=== PATIENT | female | born 1975 | race Caucasian/White ===

== ENCOUNTER 2017-07-09 14:40 | Emergency (ER) | payer MEDICAID, OTHER ==
[~2017-07-09] VITALS: Ht 152.4 cm; Wt 60.0 kg
[~2017-07-09 14:40] MED LIST: ADDE20XR PO; BUPR-197 PO; BUPR12MI SL; DOXY100T PO; HYDR-3533 PO; IBUP600 PO; KLON2TAB PO; SUBO8MIS SL; XANA1TAB6 PO
[2017-07-09 14:49] VITALS: BP 113/73; PULSE 86; RESP 14; TEMP 98.8; O2SAT 97
[2017-07-09] MEDS ORDERED: SODIUM CHLOR 0.9% 1000 ML INJ 1,000 ML IV ONE (14:52)
[2017-07-09] MEDS ORDERED: BUPR150XL PO (14:56)
[2017-07-09] MEDS ORDERED: SODIUM CHLORIDE 0.9% FLUSH 10 ML FLUSH IVF PRN (15:00)
[2017-07-09] MEDS ORDERED: NALOXONE HCL 2 MG/2 ML VIAL IVP PRN (15:00)
--- NOTE | 2017-07-09 15:01 | PD ---
HPI Chief Complaint: Medical Clearance Time Seen by Provider: 14:47 Travel History International Travel<30 days: No Contact w/Intl Traveler<30days: No Traveled to known affect area: No History of Present Illness HPI 41-year-old female presents via EMS with apparent narcotic overdose. Patient was found unresponsive with reports of active CPR prior to EMS arrival. Patient was given 5 mg Narcan with good results. Patient continues to be somewhat obtunded and tired. She is complaining of abdominal distention but no significant chest pain or difficulty breathing. She has obvious distention of the abdomen. She denies recent illness. She is a poor historian due to her current clinical condition. Patient is allergic to nicotine patch and penicillin. PFSH Past Medical History Hx Anticoagulant Therapy: No Asthma: No Autoimmune Disease: No Anxiety: Yes (PANIC ANXIETY DISORDER) Depression: Yes Cardiovascular Problems: No Chemotherapy: No COPD: No Cerebrovascular Accident: No Diabetes: No Diminished Hearing: No Fibromyalgia: Yes Headaches: Yes Hepatitis: Yes (HEP C) Musculoskeletal: Yes (FIBROMYALGIA) Respiratory: No : 1 Para: 1 Miscarriage: 0 : 0 Past Surgical History Section: Yes Other Surgery: Yes (NOSE) Social History Alcohol Use: No Tobacco Use: Yes (57 cigarettes/day) Substance Use: No Allergies-Medications (Allergen,Severity, Reaction): Coded Allergies: penicillin G (Unverified Allergy, Severe, ANAPHYLAXIS, 06/29/17) Uncoded Allergies: NICOTENE PATCH (Allergy, Severe, CAUSED AN ABSCESS, 08/23/12) Reported Meds & Prescriptions Reported Meds & Active Scripts Active Reported Wellbutrin Xl 24 HR (Bupropion HCl) 150 Mg Tab Unknown Dose PO DAILY Review of Systems ROS Limitations: Clinical Condition, Intoxication, Altered Mental Status, Poor Historian Except as stated in HPI: all other systems reviewed are Neg General / Constitutional: No: Fever Eyes: No: Visual changes HENT: No: Headaches Cardiovascular: No: Chest Pain or Discomfort Respiratory: No: Shortness of Breath Gastrointestinal: No: Abdominal Pain Genitourinary: No: Dysuria Musculoskeletal: No: Pain Skin: No Rash Neurologic: No: Weakness Psychiatric: No: Depression Endocrine: No: Polydipsia Hematologic/Lymphatic: No: Easy Bruising Physical Exam Exam Limitations: Intoxication, Altered Mental Status, Poor Historian Narrative GENERAL: Patient appears obtunded, arousable. Seems somewhat confused. No she' s in the hospital and her name. Patient states she does not recall taking drugs. SKIN: Warm and dry. Normal color. Normal turgor. No signs of trauma. HEAD: Atraumatic. Normocephalic. Nontender EYES: Pupils equal and round. No scleral icterus. No injection or drainage. ENT: No nasal bleeding or discharge. Mucous membranes pink and moist. Poor dental health. Pharynx clear. Airway patent. NECK: Trachea midline. Neck is supple. CARDIOVASCULAR: Regular rate and rhythm. No murmurs appreciated RESPIRATORY: No accessory muscle use. Clear to auscultation. Breath sounds equal bilaterally. GASTROINTESTINAL: Abdomen soft, non-tender, moderate generalized distention. Hepatic and splenic margins not palpable. MUSCULOSKELETAL: Extremities without clubbing, cyanosis, or edema. No obvious deformities. NEUROLOGICAL: Awake and alert. No obvious cranial nerve deficits. Motor grossly within normal limits. Five out of 5 muscle strength in the arms and legs. Normal speech. PSYCHIATRIC: Patient denies suicidal ideation. Further eval is deferred due to the patient's intoxicated status. Data Data Last Documented VS Vital Signs Date Time Temp Pulse Resp B/P (MAP) Pulse Ox O2 Delivery O2 Flow Rate FiO2 07/09/17 14:49 98.8 86 14 113/73 (86) 97 Orders Orders Electrocardiogram (07/09/17 14:52) Complete Blood Count With Diff (07/09/17 14:52) Comprehensive Metabolic Panel (07/09/17 14:52) Prothrombin Time / Inr (Pt) (07/09/17 14:52) Act Partial Throm Time (Ptt) (07/09/17 14:52) Urinalysis - C+S If Indicated (07/09/17 14:52) Chest, Single Ap (07/09/17 14:52) Iv Access Insert/Monitor (07/09/17 14:52) Cath For Specimen (07/09/17 14:52) Ecg Monitoring (07/09/17 14:52) Oximetry (07/09/17 14:52) Naloxone Inj (Narcan Inj) (07/09/17 15:00) Sodium Chloride 0.9% Flush (Ns Flush) (07/09/17 15:00) Sodium Chlor 0.9% 1000 Ml Inj (Ns 1000 M (07/09/17 14:52) Drug Screen, Random Urine (07/09/17 14:52) Ed Urine Pregnancytest Poc (07/09/17 14:52) Abdomen, Flat & Upright (07/09/17 ) Ct Abd/Pel W Iv Contrast(Rout) (07/09/17 15:44) Oral Contrast - Adult (07/09/17 16:00) Diatrizoate Liq (Md Orantes Liq) (07/09/17 17:12) Labs Laboratory Tests Test 07/09/17 15:13 White Blood Count 6.3 TH/MM3 Red Blood Count 3.96 MIL/MM3 Hemoglobin 12.1 GM/DL Hematocrit 36.6 % Mean Corpuscular Volume 92.3 FL Mean Corpuscular Hemoglobin 30.4 PG Mean Corpuscular Hemoglobin Concent 33.0 % Red Cell Distribution Width 14.7 % Platelet Count 177 TH/MM3 Mean Platelet Volume 8.1 FL Neutrophils (%) (Auto) 75.2 % Lymphocytes (%) (Auto) 16.3 % Monocytes (%) (Auto) 7.9 % Eosinophils (%) (Auto) 0.4 % Basophils (%) (Auto) 0.2 % Neutrophils # (Auto) 4.7 TH/MM3 Lymphocytes # (Auto) 1.0 TH/MM3 Monocytes # (Auto) 0.5 TH/MM3 Eosinophils # (Auto) 0.0 TH/MM3 Basophils # (Auto) 0.0 TH/MM3 CBC Comment DIFF FINAL Differential Comment Prothrombin Time 10.3 SEC Prothromb Time International Ratio 0.9 RATIO Activated Partial Thromboplast Time 26.0 SEC Blood Urea Nitrogen 12 MG/DL Creatinine 0.74 MG/DL Random Glucose 191 MG/DL Total Protein 7.1 GM/DL Albumin 3.4 GM/DL Calcium Level 8.3 MG/DL Alkaline Phosphatase 78 U/L Aspartate Amino Transf (AST/SGOT) 45 U/L Alanine Aminotransferase (ALT/SGPT) 31 U/L Total Bilirubin 0.8 MG/DL Sodium Level 140 MEQ/L Potassium Level 3.4 MEQ/L Chloride Level 107 MEQ/L Carbon Dioxide Level 23.5 MEQ/L Anion Gap 10 MEQ/L Estimat Glomerular Filtration Rate 86 ML/MIN MDM Medical Decision Making Medical Screen Exam Complete: Yes Emergency Medical Condition: Yes Differential Diagnosis Apparent overdose. Altered mental status. Need for Narcan. Abdominal distention. Narrative Course Patient is somewhat obtunded due to her clinical status. Repeat dose of Narcan 2 mg IV is administered. Labs ordered including CBC, CMP, and urinalysis. Coagulation studies ordered. Urine drug screen is ordered. Urine ordered. Chest x-ray and EKG are ordered. Abdominal x-ray flat and upright is ordered. Saline bolus of 1000 mL normal saline is ordered. EKG shows a normal sinus rhythm without ST changes. CBC is unremarkable. Coagulation studies are unremarkable. CMP significant for potassium 3.4, random glucose 191, calcium 8.3, AST slightly elevated at 45. Chest x-ray shows no significant findings or free air. Abdominal series shows a large air-filled ileus. Findings were discussed with Dr. Montano, who recommends placing an NG tube for decompression of the abdomen, and the CT scan. After one hour, the patient passed a lot of free air from her abdomen with relief of symptoms and distention. Patient is requesting to leave at this time. She is medically stable. She has been observed for approximately 3 hours with no recurrence of somnolence or decreased level of consciousness. Patient was discussed with Dr. Camara who indeed felt she was stable for discharge. Patient is to follow-up with Kwab[facility] for her substance abuse. Laboratory Tests Test 07/09/17 15:13 White Blood Count 6.3 TH/MM3 Red Blood Count 3.96 MIL/MM3 Hemoglobin 12.1 GM/DL Hematocrit 36.6 % Mean Corpuscular Volume 92.3 FL Mean Corpuscular Hemoglobin 30.4 PG Mean Corpuscular Hemoglobin Concent 33.0 % Red Cell Distribution Width 14.7 % Platelet Count 177 TH/MM3 Mean Platelet Volume 8.1 FL Neutrophils (%) (Auto) 75.2 % Lymphocytes (%) (Auto) 16.3 % Monocytes (%) (Auto) 7.9 % Eosinophils (%) (Auto) 0.4 % Basophils (%) (Auto) 0.2 % Neutrophils # (Auto) 4.7 TH/MM3 Lymphocytes # (Auto) 1.0 TH/MM3 Monocytes # (Auto) 0.5 TH/MM3 Eosinophils # (Auto) 0.0 TH/MM3 Basophils # (Auto) 0.0 TH/MM3 CBC Comment DIFF FINAL Differential Comment Prothrombin Time 10.3 SEC Prothromb Time International Ratio 0.9 RATIO Activated Partial Thromboplast Time 26.0 SEC Blood Urea Nitrogen 12 MG/DL Creatinine 0.74 MG/DL Random Glucose 191 MG/DL Total Protein 7.1 GM/DL Albumin 3.4 GM/DL Calcium Level 8.3 MG/DL Alkaline Phosphatase 78 U/L Aspartate Amino Transf (AST/SGOT) 45 U/L Alanine Aminotransferase (ALT/SGPT) 31 U/L Total Bilirubin 0.8 MG/DL Sodium Level 140 MEQ/L Potassium Level 3.4 MEQ/L Chloride Level 107 MEQ/L Carbon Dioxide Level 23.5 MEQ/L Anion Gap 10 MEQ/L Estimat Glomerular Filtration Rate 86 ML/MIN who felt that she is indeed stable for discharge at this time. Diagnosis Primary Impression: Opiate or related narcotic overdose Qualified Codes: T40.601A - Poisoning by unspecified narcotics, accidental ( unintentional), initial encounter Referrals: [facility] (Out patient) Patient Instructions: General Instructions, Narcotic Abuse (ED) Additional Instructions: After one hour, the patient passed a lot of free air from her abdomen with relief of symptoms and distention. Patient is requesting to leave at this time. She is medically stable. She has been observed for approximately 3 hours with no recurrence of somnolence or decreased level of consciousness. Patient was discussed with Dr. Camara who indeed felt she was stable for discharge. Patient is to follow-up with Kwab[facility] Ellis for her substance abuse. Med/Other Pt SpecificInfo: No Meds Exist/No RX given Condition: Stable Mick Torres Jul 09, 2017 15:01
[2017-07-09 15:39] LABS: AUTOMATED NEUTROPHIL # 4.7 TH/MM3 (1.8-7.7); BASOPHIL % 0.2 % (0.0-2.0); EOSINOPHIL % 0.4 % (0.0-4.0); HEMATOCRIT 36.6 % (35.0-46.0); HEMO FLAGS DIFF FINAL; LYMPH % 16.3 % (9.0-44.0); MEAN CELL VOLUME 92.3 FL (80.0-100.0); MEAN CORPUSCULAR HEMOGLOBIN 30.4 PG (27.0-34.0); MONO % 7.9 % (0.0-8.0); NEUT % 75.2 % (16.0-70.0); PLATELET COUNT 177 TH/MM3 (150-450); RED BLOOD COUNT 3.96 MIL/MM3 (4.00-5.30); RED CELL DISTRIBUTION WIDTH 14.7 % (11.6-17.2); WHITE BLOOD COUNT 6.3 TH/MM3 (4.0-11.0)
[2017-07-09 15:42] LABS: INTERNATIONAL NORMALIZED RATIO 0.9 RATIO; PROTHROMBIN TIME - PATIENT 10.3 SEC (9.8-11.6)
[2017-07-09 15:48] LABS: ALT (GPT) 31 U/L (10-53); ANION GAP 10 MEQ/L (5-15); AST (GOT) 45 U/L (15-37); BICARBONATE 23.5 MEQ/L (21.0-32.0); BLOOD UREA NITROGEN 12 MG/DL (7-18); CHLORIDE 107 MEQ/L (98-107); GLOMERULAR FILTRATION RATE 86 ML/MIN (>89); POTASSIUM 3.4 MEQ/L (3.5-5.1); SODIUM (NA) 140 MEQ/L (136-145)
[2017-07-09 15:50] LABS: ALKALINE PHOSPHATASE 78 U/L (45-117); TOTAL BILIRUBIN ADULT 0.8 MG/DL (0.2-1.0)
--- NOTE | 2017-07-09 16:04 | RADRPT ---
EXAM DATE/TIME: 07/09/2017 15:19 [facility] COMPARISON: CHEST SINGLE AP, August 08, 2016, 18:05. INDICATIONS : Syncopal episode today MEDICAL HISTORY : None. SURGICAL HISTORY : None. ENCOUNTER: Initial ACUITY: 1 day PAIN SCORE: 0/10 LOCATION: Bilateral chest FINDINGS: Portable AP view of the chest demonstrates a normal-sized cardiac silhouette. No effusion, consolidat ion, or pneumothorax is visualized. The bones and soft tissues demonstrate no acute abnormality. CONCLUSION: No acute abnormality. Gus Hamilton MD on July 09, 2017 at 16:02 Board Certified Radiologist. This report was verified electronically.
--- NOTE | 2017-07-09 16:05 | RADRPT ---
EXAM DATE/TIME: 07/09/2017 15:20 [facility] COMPARISON: No previous studies available for comparison. INDICATIONS : Abdominal pain starting today MEDICAL HISTORY : None. SURGICAL HISTORY : None. ENCOUNTER: Initial ACUITY: 1 day PAIN SCORE: 10/10 LOCATION: Bilateral abdomen FINDINGS: Supine and upright views of the abdomen demonstrate diffuse gaseous distention of the small bowel and colon. There is stool in the rectum. No organomegaly or concerning calcifications are identified. Tio faith demonstrate no acute finding. Upright image demonstrates no free intraperitoneal air or significa nt air-fluid level. CONCLUSION: Diffuse gaseous distention of the small bowel and colon. The pattern is suggestive of ileus. Less lik clark would be distal colon obstruction. There are no features to indicate small bowel obstruction. Gus Hamilton MD on July 09, 2017 at 16:02 Board Certified Radiologist. This report was verified electronically.
[2017-07-09] MEDS ORDERED: DIATRIZOATE MEGLUM/DIATRIZOATE SOD 9 ML CUP ONE (17:12)
[2017-07-09 17:40] VITALS: BP 116/79; PULSE 66; RESP 18; O2SAT 100
--- NOTE | 2017-07-10 18:36 | EKG ---
Date Performed: 07/09/2017 Time Performed: 15:08:22 PTAGE: 41 years EKG: Sinus rhythm NORMAL ECG PREVIOUS TRACING : 08/13/2015 17.31 Compared to prior tracing no significant change DOCTOR: Inocencio Marcos Interpretating Date/Time 07/10/2017 18:35:17
[2017-09-03] MEDS ORDERED: CEFT2INJ2 IV (13:46)
== END 2017-07-09 18:06 | disposition home or self-care (01) ==
LOC: NEPC 14:40
DX: T40.601A Poisoning by unspecified narcotics, accidental (unintentional), initial encounter (principal); R14.0 Abdominal distension (gaseous); M79.7 Fibromyalgia; B19.20 Unspecified viral hepatitis C without hepatic coma
CPT/HCPCS: 71010; 74020; 80053; 84703; 85025; 85610; 85730; 93005; 96360; 96361; 99285; J7030; Q9963

== ENCOUNTER 2017-08-19 10:01 | Emergency (ER) | payer SELFPAY ==
[~2017-08-19] VITALS: Ht 162.6 cm; Wt 50.0 kg
[~2017-08-19 10:01] MED LIST changes: -ADDE20XR PO; -BUPR-197 PO; -BUPR12MI SL; +BUPR150XL PO; -DOXY100T PO; -HYDR-3533 PO; -IBUP600 PO; -KLON2TAB PO; -SUBO8MIS SL; -XANA1TAB6 PO
[2017-08-19 10:02] VITALS: BP 101/70; PULSE 128; RESP 24; TEMP 97.6; O2SAT 97
[2017-08-19] MEDS ORDERED: ADDE30TA PO (10:23)
[2017-08-19] MEDS ORDERED: BUPR150XL PO (10:23)
[2017-08-19] MEDS ORDERED: CLIN1CAP6 PO (10:43)
[2017-08-19 11:20] LABS: HEMATOCRIT 35.1 % (35.0-46.0); MEAN CORPUSCULAR HEMOGLOBIN 31.5 PG (27.0-34.0); PLATELET COUNT 158 TH/MM3 (150-450); RED CELL DISTRIBUTION WIDTH 15.1 % (11.6-17.2); WHITE BLOOD COUNT 14.1 TH/MM3 (4.0-11.0)
[2017-08-19 11:23] LABS: HEMO FLAGS AUTO DIFF
--- NOTE | 2017-08-19 11:29 | PD ---
HPI Chief Complaint: Skin Problem Time Seen by Provider: 10:12 Travel History International Travel<30 days: No Contact w/Intl Traveler<30days: No Traveled to known affect area: No History of Present Illness HPI Ms. De La Cruz is a 41-year-old female with past medical history of ADHD, clinical depression, anxiety, fibromyalgia presenting today with pain in her left foot. She states that 3 days ago, Wednesday night, she began to have pain in her left foot. She has past diagnosis of fibromyalgia which she manages with diet and exercise so she figured this pain was her typical arthralgia. However the next morning her foot started swelling and the veins were popping out in her foot. After seeing that she thought she had an infection so she sanitized a safety plan with bleach and poked her foot with it. That did not work so she took tried a thumb tack also sanitized with bleach which released thick smelly blood. No pus. She did the same thing the next day (yesterday). She says the blood wasn't as smelly. She feels like something is running up her femoral vein. She thinks an infection is going up her vein to her kidneys and her brain. She has been unable to move around and has been carried around the house by her boyfriend. She also took some of her friend's [place]. She request IV antibiotics and pain medication. She admits to a history of IV drug use in the past. She used black tar heroin, but since having her last child a year ago she has not used. PFSH Past Medical History Hx Anticoagulant Therapy: No Asthma: No Autoimmune Disease: No Anxiety: Yes (PANIC ANXIETY DISORDER) Depression: Yes Cardiovascular Problems: No Chemotherapy: No COPD: No Cerebrovascular Accident: No Diabetes: No Diminished Hearing: No Fibromyalgia: Yes Headaches: Yes Hepatitis: Yes (HEP C) Musculoskeletal: Yes (FIBROMYALGIA) Respiratory: No ?: Not : 2 Para: 2 Miscarriage: 0 : 0 Past Surgical History Section: Yes Other Surgery: Yes (NOSE) Social History Alcohol Use: No Tobacco Use: Yes (/2 ppd) Substance Use: Yes Allergies-Medications (Allergen,Severity, Reaction): Coded Allergies: penicillin G (Unverified Allergy, Severe, ANAPHYLAXIS, 08/19/17) Reported Meds & Prescriptions Reported Meds & Active Scripts Active Clindamycin (Clindamycin HCl) 300 Mg Cap 300 Mg PO TID 10 Days Reported Wellbutrin Xl 24 HR (Bupropion HCl) 150 Mg Tab 150 Mg PO DAILY Adderall (Amphetamine-Dextroamphetamine) 30 Mg Tab 30 Mg PO BID Avoid late evening doses. Space doses at least 4 to 6 hours if more than once/day dosing. Review of Systems Genitourinary: Positive: Flank Pain Musculoskeletal: Positive: Arthralgias Physical Exam Narrative GENERAL: Well-nourished, well-developed patient. SKIN: Warm and dry. Left foot: erythema, edema, and warmth of medial and lateral aspect of foot. Several pin prick sized scabs on medial and lateral foot. HEAD: Normocephalic. EYES: No scleral icterus. No injection or drainage. CARDIOVASCULAR: Regular rate and rhythm without murmurs, gallops, or rubs. RESPIRATORY: Breath sounds equal bilaterally. No accessory muscle use. GASTROINTESTINAL: Abdomen soft, epigastric tenderness, nondistended. EXTREMITIES: No cyanosis, or edema. NEUROLOGICAL: Awake, alert. Non-focal. Data Data Last Documented VS Vital Signs Date Time Temp Pulse Resp B/P (MAP) Pulse Ox O2 Delivery O2 Flow Rate FiO2 08/19/17 10:02 97.6 128 24 101/70 (80) 97 Orders Orders Complete Blood Count With Diff (08/19/17 10:38) Blood Culture (08/19/17 10:38) Ketorolac Inj (Toradol Inj) (08/19/17 12:00) Clindamycin Inj (Cleocin Inj) (08/19/17 12:00) Vascular Access Team Consult/P PRN (08/19/17 11:25) Vascular Access Team Consult/P PRN (08/19/17 11:26) Vascular Poc Ultrasound (08/19/17 ) Ondansetron Inj (Zofran Inj) (08/19/17 12:37) Prochlorperazine Inj (Compazine Inj) (08/19/17 12:45) Labs Laboratory Tests Test 08/19/17 11:00 White Blood Count 14.1 TH/MM3 Red Blood Count 3.90 MIL/MM3 Hemoglobin 12.3 GM/DL Hematocrit 35.1 % Mean Corpuscular Volume 90.0 FL Mean Corpuscular Hemoglobin 31.5 PG Mean Corpuscular Hemoglobin Concent 35.0 % Red Cell Distribution Width 15.1 % Platelet Count 158 TH/MM3 Mean Platelet Volume 8.9 FL CBC Comment AUTO DIFF Differential Total Cells Counted 100 Neutrophils % (Manual) 78 % Band Neutrophils % 12 % Lymphocytes % 6 % Monocytes % 4 % Neutrophils # (Manual) 12.7 TH/MM3 Differential Comment FINAL DIFF MANUAL Atypical Lymphocytes % MDM Medical Decision Making Medical Screen Exam Complete: Yes Emergency Medical Condition: Yes Differential Diagnosis cellulitis vs abscess vs contusion Narrative Course 41yo WF with a PMH of fibromyalgia, depression, ADHD, and anxiety presenting with left foot cellulitis. Physical exam shows edema, erythema, and warmth of left foot. -CBC -IM toradol for pain -IV Clinda x1 -Rx for Clindamycin to take as outpatient Seen and discussed with- Signed out to Dr. De Luna Diagnosis Primary Impression: Cellulitis of left foot Patient Instructions: Cellulitis (ED), General Instructions Med/Other Pt SpecificInfo: Prescription(s) given Scripts Ketorolac (Ketorolac) 10 Mg Tab 10 MG PO BID for Pain Management for 5 Days, #10 TAB 0 Refills Prov: Alona Hoyos MD R1 08/19/17 Clindamycin (Clindamycin) 300 Mg Cap 300 MG PO TID for Infection for 10 Days, #30 CAP 0 Refills Prov: Alona Hoyos MD R1 08/19/17 Disposition: 01 DISCHARGE HOME Condition: Stable Alona Hoyos MD R1 Aug 19, 2017 10:58
[2017-08-19] MEDS ORDERED: CLINDAMYCIN INJ 900 MG in SODIUM CHLORIDE 0.9% INJ 100 ML IV ONE (12:00)
[2017-08-19] MEDS ORDERED: KETOROLAC TROMETHAMINE 60 MG/2 ML (IM) VIAL IM ONE (12:00)
[2017-08-19 12:01] LABS: BANDS 12 % (0-6); NEUTROPHIL # MANUAL DIFF 12.7 TH/MM3 (1.8-7.7); POLYS (SEG NEUTROPHILS) 78 % (16-70); SCAN/DIFF FINAL DIFF MANUAL; WBC DIFF SAMPLE 100
--- NOTE | 2017-08-19 12:22 | PD ---
Physical Exam Date Seen by Provider: Aug 19, 2017 Time Seen by Provider: 11:00 Narrative I am seeing this patient with Dr. Alona Hoyos, family practice resident. The patient presents today with complaints of redness and pain to her lateral and medial left foot. Patient states that she poked it with a needle because she thought she had old in veins. She states that when she poked the vein, she noted some foul-smelling venous blood coming from the wound. She denies any fevers, chills. She states that the redness is painful and it makes it difficult for her to walk. She denies any calf tenderness. She does report that the pain goes from her foot all the way to the top of her head. She is concerned she may have bacteria in her blood. The patient does have a history of substance abuse. She denies any IVD drug use at this point. Data Data Last Documented VS Vital Signs Date Time Temp Pulse Resp B/P (MAP) Pulse Ox O2 Delivery O2 Flow Rate FiO2 08/19/17 10:02 97.6 128 24 101/70 (80) 97 Orders Orders Complete Blood Count With Diff (08/19/17 10:38) Blood Culture (08/19/17 10:38) Ketorolac Inj (Toradol Inj) (08/19/17 12:00) Clindamycin Inj (Cleocin Inj) (08/19/17 12:00) Vascular Access Team Consult/P PRN (08/19/17 11:25) Vascular Access Team Consult/P PRN (08/19/17 11:26) Vascular Poc Ultrasound (08/19/17 ) Ondansetron Inj (Zofran Inj) (08/19/17 12:37) Prochlorperazine Inj (Compazine Inj) (08/19/17 12:45) Labs Laboratory Tests Test 08/19/17 11:00 White Blood Count 14.1 TH/MM3 Red Blood Count 3.90 MIL/MM3 Hemoglobin 12.3 GM/DL Hematocrit 35.1 % Mean Corpuscular Volume 90.0 FL Mean Corpuscular Hemoglobin 31.5 PG Mean Corpuscular Hemoglobin Concent 35.0 % Red Cell Distribution Width 15.1 % Platelet Count 158 TH/MM3 Mean Platelet Volume 8.9 FL CBC Comment AUTO DIFF Differential Total Cells Counted 100 Neutrophils % (Manual) 78 % Band Neutrophils % 12 % Lymphocytes % 6 % Monocytes % 4 % Neutrophils # (Manual) 12.7 TH/MM3 Differential Comment FINAL DIFF MANUAL Atypical Lymphocytes % MDM Medical Record Reviewed: Yes Supervised Visit with BRIDGET: No Narrative Course 41-year-old female presents with left foot redness and pain. The patient has what appears to be obvious cellulitis. The patient has been given 900 mg of IVD clindamycin. She'll be discharged with oral clindamycin 10 days. The patient is also been given IVD Toradol. She'll be discharged with a prescription for Toradol for 5 days. She is instructed to keep it elevated. She's also instructed to return for wound check in 24 hours. Diagnosis Primary Impression: Cellulitis of left foot Patient Instructions: General Instructions, Cellulitis (ED) Additional Instruction: Return if worse. Repeat wound check in 24-36 hours. Med/Other Pt SpecificInfo: Prescription(s) given Scripts Ketorolac (Ketorolac) 10 Mg Tab 10 MG PO BID for Pain Management for 5 Days, #10 TAB 0 Refills Prov: Alona Hoyos MD R1 08/19/17 Clindamycin (Clindamycin) 300 Mg Cap 300 MG PO TID for Infection for 10 Days, #30 CAP 0 Refills Prov: Alona Hoyos MD R1 08/19/17 Disposition: 01 DISCHARGE HOME Condition: Stable Robby De Luna MD Aug 19, 2017 12:22
[2017-08-19] MEDS ORDERED: ONDANSETRON HCL 4 MG/2 ML VIAL ONE (12:37)
[2017-08-19] MEDS ORDERED: PROCHLORPERAZINE INJ 10 MG/2 ML VIAL IV PUSH ONE (12:45)
[2017-08-19] MEDS ORDERED: KETO10 PO (14:06)
[2017-08-19 15:41] VITALS: BP 94/66; PULSE 97; RESP 18; TEMP 98.3; O2SAT 99
[2017-09-03] MEDS ORDERED: CEFT2INJ2 IV (13:46)
== END 2017-08-19 17:38 | disposition home or self-care (01) ==
LOC: NEPE 10:01
DX: L03.116 Cellulitis of left lower limb (principal); Z72.0 Tobacco use; B95.0 Streptococcus, group A, as the cause of diseases classified elsewhere; B96.89 Other specified bacterial agents as the cause of diseases classified elsewhere
CPT/HCPCS: 76937; 85007; 85027; 87040; 87186; 87205; 96365; 96372; 96375; 99285; J0780; J1885; J2405

== ENCOUNTER 2017-08-26 17:18 | Inpatient (IN) | payer SELFPAY ==
[~2017-08-26] VITALS: Ht 162.6 cm; Wt 55.0 kg
[~2017-08-26 17:18] MED LIST changes: +ADDE30TA PO; +CLIN1CAP6 PO; +KETO10 PO
[2017-08-26 17:30] VITALS: BP 111/80; PULSE 103; RESP 18; TEMP 98.3; O2SAT 100
[2017-08-26] MEDS ORDERED: ACETAMINOPHEN 325 MG TAB PO ONE (18:45)
--- NOTE | 2017-08-26 19:28 | RADRPT ---
EXAM DATE/TIME: 08/26/2017 19:03 [facility] COMPARISON: No previous studies available for comparison. INDICATIONS : Left leg swelling. MEDICAL HISTORY : Fibromyalgia. Depression. Anxiety. Hepatitis C. Heroin abuse. SURGICAL HISTORY : section. ENCOUNTER: Initial ACUITY: 2 months PAIN SCORE: 7/10 LOCATION: Left leg. TECHNIQUE: Venous ultrasound of the leg was performed from the inguinal ligament to the proximal calf. Real-maria esther e, color Doppler and spectral tracing, compression and augmentation techniques were used. FINDINGS: There is extensive deep venous thrombosis extending from the right common femoral vein through the bi furcation of the right peroneal vein. There is some blood flow above and below the deep venous thromb osis. CONCLUSION: 1. Extensive deep venous thrombosis involving the right femoral vein and popliteal vein. Neel Cantu MD on August 26, 2017 at 19:24 Board Certified Radiologist. This report was verified electronically.
[2017-08-26 19:29] LABS: AUTOMATED NEUTROPHIL # 7.3 TH/MM3 (1.8-7.7); BASOPHIL % 0.3 % (0.0-2.0); EOSINOPHIL # 0.1 TH/MM3 (0-0.4); EOSINOPHIL % 1.2 % (0.0-4.0); HEMATOCRIT 33.4 % (35.0-46.0); HEMO FLAGS DIFF FINAL; LYMPH % 20.6 % (9.0-44.0); LYMPHOCYTE # 2.1 TH/MM3 (1.0-4.8); MEAN CELL VOLUME 90.5 FL (80.0-100.0); MEAN CORPUSCULAR HEMOGLOBIN 30.3 PG (27.0-34.0); MEAN CORPUSCULAR HGB CONC 33.5 % (32.0-36.0); MONO % 7.3 % (0.0-8.0); NEUT % 70.6 % (16.0-70.0); PLATELET COUNT 664 TH/MM3 (150-450); RED BLOOD COUNT 3.69 MIL/MM3 (4.00-5.30); RED CELL DISTRIBUTION WIDTH 15.6 % (11.6-17.2); WHITE BLOOD COUNT 10.3 TH/MM3 (4.0-11.0)
[2017-08-26] MEDS ORDERED: VANCOMYCIN INJ 1,000 MG in SODIUM CHLOR 0.9% 250 ML INJ 250 ML IV ONE (19:45)
--- NOTE | 2017-08-26 19:50 | PD ---
HPI Chief Complaint: Skin Problem Time Seen by Provider: 18:08 Travel History International Travel<30 days: No Contact w/Intl Traveler<30days: No Traveled to known affect area: No History of Present Illness HPI 41-year-old female with history of IVDA presents to the emergency room after being called and told that she had 4/4 positive blood cultures and needed to return for IV antibiotics. Patient was seen in the emergency room on August 19 and diagnosed with cellulitis of the left foot. Discharged with prescription for clindamycin. Patient states she has been taking 4 pills a day since discharge without improvement symptoms. She reports "low-grade" fevers but has not actually taken her temperature. She has associated nausea, decreased appetite, and malaise. She was called several days ago and told to come in but had no ride. States she finally called ambulance today because the pain in her leg was too severe. She has been taking 4-5 BC powders daily without any relief in symptoms. Patient has not been able to ambulate and has had to crawl to the bathroom or have her boyfriend carry her. Patient admitted to me that initial onset of symptoms occurred a few days after injecting methamphetamine and heroin into her left lower extremity. Patient only takes medication for depression and anxiety. PFSH Past Medical History Hx Anticoagulant Therapy: No ADD: Yes Asthma: No Autoimmune Disease: No Anxiety: Yes (PANIC ANXIETY DISORDER) Depression: Yes Cardiovascular Problems: No Chemotherapy: No COPD: No Cerebrovascular Accident: No Diabetes: No Diminished Hearing: No Fibromyalgia: Yes Headaches: Yes Hepatitis: Yes (HEP C) Musculoskeletal: Yes (FIBROMYALGIA) Respiratory: No ?: Unknown LMP: august 2017 : 2 Para: 2 Miscarriage: 0 : 0 Past Surgical History Section: Yes Other Surgery: Yes (NOSE) Social History Alcohol Use: No Tobacco Use: Yes (pack a day ) Substance Use: Yes (opiods ) Allergies-Medications (Allergen,Severity, Reaction): Coded Allergies: penicillin G (Unverified Allergy, Severe, ANAPHYLAXIS, 08/26/17) Reported Meds & Prescriptions Reported Meds & Active Scripts Active Clindamycin (Clindamycin HCl) 300 Mg Cap 300 Mg PO TID 10 Days Reported Wellbutrin Xl 24 HR (Bupropion HCl) 150 Mg Tab 150 Mg PO DAILY Adderall (Amphetamine-Dextroamphetamine) 30 Mg Tab 30 Mg PO BID Avoid late evening doses. Space doses at least 4 to 6 hours if more than once/day dosing. Review of Systems Except as stated in HPI: all other systems reviewed are Neg Physical Exam Narrative GENERAL: Well-nourished, well-developed female in no acute distress. Afebrile. SKIN: Focused skin assessment warm/dry. No significant erythema, induration, or fluctuance. HEAD: Normocephalic. EYES: No scleral icterus. No injection or drainage. NECK: Supple, trachea midline. No JVD or lymphadenopathy. CARDIOVASCULAR: Regular rate and rhythm without murmurs, gallops, or rubs. RESPIRATORY: Breath sounds equal bilaterally. No accessory muscle use. MSK: Left lower extremity with 2+ pitting edema. Bounding 2+ dorsalis pedis pulse. Positive Homans test. Full range of motion of left lower extremity. Data Data Last Documented VS Vital Signs Date Time Temp Pulse Resp B/P (MAP) Pulse Ox O2 Delivery O2 Flow Rate FiO2 08/26/17 17:30 98.3 103 18 111/80 (90) 100 Orders Orders Electrocardiogram (08/26/17 18:35) Complete Blood Count With Diff (08/26/17 18:35) Comprehensive Metabolic Panel (08/26/17 18:35) Lactic Acid Sepsis Protocol (08/26/17 18:35) Blood Culture (08/26/17 18:35) Ecg Monitoring (08/26/17 18:35) Iv Access Insert/Monitor (08/26/17 18:35) Acetaminophen (Tylenol) (08/26/17 18:45) Us Leg Venous Doppler (08/26/17 ) Vancomycin Inj (Vancomycin Inj) (08/26/17 19:45) Enoxaparin Inj (Lovenox Inj) (08/26/17 20:15) Admit Order (Ed Use Only) (08/26/17 ) Body Bumper / Telemetry LOLLY.Q8H (08/26/17 20:33) Vital Signs (Adult) Q4H (08/26/17 20:33) Diet Heart Healthy (08/27/17 Breakfast) Activity Oob With Assistance (08/26/17 20:33) Notify Dr: Other (08/26/17 20:33) Labs Laboratory Tests Test 08/26/17 19:00 White Blood Count 10.3 TH/MM3 Red Blood Count 3.69 MIL/MM3 Hemoglobin 11.2 GM/DL Hematocrit 33.4 % Mean Corpuscular Volume 90.5 FL Mean Corpuscular Hemoglobin 30.3 PG Mean Corpuscular Hemoglobin Concent 33.5 % Red Cell Distribution Width 15.6 % Platelet Count 664 TH/MM3 Mean Platelet Volume 7.1 FL Neutrophils (%) (Auto) 70.6 % Lymphocytes (%) (Auto) 20.6 % Monocytes (%) (Auto) 7.3 % Eosinophils (%) (Auto) 1.2 % Basophils (%) (Auto) 0.3 % Neutrophils # (Auto) 7.3 TH/MM3 Lymphocytes # (Auto) 2.1 TH/MM3 Monocytes # (Auto) 0.8 TH/MM3 Eosinophils # (Auto) 0.1 TH/MM3 Basophils # (Auto) 0.0 TH/MM3 CBC Comment DIFF FINAL Differential Comment Blood Urea Nitrogen 13 MG/DL Creatinine 0.66 MG/DL Random Glucose 98 MG/DL Total Protein 8.4 GM/DL Albumin 2.6 GM/DL Calcium Level 9.5 MG/DL Alkaline Phosphatase 103 U/L Aspartate Amino Transf (AST/SGOT) 21 U/L Alanine Aminotransferase (ALT/SGPT) 20 U/L Total Bilirubin 0.3 MG/DL Sodium Level 138 MEQ/L Potassium Level 3.6 MEQ/L Chloride Level 106 MEQ/L Carbon Dioxide Level 24.6 MEQ/L Anion Gap 7 MEQ/L Estimat Glomerular Filtration Rate 99 ML/MIN Lactic Acid Level 0.9 mmol/L MDM Medical Decision Making Medical Screen Exam Complete: Yes Emergency Medical Condition: Yes Medical Record Reviewed: Yes Differential Diagnosis Cellulitis, positive blood cultures, sepsis, DVT, abscess Narrative Course 41-year-old female with history of IVDA presents to the emergency room after being called and told that she has 4/4 positive blood cultures. Patient was called several days ago but could not find a ride to the emergency room. She has felt unwell since discharge but has been taking clindamycin as directed. Patient admitted to me that she injected in her foot prior to onset of left lower extremity pain and edema. Reports associated "low-grade" fevers. She is afebrile and well-appearing in the emergency room. Vital signs stable. Physical exam reveals 2+ pitting edema of the left knee with bounding 2+ dorsalis pedis pulse. Patient has full range of motion of the leg extreme tenderness to palpation and positive Homans sign. Ultrasound shows extensive femoral and popliteal DVT. EKG shows sinus tachycardia with a rate of 104. No ST changes. Previous blood cultures show sensitivity to vancomycin. New cultures and sepsis protocol ordered. CBC is unremarkable. Patient was started on vancomycin and given 50 subcutaneous Lovenox. Patient will be admitted for bacteremia and DVT. Physician Communication Physician Communication I spoke to Dr. Jeffers who agrees to accept this patient to his service. Diagnosis Primary Impression: Bacteremia Additional Impression: DVT (deep venous thrombosis) Qualified Codes: I82.412 - Acute embolism and thrombosis of left femoral vein Condition: Stable Tarah Wheeler Aug 26, 2017 19:50
[2017-08-26 20:09] LABS: ANION GAP 7 MEQ/L (5-15); AST (GOT) 21 U/L (15-37); BICARBONATE 24.6 MEQ/L (21.0-32.0); BLOOD UREA NITROGEN 13 MG/DL (7-18); CHLORIDE 106 MEQ/L (98-107); GLOMERULAR FILTRATION RATE 99 ML/MIN (>89); POTASSIUM 3.6 MEQ/L (3.5-5.1); SODIUM (NA) 138 MEQ/L (136-145)
[2017-08-26 20:10] LABS: ALT (GPT) 20 U/L (10-53)
[2017-08-26 20:12] LABS: ALKALINE PHOSPHATASE 103 U/L (45-117); TOTAL BILIRUBIN ADULT 0.3 MG/DL (0.2-1.0)
[2017-08-26] MEDS ORDERED: ENOXAPARIN SODIUM 60 MG/0.6 ML SYRINGE SQ ONE (20:15)
[2017-08-26] MEDS ORDERED: NALOXONE HCL 0.4 MG/ML AMP IV PUSH PRN (20:45)
[2017-08-26] MEDS ORDERED: ENOXAPARIN SODIUM 40 MG/0.4 ML SYRINGE SQ SCH (20:45)
[2017-08-26] MEDS ORDERED: SODIUM CHLORIDE 0.9% FLUSH 10 ML FLUSH IV FLUSH PRN (20:45)
[2017-08-26] MEDS ORDERED: MAGNESIUM HYDROXIDE SUSP 30 ML CUP PO PRN (20:45)
[2017-08-26] MEDS ORDERED: oxyCODONE/ACETAMINOPHEN 5 MG/325 MG TAB PO PRN (20:45)
[2017-08-26] MEDS ORDERED: ONDANSETRON HCL 4 MG/2 ML VIAL IVP PRN (20:45)
[2017-08-26] MEDS ORDERED: Vancomycin Consult Pharmacy 1 EA OTHER SCH (20:45)
--- NOTE | 2017-08-26 21:05 | HHI.HP ---
HPI Service [facility] Primary Care Physician No Primary Care Physician Admission Diagnosis bacteremia, DVT Diagnoses: Chief Complaint: left leg pain, positive blood cultures Travel History International Travel<30 Days: No Contact w/Intl Traveler <30 Da: No Traveled to Known Affected Are: No History of Present Illness Written by FARIDEH Perez acting as scribe for Dr. Riley] on 08/26/17 at 20:57. 41 y/o female with a history of IVDA, depression, and HEP C was called and told to come brought back to the ED because she had 4/4 positive blood cultures with Group A beta strep and Viridans Streptococcus on 08/19/17. She also is complaining of pain in her left leg. She states she has been having off and on fever and chills at home. She does say she has also been having shortness of breath lately. She is currently not having shortness of breath. Review of Systems Except as stated in HPI: all other systems reviewed are Neg Past Family Social History Past Medical History IVDA Hep C Depression Past Surgical History C Section Reported Medications Reported Meds & Active Scripts Active Clindamycin (Clindamycin HCl) 300 Mg Cap 300 Mg PO TID 10 Days Reported Wellbutrin Xl 24 HR (Bupropion HCl) 150 Mg Tab 150 Mg PO DAILY Adderall (Amphetamine-Dextroamphetamine) 30 Mg Tab 30 Mg PO BID Avoid late evening doses. Space doses at least 4 to 6 hours if more than once/day dosing. Allergies: Coded Allergies: penicillin G (Unverified Allergy, Severe, ANAPHYLAXIS, 08/26/17) Active Ordered Medications Current Medications Medications (Trade) Dose Ordered Sig/Sherita Route Start Time Stop Time Status Last Admin Sodium Chloride 1,000 ml @ 100 mls/hr Q10H IV 08/26/17 20:37 (NS Flush) 2 ml UNSCH PRN IV FLUSH 08/26/17 20:45 (NS Flush) 2 ml BID IV FLUSH 08/26/17 21:00 (Zofran Inj) 4 mg Q6H PRN IVP 08/26/17 20:45 (Percocet 5-325 Mg) 1 tab Q6H PRN PO 08/26/17 20:45 (Percocet 10-325 Mg) 1 tab Q6H PRN PO 08/26/17 20:45 (Narcan Inj) 0.4 mg UNSCH PRN IV PUSH 08/26/17 20:45 (Candy-Colace) 1 tab BID PO 08/26/17 21:00 (Milk Of Magnesia Liq) 30 ml Q12H PRN PO 08/26/17 20:45 (Lovenox Inj) 50 mg Q12H SQ 08/27/17 08:00 Vancomycin HCl 1000 mg/Sodium Chloride 250 ml @ 250 mls/hr Q12H IV 08/27/17 10:00 UNV Pharmacy Profile Note 0 ml @ 0 mls/hr UNSCH OTHER 08/26/17 20:45 UNV Family History Dad: CVA Mom: DM Social History Tobacco use: 1 PPD Alcohol use: Denies Illicit drug use: IVDA Physical Exam Vital Signs Vital Signs Date Time Temp Pulse Resp B/P (MAP) Pulse Ox O2 Delivery O2 Flow Rate FiO2 08/26/17 17:30 98.3 103 18 111/80 (90) 100 Physical Exam GENERAL: This is a thin, unkept patient in no apparent distress. SKIN: Left lower extremity with redness and swelling HEAD: Atraumatic. Normocephalic. EYES: Pupils equal round and reactive. ENT: Nose without bleeding, purulent drainage or septal hematoma. Airway patent. Poor dental hygiene NECK: Trachea midline. No JVD CARDIOVASCULAR: Regular rate and rhythm without murmurs, gallops, or rubs. RESPIRATORY: Clear to auscultation. Breath sounds equal bilaterally. No wheezes , rales, or rhonchi. GASTROINTESTINAL: Abdomen soft, non-tender, nondistended. No hepato-splenomegaly , or palpable masses. No guarding. MUSCULOSKELETAL: Left lower extremity edema No joint tenderness, effusion, or edema noted. Left calf tenderness. NEUROLOGICAL: Awake and alert. Motor and sensory grossly within normal limits. Normal speech. Laboratory Laboratory Tests Test 08/26/17 19:00 White Blood Count 10.3 Red Blood Count 3.69 Hemoglobin 11.2 Hematocrit 33.4 Mean Corpuscular Volume 90.5 Mean Corpuscular Hemoglobin 30.3 Mean Corpuscular Hemoglobin Concent 33.5 Red Cell Distribution Width 15.6 Platelet Count 664 Mean Platelet Volume 7.1 Neutrophils (%) (Auto) 70.6 Lymphocytes (%) (Auto) 20.6 Monocytes (%) (Auto) 7.3 Eosinophils (%) (Auto) 1.2 Basophils (%) (Auto) 0.3 Neutrophils # (Auto) 7.3 Lymphocytes # (Auto) 2.1 Monocytes # (Auto) 0.8 Eosinophils # (Auto) 0.1 Basophils # (Auto) 0.0 CBC Comment DIFF FINAL Differential Comment Blood Urea Nitrogen 13 Creatinine 0.66 Random Glucose 98 Total Protein 8.4 Albumin 2.6 Calcium Level 9.5 Alkaline Phosphatase 103 Aspartate Amino Transf (AST/SGOT) 21 Alanine Aminotransferase (ALT/SGPT) 20 Total Bilirubin 0.3 Sodium Level 138 Potassium Level 3.6 Chloride Level 106 Carbon Dioxide Level 24.6 Anion Gap 7 Estimat Glomerular Filtration Rate 99 Lactic Acid Level 0.9 Date/Time Source Procedure Growth Status 08/26/17 19:00 Blood Peripheral Aerobic Blood Culture Pending Received 08/26/17 19:00 Blood Peripheral Anaerobic Blood Culture Pending Received Result Diagram: 08/26/17189908/26/171899 Caprini VTE Risk Assessment Caprini VTE Risk Assessment: Mod/High Risk (score >= 2) Caprini Risk Assessment Model Point Value = 1 Point Value = 2 Point Value = 3 Point Value = 5 Age 41-60 Minor surgery BMI > 25 kg/m2 Swollen legs Varicose veins or History of unexplained or recurrent spontaneous Oral contraceptives or hormone replacement Sepsis (< 1 month) Serious lung disease, including pneumonia (< 1 month) Abnormal pulmonary function Acute myocardial infarction Congestive heart failure (< 1 month) History of inflammatory bowel disease Medical patient at bed rest Age 61-74 Arthroscopic surgery Major open surgery (> 45 min) Laparoscopic surgery (> 45 min) Malignancy Confined to bed (> 72 hours) Immobilizing plaster cast Central venous access Age >= 75 History of VTE Family history of VTE Factor V Leiden Prothrombin [id number] Lupus anticoagulant Anticardiolipin antibodies Elevated serum homocysteine Heparin-induced thrombocytopenia Other congenital or acquired thrombophilia Stroke (< 1 month) Elective arthroplasty Hip, pelvis, or leg fracture Acute spinal cord injury (< 1 month) Prophylaxis Regimen Total Risk Factor Score Risk Level Prophylaxis Regimen 0-1 Low Early ambulation 2 Moderate Order ONE of the following: *Sequential Compression Device (SCD) *Heparin 5000 units SQ BID 3-4 Higher Order ONE of the following medications: *Heparin 5000 units SQ TID *Enoxaparin/Lovenox 40 mg SQ daily (WT < 150 kg, CrCl > 30 mL/min) *Enoxaparin/Lovenox 30 mg SQ daily (WT < 150 kg, CrCl > 10-29 mL/min) *Enoxaparin/Lovenox 30 mg SQ BID (WT < 150 kg, CrCl > 30 mL/min) AND/OR *Sequential Compression Device (SCD) 5 or more Highest Order ONE of the following medications: *Heparin 5000 units SQ TID (Preferred with Epidurals) *Enoxaparin/Lovenox 40 mg SQ daily (WT < 150 kg, CrCl > 30 mL/min) *Enoxaparin/Lovenox 30 mg SQ daily (WT < 150 kg, CrCl > 10-29 mL/min) *Enoxaparin/Lovenox 30 mg SQ BID (WT < 150 kg, CrCl > 30 mL/min) AND *Sequential Compression Device (SCD) Assessment and Plan Problem List: (1) DVT (deep venous thrombosis) ICD Code: I82.409 - Acute embolism and thrombosis of unspecified deep veins of unspecified lower extremity Status: Acute (2) Bacteremia ICD Code: R78.81 - Bacteremia Status: Acute Assessment and Plan 41 y/o female with a history of IVDA and HEP C was called and told to come brought back to the ED because she had 4/4 positive blood cultures with Group A beta strep and Viridans Streptococcus on 08/19/17. Bacteremia, 4/4 positive blood cultures on 08/19/17 resulted in Group A beta strep and Viridans Streptococcus -IV antibiotics Vancomycin and Zosyn -2D echo ordered to r/o endocarditis -Consult ID for recommendations -Blood cultures pending -HIV testing, patient wants to be tested for it DVT, acute, Left US Lower extremity reviewed and shows DVT to the left femoral vein and popliteal vein -Lovenox therapeutic dose ordered. -Pain management with PO Percocet Depression, chronic -Resume home medications Tobacco abuse and IVDA abuse -Encouraged to quit -Nicotine patch ordered DVT prophylaxis: Lovenox This note was transcribed by [email or web address] [Ghazal Panchal]. I, Dr. Geovany Jeffers personally performed the history, physical exam, and medical decision making; and confirmed the accuracy of the information in the transcribed note. Authenticated by Dr. Geovany Jeffers on 08/26/17 at 21:59. Discussed Condition With Patient and ED physician Physician Certification 2 Midnight Certification Type: Admission for Inpatient Services Order for Inpatient Services The services are ordered in accordance with Medicare regulations or non- Medicare payer requirements, as applicable. In the case of services not specified as inpatient-only, they are appropriately provided as inpatient services in accordance with the 2-midnight benchmark. Estimated LOS (days): 3 days is the estimated time the patient will need to remain in the hospital, assuming treatment plan goals are met and no additional complications. Post-Hospital Plan: Home Problem Qualifiers (1) DVT (deep venous thrombosis): Qualified Codes: I82.412 - Acute embolism and thrombosis of left femoral vein Ghazal Panchal Aug 26, 2017 21:05 Geovany Jeffers MD Aug 26, 2017 21:59
[2017-08-26] MEDS: SODIUM CHLOR 0.9% 1000 ML INJ 1,000 ML IV SCH (21:13)
[2017-08-26] MEDS: SODIUM CHLORIDE 0.9% FLUSH 10 ML FLUSH IV FLUSH SCH (21:13)
[2017-08-26] MEDS ORDERED: NICOTINE 21 MG/24 HR PATCH T-DERMAL ONE (21:45)
[2017-08-26 21:54] VITALS: BP 111/68; PULSE 100; RESP 20; TEMP 97.4; O2SAT 100
[2017-08-26] MEDS: DOCUSATE SODIUM 50 MG/SENNA 8.6 MG TAB PO SCH (22:29)
[2017-08-26] MEDS: oxyCODONE/ACETAMINOPHEN 10 MG/325 MG TAB PO PRN (22:30)
[2017-08-27] VITALS (8 sets, daily range): BP systolic 112–127; BP diastolic 69–84; PULSE 83–99; RESP 18–20; TEMP 97.6–98.7; O2SAT 98–100
[2017-08-27] MEDS: SODIUM CHLOR 0.9% 1000 ML INJ 1,000 ML IV SCH ×3 (04:41→22:04)
[2017-08-27] MEDS: oxyCODONE/ACETAMINOPHEN 10 MG/325 MG TAB PO PRN ×3 (04:41→17:33)
--- NOTE | 2017-08-27 07:08 | EKG ---
Date Performed: 08/26/2017 Time Performed: 18:48:54 PTAGE: 41 years EKG: SINUS TACHYCARDIA ABNORMAL RHYTHM ECG PREVIOUS TRACING : 07/09/2017 15.08 No significant change from previous tracing noted. DOCTOR: Espinoza Bell Interpretating Date/Time 08/27/2017 07:06:47
[2017-08-27 07:42] LABS: AUTOMATED NEUTROPHIL # 7.2 TH/MM3 (1.8-7.7); BASOPHIL # 0.1 TH/MM3 (0-0.2); BASOPHIL % 0.6 % (0.0-2.0); EOSINOPHIL # 0.1 TH/MM3 (0-0.4); EOSINOPHIL % 1.3 % (0.0-4.0); HEMATOCRIT 31.6 % (35.0-46.0); HEMO FLAGS DIFF FINAL; LYMPH % 18.2 % (9.0-44.0); LYMPHOCYTE # 1.8 TH/MM3 (1.0-4.8); MEAN CELL VOLUME 92.1 FL (80.0-100.0); MEAN CORPUSCULAR HEMOGLOBIN 31.3 PG (27.0-34.0); MONO % 5.9 % (0.0-8.0); PLATELET COUNT 591 TH/MM3 (150-450); RED BLOOD COUNT 3.43 MIL/MM3 (4.00-5.30); RED CELL DISTRIBUTION WIDTH 15.9 % (11.6-17.2); WHITE BLOOD COUNT 9.7 TH/MM3 (4.0-11.0)
[2017-08-27] MEDS ORDERED: VANCOMYCIN INJ 1,000 MG in SODIUM CHLOR 0.9% 250 ML INJ 250 ML IV SCH (08:00)
[2017-08-27 08:43] LABS: BLOOD UREA NITROGEN 15 MG/DL (7-18)
[2017-08-27 08:44] LABS: ALKALINE PHOSPHATASE 88 U/L (45-117); ALT (GPT) 19 U/L (10-53); AST (GOT) 17 U/L (15-37); GLOMERULAR FILTRATION RATE 85 ML/MIN (>89)
[2017-08-27 08:45] LABS: ANION GAP 6 MEQ/L (5-15); BICARBONATE 26.1 MEQ/L (21.0-32.0); CHLORIDE 107 MEQ/L (98-107); POTASSIUM 3.4 MEQ/L (3.5-5.1); SODIUM (NA) 139 MEQ/L (136-145); TOTAL BILIRUBIN ADULT 0.3 MG/DL (0.2-1.0)
[2017-08-27] MEDS: REMOVE OLD PATCH T-DERMAL SCH (09:00)
--- NOTE | 2017-08-27 09:42 | PD.CONS ---
History of Present Illness Service Infectious disease Consult Requested By Dr Little Jeffers Reason for Consult Evaluate patient with positive blood culture Primary Care Physician No Primary Care Physician Diagnoses: History of Present Illness Patient seen and examined. Records reviewed. Patient is a 41-year-old female, called into the hospital for further evaluation and treatment of her positive blood culture. Her problems started around August after she injected on her left foot. She started having problem with swelling and redness, and she went to the emergency room and have that evaluated. She was diagnosed to have cellulitis. She was afebrile at that time, and had an elevated WBC. Blood cultures were done at that time, she was given IV clindamycin, and was sent home on oral clindamycin. She stated that the pain and swelling on her left lower extremity did not improve, and it started getting worse. She has not been able to do any kind of ambulation because of the pain. She admits to fevers although it is not documented, and she was having sweats. Patient has been using IV drugs on and off prior to the onset of her problem. Denies any sore throat or any respiratory complaint. No nausea or vomiting, or any urinary complaint. She's been having body malaise and now myalgias. The blood cultures done in the emergency room on August 19 came back positive with group a strep, and viridans streptococcus. He was called back to return to the hospital for further evaluation and treatment. Patient has not had any fever since admission. Her WBC has improved. 2 blood cultures were repeated and those are still pending. Infectious disease consultation has been requested to evaluate the patient Review of Systems Constitutional: COMPLAINS OF: Fever, Chills, Night Sweats Eyes: DENIES: Eye pain Ears, nose, mouth, throat: DENIES: Nasal discharge, Oral lesions, Throat pain, Ear Pain, Sinus Pain Respiratory: DENIES: Cough, Shortness of breath Cardiovascular: COMPLAINS OF: Lower Extremity Edema, DENIES: Chest pain, Palpitations, Syncope, Dyspnea on Exertion Gastrointestinal: DENIES: Abdominal pain, Diarrhea, Nausea, Vomiting, Difficulty Swallowing Genitourinary: DENIES: Urinary frequency, Urgency, Dysuria Musculoskeletal: COMPLAINS OF: Joint pain, Muscle aches, Joint Swelling Integumentary: DENIES: Rash Hematologic/lymphatic: DENIES: Lymphadenopathy Immunologic/allergic: DENIES: Urticaria Neurologic: DENIES: Headache, Localized weakness Psychiatric: COMPLAINS OF: Anxiety Past Family Social History Allergies: Coded Allergies: penicillin G (Verified Allergy, Mild, rash, 08/27/17) patient has taken Keflex in the past without any problem Past Medical History IVDA Hep C Depression Past Surgical History section Multiple repair of lacerations Infections and abscesses in her upper extremity from previous IV drug use Reported Medications I attest that I obtained, updated or reviewed the home and current medications. Reported Meds & Active Scripts Active Reported Wellbutrin Xl 24 HR (Bupropion HCl) 150 Mg Tab 150 Mg PO DAILY Adderall (Amphetamine-Dextroamphetamine) 30 Mg Tab 30 Mg PO BID Avoid late evening doses. Space doses at least 4 to 6 hours if more than once/day dosing. Xanax 1 BID-TID Active Ordered Medications Wellbutrin Clindamycin Lovenox MOM Nicotine patch Zofran Percocet Candy-Colace Vancomycin Family History Dad: CVA Mom: DM Social History Tobacco use: 1 PPD Alcohol use: Denies Illicit drug use: DAVID Has a boyfriend Had 2 children that she gave up for adoption Physical Exam Vital Signs Vital Signs Date Time Temp Pulse Resp B/P (MAP) Pulse Ox O2 Delivery O2 Flow Rate FiO2 08/27/17 08:00 98.3 96 19 125/82 (96) 100 08/27/17 04:00 97.6 92 18 123/78 (93) 99 08/27/17 00:00 98.6 95 20 112/72 (85) 99 08/26/17 21:54 97.4 100 20 111/68 (82) 100 08/26/17 21:26 08/26/17 17:30 98.3 103 18 111/80 (90) 100 Physical Exam GENERAL: Patient is a thin, well-developed CF, awake and alert, not in respiratory distress. SKIN: Warm and dry. No generalized rash, no ecchymoses and no evidence of embolic lesions. HEAD: Atraumatic. Normocephalic. No temporal wasting, or tenderness. EYES: Amesti conjunctiva. No petechia or hemorrhage. Pupils equal, round and reactive to light. Extraocular movements full and intact. No scleral icterus. No injection or drainage. EARS, NOSE AND THROAT: Nose without bleeding or purulent nasal discharge. No sinus tenderness. Mucous membranes pink and moist. No oral lesions noted. Poor dentition NECK: Trachea midline. Supple and not tender, no meningeal signs CARDIOVASCULAR: Regular rate and rhythm. No murmurs, rubs or gallops heard RESPIRATORY: Clear to auscultation. Breath sounds equal bilaterally. No rales , wheezing or rhonchi ABDOMEN: Soft, non-tender, nondistended. Bowel sounds present and normoactive. No guarding. No rebound. No organomegaly. EXTREMITIES: No clubbing, cyanosis. LLE larger compared the RLE. There seems to be ankle effusion, has limited ROM. Minimal erythema over the ankle. The whole L leg/ankle/threading machine tender on palpation, (+) calf tenderness. Well perfused and warm. Scars in her L thigh from previous laceration, with repair , scars in both upper arms NEUROLOGICAL: Awake and alert. Cranial nerves grossly intact. Motor grossly within normal limits. PSYCHIATRIC: Normal affect, calm and cooperative. LINE: No evidence of infection Laboratory Laboratory Tests Test 08/26/17 19:00 08/27/17 06:08 White Blood Count 10.3 9.7 Red Blood Count 3.69 3.43 Hemoglobin 11.2 10.7 Hematocrit 33.4 31.6 Mean Corpuscular Volume 90.5 92.1 Mean Corpuscular Hemoglobin 30.3 31.3 Mean Corpuscular Hemoglobin Concent 33.5 34.0 Red Cell Distribution Width 15.6 15.9 Platelet Count 664 591 Mean Platelet Volume 7.1 7.5 Neutrophils (%) (Auto) 70.6 74.0 Lymphocytes (%) (Auto) 20.6 18.2 Monocytes (%) (Auto) 7.3 5.9 Eosinophils (%) (Auto) 1.2 1.3 Basophils (%) (Auto) 0.3 0.6 Neutrophils # (Auto) 7.3 7.2 Lymphocytes # (Auto) 2.1 1.8 Monocytes # (Auto) 0.8 0.6 Eosinophils # (Auto) 0.1 0.1 Basophils # (Auto) 0.0 0.1 CBC Comment DIFF FINAL DIFF FINAL Differential Comment Blood Urea Nitrogen 13 15 Creatinine 0.66 0.75 Random Glucose 98 113 Total Protein 8.4 7.5 Albumin 2.6 2.1 Calcium Level 9.5 8.5 Alkaline Phosphatase 103 88 Aspartate Amino Transf (AST/SGOT) 21 17 Alanine Aminotransferase (ALT/SGPT) 20 19 Total Bilirubin 0.3 0.3 Sodium Level 138 139 Potassium Level 3.6 3.4 Chloride Level 106 107 Carbon Dioxide Level 24.6 26.1 Anion Gap 7 6 Estimat Glomerular Filtration Rate 99 85 Lactic Acid Level 0.9 Date/Time Source Procedure Growth Status 08/26/17 19:00 Blood Peripheral Aerobic Blood Culture Pending Received 08/26/17 19:00 Blood Peripheral Anaerobic Blood Culture Pending Received Result Diagram: 08/27/17 0608 08/27/17 0608 Imaging RADIOLOGY STUDIES/FILMS REVIEWED Lower Extremity Ultrasound 08/26/17 0000 Signed Impressions: Service Date/Time: , August 26, 2017 19:03 - CONCLUSION: 1. Extensive deep venous thrombosis involving the right femoral vein and popliteal vein. Neel Cantu MD Assessment and Plan Assessment and Plan IMPRESSION GAS and Viridans Strep bacteremia from L foot cellulitis, ?IE, has Hx IVDU - repeat BC pending LLE DVT ?L ankle effusion Known active IVDU Rash/Hives with PCN, has tolerated Keflex RECOMMENDATION Change vanco to Rocephin Follow repeat BC MRI L ankle to evaluate if with fluid - may need tap if (+), or ortho evaluation Continue po Clinda for now On Rx for LLE DVT Monitor progress Will determine course of Abx once work-up is completed I will follow along with you Thank you for this consultation Discussed Condition With Explained plan to the patient ADDENDUM: Received call from Dr Alireza Alvarado (Radiologist) MRI L ankle with fluid in joint with enhancement very suspicious for infection\ Will consult orthiopedic for evaluation with high suspicion for infection especially since she had BC with Strep pyogenes and Strep viridans, and has Hx IVDU Get echo if not ordered yet Parisa Badillo MD Aug 27, 2017 09:42
[2017-08-27] MEDS ORDERED: INFLUENZA VIRUS VACCINE (QUADRIVALENT) 0.5 ML SYR IM ONE (10:00)
[2017-08-27] MEDS ORDERED: PNEUMOCOCCAL POLYVALENT INJ 25 MCG/0.5 ML SYR IM ONE (10:00)
[2017-08-27] MEDS: DEXTROAMPHETAMINE/AMPHETAMINE 30 MG TAB PO SCH ×2 (10:30→22:03)
[2017-08-27] MEDS: cefTRIAXone INJ 2,000 MG in SODIUM CHLORIDE 0.9% INJ 100 ML IV SCH (10:40)
[2017-08-27] MEDS: NICOTINE 21 MG/24 HR PATCH T-DERMAL SCH (10:42)
[2017-08-27] MEDS: buPROPion HCL 150 MG SUSTAINED RELEASE TAB PO SCH (10:45)
[2017-08-27] MEDS: CLINDAMYCIN 150 MG CAP PO SCH ×3 (10:45→17:33)
[2017-08-27] MEDS: ENOXAPARIN SODIUM 60 MG/0.6 ML SYRINGE SQ SCH ×2 (10:45→22:04)
[2017-08-27] MEDS: SODIUM CHLORIDE 0.9% FLUSH 10 ML FLUSH IV FLUSH SCH ×2 (10:46→21:00)
[2017-08-27] MEDS: DOCUSATE SODIUM 50 MG/SENNA 8.6 MG TAB PO SCH ×2 (10:46→22:03)
--- NOTE | 2017-08-27 11:03 | HHI.PR ---
Subjective Remarks Follow-up GAS and Strep Viridans bacteremia/left lower extremity DVT 08/27/17-patient seen and examined; she complains of left lower extremity pain. Currently afebrile Objective Vitals Vital Signs Date Time Temp Pulse Resp B/P (MAP) Pulse Ox O2 Delivery O2 Flow Rate FiO2 08/27/17 08:00 98.3 96 19 125/82 (96) 100 08/27/17 04:00 97.6 92 18 123/78 (93) 99 08/27/17 00:00 98.6 95 20 112/72 (85) 99 08/26/17 21:54 97.4 100 20 111/68 (82) 100 08/26/17 21:26 08/26/17 17:30 98.3 103 18 111/80 (90) 100 I/O 08/26/17 08/26/17 08/26/17 08/27/17 08/27/17 08/27/17 07:00 15:00 23:00 07:00 15:00 23:00 Intake Total 250 ml 1000 ml 120 ml Balance 250 ml 1000 ml 120 ml Intake Oral 120 ml IV Total 250 ml 1000 ml Result Diagram: 08/27/17 0608 08/27/17 0608 Imaging Last Impressions Lower Extremity Ultrasound 08/26/17 0000 Signed Impressions: Service Date/Time: August 19:03 - CONCLUSION: 1. Extensive deep venous thrombosis involving the right femoral vein and popliteal vein. Neel Cantu MD Objective Remarks GENERAL: NAD SKIN: Warm and dry. HEAD: Normocephalic. EYES: No scleral icterus. No injection or drainage. NECK: Supple, trachea midline. No JVD or lymphadenopathy. CARDIOVASCULAR: Regular rate and rhythm without murmurs, gallops, or rubs. RESPIRATORY: Breath sounds equal bilaterally. No accessory muscle use. GASTROINTESTINAL: Abdomen soft, non-tender, nondistended. MUSCULOSKELETAL: No cyanosis, or edema. TTP LLE BACK: Nontender without obvious deformity. No CVA tenderness. A/P Problem List: (1) DVT (deep venous thrombosis) ICD Code: I82.409 - Acute embolism and thrombosis of unspecified deep veins of unspecified lower extremity Status: Acute (2) Bacteremia ICD Code: R78.81 - Bacteremia Status: Acute Assessment and Plan 41-year-old female with Group A strep and Viridans strep Bacteremia, 4/4 positive blood cultures on 08/19 -Currently on Rocephin IV daily and Cleocin per infectious disease specialist -2D echo ordered to r/o endocarditis -Monitor repeat blood culture -HIV testing, patient wants to be tested for it DVT, acute, Left US Lower extremity reviewed and shows DVT to the left femoral vein and popliteal vein -MRI Left ankle for further evaluation. Consult orthopedic surgery if positive -Lovenox subcutaneous every 12. Change to OAC within next 24 hours; Xarelto -Pain management with PO Percocet Depression, chronic -Continue home medications Tobacco abuse and IVDA abuse -Counseled to quit -Nicotine patch ordered DVT prophylaxis: Lovenox Problem Qualifiers (1) DVT (deep venous thrombosis): Qualified Codes: I82.412 - Acute embolism and thrombosis of left femoral vein Eric Peña MD Aug 27, 2017 11:03
--- NOTE | 2017-08-27 12:56 | ECHRPT ---
Indication: vegetations CONCLUSIONS The left ventricular systolic function is normal with an estimated ejection fraction in the range of 55-60%. Trace mitral valve regurgitation. There is trace tricuspid valve regurgitation. BP: / HR: Rhythm: MEASUREMENTS (Male / Female) Normal Values Technical Quality:Fair 2D ECHO LV Diastolic Diameter PLAX 3.6 cm 4.2 - 5.9 / 3.9 - 5.3 cm LV Systolic Diameter PLAX 2.7 cm IVS Diastolic Thickness 0.7 cm 0.6 - 1.0 / 0.6 - 0.9 cm LVPW Diastolic Thickness 0.9 cm 0.6 - 1.0 / 0.6 - 0.9 cm LV Relative Wall Thickness 0.4 RV Internal Dim ED PLAX 2.6 cm FINDINGS LEFT VENTRICLE The left ventricular systolic function is normal with an estimated ejection fraction in the range of 55-60%. Normal left ventricular size. No regional wall motion abnormalities are present. RIGHT VENTRICLE Normal right ventricular size and systolic function. LEFT ATRIUM The left atrial size is normal. RIGHT ATRIUM The right atrial size is normal. ATRIAL SEPTUM Normal atrial septal thickness. AORTA The aortic root and proximal ascending aorta are normal in size on limited imaging. MITRAL VALVE Structurally normal mitral valve. No mitral valve stenosis. Trace mitral valve regurgitation. AORTIC VALVE Trileaflet aortic valve. No aortic valve regurgitation. No aortic valve stenosis. TRICUSPID VALVE Structurally normal tricuspid valve. There is trace tricuspid valve regurgitation. No tricuspid valve stenosis. PULMONARY VALVE The pulmonary valve is not well visualized. VESSELS The inferior vena cava is normal in size. PERICARDIUM No pericardial effusion. Murphy Thurston DO (Electronically Signed) Final Date:27 August 2017 12:56
--- NOTE | 2017-08-27 13:07 | RADRPT ---
EXAM DATE/TIME: 08/27/2017 12:12 [facility] COMPARISON: No previous studies available for comparison. INDICATIONS : Septic joint. Swelling and pain over the left ankle mortise. CONTRAST: 10 cc Omniscan (gadodiamide) IV MEDICAL HISTORY : Endocarditis. SURGICAL HISTORY : None. ENCOUNTER: Subsequent ACUITY: 2 weeks PAIN SCORE: 6/10 LOCATION: Left ankle TECHNIQUE: Multiplanar, multisequence MRI examination was performed without contrast and after the intravenous a dministration of gadolinium. FINDINGS: There is generalized subjacent edema with prominent joint effusion evident. The joint effusion does show intense enhancement suspicious for inflammatory process. There is no evidence for osteomyelitis There is mild induration along the tendon sheaths of both the medial and lateral sides of the ankle. CONCLUSION: Findings suspicious for septic joint. joint. Aspiration is suggested. Negative for myelitis. Carlos Alvarado MD FACR on August 27, 2017 at 13:01 Board Certified Radiologist. This report was verified electronically.
[2017-08-27] MEDS ORDERED: GADODIAMIDE PF 287 MG/ML 10 ML VIAL (for RAD MRI) IVCONTRAST ONE (15:25)
[2017-08-28] VITALS (7 sets, daily range): BP systolic 108–121; BP diastolic 56–82; PULSE 75–92; RESP 16–18; TEMP 96.9–98.3; O2SAT 99–100
[2017-08-28] MEDS: oxyCODONE/ACETAMINOPHEN 10 MG/325 MG TAB PO PRN ×5 (00:02→23:49)
[2017-08-28] MEDS: REMOVE OLD PATCH T-DERMAL SCH (09:00)
[2017-08-28] MEDS: SODIUM CHLORIDE 0.9% FLUSH 10 ML FLUSH IV FLUSH SCH ×2 (09:00→20:27)
[2017-08-28] MEDS: ENOXAPARIN SODIUM 60 MG/0.6 ML SYRINGE SQ SCH ×2 (10:50→20:27)
[2017-08-28] MEDS: CLINDAMYCIN 150 MG CAP PO SCH ×3 (10:50→18:33)
[2017-08-28] MEDS: DOCUSATE SODIUM 50 MG/SENNA 8.6 MG TAB PO SCH ×2 (10:51→20:27)
[2017-08-28] MEDS: DEXTROAMPHETAMINE/AMPHETAMINE 30 MG TAB PO SCH ×2 (10:51→20:27)
[2017-08-28] MEDS: NICOTINE 21 MG/24 HR PATCH T-DERMAL SCH (10:51)
[2017-08-28] MEDS: buPROPion HCL 150 MG SUSTAINED RELEASE TAB PO SCH (10:51)
[2017-08-28] MEDS: cefTRIAXone INJ 2,000 MG in SODIUM CHLORIDE 0.9% INJ 100 ML IV SCH (10:56)
--- NOTE | 2017-08-28 11:41 | HHI.PR ---
Subjective Remarks Follow-up GAS and Strep Viridans bacteremia/left lower extremity DVT Left lower extremity pain is fairly controlled by meds. No fever or chills. Denies chest pain or sob. No n/v/d/c. Objective Vitals Vital Signs Date Time Temp Pulse Resp B/P (MAP) Pulse Ox O2 Delivery O2 Flow Rate FiO2 08/28/17 08:00 96.9 85 18 121/82 (95) 100 08/28/17 04:00 97.8 75 18 118/71 (87) 100 08/28/17 03:17 97.7 92 18 108/56 (73) 100 08/27/17 21:05 98.4 95 18 127/74 (91) 100 08/27/17 20:00 90 08/27/17 16:00 98.7 91 19 113/69 (84) 98 08/27/17 14:00 83 08/27/17 12:00 97.9 99 19 125/84 (98) 100 I/O 08/27/17 08/27/17 08/27/17 08/28/17 08/28/17 08/28/17 06:59 14:59 22:59 06:59 14:59 22:59 Intake Total 1000 ml 1220 ml 1200 ml Output Total 1000 ml Balance 1000 ml 1220 ml 200 ml Intake Oral 120 ml 1200 ml IV Total 1000 ml 1100 ml Output Urine Total 1000 ml # Bowel Movements 1 Result Diagram: 08/27/17 0608 08/27/17 0608 Imaging Last Impressions Ankle MRI 08/27/17 0000 Signed Impressions: Service Date/Time: Sunday, August 27, 2017 12:12 - CONCLUSION: Findings suspicious for septic joint. joint. Aspiration is suggested. Negative for myelitis. Carlos Alvarado MD FACR Lower Extremity Ultrasound 08/26/17 0000 Signed Impressions: Service Date/Time: August 19:03 - CONCLUSION: 1. Extensive deep venous thrombosis involving the right femoral vein and popliteal vein. Neel Cantu MD Objective Remarks GENERAL: NAD SKIN: Warm and dry. HEAD: Normocephalic. EYES: No scleral icterus. No injection or drainage. NECK: Supple, trachea midline. No JVD or lymphadenopathy. CARDIOVASCULAR: Regular rate and rhythm without murmurs, gallops, or rubs. RESPIRATORY: Breath sounds equal bilaterally. No accessory muscle use. GASTROINTESTINAL: Abdomen soft, non-tender, nondistended. MUSCULOSKELETAL: No cyanosis, or edema. TTP LLE BACK: Nontender without obvious deformity. No CVA tenderness. A/P Problem List: (1) DVT (deep venous thrombosis) ICD Code: I82.409 - Acute embolism and thrombosis of unspecified deep veins of unspecified lower extremity Status: Acute (2) Bacteremia ICD Code: R78.81 - Bacteremia Status: Acute Assessment and Plan (1) DVT (deep venous thrombosis) ICD Code: I82.409 - Acute embolism and thrombosis of unspecified deep veins of unspecified lower extremity Status: Acute (2) Bacteremia ICD Code: R78.81 - Bacteremia Status: Acute Assessment and Plan 41-year-old female with Group A strep and Viridans strep Bacteremia, 4/4 positive blood cultures on 08/19 -Currently on Rocephin IV daily and Cleocin per infectious disease specialist -2D echo ordered to r/o endocarditis -Monitor repeat blood culture -HIV testing, patient wants to be tested for it DVT, acute, Left US Lower extremity reviewed and shows DVT to the left femoral vein and popliteal vein -MRI Left ankle for further evaluation. Consult orthopedic surgery if positive -Lovenox subcutaneous every 12. Change to OAC within next 24 hours; Xarelto -Pain management with PO Percocet Depression, chronic -Continue home medications Tobacco abuse and IVDA abuse -Counseled to quit -Nicotine patch ordered Hypokalemia: Monitor and replace as need. DVT prophylaxis: Lovenox DC plan pending improvement Problem Qualifiers (1) DVT (deep venous thrombosis): Qualified Codes: I82.412 - Acute embolism and thrombosis of left femoral vein Radha Zimmer MD Aug 28, 2017 11:41
[2017-08-28] MEDS ORDERED: POTASSIUM CHLORIDE 10 MEQ CONTROLLED RELEASE TAB PO ONE (11:45)
[2017-08-28] MEDS: SODIUM CHLOR 0.9% 1000 ML INJ 1,000 ML IV SCH ×2 (12:16→20:27)
--- NOTE | 2017-08-28 16:13 | PD.CONS ---
cc: Edmundo Rivera Jr., MD HPI Service Orthopedic Surgeons Consult Requested By Primary Care Physician No Primary Care Physician Admission Diagnosis bacteremia, DVT Diagnoses: (1) DVT (deep venous thrombosis) (2) Bacteremia Chief Complaint: left ankle pain History of Present Illness 41-year-old female Presented to ER department with complaint of LEFT leg pain, swelling and ankle pain with difficulty weightbearing. She has a history of IV drug abuse. Her symptoms and complaints started shortly after an injection around her foot earlier this month. Previous visits to the emergency department revealed cellulitis to her LEFT foot. She is currently afebrile. During this admission, the patient has positive bacteremia with leukocytosis And recently diagnosed with LEFT DVT. Denies any sore throat or any respiratory complaint. No nausea or vomiting, or any urinary complaint. She's been having body malaise and now myalgias. The blood cultures done in the emergency room on August 19 came back positive with group a strep, and viridans streptococcus. She was called back to return to the hospital for further evaluation and treatment. Her LEFT ankle pain is currently 3 out of 10, has improved since admission, exacerbated by weightbearing, pain is relieved at rest, pain is not associated with paresthesia and numbness to LEFT direction. Pain localized in the anterior aspect of the ankle and is nonradiating. ROS - General Review of Systems Constitutional: COMPLAINS OF: Fever, Chills, Night Sweats Eyes: DENIES: Eye pain Ears, nose, mouth, throat: DENIES: Nasal discharge, Oral lesions, Throat pain, Ear Pain, Sinus Pain Respiratory: DENIES: Cough, Shortness of breath Cardiovascular: COMPLAINS OF: Lower Extremity Edema, DENIES: Chest pain, Palpitations, Syncope, Dyspnea on Exertion Gastrointestinal: DENIES: Abdominal pain, Diarrhea, Nausea, Vomiting, Difficulty Swallowing Genitourinary: DENIES: Urinary frequency, Urgency, Dysuria Musculoskeletal: COMPLAINS OF: Joint pain, Muscle aches, Joint Swelling Integumentary: DENIES: Rash Hematologic/lymphatic: DENIES: Lymphadenopathy Immunologic/allergic: DENIES: Urticaria Neurologic: DENIES: Headache, Localized weakness Psychiatric: COMPLAINS OF: Anxiety PFSH Past Family Social History Allergies: Coded Allergies: penicillin G (Verified Allergy, Mild, rash, 08/27/17) patient has taken Keflex in the past without any problem Past Medical History IVDA Hep C Depression Past Surgical History section Multiple repair of lacerations Infections and abscesses in her upper extremity from previous IV drug use Reported Medications I attest that I obtained, updated or reviewed the home and current medications. Reported Meds & Active Scripts Active Reported Wellbutrin Xl 24 HR (Bupropion HCl) 150 Mg Tab 150 Mg PO DAILY Adderall (Amphetamine-Dextroamphetamine) 30 Mg Tab 30 Mg PO BID Avoid late evening doses. Space doses at least 4 to 6 hours if more than once/day dosing. Xanax 1 BID-TID Active Ordered Medications Wellbutrin Clindamycin Lovenox MOM Nicotine patch Zofran Percocet Candy-Colace Vancomycin Family History Dad: CVA Mom: DM Social History Tobacco use: 1 PPD Alcohol use: Denies Illicit drug use: IVDA Has a boyfriend Had 2 children that she gave up for adoption Past Family Social History Past Medical History IVDA Hep C Depression Past Surgical History C Section Allergies: Coded Allergies: penicillin G (Verified Allergy, Mild, rash, 08/27/17) patient has taken Keflex in the past without any problem Active Ordered Medications Current Medications Medications (Trade) Dose Ordered Sig/Sherita Route Start Time Stop Time Status Last Admin Sodium Chloride 1,000 ml @ 100 mls/hr Q10H IV 08/26/17 20:37 08/28/17 12:16 (NS Flush) 2 ml UNSCH PRN IV FLUSH 08/26/17 20:45 (NS Flush) 2 ml BID IV FLUSH 08/26/17 21:00 08/27/17 10:46 (Zofran Inj) 4 mg Q6H PRN IVP 08/26/17 20:45 (Percocet 5-325 Mg) 1 tab Q6H PRN PO 08/26/17 20:45 (Percocet 10-325 Mg) 1 tab Q6H PRN PO 08/26/17 20:45 08/28/17 12:15 (Narcan Inj) 0.4 mg UNSCH PRN IV PUSH 08/26/17 20:45 (Candy-Colace) 1 tab BID PO 08/26/17 21:00 08/28/17 10:51 (Milk Of Lata Liq) 30 ml Q12H PRN PO 08/26/17 20:45 (Lovenox Inj) 50 mg Q12H SQ 08/27/17 08:00 08/28/17 10:50 (Habitrol 21 Mg Patch.24 Hr) 1 patch DAILY T-DERMAL 08/27/17 09:00 08/28/17 10:51 Miscellaneous Information 1 DAILY T-DERMAL 08/27/17 09:00 08/28/17 09:00 (Wellbutrin Sr) 150 mg DAILY PO 08/27/17 09:00 08/28/17 10:51 (Cleocin) 300 mg TID PO 08/27/17 09:00 08/28/17 12:15 Ceftriaxone Sodium 2000 mg/ Sodium Chloride 100 ml @ 200 mls/hr Q24H IV 08/27/17 11:00 08/28/17 10:56 (Adderall) 30 mg BID PO 08/27/17 10:30 08/28/17 10:51 Reported Meds & Active Scripts Active Reported Wellbutrin Xl 24 HR (Bupropion HCl) 150 Mg Tab 150 Mg PO DAILY Adderall (Amphetamine-Dextroamphetamine) 30 Mg Tab 30 Mg PO BID Avoid late evening doses. Space doses at least 4 to 6 hours if more than once/day dosing. Family History Dad: CVA Mom: DM Social History Tobacco use: 1 PPD Alcohol use: Denies Illicit drug use: IVDA Physical Exam Vital Signs Vital Signs Date Time Temp Pulse Resp B/P (MAP) Pulse Ox O2 Delivery O2 Flow Rate FiO2 08/28/17 12:00 98.1 88 16 116/80 (92) 100 08/28/17 08:00 96.9 85 18 121/82 (95) 100 08/28/17 04:00 97.8 75 18 118/71 (87) 100 08/28/17 03:17 97.7 92 18 108/56 (73) 100 08/27/17 21:05 98.4 95 18 127/74 (91) 100 08/27/17 20:00 90 Physical Exam AAOx3. No acute distress. Head: NC/AT Neck: No pain with any range of motion and neck. No tenderness to palpation along posterior cervical elements. Negative Spurling. Pulmonary: Normal respiratory effort. Bilateral upper extremity: no deformity. Grossly nvi distally in median, ulnar , and radial nerve. Intact motor in anterior interosseous, posterior interosseous, and ulnar nerve. 2+ radial artery pulses. Good cap refill. RIGHT lower extremity: Neurovascularly intact, +EHL/FHL. + PT/DP pulses. Supple compartments. Negative Homans sign. LEFT lower extremity: Scars and track trujillo about the LEFT leg and ankle. Compartments are soft but there is swelling and edema in the entire LEFT lower extremity. There is mild to moderate ankle effusion. Range of motion of the LEFT ankle is full passive and actively. No pain with passive range of motion. Ankle joint is stable to anterior-posterior transition. Overall no significant skin changes about the LEFT lower extremity. grossly Neurovascularly intact, +EHL/FHL, dry and intact. + PT/DP pulses. Supple compartments. Negative Homans sign. Knee ROM 5-100. Laboratory Date/Time Source Procedure Growth Status 08/26/17 19:00 Blood Peripheral Aerobic Blood Culture - Preliminary Group A Beta Strep Resulted 08/26/17 19:00 Blood Peripheral Anaerobic Blood Culture - Preliminary NO GROWTH IN 2 DAYS Resulted Result Diagram: 08/27/17 0608 08/27/17 0608 Imaging Last 72 hours Impressions Ankle MRI 08/27/17 0000 Signed Impressions: Service Date/Time: Sunday, August 27, 2017 12:12 - CONCLUSION: Findings suspicious for septic joint. joint. Aspiration is suggested. Negative for myelitis. aCrlos Alvarado MD FACR Assessment & Plan Assessment and Plan 41yoF female h/o iv drug abuser, phil on iv abx for bacteremia, presents with left ankle pain Difficulty with weightbearing as well as LEFT leg swelling from deep in thrombosis. According to the patient her symptoms have significantly improved since admission. Today on exam, she has mild to moderate LEFT ankle effusion with full range of motion of the ankle and knee. No evidence of septic arthritis at the ankle. I recommended continued medical treatment with iv abx. -WBAT f/u with PCP in 2 weeks Edmundo Rivera Jr., MD Aug 28, 2017 16:13
[2017-08-29] VITALS (7 sets, daily range): BP systolic 114–133; BP diastolic 72–77; PULSE 77–89; RESP 16–18; TEMP 96.3–98.3; O2SAT 99–100
[2017-08-29] MEDS: SODIUM CHLOR 0.9% 1000 ML INJ 1,000 ML IV SCH ×2 (06:24→18:17)
[2017-08-29] MEDS: oxyCODONE/ACETAMINOPHEN 10 MG/325 MG TAB PO PRN ×3 (06:24→18:17)
[2017-08-29 08:08] LABS: AUTOMATED NEUTROPHIL # 6.7 TH/MM3 (1.8-7.7); BASOPHIL % 0.4 % (0.0-2.0); EOSINOPHIL # 0.1 TH/MM3 (0-0.4); EOSINOPHIL % 1.3 % (0.0-4.0); LYMPH % 21.5 % (9.0-44.0); MEAN CELL VOLUME 91.3 FL (80.0-100.0); MEAN CORPUSCULAR HGB CONC 33.9 % (32.0-36.0); MONO % 4.3 % (0.0-8.0); NEUT % 72.5 % (16.0-70.0); PLATELET COUNT 481 TH/MM3 (150-450); RED BLOOD COUNT 3.29 MIL/MM3 (4.00-5.30); WHITE BLOOD COUNT 9.3 TH/MM3 (4.0-11.0)
[2017-08-29 08:11] LABS: HEMO FLAGS AUTO DIFF
[2017-08-29 08:31] LABS: BICARBONATE 24.4 MEQ/L (21.0-32.0); MAGNESIUM 1.9 MG/DL (1.5-2.5); POTASSIUM 3.9 MEQ/L (3.5-5.1)
[2017-08-29] MEDS: SODIUM CHLORIDE 0.9% FLUSH 10 ML FLUSH IV FLUSH SCH ×2 (09:00→20:17)
[2017-08-29] MEDS: REMOVE OLD PATCH T-DERMAL SCH (09:00)
[2017-08-29 09:25] LABS: PLATELET ESTIMATE SMEAR HIGH (NORMAL); PLATELET MORPHOLOGY NORMAL (NORMAL); SCAN/DIFF AUTO DIFF CONFIRMED
[2017-08-29] MEDS: buPROPion HCL 150 MG SUSTAINED RELEASE TAB PO SCH (09:30)
[2017-08-29] MEDS: ENOXAPARIN SODIUM 60 MG/0.6 ML SYRINGE SQ SCH ×2 (09:30→20:18)
[2017-08-29] MEDS: CLINDAMYCIN 150 MG CAP PO SCH ×3 (09:31→18:17)
[2017-08-29] MEDS: NICOTINE 21 MG/24 HR PATCH T-DERMAL SCH (09:31)
[2017-08-29] MEDS: DOCUSATE SODIUM 50 MG/SENNA 8.6 MG TAB PO SCH ×2 (09:31→20:18)
[2017-08-29] MEDS: DEXTROAMPHETAMINE/AMPHETAMINE 30 MG TAB PO SCH ×2 (09:31→20:18)
[2017-08-29] MEDS: cefTRIAXone INJ 2,000 MG in SODIUM CHLORIDE 0.9% INJ 100 ML IV SCH (11:49)
--- NOTE | 2017-08-29 12:21 | HHI.PR ---
Subjective Remarks Patient in nad. boyfriend at bedside. Patient is telling me she used to take benzos, however patient is off benzos since admission and she doesn't appear anxious, she is in nad. no tachycardia. Will not restart benzos. Patient denies any fever ro chills.No n/v/d/c. Eating fairly well. Able to ambulate. Has pain in her leg. Objective Vitals Vital Signs Date Time Temp Pulse Resp B/P (MAP) Pulse Ox O2 Delivery O2 Flow Rate FiO2 08/29/17 08:00 96.7 80 18 133/74 (93) 100 08/29/17 04:00 97.5 81 18 124/76 (92) 99 08/29/17 00:00 98.0 78 18 114/76 (89) 100 08/28/17 20:00 98.1 85 18 109/76 (87) 99 08/28/17 19:45 84 08/28/17 16:00 98.3 85 18 110/71 (84) 100 I/O 08/28/17 08/28/17 08/28/17 08/29/17 08/29/17 08/29/17 07:00 15:00 23:00 07:00 15:00 23:00 Intake Total 1100 ml 2000 ml 680 ml Output Total 300 ml 281 ml Balance 1100 ml 1700 ml 399 ml Intake Oral 2000 ml 680 ml IV Total 1100 ml Output Urine Total 300 ml 280 ml Stool Total 1 ml # Voids 4 # Bowel Movements 1 Result Diagram: 08/29/17 0735 08/29/17 0735 Imaging Last Impressions Ankle MRI 08/27/17 0000 Signed Impressions: Service Date/Time: Sunday, August 27, 2017 12:12 - CONCLUSION: Findings suspicious for septic joint. joint. Aspiration is suggested. Negative for myelitis. Carlos Alvarado MD FACR Lower Extremity Ultrasound 08/26/17 0000 Signed Impressions: Service Date/Time: August 19:03 - CONCLUSION: 1. Extensive deep venous thrombosis involving the right femoral vein and popliteal vein. Neel Cantu MD Objective Remarks GENERAL: NAD SKIN: Warm and dry. HEAD: Normocephalic. EYES: No scleral icterus. No injection or drainage. NECK: Supple, trachea midline. No JVD or lymphadenopathy. CARDIOVASCULAR: Regular rate and rhythm without murmurs, gallops, or rubs. RESPIRATORY: Breath sounds equal bilaterally. No accessory muscle use. GASTROINTESTINAL: Abdomen soft, non-tender, nondistended. MUSCULOSKELETAL: No cyanosis, or edema. TTP LLE BACK: Nontender without obvious deformity. No CVA tenderness. A/P Problem List: (1) DVT (deep venous thrombosis) ICD Code: I82.409 - Acute embolism and thrombosis of unspecified deep veins of unspecified lower extremity Status: Acute (2) Bacteremia ICD Code: R78.81 - Bacteremia Status: Acute Assessment and Plan (1) DVT (deep venous thrombosis) ICD Code: I82.409 - Acute embolism and thrombosis of unspecified deep veins of unspecified lower extremity Status: Acute (2) Bacteremia ICD Code: R78.81 - Bacteremia Status: Acute Assessment and Plan 41-year-old female with Group A strep and Viridans strep Bacteremia, 4/4 positive blood cultures on 08/19 -Currently on Rocephin IV daily and Cleocin per infectious disease specialist -2D echo ordered to r/o endocarditis -Monitor repeat blood culture -HIV testing, patient wants to be tested for it DVT, acute, Left US Lower extremity reviewed and shows DVT to the left femoral vein and popliteal vein -MRI Left ankle for further evaluation. Consult orthopedic surgery if positive -Lovenox subcutaneous every 12. Change to OAC within next 24 hours; Xarelto -Pain management with PO Percocet Depression, chronic -Continue home medications Tobacco abuse and IVDA abuse -Counseled to quit -Nicotine patch ordered Hypokalemia: Monitor and replace as need. DVT prophylaxis: Lovenox DC plan pending improvement Problem Qualifiers (1) DVT (deep venous thrombosis): Qualified Codes: I82.412 - Acute embolism and thrombosis of left femoral vein Radha Zimmer MD Aug 29, 2017 12:21
[2017-08-30] VITALS: BP 120/76; PULSE 81; RESP 18; TEMP 97.9; O2SAT 98
[2017-08-30] MEDS: oxyCODONE/ACETAMINOPHEN 10 MG/325 MG TAB PO PRN ×4 (00:20→18:02)
[2017-08-30] MEDS: SODIUM CHLOR 0.9% 1000 ML INJ 1,000 ML IV SCH ×2 (04:37→12:12)
[2017-08-30 08:00] VITALS: BP 126/84; PULSE 86; RESP 17; TEMP 97.5; O2SAT 99
[2017-08-30] MEDS: SODIUM CHLORIDE 0.9% FLUSH 10 ML FLUSH IV FLUSH SCH ×2 (09:00→20:31)
[2017-08-30] MEDS: REMOVE OLD PATCH T-DERMAL SCH (09:00)
[2017-08-30] MEDS: ENOXAPARIN SODIUM 60 MG/0.6 ML SYRINGE SQ SCH ×2 (10:15→20:31)
[2017-08-30] MEDS: CLINDAMYCIN 150 MG CAP PO SCH ×3 (10:15→18:02)
[2017-08-30] MEDS: buPROPion HCL 150 MG SUSTAINED RELEASE TAB PO SCH (10:15)
[2017-08-30] MEDS: DEXTROAMPHETAMINE/AMPHETAMINE 30 MG TAB PO SCH ×2 (10:16→20:30)
[2017-08-30] MEDS: CYANOCOBALAMIN 100 MCG TAB PO SCH (10:16)
[2017-08-30] MEDS: MULTIVITAMIN TAB PO SCH (10:16)
[2017-08-30] MEDS: DOCUSATE SODIUM 50 MG/SENNA 8.6 MG TAB PO SCH ×2 (10:16→20:30)
[2017-08-30] MEDS: NICOTINE 21 MG/24 HR PATCH T-DERMAL SCH (10:17)
[2017-08-30] MEDS: cefTRIAXone INJ 2,000 MG in SODIUM CHLORIDE 0.9% INJ 100 ML IV SCH (10:26)
[2017-08-30 12:00] VITALS: BP 121/74; PULSE 83; RESP 16; TEMP 98.5; O2SAT 100
--- NOTE | 2017-08-30 13:53 | HHI.IDPN ---
Subjective Subjective Remarks Patient is a 41-year-old female, called into the hospital for further evaluation and treatment of her positive blood culture. Her problems started around August after she injected on her left foot. She started having problem with swelling and redness, and she went to the emergency room and have that evaluated. She was diagnosed to have cellulitis. She was afebrile at that time, and had an elevated WBC. Blood cultures were done at that time, she was given IV clindamycin, and was sent home on oral clindamycin. She stated that the pain and swelling on her left lower extremity did not improve, and it started getting worse. She has not been able to do any kind of ambulation because of the pain. She admits to fevers although it is not documented, and she was having sweats. Patient has been using IV drugs on and off prior to the onset of her problem. Denies any sore throat or any respiratory complaint. No nausea or vomiting, or any urinary complaint. She's been having body malaise and now myalgias. The blood cultures done in the emergency room on August 19 came back positive with group a strep, and viridans streptococcus. He was called back to return to the hospital for further evaluation and treatment. Patient has not had any fever since admission. Her WBC has improved. 2 blood cultures were repeated and those are still pending. Infectious disease consultation has been requested to evaluate the patient Notes reviewed Temps ok L ankle still with pain and not able to put weight on it Pain though is better MRI with joint effusion ortho evaluation noted Echo report ok BC 08/29 and 08/26 with GAS Antibiotics Rocephin Lines PIV Past Medical History IVDA Hep C Depression Past Surgical History section Multiple repair of lacerations Infections and abscesses in her upper extremity from previous IV drug use Allergies: Coded Allergies: penicillin G (Verified Allergy, Mild, rash, 08/27/17) patient has taken Keflex in the past without any problem Objective . Vital Signs Date Time Temp Pulse Resp B/P (MAP) Pulse Ox O2 Delivery O2 Flow Rate FiO2 08/30/17 12:00 98.5 83 16 121/74 (90) 100 08/30/17 08:00 97.5 86 17 126/84 (98) 99 08/30/17 00:00 97.9 81 18 120/76 (91) 98 08/29/17 20:25 77 08/29/17 20:00 98.3 79 18 117/76 (90) 99 08/29/17 16:00 98.0 86 17 115/72 (86) 100 08/30/17 08/30/17 08/31/17 15:00 23:00 07:00 Intake Total 100 ml Balance 100 ml IV Total 100 ml . Laboratory Tests Test 08/29/17 07:35 White Blood Count 9.3 TH/MM3 Red Blood Count 3.29 MIL/MM3 Hemoglobin 10.2 GM/DL Hematocrit 30.0 % Mean Corpuscular Volume 91.3 FL Mean Corpuscular Hemoglobin 31.0 PG Mean Corpuscular Hemoglobin Concent 33.9 % Red Cell Distribution Width 15.0 % Platelet Count 481 TH/MM3 Mean Platelet Volume 7.0 FL Neutrophils (%) (Auto) 72.5 % Lymphocytes (%) (Auto) 21.5 % Monocytes (%) (Auto) 4.3 % Eosinophils (%) (Auto) 1.3 % Basophils (%) (Auto) 0.4 % Neutrophils # (Auto) 6.7 TH/MM3 Lymphocytes # (Auto) 2.0 TH/MM3 Monocytes # (Auto) 0.4 TH/MM3 Eosinophils # (Auto) 0.1 TH/MM3 Basophils # (Auto) 0.0 TH/MM3 CBC Comment AUTO DIFF Differential Comment AUTO DIFF CONFIRMED Platelet Estimate HIGH Platelet Morphology Comment NORMAL Red Cell Morphology Comment NORMAL Laboratory Tests Test 08/29/17 07:35 Blood Urea Nitrogen 9 MG/DL Creatinine 0.58 MG/DL Random Glucose 83 MG/DL Calcium Level 8.7 MG/DL Magnesium Level 1.9 MG/DL Sodium Level 141 MEQ/L Potassium Level 3.9 MEQ/L Chloride Level 109 MEQ/L Carbon Dioxide Level 24.4 MEQ/L Anion Gap 8 MEQ/L Estimat Glomerular Filtration Rate 115 ML/MIN Imaging Last Impressions Ankle MRI 08/27/17 0000 Signed Impressions: Service Date/Time: Sunday, August 27, 2017 12:12 - CONCLUSION: Findings suspicious for septic joint. joint. Aspiration is suggested. Negative for myelitis. Carlos Alvarado MD FACR Lower Extremity Ultrasound 08/26/17 0000 Signed Impressions: Service Date/Time: August 19:03 - CONCLUSION: 1. Extensive deep venous thrombosis involving the right femoral vein and popliteal vein. Neel Cantu MD Physical Exam GENERAL: Patient is a thin, well-developed CF, awake and alert, not in respiratory distress. SKIN: Warm and dry. No generalized rash, no ecchymoses and no evidence of embolic lesions. HEAD: Atraumatic. Normocephalic. No temporal wasting, or tenderness. EYES: [place] conjunctiva. No petechia or hemorrhage. Pupils equal, round and reactive to light. Extraocular movements full and intact. No scleral icterus. No injection or drainage. EARS, NOSE AND THROAT: Nose without bleeding or purulent nasal discharge. No sinus tenderness. Mucous membranes pink and moist. No oral lesions noted. Poor dentition NECK: Trachea midline. Supple and not tender, no meningeal signs CARDIOVASCULAR: Regular rate and rhythm. No murmurs, rubs or gallops heard RESPIRATORY: Clear to auscultation. Breath sounds equal bilaterally. No rales , wheezing or rhonchi ABDOMEN: Soft, non-tender, nondistended. Bowel sounds present and normoactive. No guarding. No rebound. No organomegaly. EXTREMITIES: No clubbing, cyanosis. LLE swelling is better, has good ROM at ankle joint better than last time I saw her, has swelling of ankle joint. larger compared the RLE. NEUROLOGICAL: Awake and alert. Cranial nerves grossly intact. Motor grossly within normal limits. PSYCHIATRIC: Normal affect, calm and cooperative. LINE: No evidence of infection Assessment & Plan Remarks IMPRESSION GAS and Viridans Strep bacteremia from L foot cellulitis, high grade - very suspicious for endocarditis, has Hx IVDU - TTE ok LLE DVT L ankle effusion, clinically better and less likely septic joint Known active IVDU Rash/Hives with PCN, has tolerated Keflex RECOMMENDATION Continue Rocephin Cardiology consult for ARNOLD She will need course of IV Abx for the prolonged bacteremia Repeat BC today and tomorrow On Rx for LLE DVT Stop Clindamycin Monitor progress Explained plan to the patient Parisa Badillo MD Aug 30, 2017 13:53
--- NOTE | 2017-08-30 15:27 | PD.CONS ---
HPI Consult Requested By Primary Care Physician No Primary Care Physician History of Present Illness 41-year-old female consulted for ARNOLD to r/u IE in the setting of positive blood culture. She had been diagnosed to have cellulitis and treated with clindamycin. She stated that the pain and swelling on her left lower extremity did not improve, and it started getting worse. PMHX significant IVDA. 2Dechocardiogram unremarkable. Cardiology disease consultation has been requested for ARNOLD. Review of Systems Consitutional: DENIES: Fatigue, Fever, Chills, Weight gain, Weight loss Eyes: DENIES: Amaurosis [place], Change in vision HEENT: DENIES: Lightheadedness, Change in hearing Respiratory: DENIES: See HPI, Cough, Snoring, Shortness of breath, Wheezing, Sputum production Cardiovascular: DENIES: See HPI, Chest pain, Palpitations, Syncope, Tachycardia Gastrointestinal: DENIES: Nausea, Vomiting, Change in bowel habits, Reflux, Bloody stools, Melena Genitourinary: DENIES: Urinary incontinence, Difficulty voiding Integumentary: DENIES: Rash Neurologic: DENIES: Tingling or numbness, Memory problems, Poor Balance, Stroke symptoms Musculoskeletal: DENIES: Joint pain, Muscle pain, Limited range of motion, Back pain Psychiatric: DENIES: Anxiety, Depression, Sleep disturbances Hematologic: DENIES: Bruising tendencies, Bleeding tendencies Endocrine: DENIES: Weight gain, Weight loss, Thyroid disease Past Family Social History Allergies: Coded Allergies: penicillin G (Verified Allergy, Mild, rash, 08/27/17) patient has taken Keflex in the past without any problem Past Medical History IVDA Hep C Depression Past Surgical History section Multiple repair of lacerations Infections and abscesses in her upper extremity from previous IV drug use Reported Medications Reported Meds & Active Scripts Active Reported Wellbutrin Xl 24 HR (Bupropion HCl) 150 Mg Tab 150 Mg PO DAILY Adderall (Amphetamine-Dextroamphetamine) 30 Mg Tab 30 Mg PO BID Avoid late evening doses. Space doses at least 4 to 6 hours if more than once/day dosing. Active Ordered Medications Current Medications Medications (Trade) Dose Ordered Sig/Sherita Route Start Time Stop Time Status Last Admin Sodium Chloride 1,000 ml @ 100 mls/hr Q10H IV 08/26/17 20:37 08/30/17 12:12 (NS Flush) 2 ml UNSCH PRN IV FLUSH 08/26/17 20:45 (NS Flush) 2 ml BID IV FLUSH 08/26/17 21:00 08/27/17 10:46 (Zofran Inj) 4 mg Q6H PRN IVP 08/26/17 20:45 (Percocet 5-325 Mg) 1 tab Q6H PRN PO 08/26/17 20:45 (Percocet 10-325 Mg) 1 tab Q6H PRN PO 08/26/17 20:45 08/30/17 12:12 (Narcan Inj) 0.4 mg UNSCH PRN IV PUSH 08/26/17 20:45 (Candy-Colace) 1 tab BID PO 08/26/17 21:00 08/30/17 10:16 (Milk Of Magnesia Liq) 30 ml Q12H PRN PO 08/26/17 20:45 (Lovenox Inj) 50 mg Q12H SQ 08/27/17 08:00 08/30/17 10:15 (Habitrol 21 Mg Patch.24 Hr) 1 patch DAILY T-DERMAL 08/27/17 09:00 08/30/17 10:17 Miscellaneous Information 1 DAILY T-DERMAL 08/27/17 09:00 08/30/17 09:00 (Wellbutrin Sr) 150 mg DAILY PO 08/27/17 09:00 08/30/17 10:15 (Cleocin) 300 mg TID PO 08/27/17 09:00 08/30/17 12:12 Ceftriaxone Sodium 2000 mg/ Sodium Chloride 100 ml @ 200 mls/hr Q24H IV 08/27/17 11:00 08/30/17 10:26 (Adderall) 30 mg BID PO 08/27/17 10:30 08/30/17 10:16 (Theragran) 1 tab DAILY PO 08/30/17 09:00 08/30/17 10:16 (Vitamin B12) 100 mcg DAILY PO 08/30/17 09:00 08/30/17 10:16 Family History Dad: CVA Mom: DM Social History Tobacco use: 1 PPD Alcohol use: Denies Illicit drug use: DAVID Has a boyfriend Had 2 children that she gave up for adoption Physical Exam Vital Signs Vital Signs Date Time Temp Pulse Resp B/P (MAP) Pulse Ox O2 Delivery O2 Flow Rate FiO2 10/16/17 12:00 98.5 83 16 121/74 (90) 100 08/30/17 08:00 97.5 86 17 126/84 (98) 99 08/30/17 00:00 97.9 81 18 120/76 (91) 98 08/29/17 20:25 77 08/29/17 20:00 98.3 79 18 117/76 (90) 99 08/29/17 16:00 98.0 86 17 115/72 (86) 100 Physical Exam GENERAL: Well-nourished, well-developed patient. SKIN: Warm and dry. HEAD: Normocephalic. EYES: No scleral icterus. No injection or drainage. NECK: Supple, trachea midline. No JVD or lymphadenopathy. CARDIOVASCULAR: Regular rate and rhythm without murmurs, gallops, or rubs. RESPIRATORY: Breath sounds equal bilaterally. No accessory muscle use. GASTROINTESTINAL: Abdomen soft, non-tender, nondistended. EXTREMITIES: No cyanosis, or edema. NEUROLOGICAL: Awake, alert, and oriented x 3. Non-focal. Laboratory Date/Time Source Procedure Growth Status 08/26/17 19:00 Blood Peripheral Aerobic Blood Culture - Final Group A Beta Strep Resulted 08/26/17 19:00 Blood Peripheral Anaerobic Blood Culture - Preliminary NO GROWTH IN 4 DAYS Resulted Result Diagram: 08/29/17 0735 08/29/17 0735 Imaging Last Impressions Ankle MRI 08/27/17 0000 Signed Impressions: Service Date/Time: Sunday, August 27, 2017 12:12 - CONCLUSION: Findings suspicious for septic joint. joint. Aspiration is suggested. Negative for myelitis. Carlos Alvarado MD FACR Lower Extremity Ultrasound 08/26/17 0000 Signed Impressions: Service Date/Time: August 19:03 - CONCLUSION: 1. Extensive deep venous thrombosis involving the right femoral vein and popliteal vein. Neel Cantu MD Assessment and Plan Problem List: (1) Bacteremia ICD Codes: R78.81 - Bacteremia Status: Acute Plan: Negative TTE. Positive blood cultures. 2Decho unremarkable. Agree with ARNOLD to further assess heart structures. Risk benefits of ARNOLD including but not limited to perforation, bleeding or explain to patient. She understand risk an is willing to proceed. Recommendations: Keep NPO after midnight for ARNOLD in AM (2) Positive blood cultures ICD Codes: R78.81 - Bacteremia Status: Acute (3) DVT (deep venous thrombosis) ICD Codes: I82.409 - Acute embolism and thrombosis of unspecified deep veins of unspecified lower extremity Status: Acute Problem Qualifiers (1) DVT (deep venous thrombosis): Qualified Codes: I82.412 - Acute embolism and thrombosis of left femoral vein Eros Wakefield MD Aug 30, 2017 15:27
[2017-08-30 16:00] VITALS: BP 124/74; PULSE 89; RESP 16; TEMP 98.6; O2SAT 100
--- NOTE | 2017-08-30 17:50 | HHI.PR ---
Subjective Remarks In bed, boyfriend at bedside. Patient appears in nad. She is asking for more pain meds, however she doesn't look in pain. No fever or chills. No n/v/d/c. Plan for ARNOLD discussed with the patient. Objective Vitals Vital Signs Date Time Temp Pulse Resp B/P (MAP) Pulse Ox O2 Delivery O2 Flow Rate FiO2 08/30/17 16:00 98.6 89 16 124/74 (91) 100 08/30/17 12:00 98.5 83 16 121/74 (90) 100 08/30/17 08:00 97.5 86 17 126/84 (98) 99 08/30/17 00:00 97.9 81 18 120/76 (91) 98 08/29/17 20:25 77 08/29/17 20:00 98.3 79 18 117/76 (90) 99 I/O 08/29/17 08/29/17 08/29/17 08/30/17 08/30/17 08/30/17 07:00 15:00 23:00 07:00 15:00 23:00 Intake Total 680 ml 3365 ml 1220 ml 100 ml 1082 ml Output Total 281 ml Balance 399 ml 3365 ml 1220 ml 100 ml 1082 ml Intake Oral 680 ml 2200 ml 320 ml IV Total 1165 ml 900 ml 100 ml 1082 ml Output Urine Total 280 ml Stool Total 1 ml # Voids 4 3 # Bowel Movements 1 0 Result Diagram: 08/29/17 0735 08/29/17 0735 Imaging Last Impressions Ankle MRI 08/27/17 0000 Signed Impressions: Service Date/Time: Sunday, August 27, 2017 12:12 - CONCLUSION: Findings suspicious for septic joint. joint. Aspiration is suggested. Negative for myelitis. Carlos Alvarado MD FACR Lower Extremity Ultrasound 08/26/17 0000 Signed Impressions: Service Date/Time: August 19:03 - CONCLUSION: 1. Extensive deep venous thrombosis involving the right femoral vein and popliteal vein. Neel Cantu MD Objective Remarks GENERAL: NAD SKIN: Warm and dry. HEAD: Normocephalic. EYES: No scleral icterus. No injection or drainage. NECK: Supple, trachea midline. No JVD or lymphadenopathy. CARDIOVASCULAR: Regular rate and rhythm without murmurs, gallops, or rubs. RESPIRATORY: Breath sounds equal bilaterally. No accessory muscle use. GASTROINTESTINAL: Abdomen soft, non-tender, nondistended. MUSCULOSKELETAL: No cyanosis, or edema. TTP LLE BACK: Nontender without obvious deformity. No CVA tenderness. A/P Problem List: (1) DVT (deep venous thrombosis) ICD Code: I82.409 - Acute embolism and thrombosis of unspecified deep veins of unspecified lower extremity Status: Acute (2) Bacteremia ICD Code: R78.81 - Bacteremia Status: Acute Assessment and Plan 41-year-old female with Group A strep and Viridans strep Bacteremia, 4/4 positive blood cultures on 08/19. Monitor repeat Blood cx Left foot cellulitis, high grade LLE DVT L ankle effusion, clinically better and less likely septic joint H/o IVDA Suspicious for endocarditis, has Hx IVDU -Currently on Rocephin IV daily DC Cleocin per infectious disease specialist -2D echo no endocarditis. Consult cardio for ARNOLD -Monitor repeat blood culture -HIV testing, patient wants to be tested for it DVT, acute, Left US Lower extremity reviewed and shows DVT to the left femoral vein and popliteal vein -MRI Left ankle for further evaluation. Consult orthopedic surgery if positive -Lovenox subcutaneous every 12. Change to OAC within next 24 hours; Xarelto howeevr if ARNOLD will hold for now -Pain management with PO Percocet Depression, chronic -Continue home medications Tobacco abuse and IVDA abuse -Counseled to quit -Nicotine patch ordered Hypokalemia: Monitor and replace as need. DVT prophylaxis: Lovenox DC plan pending improvement and clearance form consultants Problem Qualifiers (1) DVT (deep venous thrombosis): Qualified Codes: I82.412 - Acute embolism and thrombosis of left femoral vein Radha Zimmer MD Aug 30, 2017 17:50
[2017-08-30 20:00] VITALS: BP 116/78; PULSE 86; RESP 18; TEMP 97.7; O2SAT 99
[2017-08-31] VITALS (7 sets, daily range): BP systolic 107–127; BP diastolic 66–77; PULSE 78–89; RESP 16–18; TEMP 97.4–98.5; O2SAT 99–100
[2017-08-31] MEDS: oxyCODONE/ACETAMINOPHEN 10 MG/325 MG TAB PO PRN ×4 (00:02→18:11)
[2017-08-31] MEDS: SODIUM CHLOR 0.9% 1000 ML INJ 1,000 ML IV SCH ×3 (00:04→20:37)
[2017-08-31] MEDS: ENOXAPARIN SODIUM 60 MG/0.6 ML SYRINGE SQ SCH ×2 (08:00→21:34)
[2017-08-31] MEDS: SODIUM CHLORIDE 0.9% FLUSH 10 ML FLUSH IV FLUSH SCH ×2 (09:00→21:00)
[2017-08-31] MEDS: REMOVE OLD PATCH T-DERMAL SCH (09:00)
--- NOTE | 2017-08-31 09:13 | HHI.PR ---
Subjective Remarks Went for ARNOLD, seen thereafter. No endocarditis by ARNOLD discussed with the patient. Patient in bed. Appears in nad. Asking for more pain meds. Painin her left leg is the same,. however VSS and also she is noted ambulating. Objective Vitals Vital Signs Date Time Temp Pulse Resp B/P (MAP) Pulse Ox O2 Delivery O2 Flow Rate FiO2 08/31/17 04:45 98.5 82 16 109/71 (84) 100 08/31/17 00:00 97.6 78 18 107/66 (80) 99 08/30/17 20:00 97.7 86 18 116/78 (91) 99 08/30/17 16:00 98.6 89 16 124/74 (91) 100 08/30/17 12:00 98.5 83 16 121/74 (90) 100 I/O 08/30/17 08/30/17 08/30/17 08/31/17 08/31/17 08/31/17 07:00 15:00 23:00 07:00 15:00 23:00 Intake Total 1220 ml 100 ml 1882 ml 651 ml Balance 1220 ml 100 ml 1882 ml 651 ml Intake Oral 320 ml 800 ml IV Total 900 ml 100 ml 1082 ml 651 ml # Voids 3 5 3 # Bowel Movements 0 0 Result Diagram: 08/29/17 0735 08/29/17 0735 Imaging Last Impressions Ankle MRI 08/27/17 0000 Signed Impressions: Service Date/Time: Sunday, August 27, 2017 12:12 - CONCLUSION: Findings suspicious for septic joint. joint. Aspiration is suggested. Negative for myelitis. Carlos Alvarado MD FACR Lower Extremity Ultrasound 08/26/17 0000 Signed Impressions: Service Date/Time: August 19:03 - CONCLUSION: 1. Extensive deep venous thrombosis involving the right femoral vein and popliteal vein. Neel Cantu MD Objective Remarks GENERAL: NAD SKIN: Warm and dry. HEAD: Normocephalic. EYES: No scleral icterus. No injection or drainage. NECK: Supple, trachea midline. No JVD or lymphadenopathy. CARDIOVASCULAR: Regular rate and rhythm without murmurs, gallops, or rubs. RESPIRATORY: Breath sounds equal bilaterally. No accessory muscle use. GASTROINTESTINAL: Abdomen soft, non-tender, nondistended. MUSCULOSKELETAL: No cyanosis, or edema. TTP LLE BACK: Nontender without obvious deformity. No CVA tenderness. Procedures ARNOLD 08/31/17 no endocarditis A/P Problem List: (1) DVT (deep venous thrombosis) ICD Code: I82.409 - Acute embolism and thrombosis of unspecified deep veins of unspecified lower extremity Status: Acute (2) Bacteremia ICD Code: R78.81 - Bacteremia Status: Acute Assessment and Plan 41-year-old female with Group A strep and Viridans strep Bacteremia, 4/4 positive blood cultures on 08/19. Monitor repeat Blood cxRepeat blood Cx 08/30 and 08/31 f/u results Left foot cellulitis, high grade LLE DVT L ankle effusion, clinically better and less likely septic joint H/o IVDA Suspicious for endocarditis, has Hx IVDU -Currently on Rocephin IV daily DC Cleocin per infectious disease specialist -2D echo no endocarditis. Consult cardio had ARNOLD 08/31/17 no endocarditis -Monitor repeat blood culture -HIV testing, patient wants to be tested for it DVT, acute, Left US Lower extremity reviewed and shows DVT to the left femoral vein and popliteal vein -MRI Left ankle for further evaluation. Consult orthopedic surgery if positive -Lovenox subcutaneous every 12. Change to OAC within next 24 hours; Xarelto howeevr if ARNOLD will hold for now -Pain management with PO Percocet Depression, chronic -Continue home medications Tobacco abuse and IVDA abuse -Counseled to quit -Nicotine patch ordered Hypokalemia: Monitor and replace as need. DVT prophylaxis: Lovenox DC plan pending improvement and clearance form consultants DC when cleared by ID specialist. Problem Qualifiers (1) DVT (deep venous thrombosis): Qualified Codes: I82.412 - Acute embolism and thrombosis of left femoral vein Radha Zimmer MD Aug 31, 2017 09:13
[2017-08-31] MEDS: NICOTINE 21 MG/24 HR PATCH T-DERMAL SCH (10:31)
[2017-08-31] MEDS: CYANOCOBALAMIN 100 MCG TAB PO SCH (10:31)
[2017-08-31] MEDS: CLINDAMYCIN 150 MG CAP PO SCH ×3 (10:31→17:26)
[2017-08-31] MEDS: DEXTROAMPHETAMINE/AMPHETAMINE 30 MG TAB PO SCH ×2 (10:31→21:34)
[2017-08-31] MEDS: buPROPion HCL 150 MG SUSTAINED RELEASE TAB PO SCH (10:31)
[2017-08-31] MEDS: DOCUSATE SODIUM 50 MG/SENNA 8.6 MG TAB PO SCH ×2 (10:31→21:34)
[2017-08-31] MEDS: MULTIVITAMIN TAB PO SCH (10:31)
[2017-08-31] MEDS ORDERED: LIDOCAINE HCL 1% PF 5 ML AMPULE OTHER ONE (12:00)
[2017-08-31] MEDS ORDERED: PROPOFOL 200 MG/20 ML AMP IV ONE (12:00)
[2017-08-31] MEDS: cefTRIAXone INJ 2,000 MG in SODIUM CHLORIDE 0.9% INJ 100 ML IV SCH (12:12)
[2017-08-31 13:21] LABS: BETA HCG QUANT LESS THAN 1 MIU/ML (0-5)
[2017-09-01] VITALS (8 sets, daily range): BP systolic 114–130; BP diastolic 70–80; PULSE 68–86; RESP 16–20; TEMP 96.6–98.7; O2SAT 99–100
[2017-09-01] MEDS: oxyCODONE/ACETAMINOPHEN 10 MG/325 MG TAB PO PRN ×5 (00:45→23:23)
[2017-09-01] MEDS: SODIUM CHLOR 0.9% 1000 ML INJ 1,000 ML IV SCH ×2 (05:05→16:37)
[2017-09-01] MEDS: REMOVE OLD PATCH T-DERMAL SCH (09:00)
[2017-09-01] MEDS: SODIUM CHLORIDE 0.9% FLUSH 10 ML FLUSH IV FLUSH SCH ×2 (09:00→20:01)
[2017-09-01] MEDS: buPROPion HCL 150 MG SUSTAINED RELEASE TAB PO SCH (09:43)
[2017-09-01] MEDS: DEXTROAMPHETAMINE/AMPHETAMINE 30 MG TAB PO SCH ×2 (09:44→20:01)
[2017-09-01] MEDS: NICOTINE 21 MG/24 HR PATCH T-DERMAL SCH (09:44)
[2017-09-01] MEDS: CYANOCOBALAMIN 100 MCG TAB PO SCH (09:44)
[2017-09-01] MEDS: MULTIVITAMIN TAB PO SCH (09:44)
[2017-09-01] MEDS: DOCUSATE SODIUM 50 MG/SENNA 8.6 MG TAB PO SCH ×2 (09:44→20:01)
[2017-09-01] MEDS: CLINDAMYCIN 150 MG CAP PO SCH ×3 (09:44→17:15)
[2017-09-01] MEDS: ENOXAPARIN SODIUM 60 MG/0.6 ML SYRINGE SQ SCH ×2 (09:45→20:01)
[2017-09-01] MEDS: cefTRIAXone INJ 2,000 MG in SODIUM CHLORIDE 0.9% INJ 100 ML IV SCH (09:45)
--- NOTE | 2017-09-01 10:23 | HHI.DS ---
Discharge Summary Admission Date Aug 26, 2017 at 20:39 Discharge Date: Sep 02, 2017 Admitting Diagnosis bacteremia, DVT (1) DVT (deep venous thrombosis) ICD Code: I82.409 - Acute embolism and thrombosis of unspecified deep veins of unspecified lower extremity Status: Acute (2) Bacteremia ICD Code: R78.81 - Bacteremia Status: Acute Procedures ARNOLD 08/31/17 no endocarditis Brief History - From Admission Written by FARIDEH Perez acting as scribe for Dr. Riley] on 08/26/17 at 20:57. 41 y/o female with a history of IVDA, depression, and HEP C was called and told to come brought back to the ED because she had 4/4 positive blood cultures with Group A beta strep and Viridans Streptococcus on 08/19/17. She also is complaining of pain in her left leg. She states she has been having off and on fever and chills at home. She does say she has also been having shortness of breath lately. She is currently not having shortness of breath. CBC/BMP: 08/29/17 0735 08/29/17 0735 Significant Findings Laboratory Tests Test 08/31/17 12:30 Imaging Last Impressions Ankle MRI 08/27/17 0000 Signed Impressions: Service Date/Time: Sunday, August 27, 2017 12:12 - CONCLUSION: Findings suspicious for septic joint. joint. Aspiration is suggested. Negative for myelitis. Carlso Alvarado MD FACR Lower Extremity Ultrasound 08/26/17 0000 Signed Impressions: Service Date/Time: August 19:03 - CONCLUSION: 1. Extensive deep venous thrombosis involving the right femoral vein and popliteal vein. Neel Cantu MD PE at Discharge GENERAL: NAD SKIN: Warm and dry. HEAD: Normocephalic. EYES: No scleral icterus. No injection or drainage. NECK: Supple, trachea midline. No JVD or lymphadenopathy. CARDIOVASCULAR: Regular rate and rhythm without murmurs, gallops, or rubs. RESPIRATORY: Breath sounds equal bilaterally. No accessory muscle use. GASTROINTESTINAL: Abdomen soft, non-tender, nondistended. MUSCULOSKELETAL: No cyanosis, or edema. TTP LLE BACK: Nontender without obvious deformity. No CVA tenderness. Hospital Course 41-year-old female with Group A strep and Viridans strep Bacteremia, 4/4 positive blood cultures on 08/19. Monitor repeat Blood cx Repeat blood Cx 08/30 and 08/31 f/u results NTD Left foot cellulitis, high grade LLE DVT L ankle effusion, clinically better and less likely septic joint H/o IVDA Suspicious for endocarditis, has Hx IVDU -Currently on Rocephin IV daily DC Cleocin per infectious disease specialist -2D echo no endocarditis. Consult cardio had ARNOLD 08/31/17 no endocarditis -Monitor repeat blood culture -HIV testing is negative, patient wanted to be tested for it -Continue Rocephin -Plan 28 days, then 2 weeks of po Levaquin 750 mg daily -Labs weekly while on IV Abx -Arrange for IV Abx in infusion clinic -Discussed with the patient at length again today regarding having the PICC, risks of manipulating PICC and using PICC outside the intended use fo IV Abx, risks of infection, life threatening infections DVT, acute, Left US Lower extremity reviewed and shows DVT to the left femoral vein and popliteal vein -MRI Left ankle for further evaluation. Consult orthopedic surgery if positive -Lovenox subcutaneous every 12. Change to OAC within next 24 hours; Xarelto howeevr if ARNOLD will hold for now -Pain management with PO Percocet Depression, chronic -Continue home medications Tobacco abuse and IVDA abuse -Counseled to quit -Nicotine patch ordered Hypokalemia: Monitor and replace as need. DVT prophylaxis: Lovenox DC plan Plan to place a PICC line ordered today 09/02/17, discussed with Dr Badillo ID specialist and ok to place a PICC line today and discharge patient. Pt Condition on Discharge: Stable Discharge Disposition: Disch w/ Home Health Serv Discharge Time: > 30 minutes Discharge Instructions DIET: Follow Instructions for: As Tolerated, No Restrictions Activities you can perform: Regular-No Restrictions Follow up Referrals: PCP Follow-up - 2-3 Days New Medications: Oxycodone (Oxycodone) 5 Mg Cap 5 MG PO Q8H PRN for PAIN, #12 CAP 0 Refills Rivaroxaban (Xarelto) 15 Mg Tab 15 MG PO Q12HR for Blood Clot Prevention for 21 Days, TAB 0 Refills Rivaroxaban (Xarelto) 20 Mg Tab 20 MG PO DAILY for Blood Clot Prevention for 30 Days, #30 TAB 0 Refills Nicotine (Eq Nicotine) 21 Mg/24 Hour Dis 1 PATCH T-DERMAL DAILY for smoking cessation , #30 PATCH Sennosides-Docusate Sodium (Senna Plus 8.6-50 mg) 8.6 Mg-50 Mg Tab 1 TAB PO BID for Constipation, #60 TAB Continued Medications: Amphetamine-Dextroamphetamine (Adderall) 30 Mg Tab 30 MG PO BID for Hyperactivity Control, #60 TAB 0 Refills Avoid late evening doses. Space doses at least 4 to 6 hours if more than once/day dosing. Bupropion HCl ER 24 HR (Wellbutrin Xl 24 HR) 150 Mg Tab 150 MG PO DAILY for Control Depression, TAB 0 Refills Radha Zimmer MD Sep 01, 2017 10:23
[2017-09-01] MEDS ORDERED: ACETAMINOPHEN 325 MG TAB PO PRN (10:30)
[2017-09-01] MEDS ORDERED: ONDANSETRON ODT 4 MG TAB PO PRN (10:30)
--- NOTE | 2017-09-01 13:57 | HHI.PR ---
Subjective Remarks In bed, appears ion nad. No fever ro chills. No n/v/d/c. Still with pain in her leg. Swelling and erythema improved. Objective Vitals Vital Signs Date Time Temp Pulse Resp B/P (MAP) Pulse Ox O2 Delivery O2 Flow Rate FiO2 09/01/17 12:00 96.6 80 17 127/80 (96) 100 09/01/17 08:00 98.2 82 16 130/73 (92) 99 09/01/17 07:37 78 09/01/17 04:00 98.4 86 20 129/78 (95) 100 09/01/17 00:00 98.5 78 18 118/70 (86) 100 08/31/17 21:03 89 08/31/17 20:00 97.8 79 18 120/76 (91) 100 08/31/17 16:00 97.8 85 16 121/75 (90) 99 I/O 08/31/17 08/31/17 08/31/17 09/01/17 09/01/17 09/01/17 07:00 15:00 23:00 07:00 15:00 23:00 Intake Total 651 ml 1100 ml 1440 ml 1720 ml Balance 651 ml 1100 ml 1440 ml 1720 ml Intake Oral 1440 ml 720 ml IV Total 651 ml 1100 ml 1000 ml # Voids 3 8 3 # Bowel Movements 1 Result Diagram: 08/29/1773408/29/17734 Objective Remarks GENERAL: NAD SKIN: Warm and dry. HEAD: Normocephalic. EYES: No scleral icterus. No injection or drainage. NECK: Supple, trachea midline. No JVD or lymphadenopathy. CARDIOVASCULAR: Regular rate and rhythm without murmurs, gallops, or rubs. RESPIRATORY: Breath sounds equal bilaterally. No accessory muscle use. GASTROINTESTINAL: Abdomen soft, non-tender, nondistended. MUSCULOSKELETAL: No cyanosis, or edema. TTP LLE BACK: Nontender without obvious deformity. No CVA tenderness. Procedures ARNOLD 08/31/17 no endocarditis A/P Problem List: (1) DVT (deep venous thrombosis) ICD Code: I82.409 - Acute embolism and thrombosis of unspecified deep veins of unspecified lower extremity Status: Acute (2) Bacteremia ICD Code: R78.81 - Bacteremia Status: Acute Assessment and Plan 41-year-old female with Group A strep and Viridans strep Bacteremia, 4/4 positive blood cultures on 08/19. Monitor repeat Blood cxRepeat blood Cx 08/30 and 08/31 f/u results Left foot cellulitis, high grade LLE DVT L ankle effusion, clinically better and less likely septic joint H/o IVDA Suspicious for endocarditis, has Hx IVDU -Currently on Rocephin IV daily DC Cleocin per infectious disease specialist -2D echo no endocarditis. Consult cardio had ARNOLD 08/31/17 no endocarditis -Monitor repeat blood culture -HIV testing, patient wants to be tested for it DVT, acute, Left US Lower extremity reviewed and shows DVT to the left femoral vein and popliteal vein -MRI Left ankle for further evaluation. Consult orthopedic surgery if positive -Lovenox subcutaneous every 12. Change to OAC within next 24 hours; Xarelto howeevr if ARNOLD will hold for now -Pain management with PO Percocet Depression, chronic -Continue home medications Tobacco abuse and IVDA abuse -Counseled to quit -Nicotine patch ordered Hypokalemia: Monitor and replace as need. DVT prophylaxis: Lovenox DC plan pending improvement and clearance form consultants DC when cleared by ID specialist. Problem Qualifiers (1) DVT (deep venous thrombosis): Qualified Codes: I82.412 - Acute embolism and thrombosis of left femoral vein Radha Zimmer MD Sep 01, 2017 13:57
[2017-09-02 00:34] VITALS: BP 120/74; PULSE 85; RESP 18; TEMP 97.7; O2SAT 98
[2017-09-02] MEDS: SODIUM CHLOR 0.9% 1000 ML INJ 1,000 ML IV SCH ×2 (01:31→11:34)
[2017-09-02 04:59] VITALS: BP 128/75; PULSE 79; RESP 18; TEMP 97.8; O2SAT 99
[2017-09-02] MEDS: oxyCODONE/ACETAMINOPHEN 10 MG/325 MG TAB PO PRN ×2 (06:47→12:57)
[2017-09-02] MEDS: ENOXAPARIN SODIUM 60 MG/0.6 ML SYRINGE SQ SCH (07:57)
[2017-09-02] MEDS: CYANOCOBALAMIN 100 MCG TAB PO SCH (07:57)
[2017-09-02] MEDS: NICOTINE 21 MG/24 HR PATCH T-DERMAL SCH (07:57)
[2017-09-02] MEDS: CLINDAMYCIN 150 MG CAP PO SCH ×2 (07:57→11:34)
[2017-09-02] MEDS: buPROPion HCL 150 MG SUSTAINED RELEASE TAB PO SCH (07:57)
[2017-09-02] MEDS: MULTIVITAMIN TAB PO SCH (07:57)
[2017-09-02] MEDS: DOCUSATE SODIUM 50 MG/SENNA 8.6 MG TAB PO SCH (07:58)
[2017-09-02] MEDS: SODIUM CHLORIDE 0.9% FLUSH 10 ML FLUSH IV FLUSH SCH (07:58)
[2017-09-02] MEDS: DEXTROAMPHETAMINE/AMPHETAMINE 30 MG TAB PO SCH (07:58)
[2017-09-02 08:00] VITALS: BP 131/85; PULSE 77; RESP 16; TEMP 98.5; O2SAT 98
--- NOTE | 2017-09-02 08:29 | HHI.PR ---
Subjective Remarks Patient in bed, says se feels much better. Says she has less pain in her leg, edema improved. Is able to ambulate better. No n/v/d/c. Plan to DC. Discussed with Dr Badillo, ID ok to place a PIcC line and to DC patient Objective Vitals Vital Signs Date Time Temp Pulse Resp B/P (MAP) Pulse Ox O2 Delivery O2 Flow Rate FiO2 09/02/17 04:59 97.8 79 18 128/75 (92) 99 09/02/17 00:34 97.7 85 18 120/74 (89) 98 09/01/17 20:00 98.7 83 18 121/76 (91) 100 09/01/17 16:00 98.4 84 17 114/76 (89) 99 09/01/17 15:12 68 09/01/17 12:00 96.6 80 17 127/80 (96) 100 I/O 09/01/17 09/01/17 09/01/17 09/02/17 09/02/17 09/02/17 07:00 15:00 23:00 07:00 15:00 23:00 Intake Total 1720 ml 1440 ml 1100 ml 1000 ml Balance 1720 ml 1440 ml 1100 ml 1000 ml Intake Oral 720 ml 1440 ml IV Total 1000 ml 1100 ml 1000 ml # Voids 3 8 3 # Bowel Movements 0 Result Diagram: 08/29/17 0735 08/29/17 0735 Imaging Last Impressions Ankle MRI 08/27/17 0000 Signed Impressions: Service Date/Time: Sunday, August 27, 2017 12:12 - CONCLUSION: Findings suspicious for septic joint. joint. Aspiration is suggested. Negative for myelitis. Carlos Alvarado MD FACR Lower Extremity Ultrasound 08/26/17 0000 Signed Impressions: Service Date/Time: August 19:03 - CONCLUSION: 1. Extensive deep venous thrombosis involving the right femoral vein and popliteal vein. Neel Cantu MD Objective Remarks GENERAL: NAD SKIN: Warm and dry. HEAD: Normocephalic. EYES: No scleral icterus. No injection or drainage. NECK: Supple, trachea midline. No JVD or lymphadenopathy. CARDIOVASCULAR: Regular rate and rhythm without murmurs, gallops, or rubs. RESPIRATORY: Breath sounds equal bilaterally. No accessory muscle use. GASTROINTESTINAL: Abdomen soft, non-tender, nondistended. MUSCULOSKELETAL: No cyanosis, or edema. TTP LLE BACK: Nontender without obvious deformity. No CVA tenderness. Procedures ARNOLD 08/31/17 no endocarditis A/P Problem List: (1) DVT (deep venous thrombosis) ICD Code: I82.409 - Acute embolism and thrombosis of unspecified deep veins of unspecified lower extremity Status: Acute (2) Bacteremia ICD Code: R78.81 - Bacteremia Status: Acute Assessment and Plan 41-year-old female with Group A strep and Viridans strep Bacteremia, 4/4 positive blood cultures on 08/19. Monitor repeat Blood cx Repeat blood Cx 08/30 and 08/31 f/u results NTD Left foot cellulitis, high grade LLE DVT L ankle effusion, clinically better and less likely septic joint H/o IVDA Suspicious for endocarditis, has Hx IVDU -Currently on Rocephin IV daily DC Cleocin per infectious disease specialist -2D echo no endocarditis. Consult cardio had ARNOLD 08/31/17 no endocarditis -Monitor repeat blood culture -HIV testing is negative, patient wanted to be tested for it -Continue Rocephin -Plan 28 days, then 2 weeks of po Levaquin 750 mg daily -Labs weekly while on IV Abx -Arrange for IV Abx in infusion clinic -Discussed with the patient at length again today regarding having the PICC, risks of manipulating PICC and using PICC outside the intended use fo IV Abx, risks of infection, life threatening infections DVT, acute, Left US Lower extremity reviewed and shows DVT to the left femoral vein and popliteal vein -MRI Left ankle for further evaluation. Consult orthopedic surgery if positive -Lovenox subcutaneous every 12. Change to OAC within next 24 hours; Xarelto howeevr if ARNOLD will hold for now -Pain management with PO Percocet Depression, chronic -Continue home medications Tobacco abuse and IVDA abuse -Counseled to quit -Nicotine patch ordered Hypokalemia: Monitor and replace as need. DVT prophylaxis: Lovenox DC plan Plan to place a PICC line ordered today 09/02/17, discussed with Dr Badillo ID specialist and ok to place a PICC line today and discharge patient. Problem Qualifiers (1) DVT (deep venous thrombosis): Qualified Codes: I82.412 - Acute embolism and thrombosis of left femoral vein Radha Zimmer MD Sep 02, 2017 08:29
[2017-09-02] MEDS: REMOVE OLD PATCH T-DERMAL SCH (09:00)
--- NOTE | 2017-09-02 10:44 | HHI.PR ---
Subjective Remarks Follow-up visit group a strep and viridans strep bacteremia, left ankle effusion , left foot cellulitis, history of IV drug abuse, DVT left lower extremity. Patient seen and examined today lying in bed. Reports she is feeling better and improved. Denies pain and discomfort. Denies SOB/ dyspnea. Denies chest pain, palpitations, headaches, dizziness. Denies fevers, chills, n/v/d. Denies dysuria. Objective Vitals Vital Signs Date Time Temp Pulse Resp B/P (MAP) Pulse Ox O2 Delivery O2 Flow Rate FiO2 09/02/17 08:00 98.5 77 16 131/85 (100) 98 09/02/17 04:59 97.8 79 18 128/75 (92) 99 09/02/17 00:34 97.7 85 18 120/74 (89) 98 09/01/17 20:00 98.7 83 18 121/76 (91) 100 09/01/17 16:00 98.4 84 17 114/76 (89) 99 09/01/17 15:12 68 09/01/17 12:00 96.6 80 17 127/80 (96) 100 I/O 09/01/17 09/01/17 09/01/17 09/02/17 09/02/17 09/02/17 07:00 15:00 23:00 07:00 15:00 23:00 Intake Total 1720 ml 1440 ml 1100 ml 1000 ml Balance 1720 ml 1440 ml 1100 ml 1000 ml Intake Oral 720 ml 1440 ml IV Total 1000 ml 1100 ml 1000 ml # Voids 3 8 3 # Bowel Movements 0 Result Diagram: 08/29/17 0735 08/29/17 0735 Imaging Last Impressions Ankle MRI 08/27/17 0000 Signed Impressions: Service Date/Time: Sunday, August 27, 2017 12:12 - CONCLUSION: Findings suspicious for septic joint. joint. Aspiration is suggested. Negative for myelitis. Carlos Alvarado MD FACR Lower Extremity Ultrasound 08/26/17 0000 Signed Impressions: Service Date/Time: August 19:03 - CONCLUSION: 1. Extensive deep venous thrombosis involving the right femoral vein and popliteal vein. Neel Cantu MD Objective Remarks GENERAL: This is a thin, appearing older than stated age, well-developed patient , in no apparent distress. SKIN: Warm and dry. Multiple track trujillo bilateral upper extremity, bilateral lower extremity HEENT: Normocephalic. Pupils equal round and reactive. Nose without bleeding. Airway patent. NECK: Trachea midline. No JVD. Supple. CARDIOVASCULAR: Regular rate and rhythm without murmurs, gallops, or rubs. RESPIRATORY: Clear to auscultation. Breath sounds equal bilaterally. No wheezes , rales, or rhonchi. GASTROINTESTINAL: Abdomen soft, non-tender, nondistended. Bowel Sounds normoactive x4. MUSCULOSKELETAL: Extremities without clubbing, cyanosis, +1 left lower extremity edema. NEUROLOGICAL: Awake and alert. Oriented to time, place, person. No focal neuro deficit. Moves all extremities. Normal speech. Procedures ARNOLD 08/31/17 no endocarditis A/P Problem List: (1) DVT (deep venous thrombosis) ICD Code: I82.409 - Acute embolism and thrombosis of unspecified deep veins of unspecified lower extremity Status: Acute (2) Bacteremia ICD Code: R78.81 - Bacteremia Status: Acute Assessment and Plan 41 y/o female with a history of IVDA, depression, and HEP C was called and told to come brought back to the ED because she had 4/4 positive blood cultures with Group A beta strep and Viridans Streptococcus on 08/19/17. Group A strep and Viridans strep Bacteremia, 4/4 positive blood cultures on 08/19. Monitor repeat Blood cxRepeat blood Cx 08/30 and 08/31 f/u results Left foot cellulitis, high grade LLE DVT Left ankle effusion, clinically better and less likely septic joint H/o IVDA Suspicious for endocarditis, has Hx IVDA - Currently on Rocephin IV daily DC Cleocin per infectious disease specialist - 2D echo no endocarditis. Consult cardio had ARNOLD 08/31/17 no endocarditis - ID Following. Plan for IV abx treatment as outpatient with PICC if repeat culture are negative - HIV testing, negative result - Pending repeat BC. Follow up results - Spoke with patient regarding IVDA. States she was clean for 6 years and had problems during of her when she started again. Reports she was on methadone and Suboxone prior until she was not able to see her pain doctor and went back to IVDA. States she wants to be better and lived better. States she will need transportation assistance for IV transfusion in outpatient. DVT, acute, Left US Lower extremity reviewed and shows DVT to the left femoral vein and popliteal vein - MRI Left ankle for further evaluation. Consult orthopedic surgery if positive - Lovenox subcutaneous every 12. Change to NOAC within next 24 hours; Xarelto - Pain management with PO Percocet Depression, chronic - Continue home medications Tobacco abuse and IVDA abuse - Counseled to quit - Nicotine patch ordered Hypokalemia: Monitor and replace as need. DVT prophylaxis: Lovenox Discuss with patient, nursing, Dr. Zimmer Discharge Planning Pending BC results. If BC without growth, plan to DC home with PICC as recommended by ID. Patient will go to IV infusion center. Problem Qualifiers (1) DVT (deep venous thrombosis): Qualified Codes: I82.412 - Acute embolism and thrombosis of left femoral vein Dolores Archibald Sep 02, 2017 10:44
[2017-09-02 11:20] VITALS: BP 129/83; PULSE 85; RESP 16; TEMP 99.5; O2SAT 99
[2017-09-02] MEDS: cefTRIAXone INJ 2,000 MG in SODIUM CHLORIDE 0.9% INJ 100 ML IV SCH (11:34)
[2017-09-02] MEDS ORDERED: SENN1TAB PO (12:54)
[2017-09-02] MEDS ORDERED: NICO21DI25 T-DERMAL (12:54)
[2017-09-02] MEDS ORDERED: OXYC1CAP PO (12:54)
[2017-09-02] MEDS ORDERED: APIX5TAB PO (12:55)
--- NOTE | 2017-09-02 14:07 | HHI.IDPN ---
Subjective Subjective Remarks Patient is a 41-year-old female, called into the hospital for further evaluation and treatment of her positive blood culture. Her problems started around August after she injected on her left foot. She started having problem with swelling and redness, and she went to the emergency room and have that evaluated. She was diagnosed to have cellulitis. She was afebrile at that time, and had an elevated WBC. Blood cultures were done at that time, she was given IV clindamycin, and was sent home on oral clindamycin. She stated that the pain and swelling on her left lower extremity did not improve, and it started getting worse. She has not been able to do any kind of ambulation because of the pain. She admits to fevers although it is not documented, and she was having sweats. Patient has been using IV drugs on and off prior to the onset of her problem. Denies any sore throat or any respiratory complaint. No nausea or vomiting, or any urinary complaint. She's been having body malaise and now myalgias. The blood cultures done in the emergency room on August 19 came back positive with group a strep, and viridans streptococcus. He was called back to return to the hospital for further evaluation and treatment. Patient has not had any fever since admission. Her WBC has improved. 2 blood cultures were repeated and those are still pending. Infectious disease consultation has been requested to evaluate the patient Notes reviewed Temps ok L ankle better Echo report ok BC 08/29 and 08/26 with GAS Rest of BC negative Antibiotics I attest that I obtained, updated or reviewed the home and current medications. Rocephin Current Medications Medications (Trade) Dose Ordered Sig/Sherita Route Start Time Stop Time Status Last Admin Sodium Chloride 1,000 ml @ 100 mls/hr Q10H IV 08/26/17 20:37 09/02/17 11:34 (NS Flush) 2 ml UNSCH PRN IV FLUSH 08/26/17 20:45 (NS Flush) 2 ml BID IV FLUSH 08/26/17 21:00 08/27/17 10:46 (Percocet 5-325 Mg) 1 tab Q6H PRN PO 08/26/17 20:45 (Percocet 10-325 Mg) 1 tab Q6H PRN PO 08/26/17 20:45 09/02/17 12:57 (Narcan Inj) 0.4 mg UNSCH PRN IV PUSH 08/26/17 20:45 (Candy-Colace) 1 tab BID PO 08/26/17 21:00 09/02/17 07:58 (Milk Of Magnesia Liq) 30 ml Q12H PRN PO 08/26/17 20:45 (Lovenox Inj) 50 mg Q12H SQ 08/27/17 08:00 09/02/17 07:57 (Habitrol 21 Mg Patch.24 Hr) 1 patch DAILY T-DERMAL 08/27/17 09:00 09/02/17 07:57 Miscellaneous Information 1 DAILY T-DERMAL 08/27/17 09:00 09/02/17 09:00 (Wellbutrin Sr) 150 mg DAILY PO 08/27/17 09:00 09/02/17 07:57 (Cleocin) 300 mg TID PO 08/27/17 09:00 09/02/17 11:34 Ceftriaxone Sodium 2000 mg/ Sodium Chloride 100 ml @ 200 mls/hr Q24H IV 08/27/17 11:00 09/02/17 11:34 (Adderall) 30 mg BID PO 08/27/17 10:30 09/02/17 07:58 (Theragran) 1 tab DAILY PO 08/30/17 09:00 09/02/17 07:57 (Vitamin B12) 100 mcg DAILY PO 08/30/17 09:00 09/02/17 07:57 (Zofran Odt) 4 mg Q6H PRN PO 09/01/17 10:30 (Tylenol) 650 mg Q4H PRN PO 09/01/17 10:30 09/01/17 11:00 Lines PIV Past Medical History IVDA Hep C Depression Past Surgical History section Multiple repair of lacerations Infections and abscesses in her upper extremity from previous IV drug use Allergies: Coded Allergies: penicillin G (Verified Allergy, Mild, rash, 08/27/17) patient has taken Keflex in the past without any problem Objective . Vital Signs Date Time Temp Pulse Resp B/P (MAP) Pulse Ox O2 Delivery O2 Flow Rate FiO2 09/02/17 11:20 99.5 85 16 129/83 (98) 99 09/02/17 08:00 98.5 77 16 131/85 (100) 98 09/02/17 04:59 97.8 79 18 128/75 (92) 99 09/02/17 00:34 97.7 85 18 120/74 (89) 98 09/01/17 20:00 98.7 83 18 121/76 (91) 100 09/01/17 16:00 98.4 84 17 114/76 (89) 99 09/01/17 15:12 68 . Microbiology Date/Time Source Procedure Growth Status 09/01/17 18:25 Blood Peripheral Aerobic Blood Culture - Preliminary NO GROWTH IN 1 DAY Resulted 09/01/17 18:25 Blood Peripheral Anaerobic Blood Culture - Preliminary NO GROWTH IN 1 DAY Resulted 08/31/17 05:45 Blood Peripheral Aerobic Blood Culture - Preliminary NO GROWTH IN 2 DAYS Resulted 08/31/17 05:45 Blood Peripheral Anaerobic Blood Culture - Preliminary NO GROWTH IN 2 DAYS Resulted 08/30/17 15:35 Blood Peripheral Aerobic Blood Culture - Preliminary NO GROWTH IN 3 DAYS Resulted 08/30/17 15:35 Blood Peripheral Anaerobic Blood Culture - Preliminary NO GROWTH IN 3 DAYS Resulted 08/30/17 15:20 Blood Peripheral Aerobic Blood Culture - Preliminary NO GROWTH IN 3 DAYS Resulted 08/30/17 15:20 Blood Peripheral Anaerobic Blood Culture - Preliminary NO GROWTH IN 3 DAYS Resulted Imaging Last Impressions Ankle MRI 08/27/17 0000 Signed Impressions: Service Date/Time: Sunday, August 27, 2017 12:12 - CONCLUSION: Findings suspicious for septic joint. joint. Aspiration is suggested. Negative for myelitis. Carlos Alvarado MD FACR Lower Extremity Ultrasound 08/26/17 0000 Signed Impressions: Service Date/Time: August 19:03 - CONCLUSION: 1. Extensive deep venous thrombosis involving the right femoral vein and popliteal vein. Neel Cantu MD Physical Exam GENERAL: Patient is a thin, well-developed CF, awake and alert, not in respiratory distress. SKIN: Warm and dry. No generalized rash, no ecchymoses and no evidence of embolic lesions. HEAD: Atraumatic. Normocephalic. No temporal wasting, or tenderness. EYES: [place] conjunctiva. No petechia or hemorrhage. Pupils equal, round and reactive to light. Extraocular movements full and intact. No scleral icterus. No injection or drainage. EARS, NOSE AND THROAT: Nose without bleeding or purulent nasal discharge. No sinus tenderness. Mucous membranes pink and moist. No oral lesions noted. Poor dentition NECK: Trachea midline. Supple and not tender, no meningeal signs CARDIOVASCULAR: Regular rate and rhythm. No murmurs, rubs or gallops heard RESPIRATORY: Clear to auscultation. Breath sounds equal bilaterally. No rales , wheezing or rhonchi ABDOMEN: Soft, non-tender, nondistended. Bowel sounds present and normoactive. No guarding. No rebound. No organomegaly. EXTREMITIES: No clubbing, cyanosis. LLE swelling is almost gone. Has good ROM at ankle joint NEUROLOGICAL: Awake and alert. Cranial nerves grossly intact. Motor grossly within normal limits. PSYCHIATRIC: Normal affect, calm and cooperative. LINE: No evidence of infection Assessment & Plan Remarks IMPRESSION GAS and Viridans Strep bacteremia from L foot cellulitis, high grade - has DVT LLE, prob septic phlebitis - ARNOLD negative, ?vegetation dislodged - TTE ok LLE DVT L ankle effusion, clinically better and less likely septic joint Known active IVDU Rash/Hives with PCN, has tolerated Keflex RECOMMENDATION Continue Rocephin Plan 28 days, then 2 weeks of po Levaquin 750 mg daily Labs weekly while on IV Abx OK with PICC Arrange for IV Abx in infusion clinic D/W regarding the PICC, risks of manipulating PICC and using PICC outside the intended use fo IV Abx, risks of infection, life threatening infections Explained plan to the patient D/W Dr Zimmer D/W CIELO OK for D/C once arrangements made for her IV Abx Parisa Badillo MD Sep 02, 2017 14:07
--- NOTE | 2017-09-02 14:10 | HHI.FF ---
Infusion Therapy Location of Infusion Therapy: Ambulatory Infusion Therapy Order Patient Information Patient Weight 55 kg Diagnosis: Diagnosis Septic phlebitis LLE High grade Group A strep bacteremia Coded Allergies: penicillin G (Verified Allergy, Mild, rash, 08/27/17) patient has taken Keflex in the past without any problem Administer Medication Ceftriaxone 2 grams IV q 24 hours Stop Treatment: Sep 29, 2017 Additional Information Additional Instructions [x] Peripheral flush and dressing changes per protocol [x] Implanted port and central case preparer and liner: * Implanted port: 10 ml Normal Saline followed by 5 ml Heparin 100 units/ml Heparin flush after each use and monthly to maintain. [] May leave port accessed during therapy. [] May leave peripheral site accessed for duration of therapy. [x] If patient has SOB or respiratory distress, check oxygen saturation. If less than 90% or clinical signs of respiratory distress, administer oxygen at 2 L/min. via nasal cannula and notify physician. [x] Anaphylaxis/Reaction orders: * Stop infusion. * Keep IV line open with saline flush. * Notify physician. * Monitor vital signs every 15 minutes until symptoms resolve. * Check Oxygen saturation; Oxygen at 2 L/min. via nasal cannula if less than 90% or clinical signs of respiratory distress. * Administer diphenhydramine (Benadryl) 25 mg IV STAT, (unless patient has received as pre-med). May repeat once, if necessary. * Solu-Cortef 250 mg IVP over 30-60 seconds, use 100 mg vials for each dissolution. * Epinephrine (1mg/1 ml) 0.3 mg subcutaneously or IVP now with any signs of respiratory distress. * Check with physician for new additional pre-med orders if patient is re- challenged or re-treated. [x] May remove PICC line when treatment complete, after confirming with Physician. [x] If the patient is admitted to the hospital, the ED, or transferred via [facility] , complete transfer form including medication reconciliation order sheet. Laboratory Tests Weekly Labs: CBC w/diff, Creatinine, LFT's (Hepatic function test) (labs every Wednesday) Additional Information Please cover the whole PICC with self stick dressing to monitor tampering of her PICC Parisa Badillo MD Sep 02, 2017 14:10
[2017-09-02] MEDS ORDERED: XARE15TA PO (18:49)
[2017-09-02] MEDS ORDERED: XARE20TA PO (18:49)
--- NOTE | 2017-09-03 12:35 | ECHRPT ---
Indication: endocarditis CONCLUSIONS Normal LV systolic function No massess or vegetation identified BP: / HR: Rhythm: Sinus Technical Quality:Good Medications Complications There were no complications prior to, during or in recovery from the transesophag eal echocardiogram.. Proc. Components FINDINGS LEFT VENTRICLE The left ventricular systolic function is normal with an estimated ejection fraction in the range of 55-60%. Normal left ventricular size. RIGHT VENTRICLE Normal right ventricular size and systolic function. LEFT ATRIUM The left atrial size is normal. RIGHT ATRIUM The right atrial size is normal. ATRIAL APPENDAGES Normal left atrial appendage size with no evidence of thrombus formation. ATRIAL SEPTUM Normal atrial septal thickness without atrial level shunting by limited color doppler interrogation. AORTA The aortic root and proximal ascending aorta are normal in size on limited imaging. MITRAL VALVE Structurally normal mitral valve. Mild mitral valve regurgitation. AORTIC VALVE Trileaflet aortic valve. No aortic valve regurgitation. No aortic valve stenosis. TRICUSPID VALVE Structurally normal tricuspid valve. There is mild tricuspid valve regurgitation. VESSELS The inferior vena cava is normal in size. PULMONARY VALVE The pulmonary valve is not well visualized. PERICADIUM No pericardial effusion. Eros Wakefield MD (Electronically Signed) Final Date:03 September 2017 12:34
[2017-09-03] MEDS ORDERED: CEFT2INJ2 IV (13:46)
== END 2017-09-02 19:22 | disposition home health service (06) | DRG 300 ==
LOC: NEPD 17:18 → NEDA 20:39 → N07B 21:46
PROVIDERS: ADMIT Hospitalist; ATTEND Hospitalist
PROC: B246ZZ4 Ultrasonography of Right and Left Heart, Transesophageal (ICD-10-PCS; principal; 2017-08-31)
DX: I82.412 Acute embolism and thrombosis of left femoral vein (principal); L03.116 Cellulitis of left lower limb; I82.439 Acute embolism and thrombosis of unspecified popliteal vein; F19.20 Other psychoactive substance dependence, uncomplicated; F32.9 Major depressive disorder, single episode, unspecified; B19.20 Unspecified viral hepatitis C without hepatic coma; B95.4 Other streptococcus as the cause of diseases classified elsewhere; E87.6 Hypokalemia; F17.210 Nicotine dependence, cigarettes, uncomplicated; M79.7 Fibromyalgia
CPT/HCPCS: 73723; 80048; 80053; 83605; 83735; 84702; 85025; 86403; 86703; 87040; 87077; 87186; 87205; 90686; 90732; 93005; 93308; 93312; 93320; 93325; 93971; 96365; A9579; J0696; J1650; J3370; J7030; J7050; Q2038

== ENCOUNTER 2017-09-09 17:27 | Emergency (ER) | payer SELFPAY ==
[~2017-09-09] VITALS: Ht 162.6 cm; Wt 50.0 kg
[~2017-09-09 17:27] MED LIST changes: +CEFT2INJ2 IV; -CLIN1CAP6 PO; -KETO10 PO; +NICO21DI25 T-DERMAL; +OXYC1CAP PO; +SENN1TAB PO; +XARE15TA PO; +XARE20TA PO
[2017-09-09 17:28] VITALS: BP 139/73; PULSE 93; RESP 16; TEMP 97.9; O2SAT 97
[2017-09-09] MEDS ORDERED: cefTRIAXone INJ 2,000 MG in SODIUM CHLORIDE 0.9% INJ 100 ML IV ONE ×4 (19:00)
[2017-09-09] MEDS ORDERED: SODIUM CHLORIDE 0.9% FLUSH 10 ML FLUSH IV FLUSH PRN ×2 (19:00)
--- NOTE | 2017-09-09 19:01 | PD ---
HPI Chief Complaint: Skin Problem Time Seen by Provider: 18:40 Travel History International Travel<30 days: No Contact w/Intl Traveler<30days: No Traveled to known affect area: No History of Present Illness HPI Patient comes in for evaluation of worsening cellulitis left ankle. Patient is supposed to be getting outpatient infusion for bacteremia, states she has missed several doses secondary to transportation issues. Patient reports symptoms are getting worse. Patient reports increasing pain in her left ankle that radiates proximally. Describes pain as a soreness. Patient states this makes it difficult for her to putting weight on her left ankle. Staying off of her ankle improves the pain. Patient has been using a walker to help her get around. Patient states that this causes her to make it difficult for her to get to the infusion center on time. Patient denies any fevers, nausea, vomiting , loss or change in bowel or bladder, or new injuries. PFSH Past Medical History Hx Anticoagulant Therapy: Yes ADD: Yes Arthritis: Yes Asthma: No Autoimmune Disease: No Anxiety: Yes (PANIC ANXIETY DISORDER) Depression: Yes Cancer: No Cardiovascular Problems: Yes Chemotherapy: No COPD: No Cerebrovascular Accident: No Diabetes: No Diminished Hearing: No Endocrine: No Fibromyalgia: Yes Genitourinary: No Headaches: Yes Hepatitis: Yes (HEP C) Immune Disorder: No Musculoskeletal: Yes Neurologic: Yes Psychiatric: Yes (STATES SEES PSYCHIATRIST NO NAME GIVEN) Reproductive: No Respiratory: Yes Seizures: Yes Influenza Vaccination: Yes ?: Not LMP: 08/14/17 : 2 Para: 2 Miscarriage: 0 : 0 Past Surgical History Abdominal Surgery: No Body Medical Devices: CHIN IMPLANT Cardiac Surgery: No Section: Yes Endocrine Surgery: No Eye Surgery: No Genitourinary Surgery: No Gynecologic Surgery: Yes (LEFT FALLOPIAN TUBE REMOVED ECTOPIC ) Oral Surgery: No Thoracic Surgery: No Other Surgery: Yes (NOSE) Social History Alcohol Use: No Tobacco Use: Yes (pack a day ) Substance Use: No (STATES NO BUT HAS RECORDED HX IN CHART) Allergies-Medications (Allergen,Severity, Reaction): Coded Allergies: penicillin G (Verified Allergy, Mild, rash, 09/09/17) patient has taken Keflex in the past without any problem Reported Meds & Prescriptions Reported Meds & Active Scripts Active Xarelto (Rivaroxaban) 20 Mg Tab 20 Mg PO DAILY 30 Days Reported Ceftriaxone Inj (Ceftriaxone Sodium/Dextrose) 2 Gm/50 Ml Bagp 2 Gm IV Q24H Wellbutrin Xl 24 HR (Bupropion HCl) 150 Mg Tab 150 Mg PO DAILY Adderall (Amphetamine-Dextroamphetamine) 30 Mg Tab 30 Mg PO BID Avoid late evening doses. Space doses at least 4 to 6 hours if more than once/day dosing. Review of Systems Except as stated in HPI: all other systems reviewed are Neg Physical Exam Narrative GENERAL: Well-developed, well nourished, in no acute distress, and non-ill appearing. SKIN: There is erythematous noted over the lateral aspect of the left ankle is mildly febrile mildly tender to palpation. Patient's full range of motion of the left ankle. Hysterectomy grossly intact distally. There is no crepitus, fluctuation, or induration. There is mild soft tissue swelling noted. HEAD: Atraumatic. Normocephalic. EYES: Pupils equal and round. EOMI. No scleral icterus. No injection or drainage. ENT: No nasal bleeding or discharge. Mucous membranes pink and moist. NECK: Trachea midline. Supple. No nuclear rigidity. CARDIOVASCULAR: Dorsal pulses 2+, equal, and intact bilaterally. Capillary refill less than 2 seconds. RESPIRATORY: No accessory muscle use. No respiratory distress. MUSCULOSKELETAL: No obvious deformities. No clubbing. No cyanosis. No edema. Full range of motion. NEUROLOGICAL: Awake and alert. No obvious cranial nerve deficits. Motor grossly within normal limits. Normal speech. PSYCHIATRIC: Appropriate mood and affect; insight and judgment normal. Data Data Last Documented VS Vital Signs Date Time Temp Pulse Resp B/P (MAP) Pulse Ox O2 Delivery O2 Flow Rate FiO2 09/09/17 22:16 09/09/17 20:54 84 16 100 Room Air 09/09/17 17:28 97.9 Orders Orders Electrocardiogram (09/09/17 ) Basic Metabolic Panel (Bmp) (09/09/17 18:54) Complete Blood Count With Diff (09/09/17 18:54) Iv Access Insert/Monitor (09/09/17 18:54) Ecg Monitoring (09/09/17 18:54) Oximetry (09/09/17 18:54) Sodium Chloride 0.9% Flush (Ns Flush) (09/09/17 19:00) Ankle, Complete ([id number]) (09/09/17 ) Ceftriaxone Inj (Rocephin Inj) (09/09/17 19:00) Blood Culture (09/09/17 21:44) Ed Discharge Order (09/09/17 22:07) Tramadol (Ultram) (09/09/17 22:15) Labs Laboratory Tests Test 09/09/17 19:40 White Blood Count 5.6 TH/MM3 Red Blood Count 3.32 MIL/MM3 Hemoglobin 10.3 GM/DL Hematocrit 30.9 % Mean Corpuscular Volume 93.0 FL Mean Corpuscular Hemoglobin 31.1 PG Mean Corpuscular Hemoglobin Concent 33.4 % Red Cell Distribution Width 16.1 % Platelet Count 309 TH/MM3 Mean Platelet Volume 7.8 FL Neutrophils (%) (Auto) 36.7 % Lymphocytes (%) (Auto) 50.5 % Monocytes (%) (Auto) 10.4 % Eosinophils (%) (Auto) 1.9 % Basophils (%) (Auto) 0.5 % Neutrophils # (Auto) 2.1 TH/MM3 Lymphocytes # (Auto) 2.8 TH/MM3 Monocytes # (Auto) 0.6 TH/MM3 Eosinophils # (Auto) 0.1 TH/MM3 Basophils # (Auto) 0.0 TH/MM3 CBC Comment DIFF FINAL Differential Comment Blood Urea Nitrogen 16 MG/DL Creatinine 0.70 MG/DL Random Glucose 83 MG/DL Calcium Level 8.6 MG/DL Sodium Level 135 MEQ/L Potassium Level 3.4 MEQ/L Chloride Level 102 MEQ/L Carbon Dioxide Level 24.9 MEQ/L Anion Gap 8 MEQ/L Estimat Glomerular Filtration Rate 92 ML/MIN [facility] Medical Decision Making Medical Screen Exam Complete: Yes Emergency Medical Condition: Yes Interpretation(s) EKG reviewed by Dr. Ho sinus rhythm with ventricular rate of 81. No STEMI. Differential Diagnosis Cellulitis, bacteremia, medical noncompliance, ankle pain, abscess, septic joint , other Narrative Course Patient was seen and examined. Initial laboratory neurological studies were ordered. Patient was given a dose of her antibiotics. Discussed patient with Dr. Lester on evaluate the patient is a splenic care and disposition. Case management saw the patient to help patient get transportation to the infusion center. Patient in no obvious distress upon re-evaluation. All pertinent laboratory/Radiology result(s) discussed with patient. Any questions/concerns in reference to patient diagnosis/condition discussed and clarified prior to patient's discharge. Reinforced sheer importance of close follow up with patient 's primary physician or primary care clinic and especially the infusion center. Instructed patient to return to ED immediately, if symptoms return/worsen. Patient showed understanding of above instructions. Further instructions and recommendations were detailed in discharge paperwork. Patient left without difficulty out of ED at discharge. Diagnosis Primary Impression: Left ankle pain Qualified Codes: M25.572 - Pain in left ankle and joints of left foot Patient Instructions: General Instructions Additional Instructions: Follow-up with your primary care physician and infectious disease presents instructed. Continue going to the infusion center to get your IV antibiotics. Return to the emergency department if symptoms get worse. Disposition: 01 DISCHARGE HOME Condition: Stable Adam Izaguirre Sep 09, 2017 19:01
--- NOTE | 2017-09-09 20:36 | RADRPT ---
EXAM DATE/TIME: 09/09/2017 19:08 [facility] COMPARISON: No previous studies available for comparison. INDICATIONS : Pain- infection. MEDICAL HISTORY : None. SURGICAL HISTORY : None. ENCOUNTER: Initial ACUITY: 1 month PAIN SCORE: 10/10 LOCATION: Left Ankle. FINDINGS: Three view exam was performed of the left ankle. The bony structures are in normal alignment. No ev idence of fracture, dislocation, or soft tissue swelling. The ankle mortise is intact. No radiopaqu e foreign bodies are seen. Bony mineralization is normal. CONCLUSION: Unremarkable examination of the left ankle. Gus Casarez MD on September 09, 2017 at 20:33 Board Certified Radiologist. This report was verified electronically.
[2017-09-09 20:54] VITALS: BP 100/56; PULSE 84; RESP 16; O2SAT 100
[2017-09-09 20:56] LABS: AUTOMATED NEUTROPHIL # 2.1 TH/MM3 (1.8-7.7); BASOPHIL % 0.5 % (0.0-2.0); EOSINOPHIL # 0.1 TH/MM3 (0-0.4); EOSINOPHIL % 1.9 % (0.0-4.0); HEMATOCRIT 30.9 % (35.0-46.0); HEMOGLOBIN 10.3 GM/DL (11.6-15.3); LYMPH % 50.5 % (9.0-44.0); LYMPHOCYTE # 2.8 TH/MM3 (1.0-4.8); MEAN CORPUSCULAR HEMOGLOBIN 31.1 PG (27.0-34.0); MEAN CORPUSCULAR HGB CONC 33.4 % (32.0-36.0); MEAN PLATELET VOLUME 7.8 FL (7.0-11.0); MONO % 10.4 % (0.0-8.0); MONOCYTE # 0.6 TH/MM3 (0-0.9); NEUT % 36.7 % (16.0-70.0); PLATELET COUNT 309 TH/MM3 (150-450); RED BLOOD COUNT 3.32 MIL/MM3 (4.00-5.30); RED CELL DISTRIBUTION WIDTH 16.1 % (11.6-17.2); WHITE BLOOD COUNT 5.6 TH/MM3 (4.0-11.0)
[2017-09-09 21:13] LABS: BICARBONATE 24.9 MEQ/L (21.0-32.0); CALCIUM 8.6 MG/DL (8.5-10.1); CREATININE 0.7 MG/DL (0.50-1.00)
--- NOTE | 2017-09-09 21:52 | PD ---
Data Data Last Documented VS Vital Signs Date Time Temp Pulse Resp B/P (MAP) Pulse Ox O2 Delivery O2 Flow Rate FiO2 09/09/17 20:54 84 16 100/56 (71) 100 Room Air 09/09/17 17:28 97.9 Orders Orders Electrocardiogram (09/09/17 ) Basic Metabolic Panel (Bmp) (09/09/17 18:54) Complete Blood Count With Diff (09/09/17 18:54) Iv Access Insert/Monitor (09/09/17 18:54) Ecg Monitoring (09/09/17 18:54) Oximetry (09/09/17 18:54) Sodium Chloride 0.9% Flush (Ns Flush) (09/09/17 19:00) Ankle, Complete ([id number]) (09/09/17 ) Ceftriaxone Inj (Rocephin Inj) (09/09/17 19:00) Blood Culture (09/09/17 21:44) Labs Laboratory Tests Test 09/09/17 19:40 White Blood Count 5.6 TH/MM3 Red Blood Count 3.32 MIL/MM3 Hemoglobin 10.3 GM/DL Hematocrit 30.9 % Mean Corpuscular Volume 93.0 FL Mean Corpuscular Hemoglobin 31.1 PG Mean Corpuscular Hemoglobin Concent 33.4 % Red Cell Distribution Width 16.1 % Platelet Count 309 TH/MM3 Mean Platelet Volume 7.8 FL Neutrophils (%) (Auto) 36.7 % Lymphocytes (%) (Auto) 50.5 % Monocytes (%) (Auto) 10.4 % Eosinophils (%) (Auto) 1.9 % Basophils (%) (Auto) 0.5 % Neutrophils # (Auto) 2.1 TH/MM3 Lymphocytes # (Auto) 2.8 TH/MM3 Monocytes # (Auto) 0.6 TH/MM3 Eosinophils # (Auto) 0.1 TH/MM3 Basophils # (Auto) 0.0 TH/MM3 CBC Comment DIFF FINAL Differential Comment Blood Urea Nitrogen 16 MG/DL Creatinine 0.70 MG/DL Random Glucose 83 MG/DL Calcium Level 8.6 MG/DL Sodium Level 135 MEQ/L Potassium Level 3.4 MEQ/L Chloride Level 102 MEQ/L Carbon Dioxide Level 24.9 MEQ/L Anion Gap 8 MEQ/L Estimat Glomerular Filtration Rate 92 ML/MIN [facility] Supervised Visit with BRIDGET: Yes Narrative Course The history, exam, and medical decision-making in the associated midlevel provider note were completed with my assistance. I reviewed and agree with the findings presented. I attest that I had a [id number] encounter with the patient on the same day, and personally performed and documented my assessment and findings in the medical record. *My assessment and Findings: This is a 41-year-old female who has a history of IV drug use who was hospitalized several weeks ago in the setting of bacteremia. She had a normal ARNOLD and she did have a small effusion on her ankle at that time but was seen by orthopedics who did not think she had septic arthritis. She was found to have in her left lower extremity and was started on Xarelto which she's been taking. She is supposed to be getting 4 weeks of IV antibiotics through her PICC line at an infusion center however she's having difficulty getting there because of the pain in her leg. She does have a small effusion on her ankle and it is warm but she also has swelling throughout the entire left lower extremity. I did speak to Dr. Rivera consulted on the patient when she was inpatient last time. He felt at the time that she really did not septic arthritis and the swelling was related to her DVT. Currently she is afebrile and has no leukocytosis. He feels that the patient is likely improving on IV antibiotics. We spoke to case management who will assist the patient in transportation to the infusion center. Gris Ho MD Sep 09, 2017 21:52
--- NOTE | 2017-09-09 21:52 | PD ---
Data Data Last Documented VS Vital Signs Date Time Temp Pulse Resp B/P (MAP) Pulse Ox O2 Delivery O2 Flow Rate FiO2 09/09/17 20:54 84 16 100/56 (71) 100 Room Air 09/09/17 17:28 97.9 Orders Orders Electrocardiogram (09/09/17 ) Basic Metabolic Panel (Bmp) (09/09/17 18:54) Complete Blood Count With Diff (09/09/17 18:54) Iv Access Insert/Monitor (09/09/17 18:54) Ecg Monitoring (09/09/17 18:54) Oximetry (09/09/17 18:54) Sodium Chloride 0.9% Flush (Ns Flush) (09/09/17 19:00) Ankle, Complete ([id number]) (09/09/17 ) Ceftriaxone Inj (Rocephin Inj) (09/09/17 19:00) Blood Culture (09/09/17 21:44) Labs Laboratory Tests Test 09/09/17 19:40 White Blood Count 5.6 TH/MM3 Red Blood Count 3.32 MIL/MM3 Hemoglobin 10.3 GM/DL Hematocrit 30.9 % Mean Corpuscular Volume 93.0 FL Mean Corpuscular Hemoglobin 31.1 PG Mean Corpuscular Hemoglobin Concent 33.4 % Red Cell Distribution Width 16.1 % Platelet Count 309 TH/MM3 Mean Platelet Volume 7.8 FL Neutrophils (%) (Auto) 36.7 % Lymphocytes (%) (Auto) 50.5 % Monocytes (%) (Auto) 10.4 % Eosinophils (%) (Auto) 1.9 % Basophils (%) (Auto) 0.5 % Neutrophils # (Auto) 2.1 TH/MM3 Lymphocytes # (Auto) 2.8 TH/MM3 Monocytes # (Auto) 0.6 TH/MM3 Eosinophils # (Auto) 0.1 TH/MM3 Basophils # (Auto) 0.0 TH/MM3 CBC Comment DIFF FINAL Differential Comment Blood Urea Nitrogen 16 MG/DL Creatinine 0.70 MG/DL Random Glucose 83 MG/DL Calcium Level 8.6 MG/DL Sodium Level 135 MEQ/L Potassium Level 3.4 MEQ/L Chloride Level 102 MEQ/L Carbon Dioxide Level 24.9 MEQ/L Anion Gap 8 MEQ/L Estimat Glomerular Filtration Rate 92 ML/MIN [facility] Supervised Visit with BRIDGET: Yes Narrative Course The history, exam, and medical decision-making in the associated midlevel provider note were completed with my assistance. I reviewed and agree with the findings presented. I attest that I had a [id number] encounter with the patient on the same day, and personally performed and documented my assessment and findings in the medical record. *My assessment and Findings: This is a 41-year-old female who has a history of IV drug use who was hospitalized several weeks ago in the setting of bacteremia. She had a normal ARNOLD and she did have a small effusion on her ankle at that time but was seen by orthopedics who did not think she had septic arthritis. She was found to have in her left lower extremity and was started on Xarelto which she's been taking. She is supposed to be getting 4 weeks of IV antibiotics through her PICC line at an infusion center however she's having difficulty getting there because of the pain in her leg. She does have a small effusion on her ankle and it is warm but she also has swelling throughout the entire left lower extremity. I did speak to Dr. Rivera consulted on the patient when she was inpatient last time. He felt at the time that she really did not septic arthritis and the swelling was related to her DVT. Currently she is afebrile and has no leukocytosis. He feels that the patient is likely improving on IV antibiotics. We spoke to case management who will assist the patient in transportation to the infusion center. Gris Ho MD Sep 09, 2017 21:52
[2017-09-09] MEDS ORDERED: traMADol HCL 50 MG TAB PO ONE ×2 (22:15)
--- NOTE | 2017-09-09 23:10 | EKG ---
Date Performed: 09/09/2017 Time Performed: 17:47:51 PTAGE: 41 years EKG: Sinus rhythm WITH SHORT WY INTERVAL BORDERLINE ECG PREVIOUS TRACING : 08/26/2017 18.48 Compared to the previous tracing rate has decreased DOCTOR: Murphy Thurston Interpretating Date/Time 09/09/2017 23:09:00
--- NOTE | 2017-09-09 23:10 | EKG ---
Date Performed: 09/09/2017 Time Performed: 17:47:51 PTAGE: 41 years EKG: Sinus rhythm WITH SHORT CO INTERVAL BORDERLINE ECG PREVIOUS TRACING : 08/26/2017 18.48 Compared to the previous tracing rate has decreased DOCTOR: Murphy Thurston Interpretating Date/Time 09/09/2017 23:09:00
--- NOTE | 2017-09-09 23:10 | EKG ---
Date Performed: 09/09/2017 Time Performed: 17:47:51 PTAGE: 41 years EKG: Sinus rhythm WITH SHORT MS INTERVAL BORDERLINE ECG PREVIOUS TRACING : 08/26/2017 18.48 Compared to the previous tracing rate has decreased DOCTOR: Murphy Thurston Interpretating Date/Time 09/09/2017 23:09:00
[2017-09-17] MEDS ORDERED: LEVA750T9 PO ×2 (10:55)
== END 2017-09-09 22:39 | disposition home or self-care (01) ==
LOC: NEPE 17:27
DX: M25.572 Pain in left ankle and joints of left foot (principal); M79.89 Other specified soft tissue disorders; Z79.899 Other long term (current) drug therapy
CPT/HCPCS: 73610; 80048; 85025; 87040; 93005; 96365; 99285; J0696

== ENCOUNTER 2017-09-16 15:28 | Inpatient (IN) | payer SELFPAY ==
[~2017-09-16] VITALS: Ht 177.8 cm; Wt 53.2 kg
[2017-09-16] VITALS (9 sets, daily range): BP systolic 103–139; BP diastolic 60–73; PULSE 60–90; RESP 16–18; TEMP 92.3–97.9; O2SAT 94–100
[~2017-09-16 15:28] MED LIST changes: -NICO21DI25 T-DERMAL; -OXYC1CAP PO; -SENN1TAB PO; -XARE15TA PO; +buPROPion HCL 150 MG SUSTAINED RELEASE TAB PO SCH
[2017-09-16] MEDS ORDERED: SODIUM CHLOR 0.9% 1000 ML INJ 1,000 ML IV ONE ×2 (16:15→17:15)
--- NOTE | 2017-09-16 16:35 | RADRPT ---
EXAM DATE/TIME: 09/16/2017 16:22 [facility] COMPARISON: CHEST SINGLE AP, July 09, 2017, 15:19. INDICATIONS : Overdose. MEDICAL HISTORY : None. SURGICAL HISTORY : None. ENCOUNTER: Initial ACUITY: 1 day PAIN SCORE: Non-responsive. LOCATION: Bilateral chest FINDINGS: A single view of the chest demonstrates the lungs to be symmetrically aerated without evidence of mas s, infiltrate or effusion. The cardiomediastinal contours are unremarkable. Osseous structures are intact. CONCLUSION: No acute disease. No significant change has occurred. Chris Johnson MD on September 16, 2017 at 16:33 Board Certified Radiologist. This report was verified electronically.
[2017-09-16 16:44] LABS: AUTOMATED NEUTROPHIL # 6.5 TH/MM3 (1.8-7.7); BASOPHIL % 0.4 % (0.0-2.0); EOSINOPHIL # 0.2 TH/MM3 (0-0.4); EOSINOPHIL % 1.8 % (0.0-4.0); HEMATOCRIT 38.3 % (35.0-46.0); HEMOGLOBIN 12.8 GM/DL (11.6-15.3); LYMPH % 24.8 % (9.0-44.0); LYMPHOCYTE # 2.5 TH/MM3 (1.0-4.8); MEAN CELL VOLUME 95.8 FL (80.0-100.0); MEAN CORPUSCULAR HGB CONC 33.5 % (32.0-36.0); MEAN PLATELET VOLUME 7.9 FL (7.0-11.0); MONO % 7.3 % (0.0-8.0); MONOCYTE # 0.7 TH/MM3 (0-0.9); NEUT % 65.7 % (16.0-70.0); PLATELET COUNT 396 TH/MM3 (150-450); RED CELL DISTRIBUTION WIDTH 16.8 % (11.6-17.2); WHITE BLOOD COUNT 9.9 TH/MM3 (4.0-11.0)
[2017-09-16 16:45] LABS: AMORPHOUS SEDIMENT, URINE RARE; BACTERIA, URINE RARE /hpf; BILIRUBIN, URINE NEG (NEG); BLOOD, URINE NEG (NEG); GLUCOSE,URINE NEG (NEG); KETONE, URINE NEG (NEG); MUCUS URINE FEW /lpf (OCC); NITRITE,URINE NEG (NEG); SQUAMOUS EPITHELIAL CELL URINE <1 /hpf (0-5); URINE COLOR YELLOW (YELLW/STRAW); URINE LEUKOCYTE ESTERASE SMALL (NEG)
[2017-09-16 17:01] LABS: ALBUMIN 4.2 GM/DL (3.4-5.0); ALT (GPT) 23 U/L (10-53); AST (GOT) 25 U/L (15-37); BICARBONATE 26.5 MEQ/L (21.0-32.0); BLOOD UREA NITROGEN 16 MG/DL (7-18); CALCIUM 9.6 MG/DL (8.5-10.1); CHLORIDE 103 MEQ/L (98-107); CREATININE 0.94 MG/DL (0.50-1.00); GLOMERULAR FILTRATION RATE 66 ML/MIN (>89); GLUCOSE,RANDOM 90 MG/DL (74-106); SODIUM (NA) 140 MEQ/L (136-145)
[2017-09-16 17:03] LABS: ALKALINE PHOSPHATASE 90 U/L (45-117); TOTAL BILIRUBIN ADULT 0.7 MG/DL (0.2-1.0); TOTAL PROTEIN 9.8 GM/DL (6.4-8.2)
[2017-09-16] MEDS ORDERED: VANCOMYCIN INJ 1,000 MG in SODIUM CHLOR 0.9% 250 ML INJ 250 ML IV ONE (17:15)
[2017-09-16] MEDS ORDERED: AZTREONAM INJ 2,000 MG in SODIUM CHLORIDE 0.9% INJ 100 ML IV ONE (17:15)
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
[2017-09-16] MEDS ORDERED: NALOXONE HCL 0.4 MG/ML AMP IV PUSH PRN (18:45)
[2017-09-16] MEDS ORDERED: SODIUM CHLORIDE 0.9% FLUSH 10 ML FLUSH IV FLUSH PRN (18:45)
[2017-09-16] MEDS ORDERED: ONDANSETRON HCL 4 MG/2 ML VIAL IVP PRN (18:45)
[2017-09-16] MEDS ORDERED: MAGNESIUM HYDROXIDE SUSP 30 ML CUP PO PRN (18:45)
[2017-09-16] MEDS ORDERED: LACTULOSE SYRUP 20 GM/30 ML CUP PO PRN (18:45)
[2017-09-16] MEDS ORDERED: ACETAMINOPHEN 325 MG TAB PO PRN (18:45)
[2017-09-16] MEDS ORDERED: SENNOSIDES 8.6 MG TAB PO PRN (18:45)
[2017-09-16] MEDS ORDERED: BISACODYL 10 MG SUPP RECTAL PRN (18:45)
[2017-09-16] MEDS ORDERED: REMOVE OLD PATCH T-DERMAL SCH (21:00)
[2017-09-16] MEDS ORDERED: Vancomycin Consult Pharmacy 1 EA OTHER SCH (21:15)
[2017-09-16] MEDS: DOCUSATE SODIUM 50 MG/SENNA 8.6 MG TAB PO SCH (22:00)
[2017-09-17 00:44] VITALS: BP 91/53; PULSE 57; RESP 16; TEMP 98.5; O2SAT 100
[2017-09-17] MEDS: SODIUM CHLOR 0.9% 1000 ML INJ 1,000 ML IV SCH ×2 (00:59→14:06)
[2017-09-17] MEDS: SODIUM CHLORIDE 0.9% FLUSH 10 ML FLUSH IV FLUSH SCH ×2 (01:03→09:00)
[2017-09-17 01:20] VITALS: PULSE 75
[2017-09-17 04:58] VITALS: BP 97/59; PULSE 81; RESP 16; TEMP 97.5; O2SAT 99
[2017-09-17] MEDS: AZTREONAM INJ 1,000 MG in SODIUM CHLORIDE 0.9% INJ 100 ML IV SCH ×2 (05:49→11:06)
[2017-09-17 06:18] LABS: AUTOMATED NEUTROPHIL # 2.2 TH/MM3 (1.8-7.7); BASOPHIL % 0.3 % (0.0-2.0); EOSINOPHIL # 0.2 TH/MM3 (0-0.4); EOSINOPHIL % 3.1 % (0.0-4.0); HEMATOCRIT 30.2 % (35.0-46.0); HEMOGLOBIN 10.3 GM/DL (11.6-15.3); LYMPH % 44.1 % (9.0-44.0); LYMPHOCYTE # 2.3 TH/MM3 (1.0-4.8); MEAN CELL VOLUME 94.6 FL (80.0-100.0); MEAN CORPUSCULAR HEMOGLOBIN 32.3 PG (27.0-34.0); MEAN CORPUSCULAR HGB CONC 34.2 % (32.0-36.0); MEAN PLATELET VOLUME 7.6 FL (7.0-11.0); MONO % 8.8 % (0.0-8.0); MONOCYTE # 0.5 TH/MM3 (0-0.9); NEUT % 43.7 % (16.0-70.0); PLATELET COUNT 257 TH/MM3 (150-450); RED BLOOD COUNT 3.19 MIL/MM3 (4.00-5.30); RED CELL DISTRIBUTION WIDTH 16.8 % (11.6-17.2); WHITE BLOOD COUNT 5.1 TH/MM3 (4.0-11.0)
[2017-09-17 06:24] LABS: LACTIC ACID SEPSIS PROTOCOL 2.2 mmol/L (0.4-2.0)
[2017-09-17 06:40] LABS: ALBUMIN 2.7 GM/DL (3.4-5.0); ALKALINE PHOSPHATASE 73 U/L (45-117); ALT (GPT) 15 U/L (10-53); AST (GOT) 18 U/L (15-37); BICARBONATE 25.4 MEQ/L (21.0-32.0); BLOOD UREA NITROGEN 13 MG/DL (7-18); CALCIUM 8.1 MG/DL (8.5-10.1); CHLORIDE 106 MEQ/L (98-107); CREATININE 0.79 MG/DL (0.50-1.00); GLOMERULAR FILTRATION RATE 80 ML/MIN (>89); GLUCOSE,RANDOM 95 MG/DL (74-106); SODIUM (NA) 140 MEQ/L (136-145); TOTAL BILIRUBIN ADULT 0.6 MG/DL (0.2-1.0); TOTAL PROTEIN 6.7 GM/DL (6.4-8.2)
[2017-09-17] MEDS ORDERED: VANCOMYCIN INJ 1,000 MG in SODIUM CHLOR 0.9% 250 ML INJ 250 ML IV ONE (08:00)
[2017-09-17 08:03] VITALS: PULSE 78
[2017-09-17 08:33] VITALS: BP 108/75; PULSE 85; RESP 16; TEMP 97.3; O2SAT 100
--- NOTE | 2017-09-17 08:48 | PD.CONS ---
History of Present Illness Service Infectious Disease Consult Requested By Dr Titus Reason for Consult Evaluate patient on RX for bacteremia as outpatient Primary Care Physician Unknown Diagnoses: History of Present Illness Patient seen and examined. Records reviewed. Patient is a 41-year-old female, with known IV drug use, admitted to the hospital after she was found unresponsive by the boyfriend. As mentioned that they were both using drugs and had injected heroin. EMS was called, and patient was given Narcan and the patient woke up. Patient has been admitted as a drug overdose, and under Duarte act. Patient was diagnosed to have group A strep bacteremia, and during her last admission she also had a DVT on her left lower extremity. She had a ARNOLD did that did not show any evidence of vegetation. Patient was discharged, and was supposed to get IV Rocephin at [facility]. Patient however had only showed up 3 times. She was discharged on September 02, and showed up at the infusion clinic on September 03, September 10, and September 11. Patient was given a bus pass when she was discharge from the hospital. She ran out of the bus pass, and claims that she was having transportation issues and that's why she did not show up. She also states difficulty with ambulation and has to use a walker due to her left lower extremity DVT, and pain. On admission, patient was not febrile. His drug screen was positive for cocaine , amphetamines, benzodiazepine, and opiates. There's been no fever or chills. She still has some pain on her left lower extremity. No nausea or vomiting or any diarrhea. Infectious disease consultation has been requested to evaluate the patient. Review of Systems Constitutional: DENIES: Fever, Chills Eyes: DENIES: Eye pain Ears, nose, mouth, throat: DENIES: Nasal discharge, Oral lesions, Throat pain, Ear Pain, Sinus Pain Respiratory: DENIES: Cough, Shortness of breath Cardiovascular: COMPLAINS OF: Lower Extremity Edema, DENIES: Chest pain, Palpitations Genitourinary: DENIES: Urinary frequency, Dysuria Musculoskeletal: COMPLAINS OF: Joint pain, DENIES: Joint Swelling Integumentary: DENIES: Rash Neurologic: DENIES: Headache, Localized weakness Psychiatric: DENIES: Hallucinations Past Family Social History Allergies: Coded Allergies: penicillin G (Verified Allergy, Mild, rash, 09/11/17) patient has taken Keflex in the past without any problem Past Medical History IVDA Hep C Depression DVT LLE Cellulitis LLE Group A Strep bacteremia - has not completed Rx since she has not been showing up in [facility] [place] [place] infusion clinic Past Surgical History section Multiple repair of lacerations Infections and abscesses in her upper extremity from previous IV drug use Reported Medications I attest that I obtained, updated or reviewed the home and current medications. Reported Meds & Active Scripts Active Xarelto (Rivaroxaban) 20 Mg Tab 20 Mg PO DAILY 30 Days Reported Ceftriaxone Inj (Ceftriaxone Sodium/Dextrose) 2 Gm/50 Ml Bagp 2 Gm IV Q24H Wellbutrin Xl 24 HR (Bupropion HCl) 150 Mg Tab 150 Mg PO DAILY Adderall (Amphetamine-Dextroamphetamine) 30 Mg Tab 30 Mg PO BID Avoid late evening doses. Space doses at least 4 to 6 hours if more than once/day dosing. Active Ordered Medications I attest that I obtained, updated or reviewed the home and current medications. Current Medications Medications (Trade) Dose Ordered Sig/Sherita Route Start Time Stop Time Status Last Admin Sodium Chloride 1,000 ml @ 105 mls/hr Q9H32M IV 09/16/17 20:00 09/17/17 00:59 (NS Flush) 2 ml UNSCH PRN IV FLUSH 09/16/17 18:45 (NS Flush) 2 ml BID IV FLUSH 09/16/17 21:00 09/17/17 01:03 (Tylenol) 650 mg Q4H PRN PO 09/16/17 18:45 (Zofran Inj) 4 mg Q6H PRN IVP 09/16/17 18:45 (Narcan Inj) 0.4 mg UNSCH PRN IV PUSH 09/16/17 18:45 (Candy-Colace) 1 tab BID PO 09/16/17 21:00 (Milk Of Magnesia Liq) 30 ml Q12H PRN PO 09/16/17 18:45 (Senokot) 17.2 mg Q12H PRN PO 09/16/17 18:45 (Dulcolax Supp) 10 mg DAILY PRN RECTAL 09/16/17 18:45 (Lactulose Liq) 30 ml DAILY PRN PO 09/16/17 18:45 (Habitrol 14 Mg Patch.24 Hr) 1 patch DAILY T-DERMAL 09/17/17 09:00 Miscellaneous Information 1 HS T-DERMAL 09/16/17 21:00 Vancomycin HCl 1000 mg/Sodium Chloride 250 ml @ 250 mls/hr ONCE ONCE IV 09/17/17 08:00 09/17/17 08:59 Aztreonam 1000 mg/ Sodium Chloride 100 ml @ 200 mls/hr Q8H IV 09/17/17 04:00 09/17/17 05:49 Pharmacy Profile Note 0 ml @ 0 mls/hr UNSCH OTHER 09/16/17 21:15 (Wellbutrin Sr) 150 mg DAILY PO 09/16/17 09:00 (Xarelto) 20 mg DAILY PO 09/17/17 09:00 Family History Dad: CVA Mom: DM Social History Has a boyfriend Had 2 children that she gave up for adoption Tobacco use: 1 PPD Alcohol use: Denies Illicit drug use: IVDA Physical Exam Vital Signs Vital Signs Date Time Temp Pulse Resp B/P (MAP) Pulse Ox O2 Delivery O2 Flow Rate FiO2 09/17/17 08:33 97.3 85 16 108/75 (86) 100 09/17/17 04:58 97.5 81 16 97/59 (72) 99 09/17/17 01:20 75 09/17/17 00:44 98.5 57 16 91/53 (66) 100 09/16/17 21:30 97.4 84 18 103/68 (80) 100 09/16/17 20:24 09/16/17 19:35 97.9 74 16 106/71 (83) 98 Room Air 09/16/17 18:56 97.9 09/16/17 18:15 97.5 90 16 105/60 (75) 94 Room Air 09/16/17 17:15 96.1 74 16 110/69 (83) 96 Room Air 09/16/17 16:30 95.4 60 16 120/66 (84) 100 Room Air 09/16/17 16:28 100 09/16/17 15:44 92.3 09/16/17 15:39 89 17 98 Room Air 09/16/17 15:34 92.3 77 17 139/73 (95) 99 Physical Exam GENERAL: Patient is a thin, well-developed CF, awake and alert, not in respiratory distress. SKIN: Warm and dry. No generalized rash, no ecchymoses and no evidence of embolic lesions. HEAD: Atraumatic. Normocephalic. No temporal wasting, or tenderness. EYES: Rosenberg conjunctiva. No petechia or hemorrhage. Pupils equal, round and reactive to light. Extraocular movements full and intact. No scleral icterus. No injection or drainage. EARS, NOSE AND THROAT: Nose without bleeding or purulent nasal discharge. No sinus tenderness. Mucous membranes pink and moist. No oral lesions noted. Poor dentition NECK: Trachea midline. Supple and not tender, no meningeal signs CARDIOVASCULAR: Regular rate and rhythm. No murmurs, rubs or gallops heard RESPIRATORY: Clear to auscultation. Breath sounds equal bilaterally. No rales , wheezing or rhonchi ABDOMEN: Soft, non-tender, nondistended. Bowel sounds present and normoactive. No guarding. No rebound. No organomegaly. EXTREMITIES: No clubbing, cyanosis. LLE slightly larger compared the RLE. No redness, Good ROM at L ankle. Scars in her L thigh from previous laceration , with repair, scars in both upper arms NEUROLOGICAL: Awake and alert. Cranial nerves grossly intact. Motor grossly within normal limits. PSYCHIATRIC: very emotional LINE: PICC with no evidence of infection Laboratory Laboratory Tests Test 09/16/17 15:45 09/16/17 16:00 09/16/17 16:15 09/17/17 05:55 Lactic Acid Level 5.2 2.2 White Blood Count 9.9 5.1 Red Blood Count 4.00 3.19 Hemoglobin 12.8 10.3 Hematocrit 38.3 30.2 Mean Corpuscular Volume 95.8 94.6 Mean Corpuscular Hemoglobin 32.0 32.3 Mean Corpuscular Hemoglobin Concent 33.5 34.2 Red Cell Distribution Width 16.8 16.8 Platelet Count 396 257 Mean Platelet Volume 7.9 7.6 Neutrophils (%) (Auto) 65.7 43.7 Lymphocytes (%) (Auto) 24.8 44.1 Monocytes (%) (Auto) 7.3 8.8 Eosinophils (%) (Auto) 1.8 3.1 Basophils (%) (Auto) 0.4 0.3 Neutrophils # (Auto) 6.5 2.2 Lymphocytes # (Auto) 2.5 2.3 Monocytes # (Auto) 0.7 0.5 Eosinophils # (Auto) 0.2 0.2 Basophils # (Auto) 0.0 0.0 CBC Comment DIFF FINAL DIFF FINAL Differential Comment Blood Urea Nitrogen 16 13 Creatinine 0.94 0.79 Random Glucose 90 95 Total Protein 9.8 6.7 Albumin 4.2 2.7 Calcium Level 9.6 8.1 Alkaline Phosphatase 90 73 Aspartate Amino Transf (AST/SGOT) 25 18 Alanine Aminotransferase (ALT/SGPT) 23 15 Total Bilirubin 0.7 0.6 Sodium Level 140 140 Potassium Level 4.6 3.6 Chloride Level 103 106 Carbon Dioxide Level 26.5 25.4 Anion Gap 11 9 Estimat Glomerular Filtration Rate 66 80 Salicylates Level LESS THAN 1.7 Ethyl Alcohol Level LESS THAN 3 Urine Color YELLOW Urine Turbidity HAZY Urine pH 6.0 Urine Specific [place] 1.028 Urine Protein TRACE Urine Glucose (UA) NEG Urine Ketones NEG Urine Occult Blood NEG Urine Nitrite NEG Urine Bilirubin NEG Urine Urobilinogen LESS THAN 2.0 Urine Leukocyte Esterase SMALL Urine RBC 1 Urine WBC 5 Urine Squamous Epithelial Cells <1 Urine Amorphous Sediment RARE Urine Bacteria RARE Urine Mucus FEW Microscopic Urinalysis Comment CATH-CULT NOT IND Urine Opiates Screen POS Urine Barbiturates Screen NEG Urine Amphetamines Screen POS Urine Benzodiazepines Screen POS Urine Cocaine Screen POS Urine Cannabinoids Screen NEG Prothrombin Time 11.0 Prothromb Time International Ratio 1.0 Activated Partial Thromboplast Time 29.2 Date/Time Source Procedure Growth Status 09/16/17 16:15 Blood Peripheral Aerobic Blood Culture Pending Received 09/16/17 16:15 Blood Peripheral Anaerobic Blood Culture Pending Received Result Diagram: 09/17/17 0555 09/17/17 0555 Imaging RADIOLOGY STUDIES/FILMS REVIEWED Chest X-Ray 09/16/17 1601 Signed Impressions: Service Date/Time: September 16:22 - CONCLUSION: No acute disease. No significant change has occurred. Chris Johnson MD Assessment and Plan Assessment and Plan IMPRESSION Hx Group A Strep bacteremia - ARNOLD negative - possibly with septic phlebitis on her LLE during her last admission DVT LLE Known IVDU, possible drug OD RECOMMENDATION Continue Rocephin while in the hospital When ready fro D/Cece cleared by medical team: 1. Remove PICC 2. Have CM assist in getting her 2 more weeks on oral Levaquin 750 mg daily She is clinically stable for D/C from ID standpoint Thank you for this consultation Dimayuga,Parisa G MD Sep 17, 2017 08:48
[2017-09-17] MEDS ORDERED: RIVAROXABAN 20 MG TAB PO SCH (09:00)
[2017-09-17] MEDS ORDERED: NICOTINE 14 MG/24 HR PATCH T-DERMAL SCH (09:00)
--- NOTE | 2017-09-17 09:23 | EKG ---
Date Performed: 09/16/2017 Time Performed: 15:37:42 PTAGE: 41 years EKG: Sinus rhythm WITH OCCASIONAL SUPRAVENTRICULAR PREMATURE COMPLEXES BORDERLINE ECG Compared to prior tracing no sig nificant change PREVIOUS TRACING : 09/09/2017 17.47 DOCTOR: Glenn Mcguire Interpretating Date/Time 09/17/2017 09:20:31
[2017-09-17] MEDS: DOCUSATE SODIUM 50 MG/SENNA 8.6 MG TAB PO SCH (09:34)
[2017-09-17] MEDS ORDERED: LEVOFLOXACIN 750 MG TAB PO SCH (10:45)
[2017-09-17] MEDS ORDERED: LEVA750T9 PO (10:55)
--- NOTE | 2017-09-17 11:02 | HHI.DCPOC ---
Discharge Care Plan Diagnosis: (1) Heroin overdose Goals to Promote Your Health * To prevent worsening of your condition and complications * To maintain your health at the optimal level Directions to Meet Your Goals Take your medications as prescribed Follow your dietary instruction Follow activity as directed Keep your appointments as scheduled Take your immunizations and boosters as scheduled If your symptoms worsen call your PCP, if no PCP go to Urgent Care Center or Emergency Room Smoking is Dangerous to Your Health. Avoid second hand smoke Call the 24-hour hour crisis hotline for domestic abuse at Les Cohen MD, R3 Sep 17, 2017 11:02
--- NOTE | 2017-09-17 11:02 | HHI.DCPOC ---
Discharge Care Plan Diagnosis: (1) Heroin overdose Goals to Promote Your Health * To prevent worsening of your condition and complications * To maintain your health at the optimal level Directions to Meet Your Goals Take your medications as prescribed Follow your dietary instruction Follow activity as directed Keep your appointments as scheduled Take your immunizations and boosters as scheduled If your symptoms worsen call your PCP, if no PCP go to Urgent Care Center or Emergency Room Smoking is Dangerous to Your Health. Avoid second hand smoke Call the 24-hour hour crisis hotline for domestic abuse at Les Cohen MD, R3 Sep 17, 2017 11:02
--- NOTE | 2017-09-17 11:02 | HHI.DCPOC ---
Discharge Care Plan Diagnosis: (1) Heroin overdose Goals to Promote Your Health * To prevent worsening of your condition and complications * To maintain your health at the optimal level Directions to Meet Your Goals Take your medications as prescribed Follow your dietary instruction Follow activity as directed Keep your appointments as scheduled Take your immunizations and boosters as scheduled If your symptoms worsen call your PCP, if no PCP go to Urgent Care Center or Emergency Room Smoking is Dangerous to Your Health. Avoid second hand smoke Call the 24-hour hour crisis hotline for domestic abuse at Les Cohen MD, R3 Sep 17, 2017 11:02
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
[2017-09-17 12:00] VITALS: BP 137/90; PULSE 85; RESP 18; TEMP 98.2; O2SAT 100
[2017-09-17] MEDS ORDERED: VANCOMYCIN INJ 750 MG in SODIUM CHLOR 0.9% 250 ML INJ 250 ML IV SCH (20:00)
[2017-09-18] MEDS ORDERED: PHARMACY ORDERED LAB ONE (19:45)
== END 2017-09-17 14:52 | disposition home or self-care (01) | DRG 917 ==
LOC: NEPE 15:28 → NEDA 17:50 → N05A 21:05
PROVIDERS: ADMIT Family Medicine; ATTEND Family Medicine
DX: T40.1X1A Poisoning by heroin, accidental (unintentional), initial encounter (principal); A41.9 Sepsis, unspecified organism; T68.XXXA Hypothermia, initial encounter; I82.402 Acute embolism and thrombosis of unspecified deep veins of left lower extremity; Y92.039 Unspecified place in apartment as the place of occurrence of the external cause; B95.0 Streptococcus, group A, as the cause of diseases classified elsewhere; F41.8 Other specified anxiety disorders; F41.0 Panic disorder [episodic paroxysmal anxiety]; F90.9 Attention-deficit hyperactivity disorder, unspecified type; M79.7 Fibromyalgia; F17.210 Nicotine dependence, cigarettes, uncomplicated; M19.90 Unspecified osteoarthritis, unspecified site; B19.20 Unspecified viral hepatitis C without hepatic coma; R56.9 Unspecified convulsions
CPT/HCPCS: 71010; 80053; 80307; 81001; 82948; 83605; 85025; 85610; 85730; 87040; 93005; J3370; J7030; J7050

== ENCOUNTER 2017-11-02 05:58 | Emergency (ER) | payer SELFPAY ==
[~2017-11-02] VITALS: Ht 162.6 cm; Wt 62.0 kg
[~2017-11-02 05:58] MED LIST changes: -CEFT2INJ2 IV; +LEVA750T9 PO; -buPROPion HCL 150 MG SUSTAINED RELEASE TAB PO SCH
[2017-11-02 06:05] VITALS: BP 128/83; PULSE 101; RESP 16; TEMP 98.4; O2SAT 100
[2017-11-02] MEDS ORDERED: ASPI-516 CHEW (06:05)
[2017-11-02 06:20] VITALS: RESP 16
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
[2017-11-02 06:47] LABS: AUTOMATED NEUTROPHIL # 4.5 TH/MM3 (1.8-7.7); BASOPHIL % 0.3 % (0.0-2.0); EOSINOPHIL # 0.1 TH/MM3 (0-0.4); EOSINOPHIL % 0.9 % (0.0-4.0); HEMATOCRIT 37.6 % (35.0-46.0); HEMOGLOBIN 12.7 GM/DL (11.6-15.3); LYMPH % 24.3 % (9.0-44.0); LYMPHOCYTE # 1.6 TH/MM3 (1.0-4.8); MEAN CELL VOLUME 92.4 FL (80.0-100.0); MEAN CORPUSCULAR HEMOGLOBIN 31.2 PG (27.0-34.0); MEAN CORPUSCULAR HGB CONC 33.7 % (32.0-36.0); MEAN PLATELET VOLUME 7.7 FL (7.0-11.0); MONOCYTE # 0.4 TH/MM3 (0-0.9); NEUT % 68.5 % (16.0-70.0); PLATELET COUNT 257 TH/MM3 (150-450); RED BLOOD COUNT 4.07 MIL/MM3 (4.00-5.30); RED CELL DISTRIBUTION WIDTH 14.2 % (11.6-17.2); WHITE BLOOD COUNT 6.5 TH/MM3 (4.0-11.0)
[2017-11-02 06:58] LABS: ALBUMIN 3.4 GM/DL (3.4-5.0); ALT (GPT) 193 U/L (10-53); AST (GOT) 183 U/L (15-37); BICARBONATE 28.4 MEQ/L (21.0-32.0); BLOOD UREA NITROGEN 12 MG/DL (7-18); CALCIUM 8.8 MG/DL (8.5-10.1); CHLORIDE 103 MEQ/L (98-107); CREATININE 0.68 MG/DL (0.50-1.00); GLOMERULAR FILTRATION RATE 95 ML/MIN (>89); GLUCOSE,RANDOM 95 MG/DL (74-106); SODIUM (NA) 136 MEQ/L (136-145)
[2017-11-02 07:00] LABS: ALKALINE PHOSPHATASE 116 U/L (45-117); TOTAL BILIRUBIN ADULT 0.4 MG/DL (0.2-1.0); TOTAL PROTEIN 7.7 GM/DL (6.4-8.2)
[2017-11-02 07:02] LABS: PROTHROMBIN TIME - PATIENT 10.2 SEC (9.8-11.6)
[2017-11-02 07:12] LABS: BACTERIA, URINE FEW /hpf; BILIRUBIN, URINE NEG (NEG); BLOOD, URINE NEG (NEG); GLUCOSE,URINE NEG (NEG); KETONE, URINE NEG (NEG); MUCUS URINE FEW /lpf (OCC); NITRITE,URINE NEG (NEG); SQUAMOUS EPITHELIAL CELL URINE 17 /hpf (0-5); URINE COLOR YELLOW (YELLW/STRAW); URINE LEUKOCYTE ESTERASE MOD (NEG)
[2017-11-02 07:13] LABS: CALCIUM OXALATE CRYSTALS,URINE RARE /hpf
--- NOTE | 2017-11-02 07:13 | PD ---
Physical Exam Narrative Patient was seen by ED physician and signed out to me. Data Data Last Documented VS Vital Signs Date Time Temp Pulse Resp B/P (MAP) Pulse Ox O2 Delivery O2 Flow Rate FiO2 11/02/17 06:20 16 11/02/17 06:05 98.4 101 128/83 (98) 100 Orders Orders Us Leg Venous Doppler (11/02/17 06:17) Complete Blood Count With Diff (11/02/17 06:17) Comprehensive Metabolic Panel (11/02/17 06:17) Prothrombin Time / Inr (Pt) (11/02/17 06:17) Act Partial Throm Time (Ptt) (11/02/17 06:17) Blood Culture (11/02/17 06:17) Urinalysis - C+S If Indicated (11/02/17 06:17) Iv Access Insert/Monitor (11/02/17 06:17) Ecg Monitoring (11/02/17 06:17) Oximetry (11/02/17 06:17) Drug Screen, Random Urine (11/02/17 06:17) Lactic Acid Sepsis Protocol (11/02/17 06:20) Labs Laboratory Tests Test 11/02/17 06:30 White Blood Count 6.5 TH/MM3 Red Blood Count 4.07 MIL/MM3 Hemoglobin 12.7 GM/DL Hematocrit 37.6 % Mean Corpuscular Volume 92.4 FL Mean Corpuscular Hemoglobin 31.2 PG Mean Corpuscular Hemoglobin Concent 33.7 % Red Cell Distribution Width 14.2 % Platelet Count 257 TH/MM3 Mean Platelet Volume 7.7 FL Neutrophils (%) (Auto) 68.5 % Lymphocytes (%) (Auto) 24.3 % Monocytes (%) (Auto) 6.0 % Eosinophils (%) (Auto) 0.9 % Basophils (%) (Auto) 0.3 % Neutrophils # (Auto) 4.5 TH/MM3 Lymphocytes # (Auto) 1.6 TH/MM3 Monocytes # (Auto) 0.4 TH/MM3 Eosinophils # (Auto) 0.1 TH/MM3 Basophils # (Auto) 0.0 TH/MM3 CBC Comment DIFF FINAL Differential Comment Prothrombin Time 10.2 SEC Prothromb Time International Ratio 1.0 RATIO Activated Partial Thromboplast Time 26.6 SEC Urine Color YELLOW Urine Turbidity HAZY Urine pH 6.0 Urine Specific [place] 1.030 Urine Protein TRACE mg/dL Urine Glucose (UA) NEG mg/dL Urine Ketones NEG mg/dL Urine Occult Blood NEG Urine Nitrite NEG Urine Bilirubin NEG Urine Urobilinogen 2.0 MG/DL Urine Leukocyte Esterase MOD Urine RBC 5 /hpf Urine WBC 2 /hpf Urine Squamous Epithelial Cells 17 /hpf Urine Calcium Oxalate Crystals RARE /hpf Urine Bacteria FEW /hpf Urine Mucus FEW /lpf Microscopic Urinalysis Comment CULT NOT INDICATED Blood Urea Nitrogen 12 MG/DL Creatinine 0.68 MG/DL Random Glucose 95 MG/DL Total Protein 7.7 GM/DL Albumin 3.4 GM/DL Calcium Level 8.8 MG/DL Alkaline Phosphatase 116 U/L Aspartate Amino Transf (AST/SGOT) 183 U/L Alanine Aminotransferase (ALT/SGPT) 193 U/L Total Bilirubin 0.4 MG/DL Sodium Level 136 MEQ/L Potassium Level 3.5 MEQ/L Chloride Level 103 MEQ/L Carbon Dioxide Level 28.4 MEQ/L Anion Gap 5 MEQ/L Estimat Glomerular Filtration Rate 95 ML/MIN Lactic Acid Level 0.9 mmol/L Urine Opiates Screen POS Urine Barbiturates Screen NEG Urine Amphetamines Screen POS Urine Benzodiazepines Screen POS Urine Cocaine Screen NEG Urine Cannabinoids Screen NEG MDM Supervised Visit with BRIDGET: No Interpretation(s) 7:14 AM. CBC within normal limit. CMP within normal limit. Lactate acid 0.9. AST 183. ALT 193. Drug screen positive for opiates, amphetamines and benzo. UA positive with WBC and bacteria. 9:19 AM. Last Impressions Lower Extremity Ultrasound 11/02/17 0617 Signed Impressions: Service Date/Time: Thursday, November 02, 2017 07:54 - CONCLUSION: 1. Findings consistent with extensive chronic left lower extremity DVT. There is occlusive thrombus extending peripherally from the common femoral vein to the peroneal vein with collaterals throughout the thigh. Jerman Killian MD Narrative Course Bactrim DS one tablet by mouth given now. Xarelto 20 mg by mouth given now. Diagnosis Primary Impression: UTI (urinary tract infection) Qualified Codes: N30.00 - Acute cystitis without hematuria Additional Impression: Left leg DVT Qualified Codes: I82.502 - Chronic embolism and thrombosis of unspecified deep veins of left lower extremity Patient Instructions: General Instructions Additional Instruction: Continue with Xarelto as directed area Bactrim DS as directed. Follow-up with local physician. Med/Other Pt SpecificInfo: Prescription(s) given Scripts Sulfamethoxazole-Trimethoprim (Bactrim DS) 800-160 Mg Tab 1 TAB PO BID for Infection, #6 TAB 0 Refills Prov: Mark Rausch MD 11/02/17 Rivaroxaban (Xarelto) 20 Mg Tab 20 MG PO DAILY for Blood Clot Prevention, #30 TAB 0 Refills Prov: Mark Rausch MD 11/02/17 Disposition: 01 DISCHARGE HOME Condition: Stable Mark Rausch MD Nov 02, 2017 07:13
--- NOTE | 2017-11-02 08:39 | RADRPT ---
EXAM DATE/TIME: 11/02/2017 07:54 [facility] COMPARISON: US LEG LEFT VENOUS DOPPLER, August 26, 2017, 19:03. INDICATIONS : Left leg pain. Prior deep vein thrombosis August 2017. Swelling persists. Patient had anticoags s tolen. MEDICAL HISTORY : Fibromyalgia. Depression. Anxiety. Hepatitis C. Heroin abuse. SURGICAL HISTORY : section. ENCOUNTER: Initial ACUITY: 2 months PAIN SCORE: 6/10 LOCATION: Left leg. TECHNIQUE: Venous ultrasound of the leg was performed from the inguinal ligament to the proximal calf. Real-maria esther e, color Doppler and spectral tracing, compression and augmentation techniques were used. FINDINGS: Examination is abnormal. There is redemonstration of occlusive thrombus extending from the common fem oral vein to the peroneal vein with collateral veins noted throughout the thigh. The greater saphenou s vein is patent. CONCLUSION: 1. Findings consistent with extensive chronic left lower extremity DVT. There is occlusive thrombus e xtending peripherally from the common femoral vein to the peroneal vein with collaterals throughout t he thigh. Jerman Killian MD on November 02, 2017 at 8:28 Board Certified Radiologist. This report was verified electronically.
[2017-11-02] MEDS ORDERED: XARE20TA PO (09:25)
[2017-11-02] MEDS ORDERED: BACT800T5 PO (09:25)
[2017-11-02] MEDS ORDERED: SULFAMETHOXAZOLE-TRIMETHOPRIM DS 800-160 MG TAB PO ONE (09:30)
[2017-11-02] MEDS ORDERED: RIVAROXABAN 20 MG TAB PO ONE (09:30)
== END 2017-11-02 10:12 | disposition home or self-care (01) ==
LOC: NEPE 05:58
DX: N30.00 Acute cystitis without hematuria (principal); I82.502 Chronic embolism and thrombosis of unspecified deep veins of left lower extremity; F17.200 Nicotine dependence, unspecified, uncomplicated; Z91.14 Patient's other noncompliance with medication regimen
CPT/HCPCS: 80053; 80307; 81001; 83605; 85025; 85610; 85730; 87040; 93971; 99285

== ENCOUNTER 2017-12-02 06:40 | Emergency (ER) | payer SELFPAY ==
[~2017-12-02] VITALS: Ht 162.6 cm; Wt 50.0 kg
[~2017-12-02 06:40] MED LIST changes: +ASPI-516 CHEW; +BACT800T5 PO; -LEVA750T9 PO
[2017-12-02 06:43] VITALS: BP 106/61; PULSE 79; RESP 16; TEMP 98.4; O2SAT 99
[2017-12-02] MEDS ORDERED: XANA2TAB2 PO (06:51)
[2017-12-02] MEDS ORDERED: CLINDAMYCIN INJ 900 MG in SODIUM CHLORIDE 0.9% INJ 100 ML IV ONE (07:15)
[2017-12-02] MEDS ORDERED: ACETAMINOPHEN 325 MG TAB PO ONE (07:15)
[2017-12-02] MEDS ORDERED: SODIUM CHLOR 0.9% 1000 ML INJ 1,000 ML IV ONE (07:15)
[2017-12-02] MEDS ORDERED: CEPH-460 PO (07:24)
--- NOTE | 2017-12-02 07:24 | PD ---
HPI Chief Complaint: Skin Problem Time Seen by Provider: 07:07 Travel History International Travel<30 days: No Contact w/Intl Traveler<30days: No Traveled to known affect area: No History of Present Illness HPI The patientis 42 years old. She arrived to the ER complaining of rash involving the leg which his painful. She has been on Bactrim. She believes she has an abscess. Pain is constant and worse with palpation. Ambulation can be painful. Two nights prior she states her roommate told her she had a fever. No chest pain or shortness of breath. PFSH Past Medical History Hx Anticoagulant Therapy: Yes ADD: Yes Arthritis: Yes Asthma: No Autoimmune Disease: No Anxiety: Yes (PANIC ANXIETY DISORDER) Depression: Yes Cancer: No Cardiovascular Problems: Yes (hx of endocarditis per pt) Chemotherapy: No COPD: No Cerebrovascular Accident: No Diabetes: No Diminished Hearing: No Deep Vein Thrombosis: Yes Endocrine: No Fibromyalgia: Yes Gastrointestinal Disorders: No Genitourinary: No Headaches: Yes Hepatitis: Yes (HEP C) Immune Disorder: No Implanted Vascular Access Dvce: No Musculoskeletal: Yes (fibromyalgia) Neurologic: Yes Psychiatric: Yes (STATES SEES PSYCHIATRIST NO NAME GIVEN) Reproductive: No Respiratory: No Immunizations Current: Yes Migraines: No Seizures: Yes ?: Not LMP: UNKNOWN : 3 Para: 2 Miscarriage: 1 : 0 Dilation and Curettage (D&C): Yes Past Surgical History Abdominal Surgery: No Body Medical Devices: CHIN IMPLANT Cardiac Surgery: No Section: Yes Endocrine Surgery: No Eye Surgery: No Genitourinary Surgery: No Gynecologic Surgery: Yes (LEFT FALLOPIAN TUBE REMOVED ECTOPIC ) Neurologic Surgery: No Oral Surgery: No Thoracic Surgery: No Other Surgery: Yes (NOSE) Social History Alcohol Use: No Tobacco Use: Yes (pack a day ) Substance Use: No (HX) Allergies-Medications (Allergen,Severity, Reaction): Coded Allergies: penicillin G (Verified Allergy, Mild, rash, 12/02/17) patient has taken Keflex in the past without any problem Reported Meds & Prescriptions Reported Meds & Active Scripts Active Bactrim DS (Sulfamethoxazole-Trimethoprim) 800-160 Mg Tab 1 Tab PO BID Eliquis (Apixaban) 5 Mg Tab 10 Mg PO BID Eliquis (Apixaban) 5 Mg Tab 5 Mg PO BID Keflex (Cephalexin) 500 Mg Cap 500 Mg PO Q8H 7 Days Bactrim DS (Sulfamethoxazole-Trimethoprim) 800-160 Mg Tab 1 Tab PO BID Xarelto (Rivaroxaban) 20 Mg Tab 20 Mg PO DAILY Reported Xanax (Alprazolam) 2 Mg Tab 2 Mg PO QID Wellbutrin Xl 24 HR (Bupropion HCl) 150 Mg Tab 150 Mg PO DAILY Adderall (Amphetamine-Dextroamphetamine) 30 Mg Tab 30 Mg PO BID Avoid late evening doses. Space doses at least 4 to 6 hours if more than once/day dosing. Review of Systems Except as stated in HPI: all other systems reviewed are Neg General / Constitutional: Positive: Fever, Chills Skin: Positive Rash, Positive Lesions Physical Exam Narrative GENERAL: 42-year-old female well-nourished well-developed mild distress secondary to anxiety and or pain SKIN: There as 3 cm abscess in the medial aspect of the proximal. Occasional erythematous blanching lesions are observed on the left leg HEAD: Atraumatic. Normocephalic. EYES: Pupils equal and round. No scleral icterus. No injection or drainage. ENT: No nasal bleeding or discharge. Mucous membranes pink and moist. NECK: Trachea midline. No JVD. CARDIOVASCULAR: Regular rate and rhythm. RESPIRATORY: No accessory muscle use. Clear to auscultation. Breath sounds equal bilaterally. GASTROINTESTINAL: Abdomen soft, non-tender, nondistended. Hepatic and splenic margins not palpable. MUSCULOSKELETAL: Extremities without clubbing, cyanosis, or edema. No obvious deformities. NEUROLOGICAL: Awake and alert. No obvious cranial nerve deficits. Motor grossly within normal limits. Five out of 5 muscle strength in the arms and legs. Normal speech. PSYCHIATRIC: Appropriate mood and affect; insight and judgment normal. Data Data Last Documented VS Vital Signs Date Time Temp Pulse Resp B/P (MAP) Pulse Ox O2 Delivery O2 Flow Rate FiO2 12/02/17 06:43 98.4 79 16 106/61 (76) 99 VS reviewed Orders Orders Basic Metabolic Panel (Bmp) (12/02/17 07:14) Complete Blood Count With Diff (12/02/17 07:14) Wound Culture And Gram Stain (12/02/17 07:14) Iv Access Insert/Monitor (12/02/17 07:14) Acetaminophen (Tylenol) (12/02/17 07:15) Clindamycin Inj (Cleocin Inj) (12/02/17 07:15) Sodium Chlor 0.9% 1000 Ml Inj (Ns 1000 M (12/02/17 07:15) Clindamycin 900 Mg/Ns Premix (Cleocin 90 (12/02/17 07:30) Lidocai-Epi 1%-1:100,000 Inj (Xylocaine- (12/02/17 07:30) Cephalexin (Keflex) (12/02/17 07:30) Lidocai-Epi 1%-1:100,000 Inj (Xylocaine- (12/02/17 07:45) Ed Discharge Order (12/02/17 07:54) Labs Laboratory Tests Test 12/02/17 07:31 White Blood Count 6.1 TH/MM3 Red Blood Count 4.49 MIL/MM3 Hemoglobin 13.6 GM/DL Hematocrit 40.0 % Mean Corpuscular Volume 89.1 FL Mean Corpuscular Hemoglobin 30.2 PG Mean Corpuscular Hemoglobin Concent 33.9 % Red Cell Distribution Width 13.1 % Platelet Count 291 TH/MM3 Mean Platelet Volume 8.5 FL Neutrophils (%) (Auto) 49.8 % Lymphocytes (%) (Auto) 39.0 % Monocytes (%) (Auto) 7.2 % Eosinophils (%) (Auto) 3.5 % Basophils (%) (Auto) 0.5 % Neutrophils # (Auto) 3.0 TH/MM3 Lymphocytes # (Auto) 2.4 TH/MM3 Monocytes # (Auto) 0.4 TH/MM3 Eosinophils # (Auto) 0.2 TH/MM3 Basophils # (Auto) 0.0 TH/MM3 CBC Comment DIFF FINAL Differential Comment Blood Urea Nitrogen 21 MG/DL Creatinine 0.93 MG/DL Random Glucose 108 MG/DL Calcium Level 8.9 MG/DL Sodium Level 134 MEQ/L Potassium Level 5.1 MEQ/L Chloride Level 102 MEQ/L Carbon Dioxide Level 24.9 MEQ/L Anion Gap 7 MEQ/L Estimat Glomerular Filtration Rate 66 ML/MIN [facility] Medical Decision Making Medical Screen Exam Complete: Yes Emergency Medical Condition: Yes Medical Record Reviewed: Yes Differential Diagnosis Abscess, cellulitis, sepsis Narrative Course CBC & BMP Diagram 12/02/17 07:31 Calcium Level 8.9 The patient arrives with abscess of the medial right calf muscle proximally. This was drained with scant discharge. 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 There is opiate positive urine from one month prior concerning for IVDU. Patient was very eager to leave the ER. Of course endocarditis and epidural abscess is a concern with this patient however I think both are reasonably safely excluded based on the presenting complaints. She was provided with Eliquis a coupon and a prescription. Return precautions discussed. Case management saw the patient as well. Procedures Procedure Narrative After the risks and benefits were discussed the following procedure was performed: INCISION AND DRAINAGE OF ABSCESS: The area was prepped and was sterilely draped. A subcutaneous wheal of 1 % Xylocaine with a total number 5 mL was used to anesthetize the area. The area was properly anesthetized. A number 11 scalpel was used to make a 1 -cm incision across the area of the abscess. Cultures were obtained. The abscess was drained an irrigated with normal saline. Quarter inch iodoform packing was placed in the wound. Sterile dressing applied. Patient advised to have packing removed in two days. Diagnosis Primary Impression: Abscess Additional Impression: DVT (deep venous thrombosis) Qualified Codes: I82.409 - Acute embolism and thrombosis of unspecified deep veins of unspecified lower extremity Referrals: [facility] 2 days Med/Other Pt SpecificInfo: Prescription(s) given Scripts Sulfamethoxazole-Trimethoprim (Bactrim DS) 800-160 Mg Tab 1 TAB PO BID for Infection, #20 TAB 0 Refills Prov: Geovany Thurston MD 12/02/17 Apixaban (Eliquis) 5 Mg Tab 10 MG PO BID for Blood Clot Prevention, #14 TAB 0 Refills Prov: Geovany Thurston MD 12/02/17 Apixaban (Eliquis) 5 Mg Tab 5 MG PO BID for Blood Clot Prevention, #60 TAB 0 Refills Prov: Geovany Thurston MD 12/02/17 Cephalexin (Keflex) 500 Mg Cap 500 MG PO Q8H for Infection for 7 Days, #21 CAP 0 Refills Prov: Geovany Thurston MD 12/02/17 Disposition: 01 DISCHARGE HOME Condition: Stable Geovany Thurston MD Dec 02, 2017 07:24
[2017-12-02] MEDS ORDERED: LIDOCAINE 1%/EPINEPHrine 1:100,000 SOLN 20 ML VIAL INFIL ONE (07:30)
[2017-12-02] MEDS ORDERED: CLINDAMYCIN 900 MG/NS PREMIX 50 ML IV ONE (07:30)
[2017-12-02] MEDS ORDERED: CEPHALEXIN MONOHYDRATE 500 MG CAP PO ONE (07:30)
[2017-12-02] MEDS ORDERED: LIDOCAINE 1%/EPINEPHrine 1:100,000 SOLN 50 ML VIAL INFIL ONE (07:45)
[2017-12-02] MEDS ORDERED: APIX5TAB PO (07:52)
[2017-12-02] MEDS ORDERED: BACT800T5 PO (07:56)
[2017-12-02 08:03] LABS: BICARBONATE 24.9 MEQ/L (21.0-32.0); CALCIUM 8.9 MG/DL (8.5-10.1); CREATININE 0.93 MG/DL (0.50-1.00)
[2017-12-02 08:04] LABS: BASOPHIL % 0.5 % (0.0-2.0); EOSINOPHIL # 0.2 TH/MM3 (0-0.4); EOSINOPHIL % 3.5 % (0.0-4.0); HEMOGLOBIN 13.6 GM/DL (11.6-15.3); LYMPHOCYTE # 2.4 TH/MM3 (1.0-4.8); MEAN CELL VOLUME 89.1 FL (80.0-100.0); MEAN CORPUSCULAR HEMOGLOBIN 30.2 PG (27.0-34.0); MEAN CORPUSCULAR HGB CONC 33.9 % (32.0-36.0); MEAN PLATELET VOLUME 8.5 FL (7.0-11.0); MONO % 7.2 % (0.0-8.0); MONOCYTE # 0.4 TH/MM3 (0-0.9); NEUT % 49.8 % (16.0-70.0); PLATELET COUNT 291 TH/MM3 (150-450); RED BLOOD COUNT 4.49 MIL/MM3 (4.00-5.30); RED CELL DISTRIBUTION WIDTH 13.1 % (11.6-17.2); WHITE BLOOD COUNT 6.1 TH/MM3 (4.0-11.0)
== END 2017-12-02 08:59 | disposition home or self-care (01) ==
LOC: NEPC 06:40
DX: L02.415 Cutaneous abscess of right lower limb (principal); I82.409 Acute embolism and thrombosis of unspecified deep veins of unspecified lower extremity; F41.8 Other specified anxiety disorders; M79.7 Fibromyalgia; F17.210 Nicotine dependence, cigarettes, uncomplicated; Z79.01 Long term (current) use of anticoagulants; Z88.0 Allergy status to penicillin; Z22.322 Carrier or suspected carrier of Methicillin resistant Staphylococcus aureus
CPT/HCPCS: 10061; 80048; 85025

== ENCOUNTER 2018-01-30 23:01 | Inpatient (IN) | payer SELFPAY ==
[~2018-01-30] VITALS: Ht 162.6 cm; Wt 61.4 kg
[~2018-01-30 23:01] MED LIST changes: +APIX5TAB PO; -ASPI-516 CHEW; +CEPH-460 PO; +XANA2TAB2 PO
[2018-01-30 23:42] VITALS: BP 123/78; PULSE 109; RESP 16; TEMP 98.7; O2SAT 100
[2018-01-31] VITALS (7 sets, daily range): BP systolic 86–112; BP diastolic 51–65; PULSE 72–102; RESP 18–20; TEMP 98.6–103.9; O2SAT 96–100
--- NOTE | 2018-01-31 01:28 | PD ---
HPI Chief Complaint: Skin Problem Time Seen by Provider: 01:14 Travel History International Travel<30 days: No Contact w/Intl Traveler<30days: No Traveled to known affect area: No History of Present Illness HPI The patient is 42 year old female who presents to the [facility] emergency department with a history of right leg swelling and redness for the last 10 days. She reports having fatigue and fever for the last 2-3 days. She has had a decreased appetite. She has dark urine and is infrequently urinating. Her urine is reportedly strong smelling. She has had intermittent chest pain for 2 months. She has felt like her heart was racing and she sometimes has dyspnea on exertion. The patient reports a prior history of IV drug use. She reports that she continues to be addicted to opiates, however she now injects opiates and frequently IM in her arms. The patient reports that she has not been well since August 2017 when she was admitted to the hospital for infection in her left leg. She reports that she was also diagnosed with a blood clot in the left leg. She was discharged home on a blood thinner, however she has not been able to afford it and has not taken it for the last few months. She denies having a primary care physician. She denies having any diarrhea. She reports having some nausea but no vomiting. On review of systems otherwise, she denies having any cough, congestion, neck pain, abdominal pain, or neurologic symptoms. Her last BM was yesterday. She denies having any blood in her stool or black or tarry stools. LMP: ended 5 days ago. [facility] Past Medical History Narrative Medical The patient's past medical history is significant for major depressive disorder , ADD, Anxiety disorder, Ectopic , opiate abuse, hepatitis C. Hx Anticoagulant Therapy: Yes ADD: Yes Arthritis: Yes Asthma: No Autoimmune Disease: No Anxiety: Yes (PANIC ANXIETY DISORDER) Depression: Yes Cancer: No Cardiovascular Problems: Yes (hx of endocarditis per pt) Chemotherapy: No COPD: No Cerebrovascular Accident: No Diabetes: No Diminished Hearing: No Deep Vein Thrombosis: Yes Endocrine: No Fibromyalgia: Yes Gastrointestinal Disorders: No Genitourinary: No Headaches: Yes Hepatitis: Yes (HEP C) Immune Disorder: No Implanted Vascular Access Dvce: No Musculoskeletal: Yes (fibromyalgia) Neurologic: Yes Psychiatric: Yes (STATES SEES PSYCHIATRIST NO NAME GIVEN) Reproductive: No Respiratory: No Immunizations Current: Yes Migraines: No Seizures: Yes Tetanus Vaccination: < 5 Years Influenza Vaccination: Yes ?: Not LMP: 01/22/2018 : 3 Para: 2 Miscarriage: 1 : 0 Dilation and Curettage (D&C): Yes Past Surgical History Narrative Surgical The patient's past surgical history is significant for rhinoplasty, ectopic surgery with left fallopian tube removal, . Abdominal Surgery: No Body Medical Devices: CHIN IMPLANT Cardiac Surgery: No Section: Yes Endocrine Surgery: No Eye Surgery: No Genitourinary Surgery: No Gynecologic Surgery: Yes (LEFT FALLOPIAN TUBE REMOVED ECTOPIC ) Neurologic Surgery: No Oral Surgery: No Thoracic Surgery: No Other Surgery: Yes (NOSE) Social History Alcohol Use: No Tobacco Use: Yes (1/2 pack a day ) Substance Use: Yes (opiate use.) Allergies-Medications (Allergen,Severity, Reaction): Coded Allergies: penicillin G (Verified Allergy, Mild, rash, 01/30/18) patient has taken Keflex in the past without any problem Reported Meds & Prescriptions Reported Meds & Active Scripts Active Reported Remeron (Mirtazapine) 30 Mg Tab 30 Mg PO HS Wellbutrin Xl 24 HR (Bupropion HCl) 300 Mg Tab 300 Mg PO DAILY Xanax (Alprazolam) 2 Mg Tab 2 Mg PO QID Adderall (Amphetamine-Dextroamphetamine) 30 Mg Tab 30 Mg PO BID Avoid late evening doses. Space doses at least 4 to 6 hours if more than once/day dosing. Review of Systems Except as stated in HPI: all other systems reviewed are Neg General / Constitutional: Positive: Fever, Chills Eyes: No: Visual changes HENT: No: Headaches, Neck Pain Cardiovascular: Positive: Chest Pain or Discomfort, Tachycardia, Dyspnea on exertion Respiratory: No: Shortness of Breath Gastrointestinal: Positive: Nausea, No: Vomiting, Diarrhea, Abdominal Pain Genitourinary: No: Dysuria Musculoskeletal: Positive: Edema, Pain Skin: No Rash Neurologic: Positive: Weakness (generalized fatigue), No: Focal Abnormalities, Change in Mentation, Slurred Speech, Sensory Disturbance Psychiatric: No: Depression Endocrine: No: Polydipsia Hematologic/Lymphatic: No: Easy Bruising Physical Exam Narrative General: The patient is a well-developed well-nourished female in no acute distress Head and Neck exam: Head is normocephalic atraumatic. Eyes: EOMI, pupils are equal round and reactive to light. Nose: Midline septum with pink mucous membranes Mouth: Dentition unremarkable. Moist mucus membranes. Posterior oropharynx is not erythematous. No tonsillar hypertrophy. Uvula midline. Airway patent. Neck: No palpable lymphadenopathy. No nuchal rigidity. No thyromegaly. Cardiovascular: Sinus tachycardia in the low 100s with a 1/6 systolic murmur audible, no gallops or rubs. No pulse deficit to the extremities on simultaneous auscultation and palpation of her radial artery. Lungs: Clear to auscultation bilaterally. No wheezes, rhonchi, or rales. Abdomen: Soft, without tenderness to palpation in all 4 quadrants of the abdomen. No guarding, rebound, or rigidity. Normal bowel sounds are audible. No tenderness on palpation of McBurney's point. Extremities: No clubbing, cyanosis, or edema, except in the area of interest, the left lower extremity. The patient is noted to have erythema with swelling of the left leg from the knee to the ankle. The patient has superficial open wounds along the posterior left calf with a clear drainage. This was cultured. The patient reports tenderness on palpation with warmth on palpation. The patient has left inguinal lymphadenopathy noted. 2+ pulses in all 4 extremities. Back: No spinous process tenderness to palpation. No costovertebral angle tenderness to palpation. Neurologic Exam: Grossly nonfocal. Skin Exam: No other rash noted. Intact skin that is warm and dry. Data Data Last Documented VS Vital Signs Date Time Temp Pulse Resp B/P (MAP) Pulse Ox O2 Delivery O2 Flow Rate FiO2 01/30/18 23:42 98.7 109 16 123/78 (93) 100 Orders Orders Electrocardiogram (01/31/18 02:02) Complete Blood Count With Diff (01/31/18 02:02) Comprehensive Metabolic Panel (01/31/18 02:02) Creatine Kinase (Cpk) (01/31/18 02:02) Ckmb (Isoenzyme) Profile (01/31/18 02:02) Troponin I (01/31/18 02:02) B-Type Natriuretic Peptide (01/31/18 02:02) Prothrombin Time / Inr (Pt) (01/31/18 02:02) Act Partial Throm Time (Ptt) (01/31/18 02:02) Blood Culture (01/31/18 02:02) C-Reactive Protein (Crp) (01/31/18 02:02) Lipase (01/31/18 02:02) Urinalysis - C+S If Indicated (01/31/18 02:02) Westergren Sedimentation Rate (01/31/18 02:02) Magnesium (Mg) (01/31/18 02:02) Chest, Single Ap (01/31/18 02:02) Iv Access Insert/Monitor (01/31/18 02:02) Ecg Monitoring (01/31/18 02:02) Oximetry (01/31/18 02:02) Ed Urine Pregnancytest Poc (01/31/18 02:02) Drug Screen, Random Urine (01/31/18 02:02) Alcohol (Ethanol) (01/31/18 02:02) Salicylates (Aspirin) (01/31/18 02:02) Tylenol (Acetaminophen) (01/31/18 02:02) Lactic Acid Sepsis Protocol (01/31/18 02:02) Aztreonam Inj (Azactam Inj) (01/31/18 02:02) Metronidazole 500 Mg Inj (Flagyl 500 Mg (01/31/18 02:02) Vancomycin Inj (Vancomycin Inj) (01/31/18 02:02) Sodium Chlor 0.9% 1000 Ml Inj (Ns 1000 M (01/31/18 02:15) Us Leg Venous Doppler (01/31/18 02:02) Wound Culture And Gram Stain (01/31/18 02:57) Heparin Inj (Heparin Inj) (01/31/18 04:00) Heparin-D5w 25,000 U/250 Ml (Heparin-D5w (01/31/18 04:00) Cbc No Diff, Includes Plts (02/03/18 06:00) Act Partial Throm Time (Ptt) (01/31/18 10:49) Occult Blood (Hemoccult) Stool (01/31/18 03:49) Admit Order (Ed Use Only) (01/31/18 04:05) Labs Laboratory Tests Test 01/31/18 02:48 01/31/18 03:59 White Blood Count 14.9 TH/MM3 Red Blood Count 4.04 MIL/MM3 Hemoglobin 11.5 GM/DL Hematocrit 34.4 % Mean Corpuscular Volume 84.9 FL Mean Corpuscular Hemoglobin 28.5 PG Mean Corpuscular Hemoglobin Concent 33.5 % Red Cell Distribution Width 15.1 % Platelet Count 199 TH/MM3 Mean Platelet Volume 7.6 FL CBC Comment AUTO DIFF Differential Total Cells Counted 100 Neutrophils % (Manual) 49 % Band Neutrophils % 1 % Lymphocytes % 25 % Monocytes % 13 % Neutrophils # (Manual) 7.5 TH/MM3 Nucleated Red Blood Cells 1 /100 WBC Differential Comment FINAL DIFF MANUAL Atypical Lymphocytes 12 % Platelet Estimate NORMAL Platelet Morphology Comment NORMAL Red Cell Morphology Comment NORMAL Erythrocyte Sedimentation Rate 72 mm/hr Prothrombin Time 11.7 SEC Prothromb Time International Ratio 1.2 RATIO Activated Partial Thromboplast Time 28.9 SEC Blood Urea Nitrogen 10 MG/DL Creatinine 1.06 MG/DL Random Glucose 90 MG/DL Total Protein 7.3 GM/DL Albumin 2.3 GM/DL Calcium Level 8.3 MG/DL Magnesium Level 1.9 MG/DL Alkaline Phosphatase 105 U/L Aspartate Amino Transf (AST/SGOT) 25 U/L Alanine Aminotransferase (ALT/SGPT) 20 U/L Total Bilirubin 1.2 MG/DL Sodium Level 135 MEQ/L Potassium Level 4.0 MEQ/L Chloride Level 96 MEQ/L Carbon Dioxide Level 26.3 MEQ/L Anion Gap 13 MEQ/L Estimat Glomerular Filtration Rate 57 ML/MIN Lactic Acid Level 3.5 mmol/L Total Creatine Kinase 95 U/L Troponin I LESS THAN 0.02 NG/ML C-Reactive Protein 18.80 MG/DL B-Type Natriuretic Peptide 9 PG/ML Lipase 84 U/L Salicylates Level LESS THAN 1.7 MG/DL Acetaminophen Level LESS THAN 2.0 MCG/ML Ethyl Alcohol Level LESS THAN 3 MG/DL Urine Color DARK-YELLOW Urine Turbidity HAZY Urine pH 6.0 Urine Specific Regina 1.029 Urine Protein 100 mg/dL Urine Glucose (UA) NEG mg/dL Urine Ketones NEG mg/dL Urine Occult Blood SMALL Urine Nitrite POS Urine Bilirubin SMALL Urine Urobilinogen 4.0 MG/DL Urine Leukocyte Esterase MOD Urine WBC 11 /hpf Urine Squamous Epithelial Cells 20 /hpf Urine Bacteria MOD /hpf Urine Mucus MANY /lpf Microscopic Urinalysis Comment CULTURE INDICATED Urine Opiates Screen POS Urine Barbiturates Screen NEG Urine Amphetamines Screen POS Urine Benzodiazepines Screen POS Urine Cocaine Screen POS Urine Cannabinoids Screen NEG MDM Medical Decision Making Medical Screen Exam Complete: Yes Emergency Medical Condition: Yes Medical Record Reviewed: Yes Interpretation(s) Last Impressions Lower Extremity Ultrasound 01/31/18201 Signed Impressions: Service Date/Time: Wednesday, January 31, 2018 02:32 - CONCLUSION: Occlusive thrombus from inguinal region to the proximal calf, similar to October 2017. Colten Bradley MD Chest X-Ray 01/31/18201 Signed Impressions: Service Date/Time: Wednesday, January 31, 2018 03:18 - CONCLUSION: The lungs are clear. Colten Bradley MD Lower Extremity MRI 01/31/18 0000 Signed Impressions: Service Date/Time: Wednesday, January 31, 2018 09:25 - CONCLUSION: Subcutaneous abscess medial calf as described above. Carlos Alvarado MD FACR Differential Diagnosis Cellulitis, versus DVT, versus endocarditis, versus abscess, versus myositis Narrative Course During the course of the patient's emergency department visit, the patient's history, examination, and differential diagnosis were reviewed with the patient. The patient was placed on a clinical research monitor with oximetry and frequent blood pressure monitoring. The patient had IV access obtained and blood work sent for analysis. The patient had an EKG done that shows a sinus rhythm with a short W[place] interval heart rate of 99, QRS duration 77 ms, QTC 363 ms without any acute ST segment elevation, T waves are inverted in V1. The patient was initially provided normal saline 1 L IV fluid bolus. Azactam 2 g IV, Flagyl 500 mg IV vancomycin 1 g IV due to her allergy history and for broad-spectrum antibiotic coverage of suspected sepsis from cellulitis. The patient's laboratory studies were reviewed and remarkable for white count of 14.9, hemoglobin 11.5, platelets 199 with 13 monocytes, 12 atypical lymphocytes, sedimentation rate is elevated at 72. CMP is remarkable for sodium of 135, chloride 96, creatinine 1.06, calcium 8.3, total bilirubin 1.2, cardiac enzymes within normal limits, BNP 9, C-reactive protein 18.8. Lipase 84 lactic acid initially 3.5, PT 11.7, PTT 28.9, urine drug screen is positive for opiates, amphetamines, benzodiazepines, cocaine. Salicylate less than 1.7, acetaminophen less than 2, alcohol less than 3. Urinalysis shows small occult blood, positive nitrite, small bilirubin, moderate leukocyte esterase, 11 WBCs, moderate bacteria, culture indicated Radiology studies were reviewed and remarkable for a chest x-ray that shows no acute cardiopulmonary disease, ultrasound reveals an occlusive thrombus from the inguinal region to the proximal calf similar to October 2017 on the left side. The patient was started on heparin per DVT protocol. The patient's results were discussed with the patient, including the plan of care. I explained that further testing and/ or monitoring is indicated based on the patient's history, examination, and/ or laboratory findings. Therefore, I recommended admission for additional evaluation. The patient expressed understanding and was agreeable with this plan. The patient was admitted to the hospital in guarded condition and sent to a bed under the care of the [facility] service. Critical Care Narrative Aggregate critical care time was 35 minutes. Time to perform other separately billable procedures was not included in the critical care time. My time did not include minutes spent treating any other patients simultaneously or on activities that did not directly contribute to the patient's treatment. The services I provided to this patient were to treat and/or prevent clinically significant deterioration that could result in: Cardiovascular collapse from sepsis, versus heart failure from endocarditis I provided critical care services requiring my management, as noted below: Chart data review, documentation time, medication orders and management, vital sign assessments/reviewing monitor data, ordering and reviewing lab tests, ordering and interpreting/reviewing x-rays and diagnostic studies, care of the patient and discussion of the patient with the admitting physicians. Sepsis Criteria SIRS Criteria (2 or more): Heart rate over 90, WBC > 71864, < 4000 or > 10% bands Sepsis Criteria (SIRS+source): Infect source susp/known Severe Sepsis (+one): Lactate >2 Criteria Outcome: Meets SIRS criteria, Meets sepsis criteria, Meets severe sepsis criteria Physician Communication Physician Communication The patient's case including history, pertinent physical examination findings, and laboratory studies were discussed with Dr. Clark. It was agreed that the patient would be admitted to the [facility] service. Diagnosis Primary Impression: Cellulitis Qualified Codes: L03.116 - Cellulitis of left lower limb Additional Impression: Left leg DVT Qualified Codes: I82.502 - Chronic embolism and thrombosis of unspecified deep veins of left lower extremity Admitting Information Admitting Physician Requests: it Thalia Ballard MD Jan 31, 2018 01:28
[2018-01-31] MEDS ORDERED: metroNIDAZOLE 500 MG INJ 100 ML IV STA (02:02)
[2018-01-31] MEDS ORDERED: AZTREONAM INJ 2,000 MG in SODIUM CHLORIDE 0.9% INJ 100 ML IV STA (02:02)
[2018-01-31] MEDS ORDERED: VANCOMYCIN INJ 1,000 MG in SODIUM CHLOR 0.9% 250 ML INJ 250 ML IV STA (02:02)
[2018-01-31] MEDS ORDERED: SODIUM CHLOR 0.9% 1000 ML INJ 1,000 ML IV ONE (02:15)
[2018-01-31 03:08] LABS: HEMATOCRIT 34.4 % (35.0-46.0); HEMOGLOBIN 11.5 GM/DL (11.6-15.3); MEAN CELL VOLUME 84.9 FL (80.0-100.0); MEAN CORPUSCULAR HEMOGLOBIN 28.5 PG (27.0-34.0); MEAN CORPUSCULAR HGB CONC 33.5 % (32.0-36.0); MEAN PLATELET VOLUME 7.6 FL (7.0-11.0); PLATELET COUNT 199 TH/MM3 (150-450); RED BLOOD COUNT 4.04 MIL/MM3 (4.00-5.30); RED CELL DISTRIBUTION WIDTH 15.1 % (11.6-17.2); WHITE BLOOD COUNT 14.9 TH/MM3 (4.0-11.0)
[2018-01-31 03:16] LABS: LACTIC ACID SEPSIS PROTOCOL 3.5 mmol/L (0.4-2.0)
[2018-01-31 03:18] LABS: INTERNATIONAL NORMALIZED RATIO 1.2 RATIO; PROTHROMBIN TIME - PATIENT 11.7 SEC (9.8-11.6)
--- NOTE | 2018-01-31 03:38 | RADRPT ---
EXAM DATE/TIME: 01/31/2018 03:18 [place] COMPARISON: CHEST SINGLE AP, September 16, 2017, 16:22. INDICATIONS : Left leg infection with swelling. MEDICAL HISTORY : None. SURGICAL HISTORY : None. ENCOUNTER: Initial ACUITY: 2 days PAIN SCORE: 0/10 LOCATION: Bilateral chest FINDINGS: A single view of the chest demonstrates the lungs to be symmetrically aerated without evidence of mas s, infiltrate or effusion. The cardiomediastinal contours are unremarkable. Osseous structures are intact. CONCLUSION: The lungs are clear. Colten Bradley MD on January 31, 2018 at 3:35 Board Certified Radiologist. This report was verified electronically.
[2018-01-31 03:42] LABS: ACETAMINOPHEN LESS THAN 2.0 MCG/ML (10.0-30.0); ALBUMIN 2.3 GM/DL (3.4-5.0); ALKALINE PHOSPHATASE 105 U/L (45-117); ALT (GPT) 20 U/L (10-53); AST (GOT) 25 U/L (15-37); BICARBONATE 26.3 MEQ/L (21.0-32.0); BLOOD UREA NITROGEN 10 MG/DL (7-18); CALCIUM 8.3 MG/DL (8.5-10.1); CHLORIDE 96 MEQ/L (98-107); CREATININE 1.06 MG/DL (0.50-1.00); GLOMERULAR FILTRATION RATE 57 ML/MIN (>89); GLUCOSE,RANDOM 90 MG/DL (74-106); MAGNESIUM 1.9 MG/DL (1.5-2.5); SODIUM (NA) 135 MEQ/L (136-145); TOTAL BILIRUBIN ADULT 1.2 MG/DL (0.2-1.0); TOTAL PROTEIN 7.3 GM/DL (6.4-8.2); TROPONIN I LESS THAN 0.02 NG/ML (0.02-0.05)
--- NOTE | 2018-01-31 03:42 | RADRPT ---
EXAM DATE/TIME: 01/31/2018 02:32 [facility] COMPARISON: US LEG LEFT VENOUS DOPPLER, November 02, 2017, 7:54. INDICATIONS : Left leg swelling and pain. MEDICAL HISTORY : Arthritis. Hepatitis C. Seizures. Endocarditis. DVT. Dyspnea. Fibromyalgia. UTI. ADD. Depression. Anxiety. Tobacco use. Anticoagulant therapy. SURGICAL HISTORY : section. Left fallopian tube removed due to ectopic. D&C. Nose surgery. ENCOUNTER: Subsequent ACUITY: 1 week PAIN SCORE: 9/10 LOCATION: Left leg. TECHNIQUE: Venous ultrasound of the leg was performed from the inguinal ligament to the proximal calf. Real-maria esther e, color Doppler and spectral tracing, compression and augmentation techniques were used. FINDINGS: Examination is abnormal demonstrating absent flow on the superficial femoral vein and popliteal vein, and no augmentation, and noncompressible veins. The greater saphenous vein is patent. Flow is seen in the iliac vein. Incidental note of several enlarged inguinal nodes measuring up to 3.3 cm with d emonstrable fatty maría, similar to prior ultrasound in 2014. CONCLUSION: Occlusive thrombus from inguinal region to the proximal calf, similar to October 2017. Colten Bradley MD on January 31, 2018 at 3:36 Board Certified Radiologist. This report was verified electronically.
[2018-01-31] MEDS ORDERED: HEPARIN SODIUM - IV 10,000 UNITS/10 ML VIAL IV ONE (04:00)
[2018-01-31 04:12] LABS: ATYPICAL LYMPHOCYTES 12 % (0-0); BANDS 1 % (0-6); CORRECTED NUCLEATED RBC 1 /100 WBC (0-0); LYMPHOCYTES 25 % (9-44); MONOCYTES 13 % (0-8); NEUTROPHIL # MANUAL DIFF 7.5 TH/MM3 (1.8-7.7); NUCLEATED RED BLOOD CELL 1 (0-0); POLYS (SEG NEUTROPHILS) 49 % (16-70)
[2018-01-31] MEDS ORDERED: SODIUM CHLORIDE 0.9% FLUSH 10 ML FLUSH IV FLUSH PRN (04:30)
[2018-01-31] MEDS ORDERED: ONDANSETRON HCL 4 MG/2 ML VIAL IVP PRN (04:30)
[2018-01-31] MEDS ORDERED: NALOXONE HCL 0.4 MG/ML AMP IV PUSH PRN (04:30)
[2018-01-31] MEDS ORDERED: ACETAMINOPHEN 325 MG TAB PO PRN (04:30)
[2018-01-31] MEDS ORDERED: REME30TA PO (04:31)
[2018-01-31] MEDS ORDERED: WELLTAB39 PO (04:31)
[2018-01-31] MEDS ORDERED: HYDROmorphone HCL PF 2 MG/ML VIAL IV PUSH ONE (04:45)
[2018-01-31] MEDS ORDERED: LORazepam 2 MG/ML VIAL IV PUSH ONE (04:45)
[2018-01-31] MEDS: SODIUM CHLOR 0.9% 1000 ML INJ 1,000 ML IV SCH ×2 (04:47→16:10)
[2018-01-31 04:49] LABS: BACTERIA, URINE MOD /hpf; BILIRUBIN, URINE SMALL (NEG); BLOOD, URINE SMALL (NEG); GLUCOSE,URINE NEG (NEG); KETONE, URINE NEG (NEG); MUCUS URINE MANY /lpf (OCC); NITRITE,URINE POS (NEG); SQUAMOUS EPITHELIAL CELL URINE 20 /hpf (0-5); URINE COLOR DARK-YELLOW (YELLW/STRAW); URINE LEUKOCYTE ESTERASE MOD (NEG)
[2018-01-31] MEDS: HEPARIN-D5W 25,000 U/250 ML 250 ML IV PRN (05:06)
[2018-01-31] MEDS ORDERED: Vancomycin Consult Pharmacy 1 EA OTHER SCH (05:45)
--- NOTE | 2018-01-31 05:52 | HHI.HP ---
HPI Service [facility] Primary Care Physician No Primary Care Physician Admission Diagnosis Left Cellulitis, left leg DVT, opiate abuse Diagnoses: Travel History International Travel<30 Days: No Contact w/Intl Traveler <30 Da: No Traveled to Known Affected Are: No History of Present Illness 42-year-old female with a past medical history of previous endocarditis, hepatitis C, panic disorder/anxiety, and IV/IM drug abuse presents to the emergency department for evaluation of pain and swelling in her left lower extremity. The patient reports that 10 days ago she noticed redness and a small amount of swelling in her left leg. She states that it has gotten progressively worse over the past 10 days reaching a maximum of painfulness, swelling and associated fever/chills for the past 2 days. She describes the pain as 10 out of 10 with movement. 8 out of 10 at rest. The patient reports that she has recently been injecting intramuscularly into her bilateral upper extremities. Additionally, the patient has a history of a left lower extremity DVT for which she is supposed to be anticoagulated however she could not afford the blood thinner and is not taking it. She denies shortness of breath or chest pain. Denies nausea/vomiting/diarrhea. No lateralizing signs/symptoms. Review of Systems Except as stated in HPI: all other systems reviewed are Neg Past Family Social History Past Medical History Hepatitis C History of endocarditis Panic disorder/anxiety/depression Opiate abuse Past Surgical History Nose and chin augmentation Ectopic Reported Medications Reported Meds & Active Scripts Active Reported Remeron (Mirtazapine) 30 Mg Tab 30 Mg PO HS Wellbutrin Xl 24 HR (Bupropion HCl) 300 Mg Tab 300 Mg PO DAILY Xanax (Alprazolam) 2 Mg Tab 2 Mg PO QID Adderall (Amphetamine-Dextroamphetamine) 30 Mg Tab 30 Mg PO BID Avoid late evening doses. Space doses at least 4 to 6 hours if more than once/day dosing. Allergies: Coded Allergies: penicillin G (Verified Allergy, Mild, rash, 01/30/18) patient has taken Keflex in the past without any problem Family History Mother with diabetes mellitus Social History Smokes approximately a half pack per day. Denies alcohol use. Uses airway and and opiates IV and intramuscularly. Physical Exam Vital Signs Vital Signs Date Time Temp Pulse Resp B/P (MAP) Pulse Ox O2 Delivery O2 Flow Rate FiO2 01/30/18 23:42 98.7 109 16 123/78 (93) 100 Physical Exam GENERAL: Cachectic, female sitting up in bed SKIN: Erythema and warmth of the left lower extremity from ankle to knee. Exquisitely tender to palpation. Superficial wounds along the left calf with sanguinous drainage. Pulses intact. HEAD: Atraumatic. Normocephalic. No temporal or scalp tenderness. EYES: Pupils equal round and reactive. Extraocular motions intact. No scleral icterus. No injection or drainage. ENT: Nose without bleeding, purulent drainage or septal hematoma. Throat without erythema, tonsillar hypertrophy or exudate. Uvula midline. Airway patent. Poor dentition. NECK: Trachea midline. No JVD or lymphadenopathy. Supple, nontender, no meningeal signs. CARDIOVASCULAR: 2/6 murmur. RESPIRATORY: Clear to auscultation. Breath sounds equal bilaterally. No wheezes , rales, or rhonchi. GASTROINTESTINAL: Abdomen soft, non-tender, nondistended. No hepato-splenomegaly , or palpable masses. No guarding. MUSCULOSKELETAL: Left lower extremity as above. NEUROLOGICAL: Awake and alert. Cranial nerves II through XII intact. Motor and sensory grossly within normal limits. Normal speech. Laboratory Laboratory Tests Test 01/31/18 02:48 01/31/18 03:59 01/31/18 05:16 White Blood Count 14.9 Red Blood Count 4.04 Hemoglobin 11.5 Hematocrit 34.4 Mean Corpuscular Volume 84.9 Mean Corpuscular Hemoglobin 28.5 Mean Corpuscular Hemoglobin Concent 33.5 Red Cell Distribution Width 15.1 Platelet Count 199 Mean Platelet Volume 7.6 CBC Comment AUTO DIFF Differential Total Cells Counted 100 Neutrophils % (Manual) 49 Band Neutrophils % 1 Lymphocytes % 25 Monocytes % 13 Neutrophils # (Manual) 7.5 Nucleated Red Blood Cells 1 Differential Comment FINAL DIFF MANUAL Atypical Lymphocytes 12 Platelet Estimate NORMAL Platelet Morphology Comment NORMAL Red Cell Morphology Comment NORMAL Erythrocyte Sedimentation Rate 72 Prothrombin Time 11.7 Prothromb Time International Ratio 1.2 Activated Partial Thromboplast Time 28.9 Blood Urea Nitrogen 10 Creatinine 1.06 Random Glucose 90 Total Protein 7.3 Albumin 2.3 Calcium Level 8.3 Magnesium Level 1.9 Alkaline Phosphatase 105 Aspartate Amino Transf (AST/SGOT) 25 Alanine Aminotransferase (ALT/SGPT) 20 Total Bilirubin 1.2 Sodium Level 135 Potassium Level 4.0 Chloride Level 96 Carbon Dioxide Level 26.3 Anion Gap 13 Estimat Glomerular Filtration Rate 57 Lactic Acid Level 3.5 Total Creatine Kinase 95 Troponin I LESS THAN 0.02 C-Reactive Protein 18.80 B-Type Natriuretic Peptide 9 Lipase 84 Salicylates Level LESS THAN 1.7 Acetaminophen Level LESS THAN 2.0 Ethyl Alcohol Level LESS THAN 3 Urine Color DARK-YELLOW Urine Turbidity HAZY Urine pH 6.0 Urine Specific Lowes 1.029 Urine Protein 100 Urine Glucose (UA) NEG Urine Ketones NEG Urine Occult Blood SMALL Urine Nitrite POS Urine Bilirubin SMALL Urine Urobilinogen 4.0 Urine Leukocyte Esterase MOD Urine WBC 11 Urine Squamous Epithelial Cells 20 Urine Bacteria MOD Urine Mucus MANY Microscopic Urinalysis Comment CULTURE INDICATED Urine Opiates Screen POS Urine Barbiturates Screen NEG Urine Amphetamines Screen POS Urine Benzodiazepines Screen POS Urine Cocaine Screen POS Urine Cannabinoids Screen NEG Date/Time Source Procedure Growth Status 01/31/18 02:45 Blood Peripheral Aerobic Blood Culture Pending Received 01/31/18 02:45 Blood Peripheral Anaerobic Blood Culture Pending Received 01/31/18 03:59 Urine Random Urine Urine Culture Pending Received 01/31/18 03:55 Wound Leg Gram Stain Pending Received 01/31/18 03:55 Wound Leg Wound Culture Pending Received Result Diagram: 01/31/18 0248 01/31/188 Caprini VTE Risk Assessment Caprini VTE Risk Assessment: Mod/High Risk (score >= 2) Caprini Risk Assessment Model Point Value = 1 Point Value = 2 Point Value = 3 Point Value = 5 Age 41-60 Minor surgery BMI > 25 kg/m2 Swollen legs Varicose veins or History of unexplained or recurrent spontaneous Oral contraceptives or hormone replacement Sepsis (< 1 month) Serious lung disease, including pneumonia (< 1 month) Abnormal pulmonary function Acute myocardial infarction Congestive heart failure (< 1 month) History of inflammatory bowel disease Medical patient at bed rest Age 61-74 Arthroscopic surgery Major open surgery (> 45 min) Laparoscopic surgery (> 45 min) Malignancy Confined to bed (> 72 hours) Immobilizing plaster cast Central venous access Age >= 75 History of VTE Family history of VTE Factor V Leiden Prothrombin [id number] Lupus anticoagulant Anticardiolipin antibodies Elevated serum homocysteine Heparin-induced thrombocytopenia Other congenital or acquired thrombophilia Stroke (< 1 month) Elective arthroplasty Hip, pelvis, or leg fracture Acute spinal cord injury (< 1 month) Prophylaxis Regimen Total Risk Factor Score Risk Level Prophylaxis Regimen 0-1 Low Early ambulation 2 Moderate Order ONE of the following: *Sequential Compression Device (SCD) *Heparin 5000 units SQ BID 3-4 Higher Order ONE of the following medications: *Heparin 5000 units SQ TID *Enoxaparin/Lovenox 40 mg SQ daily (WT < 150 kg, CrCl > 30 mL/min) *Enoxaparin/Lovenox 30 mg SQ daily (WT < 150 kg, CrCl > 10-29 mL/min) *Enoxaparin/Lovenox 30 mg SQ BID (WT < 150 kg, CrCl > 30 mL/min) AND/OR *Sequential Compression Device (SCD) 5 or more Highest Order ONE of the following medications: *Heparin 5000 units SQ TID (Preferred with Epidurals) *Enoxaparin/Lovenox 40 mg SQ daily (WT < 150 kg, CrCl > 30 mL/min) *Enoxaparin/Lovenox 30 mg SQ daily (WT < 150 kg, CrCl > 10-29 mL/min) *Enoxaparin/Lovenox 30 mg SQ BID (WT < 150 kg, CrCl > 30 mL/min) AND *Sequential Compression Device (SCD) Assessment and Plan Assessment and Plan Assessment/plan: 1. Left lower extremity cellulitis/sepsis Recent with leukocytosis, elevated lactic acid and tachycardia Elevated CRP and ESR, cannot exclude osteomyelitis - MRI pending Vancomycin/aztreonam/Flagyl Blood cultures pending Wound culture pending Repeat lactic acid pending Infectious disease consulted, appreciate assistance Dilaudid for pain Monitor for signs of shock 2. Concern for endocarditis Patient with heart murmur and history of endocarditis with continued IV/IM drug use Echo pending Antibiotics and ID consult as above 3. DVT Patient with known history of DVT, not currently anticoagulated secondary to financial constraints Ultrasound of the left lower extremity shows occlusive thrombus from inguinal region to proximal calf similar to October 2017 Heparin drip 4. Urinary tract infection UA consistent with UTI Urine culture pending Antibiotics as above 5. Panic disorder/anxiety Patient reports taking 2 mg of Xanax multiple times per day Will decrease to 1 mg Xanax every 6 hours when necessary anxiety 6. IV drug abuse Cessation counseling provided FEN Regular diet Electrolytes: Monitor and replete when necessary NS at 100 cc/hr Heparin ggt Physician Certification 2 Midnight Certification Type: Admission for Inpatient Services Order for Inpatient Services The services are ordered in accordance with Medicare regulations or non- Medicare payer requirements, as applicable. In the case of services not specified as inpatient-only, they are appropriately provided as inpatient services in accordance with the 2-midnight benchmark. Estimated LOS (days): 2 2 days is the estimated time the patient will need to remain in the hospital, assuming treatment plan goals are met and no additional complications. Post-Hospital Plan: Not yet determined Leila Clark MD Jan 31, 2018 05:52
[2018-01-31] MEDS: HYDROmorphone HCL PF 2 MG/ML VIAL IV PUSH PRN ×4 (08:20→23:14)
[2018-01-31] MEDS: metroNIDAZOLE 500 MG INJ 100 ML IV SCH ×2 (08:51→15:17)
[2018-01-31] MEDS ORDERED: GADODIAMIDE PF 287 MG/ML 5 ML VIAL (for RAD MRI) IVCONTRAST ONE (10:45)
[2018-01-31] MEDS: buPROPion HCL 150 MG SUSTAINED RELEASE TAB PO SCH ×2 (11:10→20:06)
[2018-01-31] MEDS: AZTREONAM INJ 2,000 MG in SODIUM CHLORIDE 0.9% INJ 100 ML IV SCH ×2 (11:11→21:34)
--- NOTE | 2018-01-31 11:29 | RADRPT ---
EXAM DATE/TIME: 01/31/2018 09:25 [facility] COMPARISON: CHEST SINGLE AP, September 16, 2017, 16:22. INDICATIONS : Abscess. Small wound on upper medial left leg. History of IVDA. CONTRAST: 11 cc Omniscan (gadodiamide) IV MEDICAL HISTORY : Deep venous thrombosis. SURGICAL HISTORY : Plastic surgery. Ectopic . ENCOUNTER: Subsequent ACUITY: 4-6 months PAIN SCORE: 7/10 LOCATION: Left leg TECHNIQUE: Multiplanar multisequence MRI examination of the lower leg was performed with and with out contrast. FINDINGS: Subcutaneous fluid collection medial calf measuring 5.5 cm x 2 cm. This does show peripheral enhance ment consistent with subcutaneous abscess associated with cellulitis.. There is minimal fascial enha ncement but no evidence of deep space invasion. There is no evidence for osteomyelitis. The largest portion of this abscess is about the exam is below the knee joint on the medial side. CONCLUSION: Subcutaneous abscess medial calf as described above. Carlos Alvarado MD FACR on January 31, 2018 at 11:21 Board Certified Radiologist. This report was verified electronically.
--- NOTE | 2018-01-31 11:55 | EKG ---
Date Performed: 01/31/2018 Time Performed: 02:54:03 PTAGE: 42 years EKG: Sinus rhythm WITH SHORT RI INTERVAL BORDERLINE ECG PREVIOUS TRACING : 09/16/2017 15.37 Since the previous tracing, no significant change noted DOCTOR: Viridiana Morales Interpretating Date/Time 01/31/2018 11:53:17
--- NOTE | 2018-01-31 12:30 | HHI.PR ---
Addendum to Inpatient Note Addendum Reason: Additional Documentation Additional Information The patient was getting ready to go for MRI. She said that she would like to be referred to a Suboxone clinic upon discharge. She said that she was not able to take her anticoagulation for months. Continue heparin drip. Follow-up MRI. Infectious disease consult pending. Continue IV antibiotics and fluids. Follow-up echocardiogram. Pedro Luis Ramires DO Jan 31, 2018 12:30
[2018-01-31] MEDS ORDERED: VANCOMYCIN INJ 1,000 MG in SODIUM CHLOR 0.9% 250 ML INJ 250 ML IV SCH (14:00)
[2018-01-31] MEDS: SODIUM CHLORIDE 0.9% FLUSH 10 ML FLUSH IV FLUSH SCH ×2 (15:17→20:09)
[2018-01-31] MEDS: VANCOMYCIN INJ 1,250 MG in SODIUM CHLOR 0.9% 250 ML INJ 250 ML IV SCH (16:10)
[2018-01-31] MEDS: ALPRAZolam 1 MG TAB PO PRN (16:12)
[2018-01-31] MEDS: MIRTAZAPINE ODT 30 MG TAB PO SCH (21:34)
[2018-02-01] VITALS (7 sets, daily range): BP systolic 89–114; BP diastolic 52–69; PULSE 74–89; RESP 16–18; TEMP 97.8–98.2; O2SAT 97–99
[2018-02-01] MEDS: SODIUM CHLOR 0.9% 1000 ML INJ 1,000 ML IV SCH ×2 (01:42→10:24)
[2018-02-01] MEDS: ALPRAZolam 1 MG TAB PO PRN ×2 (01:42→11:02)
[2018-02-01] MEDS: AZTREONAM INJ 2,000 MG in SODIUM CHLORIDE 0.9% INJ 100 ML IV SCH ×3 (02:38→20:46)
[2018-02-01] MEDS: HYDROmorphone HCL PF 2 MG/ML VIAL IV PUSH PRN ×6 (02:38→20:49)
[2018-02-01] MEDS: VANCOMYCIN INJ 1,250 MG in SODIUM CHLOR 0.9% 250 ML INJ 250 ML IV SCH ×3 (03:38→22:55)
[2018-02-01] MEDS: HEPARIN-D5W 25,000 U/250 ML 250 ML IV PRN (05:05)
--- NOTE | 2018-02-01 07:08 | MB ---
cc: Angel Renee MD DATE OF CONSULT: 01/31/2018 REQUESTING PHYSICIAN: [place] REASON FOR CONSULTATION: Cellulitis, possible osteomyelitis. Possible endocarditis. IVDA. HISTORY OF PRESENT ILLNESS: This is a 42-year-old white female who presented to the emergency department with swelling of her left leg. The patient has had a history of DVT in the left leg in the past and she was supposed to be on blood thinners. She was diagnosed back in August 2017. The patient states that she had difficulty getting a prescription for the blood thinners filled and she had not been on the blood thinner medication since October. She notes that she started getting skin lesions in various areas of her legs over the past month. She was using a "salt salve" on the lesions, which was recommended by a fisherman friend. She notes that it caused one lesion at the right inner calf to dry up and the second at the left inner thigh also dried up. She had a subsequent lesion of the left lateral calf, which she said 10 days ago, she squeezed and it drained green fluid. She noted swelling of her left leg, along with increased pain beginning approximately a week and a half ago. She states that the leg became worse over the past 4 days. She was using Vicodin which was provided for her by a friend who had a prescription. After that, she ran out of the Vicodin and started using IM heroin to kill the pain. Her last use reported to me was 4 days ago. She states that she has a phobia of hospitals and, therefore, she was reluctant to come into the hospital, but her made her come when he saw her leg. The patient had temperature of 103.2 degrees and later went up to 103.9 degrees. White count is elevated at 14.9. Lactic acid level was 3.5 and she also had elevated C-reactive protein and sedimentation rate of 72. The left leg is markedly erythematous throughout and there is a large bulge at the inner aspect of the left calf which is firm and very tender. The area has a shiny appearance of the skin. Blood cultures were taken and the blood cultures are pending. Wound culture from the leg is pending. Urinalysis showed moderate bacteria and moderate leukocyte esterase. Ultrasound of the left lower extremity shows occlusive thrombus from the inguinal region to the proximal calf, similar to October 2017. MRI of the leg shows a medial calf subcutaneous abscess. Chest x-ray reveals clear lungs. The patient has been started on vancomycin and aztreonam and also metronidazole. PAST MEDICAL HISTORY: Hepatitis C, history of endocarditis, history of group A strep bacteremia and strep viridans bacteremia in August 2017, IV drug abuse, history of , history of deep venous thrombosis of the left lower extremity. ALLERGIES: PENICILLIN. MEDICATIONS: 1. Vancomycin. 2. Aztreonam. 3. Metronidazole. 4. Wellbutrin. 5. Dilaudid p.r.n. 6. Heparin intravenous. SOCIAL HISTORY: The patient is . She smokes half a pack of cigarettes a day. No alcohol. Positive IV drug use in the form of heroin, which she last used intramuscularly injected into her biceps. The patient has a 5-year-old daughter who was adopted by her mom. She also has a child born 1-1/2 years ago, which was given up for adoption. FAMILY HISTORY: Father of Alzheimer's disease. Her mother has diabetes mellitus. REVIEW OF SYSTEMS: Significant for fever, chills, pain at the left lower extremity, pain at the right hip. PHYSICAL EXAMINATION: GENERAL: This is a slender female who is in moderate distress because of pain in her left leg. VITAL SIGNS: Temperature 98.6, BP 107/59, respirations 18, heart rate 90. HEENT: The head is atraumatic. Extraocular movements are grossly intact. Pupils are reactive to light. No icterus. Oropharynx, fair dentition. Mucosa appears moist. NECK: Supple. No adenopathy. LUNGS: Clear breath sounds. HEART: 1-2/6 systolic ejection murmur at the left sternal border. No rubs or gallops. ABDOMEN: Bowel sounds present. Soft, no tenderness appreciated. RECTAL: Not performed. EXTREMITIES: The patient has multiple streak trujillo at the inner thigh. The left leg is markedly swollen and erythematous. There is confluent erythema from the area above the ankle up to the knee and the left calf is markedly swollen, with an area of induration at the inner aspect of the calf, which protrudes out approximately the size of a golf ball. The lower extremities have no clubbing, cyanosis or edema. There is 1+ edema of the feet. SKIN: No diffuse rash. NEUROLOGIC: No gross focal finding. PSYCHIATRIC: The patient is calm and cooperative. IMPRESSION: 1. Sepsis. 2. Left leg cellulitis. 3. Left leg abscess. 4. Left leg deep venous thrombosis. 5. Intravenous drug abuse. 6. Hepatitis C. 7. Abnormal urinalysis, probable urinary tract infection. RECOMMENDATIONS: 1. Continue the vancomycin. 2. Continue the aztreonam. 3. Discontinue metronidazole. 4. Monitor blood cultures. 5. Monitor wound cultures. 6. Monitor urine culture. 7. Monitor clinical status. 8. Depending on the blood culture results, further recommendations will be made on whether to proceed with additional studies for possible cardiac valve involvement with infection. Thank you for this consultation. The patient's progress will be monitored and further recommendations will be given upon followup if necessary. MD AN Lopes/ISAURA , 05:15 PM , 07:19 PM
[2018-02-01] MEDS: SODIUM CHLORIDE 0.9% FLUSH 10 ML FLUSH IV FLUSH SCH ×2 (09:00→20:50)
[2018-02-01] MEDS: buPROPion HCL 150 MG SUSTAINED RELEASE TAB PO SCH ×2 (09:51→20:49)
[2018-02-01 13:07] LABS: AUTOMATED NEUTROPHIL # 4.8 TH/MM3 (1.8-7.7); BASOPHIL % 0.1 % (0.0-2.0); EOSINOPHIL # 0.2 TH/MM3 (0-0.4); EOSINOPHIL % 2.3 % (0.0-4.0); HEMATOCRIT 31.4 % (35.0-46.0); HEMOGLOBIN 10.4 GM/DL (11.6-15.3); LYMPH % 18.1 % (9.0-44.0); LYMPHOCYTE # 1.2 TH/MM3 (1.0-4.8); MEAN CELL VOLUME 85.4 FL (80.0-100.0); MEAN CORPUSCULAR HEMOGLOBIN 28.4 PG (27.0-34.0); MEAN CORPUSCULAR HGB CONC 33.2 % (32.0-36.0); MEAN PLATELET VOLUME 7.6 FL (7.0-11.0); MONO % 7.7 % (0.0-8.0); MONOCYTE # 0.5 TH/MM3 (0-0.9); NEUT % 71.8 % (16.0-70.0); PLATELET COUNT 249 TH/MM3 (150-450); RED BLOOD COUNT 3.68 MIL/MM3 (4.00-5.30); RED CELL DISTRIBUTION WIDTH 15.1 % (11.6-17.2); WHITE BLOOD COUNT 6.7 TH/MM3 (4.0-11.0)
[2018-02-01 13:28] LABS: CALCIUM 7.9 MG/DL (8.5-10.1); CREATININE 0.6 MG/DL (0.50-1.00)
[2018-02-01] MEDS ORDERED: POTASSIUM CHLORIDE 10 MEQ CONTROLLED RELEASE TAB PO ONE (15:15)
--- NOTE | 2018-02-01 15:16 | HHI.PR ---
Subjective Remarks Follow up DVT, cellulitis/abscess. Patient reports swelling in the left leg. She has had dyspnea and sharp chest pain over the last 2 weeks. Objective Vitals Vital Signs Date Time Temp Pulse Resp B/P (MAP) Pulse Ox O2 Delivery O2 Flow Rate FiO2 02/01/18 14:51 98.0 74 16 89/52 (64) 99 02/01/18 13:06 88 114/69 (84) 02/01/18 10:34 97.8 80 16 91/58 (69) 99 02/01/18 09:37 97/60 (72) 02/01/18 07:04 98.2 78 16 96/57 (70) 98 02/01/18 03:08 18 01/31/18 23:33 102.1 102 18 112/62 (79) 96 01/31/18 16:38 90 01/31/18 15:23 98.6 72 18 107/59 (75) I/O 01/31/18 01/31/18 01/31/18 02/01/18 02/01/18 02/01/18 07:00 15:00 23:00 07:00 15:00 23:00 Intake Total 1350 ml 300 ml 2510 ml Output Total 550 ml Balance 1350 ml 300 ml 1960 ml Intake Oral 610 ml IV Total 1350 ml 300 ml 1900 ml Output Urine Total 550 ml # Voids 3 Result Diagram: 02/01/18 1240 02/01/18 1240 Imaging Last Impressions Lower Extremity Ultrasound 01/31/18 0202 Signed Impressions: Service Date/Time: Wednesday, January 31, 2018 02:32 - CONCLUSION: Occlusive thrombus from inguinal region to the proximal calf, similar to October 2017. Colten Bradley MD Chest X-Ray 01/31/18 0202 Signed Impressions: Service Date/Time: Wednesday, January 31, 2018 03:18 - CONCLUSION: The lungs are clear. Colten Bradley MD Lower Extremity MRI 01/31/18 0000 Signed Impressions: Service Date/Time: Wednesday, January 31, 2018 09:25 - CONCLUSION: Subcutaneous abscess medial calf as described above. Carlos Alvarado MD FACR Objective Remarks General: No acute distress. Heart: Regular rate and rhythm. 2/6 systolic murmur. Lungs: Clear to auscultation bilaterally. No wheezes, rales, or rhonchi. Breathing is nonlabored. Abdomen: Soft, nontender, nondistended. Extremities: No right lower extremity edema. Left lower leg with significant swelling around the calf. There is erythema overlying the lower leg. There is a large bandage in place. No active drainage is noted. The left lower leg is warm to touch. Psych: Alert and oriented. Procedures None Urinary Catheter: No Vascular Central Line Catheter: No A/P Assessment and Plan 1. Sepsis: Source of his left lower extremity cellulitis. Presented with leukocytosis, elevated lactic acid level, tachycardia. CRP and sed rate are elevated. MRI shows abscess. Continue antibiotics. Blood cultures are negative so far. Wound culture is pending. Appreciate infectious disease recommendations. Consult podiatry. 2. Heart murmur, concern for endocarditis: Patient has a heart murmur and history of IV drug use. Echocardiogram ordered. Continue antibiotics. Appreciate infectious disease recommendations. 3. DVT: Patient has known history of DVT and was not compliant with anticoagulation secondary to financial constraints. Ultrasound of the left lower extremity shows occlusive thrombus from the inguinal region to the proximal calf, similar to that seen on ultrasound in October 2017. Continue heparin drip. 4. Urinary tract infection: Urine culture growing gram-negative rods. Continue antibiotics. 5. Panic disorder, anxiety: Continue benzodiazepines as needed. Patient seems quite anxious today. 6. IV drug abuse: Patient has been counseled. 7. Hypokalemia: Supplement potassium. Jesus Chase MD Feb 01, 2018 15:16
--- NOTE | 2018-02-01 15:43 | HHI.IDPN ---
Note Infectious Disease Note Patient is awake and alert. The left leg during the large amount of fluid from the left inner calf The area of swelling was bulging out. Notes pain in the left calf. Afebrile. Urine culture has gram-negative bacteria. Wound culture from the left calf is pending. 42-year-old white female who presented to the emergency department with swelling of her left leg. The patient has had a history of DVT in the left leg in the past and she was supposed to be on blood thinners. She was diagnosed back in August 2017. The patient states that she had difficulty getting a prescription for the blood thinners filled and she had not been on the blood thinner medication since October. She notes that she started getting skin lesions in various areas of her legs over the past month. She was using a "salt salve" on the lesions, which was recommended by a fisherman friend. She notes that it caused one lesion at the right inner calf to dry up and the second at the left inner thigh also dried up. She had a subsequent lesion of the left lateral calf, which she said 10 days ago, she squeezed and it drained green fluid. She noted swelling of her left leg, along with increased pain beginning approximately a week and a half ago. She states that the leg became worse over the past 4 days. She was using Vicodin which was provided for her by a friend who had a prescription. After that, she ran out of the Vicodin and started using IM heroin to kill the pain. Her last use reported to me was 4 days ago. PAST MEDICAL HISTORY: Hepatitis C, history of endocarditis, history of group A strep bacteremia and strep viridans bacteremia in August 2017, IV drug abuse, history of , history of deep venous thrombosis of the left lower extremity. ALLERGIES: PENICILLIN. Antibiotics: 1. Vancomycin. 2. Aztreonam. 3. Metronidazole. OBJECTIVE: Vital Signs Date Time Temp Pulse Resp B/P (MAP) Pulse Ox O2 Delivery O2 Flow Rate FiO2 02/01/18 14:51 98.0 74 16 89/52 (64) 99 02/01/18 13:06 88 114/69 (84) 02/01/18 10:34 97.8 80 16 91/58 (69) 99 02/01/18 09:37 97/60 (72) 02/01/18 07:04 98.2 78 16 96/57 (70) 98 02/01/18 03:08 18 01/31/18 23:33 102.1 102 18 112/62 (79) 96 01/31/18 16:38 90 Laboratory Tests Test 01/31/18 02:48 02/01/18 12:40 White Blood Count 14.9 TH/MM3 6.7 TH/MM3 Red Blood Count 4.04 MIL/MM3 3.68 MIL/MM3 Hemoglobin 11.5 GM/DL 10.4 GM/DL Hematocrit 34.4 % 31.4 % Mean Corpuscular Volume 84.9 FL 85.4 FL Mean Corpuscular Hemoglobin 28.5 PG 28.4 PG Mean Corpuscular Hemoglobin Concent 33.5 % 33.2 % Red Cell Distribution Width 15.1 % 15.1 % Platelet Count 199 TH/MM3 249 TH/MM3 Mean Platelet Volume 7.6 FL 7.6 FL CBC Comment AUTO DIFF DIFF FINAL Differential Total Cells Counted 100 Neutrophils % (Manual) 49 % Band Neutrophils % 1 % Lymphocytes % 25 % Monocytes % 13 % Neutrophils # (Manual) 7.5 TH/MM3 Nucleated Red Blood Cells 1 /100 WBC Differential Comment FINAL DIFF MANUAL Atypical Lymphocytes 12 % Platelet Estimate NORMAL Platelet Morphology Comment NORMAL Red Cell Morphology Comment NORMAL Erythrocyte Sedimentation Rate 72 mm/hr Neutrophils (%) (Auto) 71.8 % Lymphocytes (%) (Auto) 18.1 % Monocytes (%) (Auto) 7.7 % Eosinophils (%) (Auto) 2.3 % Basophils (%) (Auto) 0.1 % Neutrophils # (Auto) 4.8 TH/MM3 Lymphocytes # (Auto) 1.2 TH/MM3 Monocytes # (Auto) 0.5 TH/MM3 Eosinophils # (Auto) 0.2 TH/MM3 Basophils # (Auto) 0.0 TH/MM3 Laboratory Tests Test 01/31/18 02:48 01/31/18 05:16 02/01/18 12:40 Blood Urea Nitrogen 10 MG/DL 7 MG/DL Creatinine 1.06 MG/DL 0.60 MG/DL Random Glucose 90 MG/DL 124 MG/DL Total Protein 7.3 GM/DL Albumin 2.3 GM/DL Calcium Level 8.3 MG/DL 7.9 MG/DL Magnesium Level 1.9 MG/DL Alkaline Phosphatase 105 U/L Aspartate Amino Transf (AST/SGOT) 25 U/L Alanine Aminotransferase (ALT/SGPT) 20 U/L Total Bilirubin 1.2 MG/DL Sodium Level 135 MEQ/L 140 MEQ/L Potassium Level 4.0 MEQ/L 3.3 MEQ/L Chloride Level 96 MEQ/L 106 MEQ/L Carbon Dioxide Level 26.3 MEQ/L 27.0 MEQ/L Anion Gap 13 MEQ/L 7 MEQ/L Estimat Glomerular Filtration Rate 57 ML/MIN 110 ML/MIN Lactic Acid Level 3.5 mmol/L 0.8 mmol/L Total Creatine Kinase 95 U/L Troponin I LESS THAN 0.02 NG/ML C-Reactive Protein 18.80 MG/DL B-Type Natriuretic Peptide 9 PG/ML Lipase 84 U/L Microbiology Date/Time Source Procedure Growth Status 01/31/18 02:45 Blood Peripheral Aerobic Blood Culture - Preliminary NO GROWTH IN 1 DAY Resulted 01/31/18 02:45 Blood Peripheral Anaerobic Blood Culture - Preliminary NO GROWTH IN 1 DAY Resulted 01/31/18 02:45 Blood Peripheral Aerobic Blood Culture - Preliminary NO GROWTH IN 1 DAY Resulted 01/31/18 02:45 Blood Peripheral Anaerobic Blood Culture - Preliminary NO GROWTH IN 1 DAY Resulted 01/31/18 03:59 Urine Random Urine Urine Culture - Preliminary Gram Negative Jonathan Resulted 01/31/18 03:55 Wound Leg Gram Stain - Final Resulted 01/31/18 03:55 Wound Leg Wound Culture - Preliminary Resulted IMAGING: Lower Extremity Ultrasound 01/31/18201 Signed Impressions: Service Date/Time: Wednesday, January 31, 2018 02:32 - CONCLUSION: Occlusive thrombus from inguinal region to the proximal calf, similar to October 2017. Colten Bradley MD Chest X-Ray 01/31/18201 Signed Impressions: Service Date/Time: Wednesday, January 31, 2018 03:18 - CONCLUSION: The lungs are clear. Colten Bradley MD Lower Extremity MRI 01/31/18 0000 Signed Impressions: Service Date/Time: Wednesday, January 31, 2018 09:25 - CONCLUSION: Subcutaneous abscess medial calf as described above. Carlos Alvarado MD FACR PHYSICAL EXAMINATION: GENERAL: No acute distress. HEENT: The head is atraumatic. Extraocular movements are grossly intact. Pupils are reactive to light. No icterus. Oropharynx, fair dentition. Mucosa appears moist. NECK: Supple. No adenopathy. LUNGS: Clear breath sounds. HEART: 1-2/6 systolic ejection murmur at the left sternal border. No rubs or gallops. ABDOMEN: Bowel sounds present. Soft, no tenderness appreciated. EXTREMITIES: The left leg remains markedly swollen and erythematous. Confluent erythema from the area above the ankle up to the knee and the left calf is markedly swollen, The right lower extremities have no clubbing or cyanosis. There is 1+ edema of the feet. SKIN: No diffuse rash. NEUROLOGIC: No gross focal finding. PSYCHIATRIC: Calm and cooperative. IMPRESSION: 1. Sepsis. 2. Left leg cellulitis. 3. Left leg abscess. 4. Left leg deep venous thrombosis. 5. Intravenous drug abuse. 6. Hepatitis C. 7. Abnormal urinalysis, probable urinary tract infection. RECOMMENDATIONS: 1. Continue the vancomycin. 2. Continue the aztreonam. 3. Monitor blood cultures. 4. Monitor wound cultures. 5. Monitor urine culture. 6. Monitor clinical status. Depending on the blood culture results, further recommendations will be made on whether to proceed with additional studies for possible cardiac valve involvement with infection. Angel Renee MD Feb 01, 2018 15:42
[2018-02-01] MEDS ORDERED: PHARMACY ORDERED LAB ONE (15:45)
[2018-02-01] MEDS: NS + KCL 20 MEQ INJ 1,000 ML IV SCH (15:53)
--- NOTE | 2018-02-01 18:05 | ECHRPT ---
Indication: Endocarditis CONCLUSIONS The left ventricular systolic function is low normal with an estimated ejection fraction in the rang e of 50- 55%. The pulmonary valve is not well visualized. BP: 97 / 60 HR: 78 Rhythm: Sinus Technical Quality:Fair FINDINGS LEFT VENTRICLE The left ventricular systolic function is low normal with an estimated ejection fraction in the rang e of 50- 55%. RIGHT VENTRICLE Normal right ventricular size and systolic function. LEFT ATRIUM The left atrial size is normal. RIGHT ATRIUM The right atrial size is normal. AORTA The aortic root and proximal ascending aorta are normal in size on limited imaging. MITRAL VALVE Structurally normal mitral valve. AORTIC VALVE Trileaflet aortic valve. TRICUSPID VALVE Structurally normal tricuspid valve. PULMONARY VALVE The pulmonary valve is not well visualized. VESSELS The inferior vena cava is normal in size. PERICARDIUM No pericardial effusion. Darien Cuba MD, FACC (Electronically Signed) Final Date:01 February 2018 18:04
--- NOTE | 2018-02-01 20:36 | PD.CONS ---
History of Present Illness Service Foot and Ankle Surgery/Podiatry Consult Requested By Primary Care Physician No Primary Care Physician Diagnoses: History of Present Illness Podiatry consulted for this 42-year-old female with past medical history of previous endocarditis, hepatitis C, panic disorder/anxiety, with history of IV/ IM drug abuse for left lower leg subcutaneous abscess. Patient reports 5-10 days ago she noticed redness with a small amount of swelling in her left leg progressively worsened. She proceeded to the ED as she noticed purulent drainage to left lower leg. Patient reports last IV/IM drug usage to lower extremity was August she has since been using her arm. Reports pain at 10 out of 10. Patient reports a left lower extremity DVT which went untreated because she could not afford the blood thinner. Reports no nausea, vomiting, but reports fevers and chills over the past few days. Denies shortness of breath or chest pain. Review of Systems Constitutional: COMPLAINS OF: Fever, Night Sweats Eyes: DENIES: Blurred vision Respiratory: DENIES: Cough, Shortness of breath Cardiovascular: COMPLAINS OF: Lower Extremity Edema, DENIES: Chest pain, Palpitations Gastrointestinal: DENIES: Diarrhea, Nausea, Vomiting Musculoskeletal: DENIES: Joint pain, Muscle aches Psychiatric: COMPLAINS OF: Anxiety, DENIES: Confusion, Mood changes Past Family Social History Allergies: Coded Allergies: penicillin G (Verified Allergy, Mild, rash, 01/30/18) patient has taken Keflex in the past without any problem Past Medical History As dictated in HPI Active Ordered Medications Current Medications Medications (Trade) Dose Ordered Sig/Sherita Route Start Time Stop Time Status Last Admin Heparin Sodium/ Dextrose 250 ml @ 11 mls/hr TITRATE PRN IV 01/31/18 04:00 02/01/18 05:05 (NS Flush) 2 ml UNSCH PRN IV FLUSH 01/31/18 04:30 02/01/18 02:40 (NS Flush) 2 ml BID IV FLUSH 01/31/18 09:00 01/31/18 20:09 (Tylenol) 650 mg Q4H PRN PO 01/31/18 04:30 01/31/18 08:20 (Zofran Inj) 4 mg Q6H PRN IVP 01/31/18 04:30 (Narcan Inj) 0.4 mg UNSCH PRN IV PUSH 01/31/18 04:30 (Wellbutrin Sr) 150 mg BID PO 01/31/18 09:00 02/01/18 09:51 (Remeron Soltab Odt) 30 mg HS PO 01/31/18 21:00 01/31/18 21:34 (Xanax) 1 mg Q8H PRN PO 01/31/18 05:00 02/01/18 11:02 Aztreonam 2000 mg/ Sodium Chloride 100 ml @ 200 mls/hr Q8H IV 01/31/18 12:00 02/01/18 12:26 Pharmacy Profile Note 0 ml @ 0 mls/hr UNSCH OTHER 01/31/18 05:45 (Dilaudid Pf Inj) 1 mg Q3H PRN IV PUSH 01/31/18 05:45 02/01/18 16:49 Potassium Chloride/Sodium Chloride 1,000 ml @ 84 mls/hr [id number] IV 02/01/18 15:30 02/01/18 15:53 Vancomycin HCl 1250 mg/Sodium Chloride 262.5 ml @ 250 mls/hr Q8H IV 02/01/18 22:00 Miscellaneous Information SPECIFIC LAB TO BE [facility]... ONCE ONCE .XX 02/02/18 21:45 02/02/18 21:46 Physical Exam Vital Signs Vital Signs Date Time Temp Pulse Resp B/P (MAP) Pulse Ox O2 Delivery O2 Flow Rate FiO2 02/01/18 14:51 98.0 74 16 89/52 (64) 99 02/01/18 13:06 88 114/69 (84) 02/01/18 10:34 97.8 80 16 91/58 (69) 99 02/01/18 09:37 97/60 (72) 02/01/18 07:04 98.2 78 16 96/57 (70) 98 02/01/18 03:08 18 01/31/18 23:33 102.1 102 18 112/62 (79) 96 Physical Exam GENERAL: This is a thin, well-developed patient, in no apparent distress. SKIN: Left lower leg draining abscess medial leg HEAD: Atraumatic. EYES: Pupils equal round and reactive. ENT: Airway patent. NECK: Trachea midline. RESPIRATORY: Nonlabored breathing. MUSCULOSKELETAL:. Negative Homans sign bilaterally. NEUROLOGICAL: Awake and alert. Normal speech. Lower extremity physical exam: Vascular: Dorsalis pedis 1 out of 4, posterior tibial non-palpable secondary to edema. Capillary refill time within normal limits to digits 5 bilateral foot. Edema present left foot, ankle and leg. Neuro: Gross sensation intact to bilateral lower extremity. Pinpoint sensation intact. No hyperalgesia noted to bilateral lower extremity Dermatology: Normal temperature and turgor to bilateral lower extremity. Left lower leg medial aspect with draining sinus, purulent drainage noticed upon compression, associated increased erythema and edema noted. Ascending cellulitis noted to proximal left leg. Musculoskeletal: Tender to palpation to left lower extremity and medial draining sinus. Laboratory Laboratory Tests Test 01/31/18 21:40 02/01/18 04:45 02/01/18 12:18 02/01/18 12:40 Activated Partial Thromboplast Time 38.5 42.4 38.7 White Blood Count 6.7 Red Blood Count 3.68 Hemoglobin 10.4 Hematocrit 31.4 Mean Corpuscular Volume 85.4 Mean Corpuscular Hemoglobin 28.4 Mean Corpuscular Hemoglobin Concent 33.2 Red Cell Distribution Width 15.1 Platelet Count 249 Mean Platelet Volume 7.6 Neutrophils (%) (Auto) 71.8 Lymphocytes (%) (Auto) 18.1 Monocytes (%) (Auto) 7.7 Eosinophils (%) (Auto) 2.3 Basophils (%) (Auto) 0.1 Neutrophils # (Auto) 4.8 Lymphocytes # (Auto) 1.2 Monocytes # (Auto) 0.5 Eosinophils # (Auto) 0.2 Basophils # (Auto) 0.0 CBC Comment DIFF FINAL Differential Comment Blood Urea Nitrogen 7 Creatinine 0.60 Random Glucose 124 Calcium Level 7.9 Sodium Level 140 Potassium Level 3.3 Chloride Level 106 Carbon Dioxide Level 27.0 Anion Gap 7 Estimat Glomerular Filtration Rate 110 Test 02/01/18 16:00 02/01/18 19:10 Vancomycin Level Trough 6.9 Activated Partial Thromboplast Time 40.1 Date/Time Source Procedure Growth Status 01/31/18 02:45 Blood Peripheral Aerobic Blood Culture - Preliminary NO GROWTH IN 1 DAY Resulted 01/31/18 02:45 Blood Peripheral Anaerobic Blood Culture - Preliminary NO GROWTH IN 1 DAY Resulted 01/31/18 03:59 Urine Random Urine Urine Culture - Preliminary Gram Negative Jonathan Resulted 01/31/18 03:55 Wound Leg Gram Stain - Final Resulted 01/31/18 03:55 Wound Leg Wound Culture - Preliminary Resulted Result Diagram: 02/01/18 1240 02/01/18 1240 Imaging Last Impressions Lower Extremity Ultrasound 01/31/18 0202 Signed Impressions: Service Date/Time: Wednesday, January 31, 2018 02:32 - CONCLUSION: Occlusive thrombus from inguinal region to the proximal calf, similar to October 2017. Colten Bradley MD Chest X-Ray 01/31/18 0202 Signed Impressions: Service Date/Time: Wednesday, January 31, 2018 03:18 - CONCLUSION: The lungs are clear. Colten Bradley MD Lower Extremity MRI 01/31/18 0000 Signed Impressions: Service Date/Time: Wednesday, January 31, 2018 09:25 - CONCLUSION: Subcutaneous abscess medial calf as described above. Carlos Alvarado MD FACR Assessment and Plan Assessment and Plan 42-year-old female with left lower leg abscess Patient examined and evaluated with all questions answered Vascular consult placed for DVT/abscess evaluation Patient to OR tomorrow with podiatry for left lower leg incision and drainage of abscess N.p.o. after midnight okay for clear liquids for breakfast Discussed with patient surgical intervention Patient would like surgical intervention discussed with brother either in person on the phone, please obtain brother's number Krys Lee DPM Feb 01, 2018 20:36
[2018-02-01] MEDS: MIRTAZAPINE ODT 30 MG TAB PO SCH (21:00)
[2018-02-02] MEDS: HYDROmorphone HCL PF 2 MG/ML VIAL IV PUSH PRN ×4 (00:23→14:28)
[2018-02-02] MEDS ORDERED: METOPROLOL TARTRATE 25 MG TAB PO PRN (02:30)
[2018-02-02] MEDS ORDERED: CHLORHEXIDINE GLUCONATE 2 % 1 PACK (2 CLOTHS) TOPICAL PRN (02:30)
[2018-02-02] MEDS ORDERED: POVIDONE IODINE 5% (ANTISEPSIS KIT) 4 APPLICATIONS EACH NARE PRN (02:30)
[2018-02-02] MEDS ORDERED: SODIUM CHLORID 0.9% 500 ML IV PRN (02:30)
[2018-02-02] MEDS: HEPARIN-D5W 25,000 U/250 ML 250 ML IV PRN (02:46)
[2018-02-02 03:17] VITALS: BP 105/57; PULSE 74; RESP 18; TEMP 98.3; O2SAT 94
[2018-02-02] MEDS: NS + KCL 20 MEQ INJ 1,000 ML IV SCH ×2 (04:41→15:11)
[2018-02-02] MEDS: AZTREONAM INJ 2,000 MG in SODIUM CHLORIDE 0.9% INJ 100 ML IV SCH ×3 (04:51→20:39)
[2018-02-02] MEDS: VANCOMYCIN INJ 1,250 MG in SODIUM CHLOR 0.9% 250 ML INJ 250 ML IV SCH ×2 (07:03→14:28)
[2018-02-02 07:41] VITALS: BP 101/57; PULSE 74; RESP 18; TEMP 98.2; O2SAT 98
[2018-02-02 08:21] LABS: AUTOMATED NEUTROPHIL # 3.1 TH/MM3 (1.8-7.7); BASOPHIL % 0.2 % (0.0-2.0); EOSINOPHIL # 0.2 TH/MM3 (0-0.4); EOSINOPHIL % 4.5 % (0.0-4.0); HEMATOCRIT 30.8 % (35.0-46.0); HEMOGLOBIN 10.3 GM/DL (11.6-15.3); LYMPH % 23.5 % (9.0-44.0); LYMPHOCYTE # 1.2 TH/MM3 (1.0-4.8); MEAN CELL VOLUME 84.6 FL (80.0-100.0); MEAN CORPUSCULAR HEMOGLOBIN 28.4 PG (27.0-34.0); MEAN CORPUSCULAR HGB CONC 33.5 % (32.0-36.0); MEAN PLATELET VOLUME 7.6 FL (7.0-11.0); MONO % 9.3 % (0.0-8.0); MONOCYTE # 0.5 TH/MM3 (0-0.9); NEUT % 62.5 % (16.0-70.0); PLATELET COUNT 257 TH/MM3 (150-450); RED BLOOD COUNT 3.64 MIL/MM3 (4.00-5.30); RED CELL DISTRIBUTION WIDTH 15.2 % (11.6-17.2); WHITE BLOOD COUNT 4.9 TH/MM3 (4.0-11.0)
[2018-02-02] MEDS: SODIUM CHLORIDE 0.9% FLUSH 10 ML FLUSH IV FLUSH SCH ×2 (08:44→21:00)
[2018-02-02 08:45] LABS: ALBUMIN 1.7 GM/DL (3.4-5.0); AST (GOT) 9 U/L (15-37); BICARBONATE 21.7 MEQ/L (21.0-32.0); CALCIUM 7.9 MG/DL (8.5-10.1); CHLORIDE 108 MEQ/L (98-107); CREATININE 0.64 MG/DL (0.50-1.00); GLOMERULAR FILTRATION RATE 102 ML/MIN (>89); GLUCOSE,RANDOM 126 MG/DL (74-106); MAGNESIUM 1.6 MG/DL (1.5-2.5); SODIUM (NA) 140 MEQ/L (136-145)
[2018-02-02 08:46] LABS: ALT (GPT) 13 U/L (10-53)
[2018-02-02] MEDS: buPROPion HCL 150 MG SUSTAINED RELEASE TAB PO SCH ×3 (08:47→23:00)
[2018-02-02 08:48] LABS: ALKALINE PHOSPHATASE 80 U/L (45-117); BLOOD UREA NITROGEN 8 MG/DL (7-18); TOTAL BILIRUBIN ADULT 0.3 MG/DL (0.2-1.0); TOTAL PROTEIN 6.2 GM/DL (6.4-8.2)
--- NOTE | 2018-02-02 08:54 | HHI.PR ---
Subjective Remarks Follow-up DVT, left lower extremity abscess/cellulitis. The patient is still having pain and swelling in the left lower leg. No chest pain or dyspnea this morning. Objective Vitals Vital Signs Date Time Temp Pulse Resp B/P (MAP) Pulse Ox O2 Delivery O2 Flow Rate FiO2 02/02/18 07:41 98.2 74 18 101/57 (72) 98 02/02/18 05:18 18 02/02/18 03:17 98.3 74 18 105/57 (73) 94 02/01/18 22:54 76 18 109/65 (80) 97 02/01/18 20:43 98.0 89 18 104/67 (79) 99 02/01/18 14:51 98.0 74 16 89/52 (64) 99 02/01/18 13:06 88 114/69 (84) 02/01/18 10:34 97.8 80 16 91/58 (69) 99 02/01/18 09:37 97/60 (72) I/O 02/01/18 02/01/18 02/01/18 02/02/18 02/02/18 02/02/18 07:00 15:00 23:00 07:00 15:00 23:00 Intake Total 540 ml Balance 540 ml Intake Oral 540 ml Result Diagram: 02/02/18 0755 02/02/18 0755 Imaging Last Impressions Lower Extremity Ultrasound 01/31/18 020 Signed Impressions: Service Date/Time: Wednesday, January 31, 2018 02:32 - CONCLUSION: Occlusive thrombus from inguinal region to the proximal calf, similar to October 2017. Colten Bradley MD Chest X-Ray 01/31/18 020 Signed Impressions: Service Date/Time: Wednesday, January 31, 2018 03:18 - CONCLUSION: The lungs are clear. Colten Bradley MD Lower Extremity MRI 01/31/18 0000 Signed Impressions: Service Date/Time: Wednesday, January 31, 2018 09:25 - CONCLUSION: Subcutaneous abscess medial calf as described above. Carlos Alvarado MD FACR Objective Remarks General: No acute distress. Heart: Regular rate and rhythm. 2/6 systolic murmur. Lungs: Clear to auscultation bilaterally. No wheezes, rales, or rhonchi. Breathing is nonlabored. Abdomen: Soft, nontender, nondistended. Extremities: No right lower extremity edema. Left lower leg with significant swelling around the calf. There is erythema overlying the lower leg. The left lower leg is warm to touch. Swelling has improved slightly. Psych: Alert and oriented. Procedures None Urinary Catheter: No Vascular Central Line Catheter: No A/P Assessment and Plan 1. Sepsis: Source of his left lower extremity cellulitis. Presented with leukocytosis, elevated lactic acid level, tachycardia. CRP and sed rate are elevated. MRI shows abscess. Continue antibiotics. Blood cultures are negative so far. Wound culture is negative. Appreciate infectious disease recommendations. Appreciate podiatry recommendations. Planning for incision and drainage today. 2. Heart murmur, concern for endocarditis: Patient has a heart murmur and history of IV drug use. Echocardiogram report noted, unremarkable. Continue antibiotics. Appreciate infectious disease recommendations. May need ARNOLD. 3. DVT: Patient has known history of DVT and was not compliant with anticoagulation secondary to financial constraints. Ultrasound of the left lower extremity shows occlusive thrombus from the inguinal region to the proximal calf, similar to that seen on ultrasound in October 2017. Continue heparin drip. Vascular surgery consult has been requested. 4. Urinary tract infection: Urine culture growing E coli. Continue antibiotics. 5. Panic disorder, anxiety: Continue benzodiazepines as needed. 6. IV drug abuse: Patient has been counseled. 7. Hypokalemia: Improved. Jesus Chase MD Feb 02, 2018 08:54
--- NOTE | 2018-02-02 10:26 | MB ---
cc: Irina Quick MD DATE: 02/01/2018 REASON FOR CONSULTATION: Deep venous thrombosis of the left leg and abscess of the left leg cellulitis, hepatitis C, possible endocarditis. HISTORY OF PRESENT ILLNESS: This 42-year-old female is a known drug abuser who is coming to this hospital frequently, has had numerous visits between 2015 and now. As a matter of fact, she was here just before Jenifer. The patient now arrives with an abscess of her left calf and swelling and cellulitis of her left leg. She has a DVT of the left leg and, hence, the consultation. PAST MEDICAL HISTORY: That of IV and IM drug abuse, noncompliance with medical care, sepsis with multiple organisms in October last year, known hepatitis C and multiple abscesses in the past. The patient was diagnosed in October of last year with the DVT of the left leg, extending from the inguinal ligament down to the foot. She was also diagnosed with multi-organism bacteremia and sepsis. For the first one, she was placed on anticoagulants. For the latter one, she was placed on IV antibiotics. She did not take either of those things and had her Sutherland catheter removed and then she never proceeded to take anticoagulants. Now, the patient comes with this problem. PHYSICAL EXAMINATION: GENERAL: Reveals a fairly thin 42-year-old female. HEENT: Normocephalic. No trauma to the head. Pupils are equal and reactive. Extraocular muscles intact. NECK: Supple. Bilateral carotid pulses. No bruits. CHEST: Clear, bilateral breath sounds. HEART: Regular rhythm. I do not perceive any murmurs, although I would be highly suspicious of endocarditis at this point based on all of the stuff that is going on. ABDOMEN: Soft, active bowel sounds. EXTREMITIES: The patient has palpable femoral, popliteal, dorsalis pedis and posterior tibial pulses, bilateral brachial, ulnar and radial pulses. NEUROLOGIC: She is grossly intact. SKIN, MUSCULOSKELETAL: Left leg reveals cellulitis extending from the foot all the way to the knee and there is a posterior calf abscess present. Left leg is clearly more swollen than the right, especially below the level of the knee. Some of these acute changes are somewhat chronic. RECOMMENDATIONS: This is a 42-year-old female, noncompliant with medical care, with the above history and presentation. At this point, I would go ahead with I and D of the abscess. The patient will need long-term antibiotics if she has positive blood cultures and probably short-term if she does not. In addition, DVT is now established, but the patient should be on anticoagulants for the next 3 months. I will proceed safely with the surgery at this point. Thank you very much for the referral. MD YESENIA Vanegas/ISAURA , 10:24 PM , 12:11 AM
[2018-02-02 10:51] VITALS: BP 94/50; PULSE 70; RESP 18; TEMP 98; O2SAT 100
[2018-02-02] MEDS: ALPRAZolam 1 MG TAB PO PRN (11:14)
[2018-02-02 15:37] VITALS: BP 98/57; PULSE 68; RESP 18; TEMP 97.7; O2SAT 99
[2018-02-02] MEDS: LACTATED RINGER'S 1000 ML IV PRN (18:39)
--- NOTE | 2018-02-02 19:24 | HHI.PR ---
Subjective Remarks Patient seen in preop. Has questions about surgery, states she is nervous. Reports chills. Objective Vital Signs Date Time Temp Pulse Resp B/P (MAP) Pulse Ox O2 Delivery O2 Flow Rate FiO2 02/02/18 15:37 97.7 68 18 98/57 (71) 99 02/02/18 10:51 98.0 70 18 94/50 (65) 100 02/02/18 07:41 98.2 74 18 101/57 (72) 98 02/02/18 05:18 18 02/02/18 03:17 98.3 74 18 105/57 (73) 94 02/01/18 22:54 76 18 109/65 (80) 97 02/01/18 20:43 98.0 89 18 104/67 (79) 99 I/O 02/01/18 02/01/18 02/01/18 02/02/18 02/02/18 02/02/18 07:00 15:00 23:00 07:00 15:00 23:00 Intake Total 540 ml Balance 540 ml Intake Oral 540 ml # Voids 4 Result Diagram: 02/02/18 0755 02/02/18 0755 Imaging Last Impressions Lower Extremity Ultrasound 01/31/18 0202 Signed Impressions: Service Date/Time: Wednesday, January 31, 2018 02:32 - CONCLUSION: Occlusive thrombus from inguinal region to the proximal calf, similar to October 2017. Colten Bradley MD Chest X-Ray 01/31/18 0202 Signed Impressions: Service Date/Time: Wednesday, January 31, 2018 03:18 - CONCLUSION: The lungs are clear. Colten Bradley MD Lower Extremity MRI 01/31/18 0000 Signed Impressions: Service Date/Time: Wednesday, January 31, 2018 09:25 - CONCLUSION: Subcutaneous abscess medial calf as described above. Carlos Alvarado MD FACR Objective Remarks Lower extremity physical exam: Vascular: Dorsalis pedis 1 out of 4, posterior tibial non-palpable secondary to edema. Capillary refill time within normal limits to digits 5 bilateral foot. Edema present left foot, ankle and leg. Neuro: Gross sensation intact to bilateral lower extremity. Pinpoint sensation intact. No hyperalgesia noted to bilateral lower extremity Dermatology: Normal temperature and turgor to bilateral lower extremity. Left lower leg medial aspect with draining sinus, purulent drainage noticed upon compression, associated increased erythema and edema noted. Ascending cellulitis noted to proximal left leg. Musculoskeletal: Tender to palpation to left lower extremity and medial draining sinus. Medications and IVs Current Medications Medications (Trade) Dose Ordered Sig/Sherita Route Start Time Stop Time Status Last Admin Heparin Sodium/ Dextrose 250 ml @ 11 mls/hr TITRATE PRN IV 01/31/18 04:00 02/02/18 02:46 (NS Flush) 2 ml UNSCH PRN IV FLUSH 01/31/18 04:30 02/01/18 02:40 (NS Flush) 2 ml BID IV FLUSH 01/31/18 09:00 02/01/18 20:50 (Tylenol) 650 mg Q4H PRN PO 01/31/18 04:30 01/31/18 08:20 (Zofran Inj) 4 mg Q6H PRN IVP 01/31/18 04:30 (Narcan Inj) 0.4 mg UNSCH PRN IV PUSH 01/31/18 04:30 (Wellbutrin Sr) 150 mg BID PO 01/31/18 09:00 02/02/18 08:53 (Remeron Soltab Odt) 30 mg HS PO 01/31/18 21:00 01/31/18 21:34 (Xanax) 1 mg Q8H PRN PO 01/31/18 05:00 02/02/18 11:14 Aztreonam 2000 mg/ Sodium Chloride 100 ml @ 200 mls/hr Q8H IV 01/31/18 12:00 02/02/18 12:09 Pharmacy Profile Note 0 ml @ 0 mls/hr UNSCH OTHER 01/31/18 05:45 (Dilaudid Pf Inj) 1 mg Q3H PRN IV PUSH 01/31/18 05:45 02/02/18 14:28 Potassium Chloride/Sodium Chloride 1,000 ml @ 84 mls/hr [id number] IV 02/01/18 15:30 02/02/18 04:41 Vancomycin HCl 1250 mg/Sodium Chloride 262.5 ml @ 250 mls/hr Q8H IV 02/01/18 22:00 02/02/18 14:28 Miscellaneous Information SPECIFIC LAB TO BE MIKAEL... ONCE ONCE .XX 02/02/18 21:45 02/02/18 21:46 Lactated Ringer's 1,000 ml @ 30 mls/hr Q24H PRN IV 02/02/18 02:30 02/05/18 02:29 02/02/18 18:39 Sodium Chloride 500 ml @ 30 mls/hr [id number] PRN IV 02/02/18 02:30 02/05/18 02:29 (Lopressor) 25 mg MOTTLE LAY UP OPERATOR PRN PO 02/02/18 02:30 02/05/18 02:29 (Betadine 5% Antisepsis Kit) 1 applic MOTTLE LAY UP OPERATOR PRN EACH NARE 02/02/18 02:30 02/05/18 02:29 (Chlorhexidine 2% Cloth) 3 pack MOTTLE LAY UP OPERATOR PRN TOPICAL 02/02/18 02:30 02/05/18 02:29 Assessment and Plan Assessment and Plan 42-year-old female with left lower leg abscess Patient examined and evaluated with all questions answered Appreciate vasc consult - ok and safe to proceed with surgery Patient to OR today with podiatry for left lower leg incision and drainage of abscess Discussed with patient surgical intervention all benefits, risks, alternatives, complications discussed with patient Krys Lee DPM Feb 02, 2018 19:24
[2018-02-02] MEDS ORDERED: BUPIVACAINE HCL PF 0.5% 30 ML VIAL ONE (20:04)
[2018-02-02] MEDS ORDERED: DO NOT ADM ANY ANTICOAGULANT DRUGS PRN (20:39)
--- NOTE | 2018-02-02 20:40 | HHI.PR ---
Immediate Post Op Note Procedure Date: Feb 02, 2018 Pre Op Diagnosis: Left lower leg abscess Post Op Diagnosis: Same as above Surgeon: Krys Lee Kindergarten Instructional Assistant(s): None Procedure: Left lower leg incision and drainage Findings: 30cc purulent drainage with proximal and distal undermining and abscess formation Additional Information: None Complications: None Specimen(s) removed: Deep culture of abscess Estimated blood loss: 10cc Anesthesia: General Drains: None Patient to: PACU Patient Condition: Good Krys Lee DPM Feb 02, 2018 20:39
[2018-02-02] MEDS ORDERED: MIDAZOLAM HCL 2 MG/2 ML VIAL ONE (20:44)
[2018-02-02] MEDS ORDERED: Post-op Orders (for Pharmacy) XX ONE (20:45)
[2018-02-02] MEDS ORDERED: *morphine SULFATE 4 MG/ML PERIprocedure ONLY ONE (20:46)
[2018-02-02] MEDS ORDERED: *morphine SULFATE 10 MG/ML PERIprocedure ONLY ONE (21:18)
--- NOTE | 2018-02-02 21:32 | MP ---
cc: Krys Lee DPM DATE OF OPERATION: SURGEON: Krys Lee DPM ENROLLMENT MANAGEMENT COORDINATOR: None. PROCEDURE: Left lower leg incision and drainage. PREOPERATIVE DIAGNOSIS: Left lower leg abscess. POSTOPERATIVE DIAGNOSIS: Left lower leg abscess. ANESTHESIA: General with local infiltrate of 10 mL of 0.5% Marcaine plain. HEMOSTASIS: None. ESTIMATED BLOOD LOSS: 15 mL MATERIALS: 3-0 Prolene, plain packing. INJECTABLES: None. COMPLICATIONS: None. INDICATIONS FOR PROCEDURE: The patient is a 42-year-old female with past medical history of endocarditis, hep C, panic disorder with anxiety, and a history of IV IM drug use. States the last time she injected in her leg was August. She has a history of untreated deep vein thrombosis. She reports her pain at 10/10, has been draining purulent drainage for the past 5-10 days. Reports fevers and night sweats. The patient understands all alternatives, risks, benefits, complications associated with proceeding with surgery. DESCRIPTION OF PROCEDURE: The patient was brought to the operating room, placed on the operating room table in supine position. General anesthesia was then induced. Local infiltrate of 0.5% Marcaine plain was infiltrated about the left lower leg. The left leg was prepped and draped in usual sterile fashion. Once the leg was prepped and draped in the usual sterile fashion attention was directed to the left lower leg where MRI identified a subcutaneous abscess measuring 5.5 cm by approximately 2 cm. Incision was made over the area of the abscess with care to retract all vital neurovascular structure. Once dissected through skin to subcutaneous tissue purulent drainage, 30 mL was evacuated from abscess site. Copious irrigation was performed to the abscess site. The patient tolerated copious irrigation and procedure well. The site was closed loosely with 3-0 Prolene, plain packing half inch was then placed to the incision site. The leg was dressed with 4 x 4s, ABD, cast padding, FREDY under no compression. The patient tolerated the procedure and anesthesia well. Pull packing tomorrow and she will remain on IV antibiotics. Krys Lee DPM JIP/rt , 08:46 PM , 09:30 PM
[2018-02-02] MEDS ORDERED: PHARMACY ORDERED LAB ONE (21:45)
[2018-02-02] MEDS: MIRTAZAPINE ODT 30 MG TAB PO SCH (23:00)
[2018-02-03] MEDS ORDERED: *morphine SULFATE 8 MG/ML PERIprocedure ONLY ONE
[2018-02-03] MEDS: NS + KCL 20 MEQ INJ 1,000 ML IV SCH ×2 (01:19→14:29)
[2018-02-03] MEDS: AZTREONAM INJ 2,000 MG in SODIUM CHLORIDE 0.9% INJ 100 ML IV SCH ×3 (03:52→23:17)
[2018-02-03 04:37] LABS: HEMATOCRIT 34.1 % (35.0-46.0); HEMOGLOBIN 11.7 GM/DL (11.6-15.3); MEAN CELL VOLUME 83.9 FL (80.0-100.0); MEAN CORPUSCULAR HEMOGLOBIN 28.8 PG (27.0-34.0); MEAN CORPUSCULAR HGB CONC 34.3 % (32.0-36.0); MEAN PLATELET VOLUME 7.4 FL (7.0-11.0); PLATELET COUNT 437 TH/MM3 (150-450); RED BLOOD COUNT 4.06 MIL/MM3 (4.00-5.30); RED CELL DISTRIBUTION WIDTH 15.5 % (11.6-17.2); WHITE BLOOD COUNT 5.9 TH/MM3 (4.0-11.0)
[2018-02-03] MEDS: HEPARIN-D5W 25,000 U/250 ML 250 ML IV PRN (05:00)
[2018-02-03] MEDS: VANCOMYCIN INJ 1,250 MG in SODIUM CHLOR 0.9% 250 ML INJ 250 ML IV SCH ×4 (08:00→18:39)
--- NOTE | 2018-02-03 08:49 | HHI.PR ---
Subjective Remarks Patient seen in PACU. Follow up DVT, abscess. Patient reports pain in her left leg. Also has been quite anxious. Objective Vitals Vital Signs Date Time Temp Pulse Resp B/P (MAP) Pulse Ox O2 Delivery O2 Flow Rate FiO2 02/03/18 04:00 68 14 97 Room Air 02/03/18 00:00 66 18 101/60 (74) 98 Room Air 02/02/18 23:00 68 16 102/59 (73) 97 Room Air 02/02/18 22:00 71 16 109/63 (78) 100 Nasal Cannula 2 02/02/18 21:30 78 18 103/57 (72) 100 Nasal Cannula 2 02/02/18 21:15 75 16 108/62 (77) 100 Nasal Cannula 2 02/02/18 21:00 77 16 113/53 (73) 100 Nasal Cannula 2 02/02/18 20:45 78 16 104/57 (73) 100 Nasal Cannula 2 02/02/18 20:35 97.7 86 12 106/58 (74) 100 Nasal Cannula 2 02/02/18 15:37 97.7 68 18 98/57 (71) 99 02/02/18 10:51 98.0 70 18 94/50 (65) 100 I/O 02/02/18 02/02/18 02/02/18 02/03/18 02/03/18 02/03/18 07:00 15:00 23:00 07:00 15:00 23:00 Intake Total 540 ml 450 ml 791 ml Output Total 20 ml 1800 ml Balance 540 ml 430 ml -1009 ml Intake Oral 540 ml IV Total 791 ml Other 450 ml Output Urine Total 1800 ml Estimated Blood Loss 20 ml # Voids 4 2 Result Diagram: 02/03/18 0429 02/02/18 0755 Imaging Last Impressions Lower Extremity Ultrasound 01/31/18201 Signed Impressions: Service Date/Time: Wednesday, January 31, 2018 02:32 - CONCLUSION: Occlusive thrombus from inguinal region to the proximal calf, similar to October 2017. Colten Bradley MD Chest X-Ray 01/31/18201 Signed Impressions: Service Date/Time: Wednesday, January 31, 2018 03:18 - CONCLUSION: The lungs are clear. Colten Bradley MD Lower Extremity MRI 01/31/18 0000 Signed Impressions: Service Date/Time: Wednesday, January 31, 2018 09:25 - CONCLUSION: Subcutaneous abscess medial calf as described above. Carlos Alvarado MD FACR Objective Remarks General: No acute distress. Heart: Regular rate and rhythm. 2/6 systolic murmur. Lungs: Clear to auscultation bilaterally. No wheezes, rales, or rhonchi. Breathing is nonlabored. Abdomen: Soft, nontender, nondistended. Extremities: No right lower extremity edema. Left lower leg bandaged. Psych: Sleeping, but awakens easily and answers questions appropriately. Procedures 02/02/18 left lower leg incision and drainage Urinary Catheter: No Vascular Central Line Catheter: No A/P Assessment and Plan 1. Sepsis: Source is left lower extremity cellulitis. Presented with leukocytosis, elevated lactic acid level, tachycardia. CRP and sed rate are elevated. MRI shows abscess. Continue antibiotics. Blood cultures are negative so far. Wound culture is negative. Appreciate infectious disease recommendations. Appreciate podiatry recommendations. Status post incision and drainage. Repeat wound cultures are pending. Continue antibiotics ( vancomycin, aztreonam). 2. Heart murmur, concern for endocarditis: Patient has a heart murmur and history of IV drug use. Echocardiogram report noted, unremarkable. Continue antibiotics. Appreciate infectious disease recommendations. May need ARNOLD. 3. DVT: Patient has known history of DVT and was not compliant with anticoagulation secondary to financial constraints. Ultrasound of the left lower extremity shows occlusive thrombus from the inguinal region to the proximal calf, similar to that seen on ultrasound in October 2017. Appreciate vascular surgery recommendations. Heparin drip restarted postoperatively. 4. Urinary tract infection: Urine culture growing E coli. Continue antibiotics. 5. Panic disorder, anxiety: Continue benzodiazepines as needed. 6. IV drug abuse: Patient has been counseled. 7. Hypokalemia: Improved. Discharge Planning Pending further clinical improvement. Jesus Chase MD Feb 03, 2018 08:49
[2018-02-03] MEDS: HYDROmorphone HCL PF 2 MG/ML VIAL IV PUSH PRN ×6 (09:00→23:16)
[2018-02-03] MEDS: buPROPion HCL 150 MG SUSTAINED RELEASE TAB PO SCH ×2 (09:00→23:17)
[2018-02-03] MEDS: SODIUM CHLORIDE 0.9% FLUSH 10 ML FLUSH IV FLUSH SCH ×2 (09:00→23:17)
[2018-02-03] MEDS: ALPRAZolam 1 MG TAB PO PRN ×2 (09:01→18:40)
[2018-02-03] MEDS: LACTATED RINGER'S 1000 ML IV PRN (12:06)
[2018-02-03 16:02] VITALS: BP 97/55; PULSE 76; RESP 18; TEMP 97.6; O2SAT 100
--- NOTE | 2018-02-03 19:56 | HHI.PR ---
Subjective Remarks Patient seen bedside. Denies nausea, fevers or chills. States leg is feeling better. She received Dilaudid prior to dressing change. Objective Vital Signs Date Time Temp Pulse Resp B/P (MAP) Pulse Ox O2 Delivery O2 Flow Rate FiO2 02/03/18 19:38 16 02/03/18 16:02 97.6 76 18 97/55 (69) 100 02/03/18 14:15 97.8 80 16 103/64 (77) 98 Room Air 02/03/18 12:00 97.7 67 15 101/58 (72) 98 Room Air 02/03/18 08:00 97.8 75 18 117/74 (88) 100 Room Air 02/03/18 04:00 68 14 97 Room Air 02/03/18 00:00 66 18 101/60 (74) 98 Room Air 02/02/18 23:00 68 16 102/59 (73) 97 Room Air 02/02/18 22:00 71 16 109/63 (78) 100 Nasal Cannula 2 02/02/18 21:30 78 18 103/57 (72) 100 Nasal Cannula 2 02/02/18 21:15 75 16 108/62 (77) 100 Nasal Cannula 2 02/02/18 21:00 77 16 113/53 (73) 100 Nasal Cannula 2 02/02/18 20:45 78 16 104/57 (73) 100 Nasal Cannula 2 02/02/18 20:35 97.7 86 12 106/58 (74) 100 Nasal Cannula 2 I/O 02/02/18 02/02/18 02/02/18 02/03/18 02/03/18 02/03/18 06:59 14:59 22:59 06:59 14:59 22:59 Intake Total 540 ml 450 ml 791 ml 325 ml Output Total 20 ml 1800 ml 350 ml Balance 540 ml 430 ml -1009 ml -25 ml Intake Oral 540 ml IV Total 791 ml 325 ml Other 450 ml Output Urine Total 1800 ml 350 ml Estimated Blood Loss 20 ml # Voids 4 2 1 Result Diagram: 02/03/18 0429 02/02/18 0755 Imaging Last Impressions Lower Extremity Ultrasound 01/31/18 0202 Signed Impressions: Service Date/Time: Wednesday, January 31, 2018 02:32 - CONCLUSION: Occlusive thrombus from inguinal region to the proximal calf, similar to October 2017. Colten Bradley MD Chest X-Ray 01/31/18 0202 Signed Impressions: Service Date/Time: Wednesday, January 31, 2018 03:18 - CONCLUSION: The lungs are clear. Colten Bradley MD Lower Extremity MRI 01/31/18 0000 Signed Impressions: Service Date/Time: Wednesday, January 31, 2018 09:25 - CONCLUSION: Subcutaneous abscess medial calf as described above. Carlos Alvarado MD FACR Procedures 1 day s/p Incision and Drainage to left lower leg Other Results Microbiology Date/Time Source Procedure Growth Status 01/31/18 02:45 Blood Peripheral Aerobic Blood Culture - Preliminary NO GROWTH IN 3 DAYS Resulted 01/31/18 02:45 Blood Peripheral Anaerobic Blood Culture - Preliminary NO GROWTH IN 3 DAYS Resulted 01/31/18 03:59 Urine Random Urine Urine Culture - Final Escherichia Coli Complete 02/03/18 00:13 Wound Leg Fungal Smear - Final NO FUNGAL ELEMENTS SEEN. Resulted 02/03/18 00:13 Wound Leg Fungal Culture Pending Resulted Objective Remarks Lower extremity physical exam: Vascular: Dorsalis pedis 1 out of 4, posterior tibial non-palpable secondary to edema. Capillary refill time within normal limits to digits 5 bilateral foot. Edema present left foot, ankle and leg. Neuro: Gross sensation intact to bilateral lower extremity. Pinpoint sensation intact. No hyperalgesia noted to bilateral lower extremity Dermatology: Normal temperature and turgor to bilateral lower extremity. Left lower leg medial aspect with sutures intact and skin well coapted. Suture present to previous with packing present. No purulent drainage noticed upon compression, resolving and improved erythema and edema noted. Musculoskeletal: Tender to palpation to left lower extremity at incision and drainage site. Medications and IVs Current Medications Medications (Trade) Dose Ordered Sig/Sherita Route Start Time Stop Time Status Last Admin Heparin Sodium/ Dextrose 250 ml @ 11 mls/hr TITRATE PRN IV 01/31/18 04:00 02/03/18 05:00 (NS Flush) 2 ml UNSCH PRN IV FLUSH 01/31/18 04:30 02/01/18 02:40 (NS Flush) 2 ml BID IV FLUSH 01/31/18 09:00 02/03/18 09:00 (Tylenol) 650 mg Q4H PRN PO 01/31/18 04:30 01/31/18 08:20 (Zofran Inj) 4 mg Q6H PRN IVP 01/31/18 04:30 (Narcan Inj) 0.4 mg UNSCH PRN IV PUSH 01/31/18 04:30 (Wellbutrin Sr) 150 mg BID PO 01/31/18 09:00 02/03/18 09:00 (Remeron Soltab Odt) 30 mg HS PO 01/31/18 21:00 01/31/18 21:34 (Xanax) 1 mg Q8H PRN PO 01/31/18 05:00 02/03/18 18:40 Aztreonam 2000 mg/ Sodium Chloride 100 ml @ 200 mls/hr Q8H IV 01/31/18 12:00 02/03/18 12:00 Pharmacy Profile Note 0 ml @ 0 mls/hr UNSCH OTHER 01/31/18 05:45 (Dilaudid Pf Inj) 1 mg Q3H PRN IV PUSH 01/31/18 05:45 02/03/18 18:40 Potassium Chloride/Sodium Chloride 1,000 ml @ 84 mls/hr [id number] IV 02/01/18 15:30 02/03/18 01:19 Lactated Ringer's 1,000 ml @ 30 mls/hr Q24H PRN IV 02/02/18 02:30 02/05/18 02:29 02/02/18 18:39 Sodium Chloride 500 ml @ 30 mls/hr [id number] PRN IV 02/02/18 02:30 02/05/18 02:29 (Lopressor) 25 mg FORENSIC EXAMINER PRN PO 02/02/18 02:30 02/05/18 02:29 (Betadine 5% Antisepsis Kit) 1 applic FORENSIC EXAMINER PRN EACH NARE 02/02/18 02:30 02/05/18 02:29 (Chlorhexidine 2% Cloth) 3 pack FORENSIC EXAMINER PRN TOPICAL 02/02/18 02:30 02/05/18 02:29 Miscellaneous Information ALL NURSING DEPARTME... UNSCH PRN .XX 02/02/18 20:39 02/03/18 20:38 Vancomycin HCl 1250 mg/Sodium Chloride 262.5 ml @ 250 mls/hr Q8H IV 02/03/18 08:00 02/03/18 18:39 Miscellaneous Information SPECIFIC LAB TO BE DRAWN:VANCO TROUGH DATE TO... ONCE ONCE .XX 02/04/18 15:45 02/04/18 15:46 Assessment and Plan Assessment and Plan 42-year-old female with left lower leg abscess 1 day s/p I&D left lower leg abscess DOS: 02/02/18 Patient examined and evaluated with all questions answered Packing pulled to left LE Additional Dilaudid given to patient as she did not tolerate dressing change well. Dressing to be changed daily with packing applied. Irrigate draining sinus prior to dressing change. Will place orders Recommend continued antibiotics Will await deep cultures Improvement noted to LLE Will consult case/care management for possible rehab as patient expresses she would like to "get clean again" Krys Lee DPM Feb 03, 2018 19:56
[2018-02-03 21:05] LABS: INTERNATIONAL NORMALIZED RATIO 1.1 RATIO; PROTHROMBIN TIME - PATIENT 11.1 SEC (9.8-11.6)
[2018-02-03 21:11] VITALS: BP 110/69; PULSE 65; RESP 18; TEMP 98; O2SAT 98
[2018-02-03] MEDS: MIRTAZAPINE ODT 30 MG TAB PO SCH (23:17)
[2018-02-04] VITALS (7 sets, daily range): BP systolic 104–135; BP diastolic 56–80; PULSE 51–76; RESP 12–22; TEMP 97.6–99.8; O2SAT 97–100
[2018-02-04] MEDS: HEPARIN-D5W 25,000 U/250 ML 250 ML IV PRN (01:57)
[2018-02-04] MEDS: NS + KCL 20 MEQ INJ 1,000 ML IV SCH ×2 (02:20→15:03)
[2018-02-04] MEDS: VANCOMYCIN INJ 1,250 MG in SODIUM CHLOR 0.9% 250 ML INJ 250 ML IV SCH ×3 (02:20→16:53)
[2018-02-04] MEDS: AZTREONAM INJ 2,000 MG in SODIUM CHLORIDE 0.9% INJ 100 ML IV SCH ×3 (04:51→22:00)
[2018-02-04] MEDS: HYDROmorphone HCL PF 2 MG/ML VIAL IV PUSH PRN ×5 (08:12→21:55)
[2018-02-04] MEDS: SODIUM CHLORIDE 0.9% FLUSH 10 ML FLUSH IV FLUSH SCH ×2 (08:12→21:56)
[2018-02-04] MEDS: ALPRAZolam 1 MG TAB PO PRN ×2 (08:13→16:51)
[2018-02-04] MEDS: buPROPion HCL 150 MG SUSTAINED RELEASE TAB PO SCH ×2 (08:14→21:00)
--- NOTE | 2018-02-04 10:14 | HHI.PR ---
Subjective Remarks Follow-up for left lower extremity abscess, DVT. Patient is currently doing well. No fever or chills. She complains of persistent pain. Objective Vitals Vital Signs Date Time Temp Pulse Resp B/P (MAP) Pulse Ox O2 Delivery O2 Flow Rate FiO2 02/04/18 05:02 97.6 51 18 108/59 (75) 99 02/04/18 01:05 99.8 60 18 104/62 (76) 97 02/03/18 21:11 98.0 65 18 110/69 (83) 98 02/03/18 19:38 16 02/03/18 16:02 97.6 76 18 97/55 (69) 100 02/03/18 14:15 97.8 80 16 103/64 (77) 98 Room Air 02/03/18 12:00 97.7 67 15 101/58 (72) 98 Room Air I/O 02/03/18 02/03/18 02/03/18 02/04/18 02/04/18 02/04/18 07:00 15:00 23:00 07:00 15:00 23:00 Intake Total 791 ml 325 ml Output Total 1800 ml 350 ml Balance -1009 ml -25 ml IV Total 791 ml 325 ml Output Urine Total 1800 ml 350 ml # Voids 2 1 2 2 Result Diagram: 02/03/18 0429 02/02/18 0755 Imaging Last Impressions Lower Extremity Ultrasound 01/31/18 020 Signed Impressions: Service Date/Time: Wednesday, January 31, 2018 02:32 - CONCLUSION: Occlusive thrombus from inguinal region to the proximal calf, similar to October 2017. Colten Bradley MD Chest X-Ray 01/31/18 020 Signed Impressions: Service Date/Time: Wednesday, January 31, 2018 03:18 - CONCLUSION: The lungs are clear. Colten Bradley MD Lower Extremity MRI 01/31/18 0000 Signed Impressions: Service Date/Time: Wednesday, January 31, 2018 09:25 - CONCLUSION: Subcutaneous abscess medial calf as described above. Carlos Alvarado MD FACR Objective Remarks GENERAL: Alert, oriented 3, NAD. SKIN: Warm and dry. HEAD: Normocephalic. EYES: No scleral icterus. No injection or drainage. NECK: Supple, trachea midline. No JVD or lymphadenopathy. CARDIOVASCULAR: Regular rate and rhythm without murmurs, gallops, or rubs. RESPIRATORY: Breath sounds equal bilaterally. No accessory muscle use. GASTROINTESTINAL: Abdomen soft, non-tender, nondistended. MUSCULOSKELETAL: No cyanosis, or edema. Left lower extremity dressing on status post I&D. BACK: Nontender without obvious deformity. No CVA tenderness. Procedures 02/02/18 left lower leg incision and drainage A/P Problem List: (1) Abscess of left leg ICD Code: L02.416 - Cutaneous abscess of left lower limb (2) IVDU (intravenous drug user) ICD Code: F19.90 - Other psychoactive substance use, unspecified, uncomplicated (3) Left leg DVT ICD Code: I82.402 - Acute embolism and thrombosis of unspecified deep veins of left lower extremity Status: Acute Assessment and Plan Ms. De La Cruz is a pleasant 42-year-old female with a history of endocarditis, hepatitis C, IV drug use who presented to the emergency department on 01/31/2018 due to pain and swelling of her left lower extremity. She was previously diagnosed with left lower extremity DVT for which she was supposed to be on apixaban. However due to cost she could not obtain the medications. During this admission podiatry, infectious disease were consulted. Patient underwent I &D of the lower extremity abscess and was placed on heparin drip for DVT. Severe Sepsis (HR 109, WBC 14.9K, Lactic Acid 3.5, Left leg abscess). Left lower extremity abscess Blood cultures negative so far. Patient is currently on aztreonam 2 g every 8 hours, vancomycin pharmacy to dose. Podiatry and infectious disease following. Left lower extremity DVT Patient is currently on heparin drip. Emphasized that we need to get labs to make sure she is not supratherapeutic. If no further surgical intervention planned, we can likely switch patient to p.o. anticoagulation. IVDU - Patient expresses desire to quit IV drug use. Echo shows EF 50-55%, Pulm Valve not well visualized. If Blood cx are positive, we can obtain ARNOLD. Urinary tract infection - cx growing E. Coli. Patient is already on Aztreonam that would cover E. Coli. Anxiety, depression - continue alprazolam 1 mg every 8 hours as needed and bupropion 150 mg p.o. twice daily. Full code. Heparin Drip. Moreno Godoy DO Feb 04, 2018 10:14 am
[2018-02-04] MEDS: ACETAMINOPHEN/HYDROcodone 325 MG/7.5 MG TAB PO PRN ×2 (10:37→16:52)
[2018-02-04] MEDS ORDERED: ACETAMINOPHEN 325 MG TAB PO PRN (12:30)
[2018-02-04] MEDS ORDERED: PHARMACY ORDERED LAB ONE ×2 (15:45)
[2018-02-04 15:54] LABS: AUTOMATED NEUTROPHIL # 2.8 TH/MM3 (1.8-7.7); BASOPHIL # 0.1 TH/MM3 (0-0.2); EOSINOPHIL # 0.1 TH/MM3 (0-0.4); EOSINOPHIL % 2.2 % (0.0-4.0); HEMATOCRIT 31.2 % (35.0-46.0); HEMOGLOBIN 10.4 GM/DL (11.6-15.3); LYMPH % 35.4 % (9.0-44.0); LYMPHOCYTE # 1.8 TH/MM3 (1.0-4.8); MEAN CELL VOLUME 84.6 FL (80.0-100.0); MEAN CORPUSCULAR HEMOGLOBIN 28.3 PG (27.0-34.0); MEAN CORPUSCULAR HGB CONC 33.5 % (32.0-36.0); MEAN PLATELET VOLUME 7.1 FL (7.0-11.0); MONOCYTE # 0.4 TH/MM3 (0-0.9); NEUT % 53.4 % (16.0-70.0); PLATELET COUNT 496 TH/MM3 (150-450); RED BLOOD COUNT 3.68 MIL/MM3 (4.00-5.30); RED CELL DISTRIBUTION WIDTH 15.2 % (11.6-17.2); WHITE BLOOD COUNT 5.2 TH/MM3 (4.0-11.0)
[2018-02-04 16:52] LABS: BICARBONATE 30.1 MEQ/L (21.0-32.0); CALCIUM 8.1 MG/DL (8.5-10.1); CREATININE 0.73 MG/DL (0.50-1.00); MAGNESIUM 1.6 MG/DL (1.5-2.5)
[2018-02-04 16:54] LABS: VANCOMYCIN TROUGH 24.7 MCG/ML (5.0-10.0)
--- NOTE | 2018-02-04 17:37 | HHI.IDPN ---
Note Infectious Disease Note Patient is awake and alert. She underwent incision and drainage of the left calf. Culture pending. Feels tired. Afebrile. Blood cultures as no growth. 42-year-old white female who presented to the emergency department with swelling of her left leg. The patient has had a history of DVT in the left leg in the past and she was supposed to be on blood thinners. She was diagnosed back in August 2017. The patient states that she had difficulty getting a prescription for the blood thinners filled and she had not been on the blood thinner medication since October. She notes that she started getting skin lesions in various areas of her legs over the past month. She was using a "salt salve" on the lesions, which was recommended by a fisherman friend. She notes that it caused one lesion at the right inner calf to dry up and the second at the left inner thigh also dried up. She had a subsequent lesion of the left lateral calf, which she said 10 days ago, she squeezed and it drained green fluid. She noted swelling of her left leg, along with increased pain beginning approximately a week and a half ago. She states that the leg became worse over the past 4 days. She was using Vicodin which was provided for her by a friend who had a prescription. After that, she ran out of the Vicodin and started using IM heroin to kill the pain. Her last use reported to me was 4 days ago. PAST MEDICAL HISTORY: Hepatitis C, history of endocarditis, history of group A strep bacteremia and strep viridans bacteremia in August 2017, IV drug abuse, history of , history of deep venous thrombosis of the left lower extremity. ALLERGIES: PENICILLIN. Antibiotics: 1. Vancomycin. 2. Aztreonam. 3. Metronidazole. OBJECTIVE: Vital Signs Date Time Temp Pulse Resp B/P (MAP) Pulse Ox O2 Delivery O2 Flow Rate FiO2 02/04/18 16:30 97.8 59 18 112/60 (77) 98 02/04/18 12:00 97.9 76 18 117/69 (85) 99 02/04/18 08:00 98.0 66 22 135/80 (98) 100 02/04/18 05:02 97.6 51 18 108/59 (75) 99 02/04/18 01:05 99.8 60 18 104/62 (76) 97 3/22/18 21:11 98.0 65 18 110/69 (83) 98 02/03/18 19:38 16 Laboratory Tests Test 02/03/18 04:29 02/04/18 15:38 White Blood Count 5.9 TH/MM3 5.2 TH/MM3 Red Blood Count 4.06 MIL/MM3 3.68 MIL/MM3 Hemoglobin 11.7 GM/DL 10.4 GM/DL Hematocrit 34.1 % 31.2 % Mean Corpuscular Volume 83.9 FL 84.6 FL Mean Corpuscular Hemoglobin 28.8 PG 28.3 PG Mean Corpuscular Hemoglobin Concent 34.3 % 33.5 % Red Cell Distribution Width 15.5 % 15.2 % Platelet Count 437 TH/MM3 496 TH/MM3 Mean Platelet Volume 7.4 FL 7.1 FL Neutrophils (%) (Auto) 53.4 % Lymphocytes (%) (Auto) 35.4 % Monocytes (%) (Auto) 8.0 % Eosinophils (%) (Auto) 2.2 % Basophils (%) (Auto) 1.0 % Neutrophils # (Auto) 2.8 TH/MM3 Lymphocytes # (Auto) 1.8 TH/MM3 Monocytes # (Auto) 0.4 TH/MM3 Eosinophils # (Auto) 0.1 TH/MM3 Basophils # (Auto) 0.1 TH/MM3 CBC Comment DIFF FINAL Differential Comment Laboratory Tests Test 02/04/18 15:38 Blood Urea Nitrogen 11 MG/DL Creatinine 0.73 MG/DL Random Glucose 91 MG/DL Calcium Level 8.1 MG/DL Magnesium Level 1.6 MG/DL Sodium Level 143 MEQ/L Potassium Level 3.6 MEQ/L Chloride Level 107 MEQ/L Carbon Dioxide Level 30.1 MEQ/L Anion Gap 6 MEQ/L Estimat Glomerular Filtration Rate 87 ML/MIN Microbiology Date/Time Source Procedure Growth Status 02/03/18 00:13 Wound Leg Fungal Smear - Final NO FUNGAL ELEMENTS SEEN. Resulted 02/03/18 00:13 Wound Leg Fungal Culture Pending Resulted 02/03/18 00:13 Wound Leg Acid Fast Stain - Final NO ACID FAST BACILLI SEEN Resulted 02/03/18 00:13 Wound Leg Mycobacterial Culture Pending Resulted 02/03/18 00:13 Wound Leg Gram Stain - Final Resulted 02/03/18 00:13 Wound Leg Wound Culture - Preliminary Resulted IMAGING: Lower Extremity Ultrasound 01/31/18 8388 Signed Impressions: Service Date/Time: Wednesday, January 31, 2018 02:32 - CONCLUSION: Occlusive thrombus from inguinal region to the proximal calf, similar to October 2017. Colten Bradley MD Chest X-Ray 01/31/18 0202 Signed Impressions: Service Date/Time: Wednesday, January 31, 2018 03:18 - CONCLUSION: The lungs are clear. Colten Bradley MD Lower Extremity MRI 01/31/18 0000 Signed Impressions: Service Date/Time: Wednesday, January 31, 2018 09:25 - CONCLUSION: Subcutaneous abscess medial calf as described above. Carlos Alvarado MD FACR PHYSICAL EXAMINATION: GENERAL: No acute distress. HEENT: No icterus. Oropharynx, fair dentition. Mucosa appears moist. NECK: Supple. No adenopathy. LUNGS: Clear breath sounds. HEART: 1-2/6 systolic ejection murmur at the left sternal border. No rubs or gallops. ABDOMEN: Bowel sounds present. Soft, no tenderness appreciated. EXTREMITIES: Left leg is post incision and drainage of cuff abscess. The right lower extremities have no clubbing or cyanosis. There is 1+ edema of the feet. SKIN: No diffuse rash. NEUROLOGIC: No gross focal finding. PSYCHIATRIC: Calm and cooperative. IMPRESSION: 1. Sepsis. 2. Left leg cellulitis. 3. Left leg abscess. Post drainage. Culture pending. Gram stain shows gram-positive cocci in pairs. 4. Left leg deep venous thrombosis. 5. Intravenous drug abuse. 6. Hepatitis C. 7. Abnormal urinalysis, urine culture has E. coli. RECOMMENDATIONS: 1. Continue the vancomycin. 2. Change aztreonam to Levaquin. 3. If the blood cultures are negative, no need to proceed with additional workup. 4. Monitor wound cultures. 5. Monitor urine culture. 6. Monitor clinical status. I will be out next week. Although ID MDs discovering. Angel Renee MD Feb 04, 2018 17:37
[2018-02-04] MEDS: APIXABAN 5 MG TABLET PO SCH (21:55)
[2018-02-04] MEDS: MIRTAZAPINE ODT 30 MG TAB PO SCH (21:55)
[2018-02-05] MEDS: NS + KCL 20 MEQ INJ 1,000 ML IV SCH (03:47)
[2018-02-05] MEDS: AZTREONAM INJ 2,000 MG in SODIUM CHLORIDE 0.9% INJ 100 ML IV SCH (03:47)
[2018-02-05] MEDS: ACETAMINOPHEN/HYDROcodone 325 MG/7.5 MG TAB PO PRN ×2 (03:52→10:57)
[2018-02-05 04:09] VITALS: BP 131/77; PULSE 50; RESP 14; TEMP 97.1; O2SAT 100
[2018-02-05 08:01] VITALS: BP 120/64; PULSE 56; RESP 18; TEMP 97.8; O2SAT 96
[2018-02-05] MEDS: APIXABAN 5 MG TABLET PO SCH (08:35)
[2018-02-05] MEDS: buPROPion HCL 150 MG SUSTAINED RELEASE TAB PO SCH (08:35)
[2018-02-05] MEDS: HYDROmorphone HCL PF 2 MG/ML VIAL IV PUSH PRN ×3 (08:36→14:34)
[2018-02-05] MEDS: ALPRAZolam 1 MG TAB PO PRN (10:59)
[2018-02-05] MEDS ORDERED: VANCOMYCIN 1,000 MG/NS 250 ML IV SCH ×2 (11:00)
[2018-02-05 12:00] VITALS: BP 121/77; PULSE 57; RESP 18; TEMP 97.9; O2SAT 96
[2018-02-05] MEDS ORDERED: BACT800T5 PO (12:23)
[2018-02-05] MEDS ORDERED: LEVA750T9 PO (12:23)
[2018-02-05] MEDS ORDERED: APIX5TAB PO (12:23)
[2018-02-05] MEDS ORDERED: CEPH-460 PO (12:25)
--- NOTE | 2018-02-05 12:27 | HHI.DS ---
Discharge Summary Admission Date Jan 31, 2018 at 4:09 am Discharge Date: Feb 05, 2018 Admitting Diagnosis Left Cellulitis, left leg DVT, opiate abuse (1) Abscess of left leg ICD Code: L02.416 - Cutaneous abscess of left lower limb (2) IVDU (intravenous drug user) ICD Code: F19.90 - Other psychoactive substance use, unspecified, uncomplicated (3) Left leg DVT ICD Code: I82.402 - Acute embolism and thrombosis of unspecified deep veins of left lower extremity Status: Acute Procedures 02/02/18 left lower leg incision and drainage 02/01/2018 The left ventricular systolic function is low normal with an estimated ejection fraction in the range of 50- 55%. The pulmonary valve is not well visualized. Brief History - From Admission 42-year-old female with a past medical history of previous endocarditis, hepatitis C, panic disorder/anxiety, and IV/IM drug abuse presents to the emergency department for evaluation of pain and swelling in her left lower extremity. The patient reports that 10 days ago she noticed redness and a small amount of swelling in her left leg. She states that it has gotten progressively worse over the past 10 days reaching a maximum of painfulness, swelling and associated fever/chills for the past 2 days. She describes the pain as 10 out of 10 with movement. 8 out of 10 at rest. The patient reports that she has recently been injecting intramuscularly into her bilateral upper extremities. Additionally, the patient has a history of a left lower extremity DVT for which she is supposed to be anticoagulated however she could not afford the blood thinner and is not taking it. She denies shortness of breath or chest pain. Denies nausea/vomiting/diarrhea. No lateralizing signs/symptoms. CBC/BMP: 02/04/18 1538 02/04/18 1538 Significant Findings Laboratory Tests Test 02/03/18 04:29 02/03/18 12:26 02/03/18 18:38 02/03/18 20:17 Hematocrit 34.1 % (35.0-46.0) Vancomycin Level Trough 17.1 MCG/ML (5.0-10.0) Test 02/04/18 15:38 02/05/18 07:38 Red Blood Count 3.68 MIL/MM3 (4.00-5.30) Hemoglobin 10.4 GM/DL (11.6-15.3) Hematocrit 31.2 % (35.0-46.0) Platelet Count 496 TH/MM3 (150-450) Activated Partial Thromboplast Time 22.2 SEC (24.3-30.1) Calcium Level 8.1 MG/DL (8.5-10.1) Estimat Glomerular Filtration Rate 87 ML/MIN (>89) Vancomycin Level Trough 24.7 MCG/ML (5.0-10.0) Imaging Last Impressions Lower Extremity Ultrasound 01/31/18201 Signed Impressions: Service Date/Time: Wednesday, January 31, 2018 02:32 - CONCLUSION: Occlusive thrombus from inguinal region to the proximal calf, similar to October 2017. Colten Bradley MD Chest X-Ray 01/31/18201 Signed Impressions: Service Date/Time: Wednesday, January 31, 2018 03:18 - CONCLUSION: The lungs are clear. Colten Bradley MD Lower Extremity MRI 01/31/18 0000 Signed Impressions: Service Date/Time: Wednesday, January 31, 2018 09:25 - CONCLUSION: Subcutaneous abscess medial calf as described above. Carlos Alvarado MD FACR PE at Discharge GENERAL: Alert, oriented 3, NAD. SKIN: Warm and dry. HEAD: Normocephalic. EYES: No scleral icterus. No injection or drainage. NECK: Supple, trachea midline. No JVD or lymphadenopathy. CARDIOVASCULAR: Regular rate and rhythm without murmurs, gallops, or rubs. RESPIRATORY: Breath sounds equal bilaterally. No accessory muscle use. GASTROINTESTINAL: Abdomen soft, non-tender, nondistended. MUSCULOSKELETAL: No cyanosis, or edema. Left lower extremity dressing on status post I&D. BACK: Nontender without obvious deformity. No CVA tenderness. Pt update on day of discharge Patient is currently doing well. No acute concerns. Denies any chest pain, SOB, fever, chills. Apixaban coupon and discount card given to patient by CM. Hospital Course Ms. De La Cruz is a pleasant 42-year-old female with a history of endocarditis, hepatitis C, IV drug use who presented to the emergency department on 01/31/2018 due to pain and swelling of her left lower extremity. She was previously diagnosed with left lower extremity DVT for which she was supposed to be on apixaban. However due to cost she could not obtain the medications. During this admission podiatry, infectious disease were consulted. Patient underwent I &D of the lower extremity abscess and was placed on heparin drip for DVT. Severe Sepsis (HR 109, WBC 14.9K, Lactic Acid 3.5, Left leg abscess). Left lower extremity abscess Blood cultures negative so far. Patient is currently on aztreonam 2 g every 8 hours, vancomycin pharmacy to dose. Podiatry and infectious disease following. Will continue Cephalexin and Bactrim on discharge. Left lower extremity DVT Patient is currently on heparin drip. Emphasized that we need to get labs to make sure she is not supratherapeutic. If no further surgical intervention planned, we can likely switch patient to p.o. anticoagulation. IVDU - Patient expresses desire to quit IV drug use. Echo shows EF 50-55%, Pulm Valve not well visualized. Blood cx negative. Urinary tract infection - cx growing E. Coli. Patient is already on Aztreonam that would cover E. Coli. Anxiety, depression - continue alprazolam 1 mg every 8 hours as needed and bupropion 150 mg p.o. twice daily. Pt Condition on Discharge: Good Discharge Disposition: Discharge Home Discharge Time: > 30 minutes Discharge Instructions DIET: Follow Instructions for: As Tolerated, No Restrictions Activities you can perform: Regular-No Restrictions Follow up Referrals: PCP Follow-up - 1 Week Podiatry - 1 Week with Krys Lee DPM New Medications: Cephalexin (Keflex) 500 Mg Capsule 500 MG PO QID for Infection, #40 CAP 0 Refills Sulfamethoxazole-Trimethoprim (Bactrim DS) 800-160 Mg Tab 1 TAB PO BID for Infection, #20 TAB 0 Refills Apixaban (Eliquis) 5 Mg Tab 5 MG PO BID for Blood Clot Prevention, #60 TAB 11 Refills Continued Medications: Alprazolam (Xanax) 2 Mg Tab 2 MG PO QID, TAB 0 Refills Amphetamine-Dextroamphetamine (Adderall) 30 Mg Tab 30 MG PO BID for Hyperactivity Control, #60 TAB 0 Refills Avoid late evening doses. Space doses at least 4 to 6 hours if more than once/day dosing. Bupropion HCl ER 24 HR (Wellbutrin Xl 24 HR) 300 Mg Tab 150 MG PO BID for Control Depression, TAB 0 Refills Mirtazapine (Remeron) 30 Mg Tab 30 MG PO HS for Depression Control, #30 TAB 0 Refills Moreno Godoy DO Feb 05, 2018 12:27
--- NOTE | 2018-02-05 18:37 | HHI.PR ---
Subjective Remarks Patient seen bedside. Patient resting comfortably, states she has an appetite and is eating a salad. Objective Vital Signs Date Time Temp Pulse Resp B/P (MAP) Pulse Ox O2 Delivery O2 Flow Rate FiO2 02/05/18 12:00 97.9 57 18 121/77 (92) 96 02/05/18 08:01 97.8 56 18 120/64 (82) 96 02/05/18 04:09 97.1 50 14 131/77 (95) 100 02/04/18 23:20 97.6 58 12 104/56 (72) 98 02/04/18 21:06 97.6 72 14 106/58 (74) 97 02/04/18 18:47 16 I/O 02/04/18 02/04/18 02/04/18 02/05/18 02/05/18 02/05/18 07:00 15:00 23:00 07:00 15:00 23:00 Intake Total 362.5 ml 262.5 ml Balance 362.5 ml 262.5 ml IV Total 362.5 ml 262.5 ml # Voids 2 2 Result Diagram: 02/04/18 1538 02/04/18 1538 Imaging Last Impressions Lower Extremity Ultrasound 01/31/18 0202 Signed Impressions: Service Date/Time: Wednesday, January 31, 2018 02:32 - CONCLUSION: Occlusive thrombus from inguinal region to the proximal calf, similar to October 2017. Colten Bradley MD Chest X-Ray 01/31/18 0202 Signed Impressions: Service Date/Time: Wednesday, January 31, 2018 03:18 - CONCLUSION: The lungs are clear. Colten Bradley MD Lower Extremity MRI 01/31/18 0000 Signed Impressions: Service Date/Time: Wednesday, January 31, 2018 09:25 - CONCLUSION: Subcutaneous abscess medial calf as described above. Carlos Alvarado MD FACR Procedures s/p Incision and Drainage to left lower leg Other Results Microbiology Date/Time Source Procedure Growth Status 01/31/18 02:45 Blood Peripheral Aerobic Blood Culture - Final NO GROWTH IN 5 DAYS Complete 01/31/18 02:45 Blood Peripheral Anaerobic Blood Culture - Final NO GROWTH IN 5 DAYS Complete 01/31/18 03:59 Urine Random Urine Urine Culture - Final Escherichia Coli Complete 02/03/18 00:13 Wound Leg Fungal Smear - Final NO FUNGAL ELEMENTS SEEN. Resulted 02/03/18 00:13 Wound Leg Fungal Culture Pending Resulted Objective Remarks Lower extremity physical exam: Vascular: Dorsalis pedis 1 out of 4, posterior tibial non-palpable secondary to edema. Capillary refill time within normal limits to digits 5 bilateral foot. Edema present left foot, ankle and leg. Neuro: Gross sensation intact to bilateral lower extremity. Pinpoint sensation intact. No hyperalgesia noted to bilateral lower extremity Dermatology: Normal temperature and turgor to bilateral lower extremity. Left lower leg medial aspect with sutures intact and skin well coapted. Suture present to previous with packing present. No purulent drainage noticed upon compression, resolving and improved erythema and edema noted. Musculoskeletal: Tender to palpation to left lower extremity at incision and drainage site. Assessment and Plan Assessment and Plan 42-year-old female with left lower leg abscess 1 day s/p I&D left lower leg abscess DOS: 02/02/18 Patient examined and evaluated with all questions answered Dressing changed to left LE Recommend dc on continued oral antibiotics Improvement noted to LLE [facility]hab Krys Lee DPM Feb 05, 2018 18:37
[2018-02-06] MEDS ORDERED: PHARMACY ORDERED LAB ONE (10:45)
== END 2018-02-05 16:15 | disposition home or self-care (01) | DRG 854 ==
LOC: EDBD → NEPE 23:01 → NEDA 01-31 04:09 → NEDH 01-31 11:01 → NEPFCDU 01-31 15:47 → HSDI 02-02 22:16 → N07B 02-02 22:39 → HSDI 02-02 22:41 → HPAC 02-02 22:55 → N05A 02-03 14:23
PROVIDERS: ADMIT Hospitalist; ATTEND Hospitalist
PROC: 0J9P0ZZ Drainage of Left Lower Leg Subcutaneous Tissue and Fascia, Open Approach (ICD-10-PCS; principal; 2018-02-02 19:46)
DX: A41.9 Sepsis, unspecified organism (principal); R64 Cachexia; L02.416 Cutaneous abscess of left lower limb; F11.20 Opioid dependence, uncomplicated; I82.502 Chronic embolism and thrombosis of unspecified deep veins of left lower extremity; N39.0 Urinary tract infection, site not specified; L03.116 Cellulitis of left lower limb; M79.7 Fibromyalgia; R65.20 Severe sepsis without septic shock; B96.20 Unspecified Escherichia coli [E. coli] as the cause of diseases classified elsewhere; B19.20 Unspecified viral hepatitis C without hepatic coma; E87.6 Hypokalemia; M19.90 Unspecified osteoarthritis, unspecified site; F32.9 Major depressive disorder, single episode, unspecified; F41.0 Panic disorder [episodic paroxysmal anxiety]; F17.210 Nicotine dependence, cigarettes, uncomplicated; Z68.23 Body mass index [BMI] 23.0-23.9, adult; Z88.0 Allergy status to penicillin; Z91.19 Patient's noncompliance with other medical treatment and regimen; Z91.14 Patient's other noncompliance with medication regimen
CPT/HCPCS: 71045; 73720; 80048; 80053; 80202; 80307; 81001; 82550; 83605; 83690; 83735; 83880; 84484; 84703; 85007; 85025; 85027; 85610; 85652; 85730; 86140; 86403; 87015; 87040; 87070; 87077; 87086; 87102; 87116; 87147; 87186; 87205; 87206; 93005; 93308; 93971; 96361; 96365; A9579; J1170; J1644; J2060; J2250; J2270; J3010; J3370; J3480; J7030; J7050; J7120

== ENCOUNTER 2018-02-22 14:45 | Observation (INO) | payer SELFPAY ==
[~2018-02-22] VITALS: Ht 162.6 cm; Wt 61.4 kg
[~2018-02-22 14:45] MED LIST changes: -BUPR150XL PO; +REME30TA PO; +WELLTAB39 PO; -XARE20TA PO
[2018-02-22] MEDS ORDERED: GADODIAMIDE PF 287 MG/ML 5 ML VIAL (for RAD MRI) IVCONTRAST ONE (14:46)
[2018-02-22 15:33] VITALS: BP 111/65; PULSE 95; RESP 16; TEMP 98; O2SAT 100
--- NOTE | 2018-02-22 18:59 | PD ---
HPI Chief Complaint: Skin Problem Time Seen by Provider: 18:44 Travel History International Travel<30 days: No Contact w/Intl Traveler<30days: No History of Present Illness HPI 42-year-old female with history of IV drug abuse with recent admission last month for abscess to her left leg that was incised and drained by podiatry, DVT on Eliquis, here for evaluation of left leg pain and swelling. The patient was discharged home with Bactrim and Keflex which she states she has finished the course of. She reports that her leg is continuously swollen, however becomes more swollen at times as well as more painful. No recent injury. She reports that she has stopped using IV drugs since her last admission. She reports intermittent fevers. No chest pain or dyspnea. PFSH Past Medical History Hx Anticoagulant Therapy: Yes ADD: Yes Arthritis: Yes Asthma: No Autoimmune Disease: No Anxiety: Yes (PANIC ANXIETY DISORDER) Depression: Yes Cancer: No Cardiovascular Problems: Yes (hx of endocarditis per pt) Chemotherapy: No COPD: No Cerebrovascular Accident: No Diabetes: No Diminished Hearing: No Deep Vein Thrombosis: Yes Endocrine: No Fibromyalgia: Yes Gastrointestinal Disorders: No Genitourinary: No Headaches: Yes Hepatitis: Yes (HEP C) Immune Disorder: No Implanted Vascular Access Dvce: No Musculoskeletal: Yes (fibromyalgia) Neurologic: Yes Psychiatric: Yes (STATES SEES PSYCHIATRIST NO NAME GIVEN) Reproductive: No Respiratory: No Immunizations Current: Yes Migraines: No Seizures: Yes ?: Unknown LMP: unknown : 3 Para: 2 Miscarriage: 1 : 0 Dilation and Curettage (D&C): Yes Past Surgical History Abdominal Surgery: No Body Medical Devices: CHIN IMPLANT Cardiac Surgery: No Section: Yes Endocrine Surgery: No Eye Surgery: No Genitourinary Surgery: No Gynecologic Surgery: Yes (LEFT FALLOPIAN TUBE REMOVED ECTOPIC ) Neurologic Surgery: No Oral Surgery: No Thoracic Surgery: No Other Surgery: Yes (NOSE) Social History Alcohol Use: No Tobacco Use: Yes (1/2 pack a day ) Substance Use: Yes (opiate use.) Allergies-Medications (Allergen,Severity, Reaction): Coded Allergies: penicillin G (Verified Allergy, Mild, rash, 01/30/18) patient has taken Keflex in the past without any problem Reported Meds & Prescriptions Reported Meds & Active Scripts Active Keflex (Cephalexin) 500 Mg Capsule 500 Mg PO QID Bactrim DS (Sulfamethoxazole-Trimethoprim) 800-160 Mg Tab 1 Tab PO BID Eliquis (Apixaban) 5 Mg Tab 5 Mg PO BID Reported Remeron (Mirtazapine) 30 Mg Tab 30 Mg PO HS Wellbutrin Xl 24 HR (Bupropion HCl) 300 Mg Tab 150 Mg PO BID Xanax (Alprazolam) 2 Mg Tab 2 Mg PO QID Adderall (Amphetamine-Dextroamphetamine) 30 Mg Tab 30 Mg PO BID Avoid late evening doses. Space doses at least 4 to 6 hours if more than once/day dosing. Review of Systems Except as stated in HPI: all other systems reviewed are Neg Physical Exam Narrative GENERAL: Well-developed, well-nourished, no apparent distress. SKIN: Left leg with a few wounds that are healing with significant surrounding warmth and erythema without crepitus, no red streaks with moderate edema. No splinter hemorrhages, Janeway lesions, or Osler nodes. HEAD: Atraumatic. Normocephalic. EYES: Pupils equal and round. No scleral icterus. No injection or drainage. ENT: Mucous membranes pink and moist. NECK: Trachea midline. No JVD. CARDIOVASCULAR: Regular rate and rhythm. No murmur appreciated. Bilateral dorsalis pedis pulses are brisk and equal. RESPIRATORY: No accessory muscle use. Clear to auscultation. Breath sounds equal bilaterally. GASTROINTESTINAL: Abdomen soft, non-tender, nondistended. Hepatic and splenic margins not palpable. MUSCULOSKELETAL: Skin exam as above. Moderate left lower extremity edema from ankle to knee. All compartments in the left lower extremity are supple. NEUROLOGICAL: Awake and alert. No obvious cranial nerve deficits. Motor grossly within normal limits. Normal speech. PSYCHIATRIC: Appropriate mood and affect; insight and judgment normal. Data Data Last Documented VS Vital Signs Date Time Temp Pulse Resp B/P (MAP) Pulse Ox O2 Delivery O2 Flow Rate FiO2 02/22/18 22:28 100.1 02/22/18 15:33 95 16 111/65 (80) 100 Orders Orders Ed Urine Pregnancytest Poc (02/22/18 15:44) Sepsis Workup Initiated (02/22/18 ) Complete Blood Count With Diff (02/22/18 18:52) Comprehensive Metabolic Panel (02/22/18 18:52) Prothrombin Time / Inr (Pt) (02/22/18 18:52) Act Partial Throm Time (Ptt) (02/22/18 18:52) Lactic Acid Sepsis Protocol (02/22/18 18:52) Blood Culture (02/22/18 18:52) Ecg Monitoring (02/22/18 18:52) Iv Access Insert/Monitor (02/22/18 18:52) Oximetry (02/22/18 18:52) Westergren Sedimentation Rate (02/22/18 18:52) C-Reactive Protein (Crp) (02/22/18 18:52) Mri Lower Leg W/Wo Contrast (02/22/18 ) Us Leg Venous Doppler (02/22/18 ) Vancomycin Inj (Vancomycin Inj) (02/22/18 19:00) Morphine Inj (Morphine Inj) (02/22/18 19:00) Gadodiamide Pf Inj (Omniscan Pf Inj) (02/22/18 14:46) Drug Screen, Random Urine (02/22/18 22:24) Acetaminophen (Tylenol) (02/22/18 22:30) Morphine Inj (Morphine Inj) (02/22/18 22:30) Sodium Chlor 0.9% 1000 Ml Inj (Ns 1000 M (02/22/18 22:45) Labs Laboratory Tests Test 02/22/18 20:20 White Blood Count 7.2 TH/MM3 Red Blood Count 3.87 MIL/MM3 Hemoglobin 11.2 GM/DL Hematocrit 33.7 % Mean Corpuscular Volume 87.1 FL Mean Corpuscular Hemoglobin 29.0 PG Mean Corpuscular Hemoglobin Concent 33.2 % Red Cell Distribution Width 18.3 % Platelet Count 241 TH/MM3 Mean Platelet Volume 7.6 FL Neutrophils (%) (Auto) 43.4 % Lymphocytes (%) (Auto) 42.1 % Monocytes (%) (Auto) 12.4 % Eosinophils (%) (Auto) 1.8 % Basophils (%) (Auto) 0.3 % Neutrophils # (Auto) 3.1 TH/MM3 Lymphocytes # (Auto) 3.0 TH/MM3 Monocytes # (Auto) 0.9 TH/MM3 Eosinophils # (Auto) 0.1 TH/MM3 Basophils # (Auto) 0.0 TH/MM3 CBC Comment DIFF FINAL Differential Comment Erythrocyte Sedimentation Rate 60 mm/hr Prothrombin Time 10.6 SEC Prothromb Time International Ratio 1.0 RATIO Activated Partial Thromboplast Time 29.5 SEC Blood Urea Nitrogen 13 MG/DL Creatinine 0.88 MG/DL Random Glucose 61 MG/DL Total Protein 7.7 GM/DL Albumin 3.0 GM/DL Calcium Level 8.6 MG/DL Alkaline Phosphatase 79 U/L Aspartate Amino Transf (AST/SGOT) 18 U/L Alanine Aminotransferase (ALT/SGPT) 19 U/L Total Bilirubin 0.3 MG/DL Sodium Level 139 MEQ/L Potassium Level 3.7 MEQ/L Chloride Level 103 MEQ/L Carbon Dioxide Level 27.0 MEQ/L Anion Gap 9 MEQ/L Estimat Glomerular Filtration Rate 70 ML/MIN Lactic Acid Level 2.6 mmol/L C-Reactive Protein 0.80 MG/DL [facility] Medical Decision Making Medical Screen Exam Complete: Yes Emergency Medical Condition: Yes Differential Diagnosis Left lower extremity DVT, left leg cellulitis, left leg abscess, osteomyelitis, bacteremia/endocarditis Narrative Course Vital signs show heart rate 95, blood pressure 111/65, pulse ox 100% on room air , oral temp of 100.1F. CBC: WBC 7.2, hemoglobin 11.2, hematocrit 33.7, platelets 241. CMP is essentially unremarkable. Lactic acid is 2.6. ESR 60. CRP is 0.8. Left lower extremity venous duplex: CONCLUSION: Occlusive and nonocclusive thrombus in the superficial femoral vein, popliteal vein and peroneal veins. Left lower extremity MRI: CONCLUSION: The previously noted medial calf abscess has significantly decreased in size with only a tiny 3 mm area of fluid noted with tract to the skin. Patient was given 1 g of IV vancomycin for left lower extremity cellulitis. Case discussed with vba developer Dr. Lee who incised and drained the patient' s left calf abscess last month. Plan at this time is to admit the patient for I observation for IV antibiotic therapy. She will see the patient in consultation. The patient is amenable to this plan. Case discussed with hospitalist Dr. Clark who will admit the patient to her service. Diagnosis Primary Impression: Left leg cellulitis Additional Impressions: IV drug abuse Left leg DVT Qualified Codes: I82.502 - Chronic embolism and thrombosis of unspecified deep veins of left lower extremity Admitting Information Admitting Physician Requests: Observation Justin Blevins MD Feb 22, 2018 18:59
[2018-02-22] MEDS ORDERED: MORPHINE SULFATE 2 MG/ML SYRINGE IV PUSH ONE ×2 (19:00→22:30)
[2018-02-22] MEDS ORDERED: VANCOMYCIN INJ 1,000 MG in SODIUM CHLOR 0.9% 250 ML INJ 250 ML IV ONE (19:00)
--- NOTE | 2018-02-22 19:43 | RADRPT ---
EXAM DATE/TIME: 02/22/2018 19:10 [facility] COMPARISON: US LEG LEFT VENOUS DOPPLER, January 31, 2018, 2:32. INDICATIONS : Left leg swelling. MEDICAL HISTORY : Arthritis. Hepatitis C. Seizures. Endocarditis. DVT. Dyspnea. Fibromyalgia. UTI. ADD. Depression. Anx iety. Tobacco use. Anticoagulant therapy. SURGICAL HISTORY : section. Left fallopian tube removed due to ectopic. D&C. Nose surgery. ENCOUNTER: Subsequent ACUITY: >1 year PAIN SCORE: 3/10 LOCATION: Left leg. TECHNIQUE: Venous ultrasound of the leg was performed from the inguinal ligament to the proximal calf. Real-maria esther e, color Doppler and spectral tracing, compression and augmentation techniques were used. FINDINGS: Occlusive and nonocclusive thrombus is noted in the superficial femoral vein, popliteal vein and kimo arron vein which are partially compressible. Iliac and common femoral veins are patent. The posterior tibial vein and saphenous veins are patent. A prominent lymph node is noted in the left groin. CONCLUSION: Occlusive and nonocclusive thrombus in the superficial femoral vein, popliteal vein and peroneal vein navarro Devine MD on February 22, 2018 at 19:39 Board Certified Radiologist. This report was verified electronically.
[2018-02-22 20:42] LABS: AUTOMATED NEUTROPHIL # 3.1 TH/MM3 (1.8-7.7); BASOPHIL % 0.3 % (0.0-2.0); EOSINOPHIL # 0.1 TH/MM3 (0-0.4); EOSINOPHIL % 1.8 % (0.0-4.0); HEMATOCRIT 33.7 % (35.0-46.0); HEMOGLOBIN 11.2 GM/DL (11.6-15.3); LYMPH % 42.1 % (9.0-44.0); MEAN CELL VOLUME 87.1 FL (80.0-100.0); MEAN CORPUSCULAR HGB CONC 33.2 % (32.0-36.0); MEAN PLATELET VOLUME 7.6 FL (7.0-11.0); MONO % 12.4 % (0.0-8.0); MONOCYTE # 0.9 TH/MM3 (0-0.9); NEUT % 43.4 % (16.0-70.0); PLATELET COUNT 241 TH/MM3 (150-450); RED BLOOD COUNT 3.87 MIL/MM3 (4.00-5.30); RED CELL DISTRIBUTION WIDTH 18.3 % (11.6-17.2); WHITE BLOOD COUNT 7.2 TH/MM3 (4.0-11.0)
[2018-02-22 20:56] LABS: PROTHROMBIN TIME - PATIENT 10.6 SEC (9.8-11.6)
[2018-02-22 21:04] LABS: LACTIC ACID SEPSIS PROTOCOL 2.6 mmol/L (0.4-2.0)
[2018-02-22 21:14] LABS: AST (GOT) 18 U/L (15-37); BLOOD UREA NITROGEN 13 MG/DL (7-18); CALCIUM 8.6 MG/DL (8.5-10.1); CHLORIDE 103 MEQ/L (98-107); CREATININE 0.88 MG/DL (0.50-1.00); GLOMERULAR FILTRATION RATE 70 ML/MIN (>89); GLUCOSE,RANDOM 61 MG/DL (74-106); SODIUM (NA) 139 MEQ/L (136-145)
[2018-02-22 21:15] LABS: ALT (GPT) 19 U/L (10-53)
[2018-02-22 21:17] LABS: ALKALINE PHOSPHATASE 79 U/L (45-117); TOTAL BILIRUBIN ADULT 0.3 MG/DL (0.2-1.0); TOTAL PROTEIN 7.7 GM/DL (6.4-8.2)
--- NOTE | 2018-02-22 21:57 | RADRPT ---
EXAM DATE/TIME: 02/22/2018 20:45 1 [place] COMPARISON: MRI LOWER LEG LEFT W & W/O CONTRAST, January 31, 2018, 9:25. INDICATIONS : Pain and swelling for one week. Followup prior abscess along the medial calf.. CONTRAST: 12 cc Omniscan (gadodiamide) IV MEDICAL HISTORY : Hepatitis C. SURGICAL HISTORY : Chin implant. ENCOUNTER: Initial ACUITY: 1 week PAIN SCORE: 9/10 LOCATION: Left lower leg. TECHNIQUE: Multiplanar multisequence MRI examination of the lower leg was performed with and without contrast. FINDINGS: The previously noted abscess along the medial calf is no longer defined and is only minimal fluid fle xion noted in this area with a tract to the skin. This measures approximately 3 mm in size. This best seen on axial T2-weighted sequence #23. There are no new fluid collections. Subcutaneous soft tissue swelling is again noted. The tibia and fibula demonstrate normal marrow signal. CONCLUSION: The previously noted medial calf abscess has significantly decreased in size with onl y a tiny 3 mm area of fluid noted with tract to the skin. Pedro Luis Devine MD on February 22, 2018 at 21:43 Board Certified Radiologist. This report was verified electronically.
[2018-02-22 22:28] VITALS: TEMP 100.1
[2018-02-22] MEDS ORDERED: ACETAMINOPHEN 325 MG TAB PO ONE (22:30)
[2018-02-22] MEDS ORDERED: SODIUM CHLOR 0.9% 1000 ML INJ 1,000 ML IV ONE (22:45)
[2018-02-22 23:00] VITALS: BP 103/62; PULSE 92; RESP 16; O2SAT 98
[2018-02-23] VITALS (8 sets, daily range): BP systolic 90–110; BP diastolic 52–69; PULSE 56–88; RESP 16–18; TEMP 97.2–98.2; O2SAT 98–100
[2018-02-23] MEDS ORDERED: MAGNESIUM HYDROXIDE SUSP 30 ML CUP PO PRN (01:00)
[2018-02-23] MEDS ORDERED: ACETAMINOPHEN/HYDROcodone 325 MG/5 MG TAB PO PRN (01:00)
[2018-02-23] MEDS ORDERED: LACTULOSE SYRUP 20 GM/30 ML CUP PO PRN (01:00)
[2018-02-23] MEDS ORDERED: NALOXONE HCL 0.4 MG/ML AMP IV PUSH PRN (01:00)
[2018-02-23] MEDS ORDERED: SODIUM CHLORIDE 0.9% FLUSH 10 ML FLUSH IV FLUSH PRN (01:00)
[2018-02-23] MEDS ORDERED: BISACODYL 10 MG SUPP RECTAL PRN (01:00)
[2018-02-23] MEDS ORDERED: Vancomycin Consult Pharmacy 1 EA OTHER SCH (01:00)
[2018-02-23] MEDS ORDERED: SENNOSIDES 8.6 MG TAB PO PRN (01:00)
[2018-02-23] MEDS ORDERED: ONDANSETRON HCL 4 MG/2 ML VIAL IVP PRN (01:00)
[2018-02-23] MEDS ORDERED: ACETAMINOPHEN 325 MG TAB PO PRN (01:00)
[2018-02-23] MEDS: SODIUM CHLOR 0.9% 1000 ML INJ 1,000 ML IV SCH ×3 (01:51→21:27)
--- NOTE | 2018-02-23 03:09 | HHI.HP ---
[facility] [place] No Primary Care Physician Admission Diagnosis Left leg cellulitis, chronic left leg DVT, IVDU Diagnoses: Travel History International Travel<30 Days: No Contact w/Intl Traveler <30 Da: No History of Present Illness 42-year-old female with a past medical history of previous endocarditis, hepatitis C, panic disorder/anxiety, and IV/IM drug abuse presents to the emergency department for evaluation of pain and swelling in her left lower extremity. The patient was discharged on 01/31/18 where she was treated for left lower extremity DVT and abscess. She was discharged on cephalexin, Bactrim and Eliquis which she states she was compliant with. The patient reports that her symptoms were improved for approximately 2-3 days following her discharge and then her left lower extremity again became red, warm and painful. She returns hospital for evaluation of these symptoms. She denies any subjective fever/chills. She reports her last IV drug use was approximately 1 week ago. Patient denies any chest pain or shortness of breath. No abdominal pain. No nausea/vomiting/diarrhea. Review of Systems Except as stated in HPI: all other systems reviewed are Neg Past Family Social History Past Medical History Hepatitis C History of endocarditis Panic disorder/anxiety/depression Polysubstance abuse Past Surgical History Nose and chin augmentation Ectopic Reported Medications Reported Meds & Active Scripts Active Keflex (Cephalexin) 500 Mg Capsule 500 Mg PO QID Bactrim DS (Sulfamethoxazole-Trimethoprim) 800-160 Mg Tab 1 Tab PO BID Eliquis (Apixaban) 5 Mg Tab 5 Mg PO BID Reported Remeron (Mirtazapine) 30 Mg Tab 30 Mg PO HS Wellbutrin Xl 24 HR (Bupropion HCl) 300 Mg Tab 150 Mg PO BID Xanax (Alprazolam) 2 Mg Tab 2 Mg PO QID Adderall (Amphetamine-Dextroamphetamine) 30 Mg Tab 30 Mg PO BID Avoid late evening doses. Space doses at least 4 to 6 hours if more than once/day dosing. Allergies: Coded Allergies: penicillin G (Verified Allergy, Mild, rash, 01/30/18) patient has taken Keflex in the past without any problem Family History Mother with diabetes mellitus Social History Looks approximately a half a pack per day. Denies alcohol use. Uses heroin, cocaine both orally and IV. Physical Exam Vital Signs Vital Signs Date Time Temp Pulse Resp B/P (MAP) Pulse Ox O2 Delivery O2 Flow Rate FiO2 02/23/18 01:26 16 02/23/18 01:00 97.9 76 16 92/52 (65) 98 Room Air 02/23/18 00:00 88 16 94/58 (70) 99 Room Air 02/22/18 23:00 92 16 103/62 (76) 98 Room Air 02/22/18 22:30 16 02/22/18 22:28 100.1 02/22/18 15:33 98.0 95 16 111/65 (80) 100 Physical Exam GENERAL: Cachectic, female sitting up in bed SKIN: Erythema and warmth of the left lower extremity from ankle to knee. Exquisitely tender to palpation. Pulses intact. HEAD: Atraumatic. Normocephalic. No temporal or scalp tenderness. EYES: Pupils equal round and reactive. Extraocular motions intact. No scleral icterus. No injection or drainage. ENT: Nose without bleeding, purulent drainage or septal hematoma. Throat without erythema, tonsillar hypertrophy or exudate. Uvula midline. Airway patent. Poor dentition. NECK: Trachea midline. No JVD or lymphadenopathy. Supple, nontender, no meningeal signs. CARDIOVASCULAR: 2/6 murmur. RESPIRATORY: Clear to auscultation. Breath sounds equal bilaterally. No wheezes , rales, or rhonchi. GASTROINTESTINAL: Abdomen soft, non-tender, nondistended. No hepato-splenomegaly , or palpable masses. No guarding. MUSCULOSKELETAL: Left lower extremity as above. NEUROLOGICAL: Awake and alert. Cranial nerves II through XII intact. Motor and sensory grossly within normal limits. Normal speech. Laboratory Laboratory Tests Test 02/22/18 20:20 02/23/18 00:50 02/23/18 01:00 White Blood Count 7.2 Red Blood Count 3.87 Hemoglobin 11.2 Hematocrit 33.7 Mean Corpuscular Volume 87.1 Mean Corpuscular Hemoglobin 29.0 Mean Corpuscular Hemoglobin Concent 33.2 Red Cell Distribution Width 18.3 Platelet Count 241 Mean Platelet Volume 7.6 Neutrophils (%) (Auto) 43.4 Lymphocytes (%) (Auto) 42.1 Monocytes (%) (Auto) 12.4 Eosinophils (%) (Auto) 1.8 Basophils (%) (Auto) 0.3 Neutrophils # (Auto) 3.1 Lymphocytes # (Auto) 3.0 Monocytes # (Auto) 0.9 Eosinophils # (Auto) 0.1 Basophils # (Auto) 0.0 CBC Comment DIFF FINAL Differential Comment Erythrocyte Sedimentation Rate 60 Prothrombin Time 10.6 Prothromb Time International Ratio 1.0 Activated Partial Thromboplast Time 29.5 Blood Urea Nitrogen 13 Creatinine 0.88 Random Glucose 61 Total Protein 7.7 Albumin 3.0 Calcium Level 8.6 Alkaline Phosphatase 79 Aspartate Amino Transf (AST/SGOT) 18 Alanine Aminotransferase (ALT/SGPT) 19 Total Bilirubin 0.3 Sodium Level 139 Potassium Level 3.7 Chloride Level 103 Carbon Dioxide Level 27.0 Anion Gap 9 Estimat Glomerular Filtration Rate 70 Lactic Acid Level 2.6 0.7 C-Reactive Protein 0.80 Urine Opiates Screen POS Urine Barbiturates Screen NEG Urine Amphetamines Screen POS Urine Benzodiazepines Screen POS Urine Cocaine Screen POS Urine Cannabinoids Screen NEG Date/Time Source Procedure Growth Status 02/22/18 20:20 Blood Peripheral Aerobic Blood Culture Pending Received 02/22/18 20:20 Blood Peripheral Anaerobic Blood Culture Pending Received Result Diagram: 02/22/18201902/22/182019 Caprini VTE Risk Assessment Caprini VTE Risk Assessment: Mod/High Risk (score >= 2) Caprini Risk Assessment Model Point Value = 1 Point Value = 2 Point Value = 3 Point Value = 5 Age 41-60 Minor surgery BMI > 25 kg/m2 Swollen legs Varicose veins or History of unexplained or recurrent spontaneous Oral contraceptives or hormone replacement Sepsis (< 1 month) Serious lung disease, including pneumonia (< 1 month) Abnormal pulmonary function Acute myocardial infarction Congestive heart failure (< 1 month) History of inflammatory bowel disease Medical patient at bed rest Age 61-74 Arthroscopic surgery Major open surgery (> 45 min) Laparoscopic surgery (> 45 min) Malignancy Confined to bed (> 72 hours) Immobilizing plaster cast Central venous access Age >= 75 History of VTE Family history of VTE Factor V Leiden Prothrombin [id number] Lupus anticoagulant Anticardiolipin antibodies Elevated serum homocysteine Heparin-induced thrombocytopenia Other congenital or acquired thrombophilia Stroke (< 1 month) Elective arthroplasty Hip, pelvis, or leg fracture Acute spinal cord injury (< 1 month) Prophylaxis Regimen Total Risk Factor Score Risk Level Prophylaxis Regimen 0-1 Low Early ambulation 2 Moderate Order ONE of the following: *Sequential Compression Device (SCD) *Heparin 5000 units SQ BID 3-4 Higher Order ONE of the following medications: *Heparin 5000 units SQ TID *Enoxaparin/Lovenox 40 mg SQ daily (WT < 150 kg, CrCl > 30 mL/min) *Enoxaparin/Lovenox 30 mg SQ daily (WT < 150 kg, CrCl > 10-29 mL/min) *Enoxaparin/Lovenox 30 mg SQ BID (WT < 150 kg, CrCl > 30 mL/min) AND/OR *Sequential Compression Device (SCD) 5 or more Highest Order ONE of the following medications: *Heparin 5000 units SQ TID (Preferred with Epidurals) *Enoxaparin/Lovenox 40 mg SQ daily (WT < 150 kg, CrCl > 30 mL/min) *Enoxaparin/Lovenox 30 mg SQ daily (WT < 150 kg, CrCl > 10-29 mL/min) *Enoxaparin/Lovenox 30 mg SQ BID (WT < 150 kg, CrCl > 30 mL/min) AND *Sequential Compression Device (SCD) Assessment and Plan Assessment and Plan Assessment/plan: 1. Left lower extremity cellulitis MRI of the left lower extremity shows 3 mm area of fluid noted with a tract to the skin Podiatry consulted, appreciate recommendations Vancomycin/Zosyn 2. Left lower extremity DVT Lower extremity ultrasound shows occlusive and nonocclusive thrombus in the superficial femoral vein, popliteal vein and peroneal veins Continue Eliquis 3. Depression/anxiety Continue Wellbutrin and Remeron 4. IV drug abuse Cessation counseling provided Blood cultures pending Recent echo on last admission showed an EF of 50-55%, pulmonary valve not well visualized FEN NPO Electrolytes: monitor and replete prn Leila Ng MD Feb 23, 2018 03:09
[2018-02-23] MEDS: PIPERACIL-TAZO 3.375 GM PREMIX 50 ML IV SCH ×4 (03:18→21:26)
[2018-02-23] MEDS: MORPHINE SULFATE 2 MG/ML SYRINGE IV PUSH PRN ×4 (08:33→22:50)
[2018-02-23] MEDS: SODIUM CHLORIDE 0.9% FLUSH 10 ML FLUSH IV FLUSH SCH ×2 (09:00→21:26)
[2018-02-23] MEDS: DOCUSATE SODIUM 50 MG/SENNA 8.6 MG TAB PO SCH ×2 (09:28→21:27)
[2018-02-23] MEDS: buPROPion HCL 150 MG SUSTAINED RELEASE TAB PO SCH ×2 (09:29→21:27)
[2018-02-23] MEDS: APIXABAN 5 MG TABLET PO SCH ×2 (09:29→21:27)
[2018-02-23] MEDS ORDERED: VANCOMYCIN 1,000 MG/NS 250 ML IV SCH ×2 (16:00)
--- NOTE | 2018-02-23 16:27 | HHI.PR ---
Addendum to Inpatient Note Addendum Reason: Additional Documentation Additional Information The patient complains of left leg pain, mostly on the left calf. Patient is awake alert oriented 3, clear lungs, abdomen is soft, nontender nondistended. Left lower extremity is swollen when compared to the right. Patient admitted with left lower extremity cellulitis on IV antibiotics. This seems to be improving. Patient also has a known DVT. Ultrasound of the left lower extremity shows an occlusive and nonocclusive thrombus in the superficial femoral vein, popliteal vein and peroneal veins. Continue pain control with [place]. Will consult infectious disease for antibiotic management. Suspect likely swelling and tenderness is likely due to DVT. Continue Eliquis. Recent has positive drug screen for opiates, amphetamines, benzos and cocaine. Patient initially stated that she lied before, she said that she had not used drugs but she did. Blood pressures in the lower side, I will give a 500 mL's normal saline bolus. Continue to monitor vital signs. Dalton Anthony MD Feb 23, 2018 16:27
[2018-02-23] MEDS: REMOVE OLD PATCH T-DERMAL SCH (17:00)
[2018-02-23] MEDS: NICOTINE 21 MG/24 HR PATCH T-DERMAL SCH (19:26)
[2018-02-23] MEDS ORDERED: MIRTAZAPINE ODT 30 MG TAB PO SCH (21:00)
--- NOTE | 2018-02-23 22:25 | PD.CONS ---
History of Present Illness Service Foot and Ankle Surgery/Podiatry Consult Requested By Reason for Consult Left leg cellulitis Primary Care Physician No Primary Care Physician Diagnoses: History of Present Illness Podiatry consulted for this 42-year-old female with past medical history of previous endocarditis, hepatitis C, panic disorder/anxiety, and IV/IM drug use left lower extremity cellulitis. Patient states she last injected about a week ago, states she did not inject into her leg. Patient states she was on a course of oral antibiotics and so she stopped the oral antibiotics her leg became red hot and swollen. Patient denies any nausea vomiting fevers or chills. She does state she spiked a fever when she went off oral antibiotics. Review of Systems Constitutional: DENIES: Fatigue, Fever Endocrine: DENIES: Heat/cold intolerance Eyes: DENIES: Blurred vision Ears, nose, mouth, throat: DENIES: Hearing loss Respiratory: DENIES: Cough, Wheezing Cardiovascular: DENIES: Chest pain, Palpitations Gastrointestinal: DENIES: Nausea, Vomiting Musculoskeletal: DENIES: Joint pain Neurologic: DENIES: Abnormal gait Psychiatric: DENIES: Anxiety Past Family Social History Allergies: Coded Allergies: penicillin G (Verified Allergy, Mild, rash, 01/30/18) patient has taken Keflex in the past without any problem Past Medical History As per HPI Active Ordered Medications Current Medications Medications (Trade) Dose Ordered Sig/Sherita Route Start Time Stop Time Status Last Admin Sodium Chloride 1,000 ml @ 100 mls/hr Q10H IV 02/23/18 00:57 02/23/18 21:27 (NS Flush) 2 ml UNSCH PRN IV FLUSH 02/23/18 01:00 (NS Flush) 2 ml BID IV FLUSH 02/23/18 09:00 02/23/18 21:26 (Tylenol) 650 mg Q4H PRN PO 02/23/18 01:00 (Zofran Inj) 4 mg Q6H PRN IVP 02/23/18 01:00 (Canon 5-325 Mg) 1 tab Q4H PRN PO 02/23/18 01:00 (Canon 7.5-325 Mg) 1 tab Q4H PRN PO 02/23/18 01:00 (Morphine Inj) 2 mg Q3H PRN IV PUSH 02/23/18 01:00 02/23/18 19:27 (Narcan Inj) 0.4 mg UNSCH PRN IV PUSH 02/23/18 01:00 (Candy-Colace) 1 tab BID PO 02/23/18 09:00 02/23/18 21:27 (Milk Of Magnesia Liq) 30 ml Q12H PRN PO 02/23/18 01:00 (Senokot) 17.2 mg Q12H PRN PO 02/23/18 01:00 (Dulcolax Supp) 10 mg DAILY PRN RECTAL 02/23/18 01:00 (Lactulose Liq) 30 ml DAILY PRN PO 02/23/18 01:00 Pharmacy Profile Note 0 ml @ 0 mls/hr UNSCH OTHER 02/23/18 01:00 Piperacillin Sod/ Tazobactam Sod 50 ml @ 100 mls/hr Q6H IV 02/23/18 03:00 02/23/18 21:26 (Eliquis) 5 mg BID PO 02/23/18 09:00 02/23/18 21:27 (Wellbutrin Sr) 150 mg BID PO 02/23/18 09:00 02/23/18 21:27 (Remeron Soltab Odt) 30 mg HS PO 02/23/18 21:00 02/23/18 21:27 Vancomycin HCl 1000 mg/Sodium Chloride 250 ml @ 250 mls/hr Q18H IV 02/23/18 16:00 02/23/18 19:28 Miscellaneous Information SPECIFIC LAB TO BE DRAWN:VANCOMY... ONCE ONCE .XX 02/25/18 03:45 02/25/18 03:46 (Habitrol 21 Mg Patch.24 Hr) 1 patch DAILY T-DERMAL 02/23/18 17:00 02/23/18 19:26 Miscellaneous Information 1 DAILY T-DERMAL 02/23/18 17:00 02/23/18 17:00 Physical Exam Vital Signs Vital Signs Date Time Temp Pulse Resp B/P (MAP) Pulse Ox O2 Delivery O2 Flow Rate FiO2 02/23/18 21:10 98.0 87 16 90/52 (65) 98 02/23/18 19:32 16 02/23/18 15:38 97.4 79 18 100/55 (70) 99 02/23/18 11:50 98.0 56 18 93/54 (67) 100 02/23/18 07:51 97.4 78 18 110/69 (83) 98 02/23/18 04:50 98.2 59 18 95/62 (73) 99 02/23/18 03:19 02/23/18 03:03 97.2 75 18 93/52 (66) 100 02/23/18 01:26 16 02/23/18 01:00 97.9 76 16 92/52 (65) 98 Room Air 02/23/18 00:00 88 16 94/58 (70) 99 Room Air 02/22/18 23:00 92 16 103/62 (76) 98 Room Air 02/22/18 22:30 16 02/22/18 22:28 100.1 Physical Exam GENERAL: This is a well-nourished, well-developed patient, in no apparent distress. SKIN: Eschar noted to left medial leg measuring less than 1.0cm x 1.0cm. HEAD: Atraumatic. EYES: Pupils equal round and reactive. ENT: Airway patent. NECK: Trachea midline. RESPIRATORY: Nonlabored breathing. MUSCULOSKELETAL:. Negative Homans sign bilaterally. NEUROLOGICAL: Awake and alert. Normal speech. Lower extremity physical exam: Vascular: Dorsalis pedis palpable, posterior tibial palpable. Capillary refill time within normal limits to digits 5 bilateral foot. Edema present left foot and leg Neuro: Gross sensation intact to bilateral lower extremity. Pinpoint sensation intact. No hyperalgesia noted to bilateral lower extremity Dermatology: Normal temperature and turgor to bilateral lower extremity. No ascending cellulitis noted, no erythema noted. Dry scab noted to left medial leg. Musculoskeletal: No tenderness to palpation noted to left lower extremity. Laboratory Laboratory Tests Test 02/23/18 00:50 02/23/18 01:00 Lactic Acid Level 0.7 Urine Opiates Screen POS Urine Barbiturates Screen NEG Urine Amphetamines Screen POS Urine Benzodiazepines Screen POS Urine Cocaine Screen POS Urine Cannabinoids Screen NEG Date/Time Source Procedure Growth Status 02/22/18 20:20 Blood Peripheral Aerobic Blood Culture - Preliminary NO GROWTH IN 1 DAY Resulted 02/22/18 20:20 Blood Peripheral Anaerobic Blood Culture - Preliminary NO GROWTH IN 1 DAY Resulted Result Diagram: 02/22/18201902/22/182019 Imaging Last Impressions Lower Extremity Ultrasound 02/22/18 0000 Signed Impressions: Service Date/Time: Thursday, February 22, 2018 19:10 - CONCLUSION: Occlusive and nonocclusive thrombus in the superficial femoral vein, popliteal vein and peroneal veins. Pedro Luis eDvine MD Lower Extremity MRI 02/22/18 0000 Signed Impressions: Service Date/Time: Thursday, February 22, 2018 20:45 - CONCLUSION: The previously noted medial calf abscess has significantly decreased in size with only a tiny 3 mm area of fluid noted with tract to the skin. Pedro Luis Devine MD Assessment and Plan Assessment and Plan 42 year old female with left lower leg resolved/resolving cellulitis Patient examined and evaluated with all questions answered States she removed her own sutures from leg incision and drainage performed last admission She is requesting Canon States when walking she has swelling to left LE Recommended compression stockings Cellulitis resolved/resolving Ok to DC on oral antibiotics per podiatry Krys Lee DPM Feb 23, 2018 22:25
[2018-02-24 00:42] VITALS: BP 96/55; PULSE 80; RESP 16; TEMP 98.5; O2SAT 99
[2018-02-24] MEDS: ACETAMINOPHEN/HYDROcodone 325 MG/7.5 MG TAB PO PRN ×3 (02:27→10:52)
[2018-02-24] MEDS: PIPERACIL-TAZO 3.375 GM PREMIX 50 ML IV SCH ×2 (03:51→09:22)
[2018-02-24 04:20] VITALS: BP 93/54; PULSE 87; RESP 16; O2SAT 96
[2018-02-24 07:28] LABS: AUTOMATED NEUTROPHIL # 2.9 TH/MM3 (1.8-7.7); BASOPHIL % 0.4 % (0.0-2.0); EOSINOPHIL # 0.1 TH/MM3 (0-0.4); EOSINOPHIL % 1.1 % (0.0-4.0); HEMOGLOBIN 11.1 GM/DL (11.6-15.3); LYMPH % 24.1 % (9.0-44.0); LYMPHOCYTE # 1.1 TH/MM3 (1.0-4.8); MEAN CELL VOLUME 87.4 FL (80.0-100.0); MEAN CORPUSCULAR HEMOGLOBIN 29.3 PG (27.0-34.0); MEAN CORPUSCULAR HGB CONC 33.6 % (32.0-36.0); MEAN PLATELET VOLUME 7.7 FL (7.0-11.0); MONO % 12.6 % (0.0-8.0); MONOCYTE # 0.6 TH/MM3 (0-0.9); NEUT % 61.8 % (16.0-70.0); PLATELET COUNT 193 TH/MM3 (150-450); RED BLOOD COUNT 3.78 MIL/MM3 (4.00-5.30); RED CELL DISTRIBUTION WIDTH 18.4 % (11.6-17.2); WHITE BLOOD COUNT 4.8 TH/MM3 (4.0-11.0)
[2018-02-24 07:41] LABS: BICARBONATE 28.5 MEQ/L (21.0-32.0); CALCIUM 8.3 MG/DL (8.5-10.1); CREATININE 0.81 MG/DL (0.50-1.00)
[2018-02-24 07:55] VITALS: BP 98/56; PULSE 77; RESP 18; TEMP 99.3; O2SAT 98
[2018-02-24] MEDS: buPROPion HCL 150 MG SUSTAINED RELEASE TAB PO SCH (08:57)
[2018-02-24] MEDS: DOCUSATE SODIUM 50 MG/SENNA 8.6 MG TAB PO SCH (08:57)
[2018-02-24] MEDS: SODIUM CHLORIDE 0.9% FLUSH 10 ML FLUSH IV FLUSH SCH (08:58)
[2018-02-24] MEDS: APIXABAN 5 MG TABLET PO SCH (08:58)
[2018-02-24] MEDS: REMOVE OLD PATCH T-DERMAL SCH (08:59)
[2018-02-24] MEDS: NICOTINE 21 MG/24 HR PATCH T-DERMAL SCH (08:59)
--- NOTE | 2018-02-24 09:34 | PD.PN.STU ---
Subjective Remarks 42 year old female with past medical history of previous endocarditis, hep c, panic/anxiety disorder, and IV/IM drug use status 2 days on observation for lower left extremity cellulitis. Patient reports feeling much better today. Pain is better and she is able to put some weight on her left leg. Her swelling and erythema are resolving. Denies any shortness of breath or chest pain. Objective Vitals Vital Signs Date Time Temp Pulse Resp B/P (MAP) Pulse Ox O2 Delivery O2 Flow Rate FiO2 02/24/18 07:55 99.3 77 18 98/56 (70) 98 02/24/18 07:42 20 02/24/18 04:20 87 16 93/54 (67) 96 02/24/18 00:42 98.5 80 16 96/55 (69) 99 02/23/18 22:55 18 02/23/18 21:10 98.0 87 16 90/52 (65) 98 02/23/18 15:38 97.4 79 18 100/55 (70) 99 02/23/18 11:50 98.0 56 18 93/54 (67) 100 I/O 02/23/18 02/23/18 02/23/18 02/24/18 02/24/18 02/24/18 07:00 15:00 23:00 07:00 15:00 23:00 Intake Total 1250 ml 360 ml Balance 1250 ml 360 ml Intake Oral 360 ml IV Total 1250 ml # Voids 5 Result Diagram: 02/24/1833 02/24/18 0633 Objective Remarks general: No acute distress Skin: eschar and scarring noted in left medial leg. left lower leg is warm to the touch compared to the right leg. Non-erythematous. Resp: Clear bilaterally throughout; no rhonchi, wheezes or rales Cardio: Normal Rate and rhythm, systolic murmur 2/6 best heard left lower sternal border. MSK: left lower leg non-tender to to palpation. No erythema. Range of motion patent. A/P Assessment and Plan left leg Cellulitis: resolving. Cleared to transition to PO antibiotics per Podiatry. Pending infectious disease consult for recommended abx. left leg DVT: Continue on Eliquis. Ghazal Skinner M3 Feb 24, 2018 09:34
[2018-02-24] MEDS ORDERED: VANCOMYCIN 1,000 MG/NS 250 ML IV SCH ×2 (10:00)
--- NOTE | 2018-02-24 10:30 | PD.CONS ---
History of Present Illness Service Infectious Disease Consult Requested By Dr Hardin Reason for Consult Evaluate patient with Hx abscess LLE, and has DVT Primary Care Physician No Primary Care Physician Diagnoses: History of Present Illness Patient seen and examined. Records reviewed. Patient is a 42-year-old female, presented to the hospital complaining of swelling, pain on her left lower extremity. Patient has been diagnosed to have DVT in her left lower extremity last year back in August 2017. She has known IV drug use, and has been injecting in her lower extremity. She had septic phlebitis in that left lower extremity with group A strep sepsis. She was treated with IV Rocephin but was noncompliant, and ended up completing her treatment with oral Zyvox. She was admitted to the hospital back in January with an abscess in her left lower extremity that was IND. Culture grew MRSA and strep. She was discharged on Keflex and Bactrim and at that time it did show the presence of the DVT in her left lower extremity. She was given Eliquis, but apparently ran out of Eliquis. She has been off the treatment for DVT for about a week when she started having problem with increasing swelling, pain, and redness. She has been having problem putting weight on it. There was no fever or chills. She presented to the hospital for further evaluation and treatment. Infectious disease consultation has been requested to evaluate the patient. She is currently on Vanco and IV Zosyn. Patient continues to use IV drug use, but claims the last time she injected was about a week ago. Review of Systems Constitutional: DENIES: Fever, Chills Eyes: DENIES: Eye pain Ears, nose, mouth, throat: DENIES: Nasal discharge, Oral lesions, Throat pain, Running Nose, Sinus Pain Respiratory: DENIES: Cough, Shortness of breath Cardiovascular: COMPLAINS OF: Lower Extremity Edema, DENIES: Chest pain, Palpitations, Syncope Gastrointestinal: DENIES: Abdominal pain, Diarrhea, Nausea, Vomiting, Difficulty Swallowing Genitourinary: DENIES: Urinary frequency, Urgency, Hematuria, Dysuria Musculoskeletal: DENIES: Joint pain, Joint Swelling Integumentary: DENIES: Pruritus, Rash Neurologic: DENIES: Localized weakness Psychiatric: DENIES: Hallucinations Past Family Social History Allergies: Coded Allergies: penicillin G (Verified Allergy, Mild, rash, 01/30/18) patient has taken Keflex in the past without any problem Past Medical History IVDA Hep C Depression Hx septic phlebitis LLE with GAS sepsis Past Surgical History section Multiple repair of lacerations Infections and abscesses in her upper extremity from previous IV drug use LLE abscess with MRSA and Strep last January 2018, had I and D Active Ordered Medications Current Medications Medications (Trade) Dose Ordered Sig/Sherita Route Start Time Stop Time Status Last Admin Sodium Chloride 1,000 ml @ 100 mls/hr Q10H IV 02/23/18 00:57 02/23/18 21:27 (NS Flush) 2 ml UNSCH PRN IV FLUSH 02/23/18 01:00 (NS Flush) 2 ml BID IV FLUSH 02/23/18 09:00 02/23/18 21:26 (Tylenol) 650 mg Q4H PRN PO 02/23/18 01:00 (Zofran Inj) 4 mg Q6H PRN IVP 02/23/18 01:00 ([place] 5-325 Mg) 1 tab Q4H PRN PO 02/23/18 01:00 ([place] 7.5-325 Mg) 1 tab Q4H PRN PO 02/23/18 01:00 02/24/18 06:42 (Morphine Inj) 2 mg Q3H PRN IV PUSH 02/23/18 01:00 02/23/18 22:50 (Narcan Inj) 0.4 mg UNSCH PRN IV PUSH 02/23/18 01:00 (Candy-Colace) 1 tab BID PO 02/23/18 09:00 02/24/18 08:57 (Milk Of Magnesia Liq) 30 ml Q12H PRN PO 02/23/18 01:00 (Senokot) 17.2 mg Q12H PRN PO 02/23/18 01:00 (Dulcolax Supp) 10 mg DAILY PRN RECTAL 02/23/18 01:00 (Lactulose Liq) 30 ml DAILY PRN PO 02/23/18 01:00 Pharmacy Profile Note 0 ml @ 0 mls/hr UNSCH OTHER 02/23/18 01:00 Piperacillin Sod/ Tazobactam Sod 50 ml @ 100 mls/hr Q6H IV 02/23/18 03:00 02/24/18 09:22 (Eliquis) 5 mg BID PO 02/23/18 09:00 02/24/18 08:58 (Wellbutrin Sr) 150 mg BID PO 02/23/18 09:00 02/24/18 08:57 (Remeron Soltab Odt) 30 mg HS PO 02/23/18 21:00 02/23/18 21:27 Miscellaneous Information SPECIFIC LAB TO BE DRAWN:VANCOMY... ONCE ONCE .XX 02/25/18 09:45 02/25/18 09:46 (Habitrol 21 Mg Patch.24 Hr) 1 patch DAILY T-DERMAL 02/23/18 17:00 02/24/18 08:59 Miscellaneous Information 1 DAILY T-DERMAL 02/23/18 17:00 02/24/18 08:59 Vancomycin HCl 1000 mg/Sodium Chloride 250 ml @ 250 mls/hr Q12H IV 02/24/18 10:00 Family History Non-contributory Social History Tobacco use: 1 PPD Alcohol use: Denies Illicit drug use: DAVID Has a boyfriend Had 2 children that she gave up for adoption Physical Exam Vital Signs Vital Signs Date Time Temp Pulse Resp B/P (MAP) Pulse Ox O2 Delivery O2 Flow Rate FiO2 02/24/18 07:55 99.3 77 18 98/56 (70) 98 02/24/18 07:42 20 02/24/18 04:20 87 16 93/54 (67) 96 02/24/18 00:42 98.5 80 16 96/55 (69) 99 02/23/18 22:55 18 02/23/18 21:10 98.0 87 16 90/52 (65) 98 02/23/18 15:38 97.4 79 18 100/55 (70) 99 02/23/18 11:50 98.0 56 18 93/54 (67) 100 Physical Exam GENERAL: Patient is a well-nourished, well-developed female, awake and alert , not in respiratory distress. SKIN: Warm and dry. No generalized rash, no ecchymoses and no evidence of embolic lesions. HEAD: Atraumatic. Normocephalic. No temporal wasting, or tenderness. EYES: [place] conjunctiva. No petechia or hemorrhage. Pupils equal, round and reactive to light. Extraocular movements full and intact. No scleral icterus. No injection or drainage. EARS, NOSE AND THROAT: Nose without bleeding or purulent nasal discharge. No sinus tenderness. Mucous membranes pink and moist. No oral lesions noted. No exudate. No oral thrush. NECK: Trachea midline. Supple and not tender, no meningeal signs CARDIOVASCULAR: Regular rate and rhythm. No murmurs, rubs or gallops heard RESPIRATORY: Clear to auscultation. Breath sounds equal bilaterally. No rales , wheezing or rhonchi ABDOMEN: Soft, non-tender, nondistended. Bowel sounds present and normoactive. No guarding. No rebound. No organomegaly. EXTREMITIES: No clubbing, cyanosis. LLE larger than RLE. Has palpable cord in her L calf, not tender, and almost resolved redness. Multiple scars in UE and LE. No joint effusion, has good ROM. Well perfused and warm. NEUROLOGICAL: Awake and alert. Cranial nerves grossly intact. Motor grossly within normal limits. PSYCHIATRIC: Normal affect, calm and cooperative. LINE: No evidence of infection Laboratory Laboratory Tests Test 02/24/18 06:33 White Blood Count 4.8 Red Blood Count 3.78 Hemoglobin 11.1 Hematocrit 33.0 Mean Corpuscular Volume 87.4 Mean Corpuscular Hemoglobin 29.3 Mean Corpuscular Hemoglobin Concent 33.6 Red Cell Distribution Width 18.4 Platelet Count 193 Mean Platelet Volume 7.7 Neutrophils (%) (Auto) 61.8 Lymphocytes (%) (Auto) 24.1 Monocytes (%) (Auto) 12.6 Eosinophils (%) (Auto) 1.1 Basophils (%) (Auto) 0.4 Neutrophils # (Auto) 2.9 Lymphocytes # (Auto) 1.1 Monocytes # (Auto) 0.6 Eosinophils # (Auto) 0.1 Basophils # (Auto) 0.0 CBC Comment DIFF FINAL Differential Comment Blood Urea Nitrogen 9 Creatinine 0.81 Random Glucose 69 Calcium Level 8.3 Sodium Level 142 Potassium Level 4.1 Chloride Level 107 Carbon Dioxide Level 28.5 Anion Gap 7 Estimat Glomerular Filtration Rate 78 Date/Time Source Procedure Growth Status 02/22/18 20:20 Blood Peripheral Aerobic Blood Culture - Preliminary NO GROWTH IN 1 DAY Resulted 02/22/18 20:20 Blood Peripheral Anaerobic Blood Culture - Preliminary NO GROWTH IN 1 DAY Resulted Result Diagram: 02/24/18 0633 02/24/18 0633 Imaging RADIOLOGY STUDIES/FILMS REVIEWED Lower Extremity Ultrasound 02/22/18 0000 Signed Impressions: Service Date/Time: Thursday, February 22, 2018 19:10 - CONCLUSION: Occlusive and nonocclusive thrombus in the superficial femoral vein, popliteal vein and peroneal veins. Pedro Luis Devine MD Lower Extremity MRI 02/22/18 0000 Signed Impressions: Service Date/Time: Thursday, February 22, 2018 20:45 - CONCLUSION: The previously noted medial calf abscess has significantly decreased in size with only a tiny 3 mm area of fluid noted with tract to the skin. Pedro Luis Devine MD Assessment and Plan Assessment and Plan IMPRESSION DVT LLE, not been on consistent treatment due to cost and compliance S/P I and D abscess LLE, minimal cellulitis Known IVDU RECOMMENDATION Rx DVT Try SEVEN stockings to help with swelling when she is ambulatory Clinda 300 TID x 7 days She is stable for D/C from ID standpoint Thank you for this consultation Discussed Condition With D/W Dr Hardin (HEPAS) Parisa Badillo MD Feb 24, 2018 10:30
[2018-02-24 11:28] VITALS: BP 107/57; PULSE 81; RESP 18; TEMP 98.2; O2SAT 99
[2018-02-24 11:52] VITALS: RESP 20
[2018-02-24] MEDS ORDERED: CLINDAMYCIN 150 MG CAP PO SCH (13:00)
[2018-02-24] MEDS ORDERED: CLIN150 PO (14:02)
[2018-02-24] MEDS ORDERED: XARE20TA PO (14:06)
[2018-02-24] MEDS ORDERED: XARE15TA PO (14:06)
--- NOTE | 2018-02-24 14:07 | HHI.DCPOC ---
Discharge Care Plan Diagnosis: (1) Left leg DVT (2) IV drug abuse (3) Left leg cellulitis Goals to Promote Your Health * To prevent worsening of your condition and complications * To maintain your health at the optimal level Directions to Meet Your Goals Take your medications as prescribed Follow your dietary instruction Follow activity as directed Keep your appointments as scheduled Take your immunizations and boosters as scheduled If your symptoms worsen call your PCP, if no PCP go to Urgent Care Center or Emergency Room Smoking is Dangerous to Your Health. Avoid second hand smoke Call the 24-hour hour crisis hotline for domestic abuse at Daltno Anthony MD Feb 24, 2018 14:07
--- NOTE | 2018-02-24 14:15 | HHI.DS ---
Discharge Summary Admission Date Feb 22, 2018 at 22:48 Discharge Date: Feb 24, 2018 Admitting Diagnosis Left leg cellulitis, chronic left leg DVT, IVDU (1) Left leg cellulitis ICD Code: L03.116 - Cellulitis of left lower limb Diagnosis: Principal Status: Acute (2) IV drug abuse ICD Code: F19.10 - Other psychoactive substance abuse, uncomplicated Diagnosis: Secondary Status: Chronic (3) Left leg DVT ICD Code: I82.402 - Acute embolism and thrombosis of unspecified deep veins of left lower extremity Diagnosis: Principal Status: Acute Procedures None Brief History - From Admission 42-year-old female with a past medical history of previous endocarditis, hepatitis C, panic disorder/anxiety, and IV/IM drug abuse presents to the emergency department for evaluation of pain and swelling in her left lower extremity. The patient was discharged on 01/31/18 where she was treated for left lower extremity DVT and abscess. She was discharged on cephalexin, Bactrim and Eliquis which she states she was compliant with. The patient reports that her symptoms were improved for approximately 2-3 days following her discharge and then her left lower extremity again became red, warm and painful. She returns hospital for evaluation of these symptoms. She denies any subjective fever/chills. She reports her last IV drug use was approximately 1 week ago. Patient denies any chest pain or shortness of breath. No abdominal pain. No nausea/vomiting/diarrhea. CBC/BMP: 02/24/18 0633 02/24/18 0633 Significant Findings Laboratory Tests Test 02/22/18 20:20 02/23/18 00:50 02/23/18 01:00 02/24/18 06:33 Red Blood Count 3.87 MIL/MM3 (4.00-5.30) 3.78 MIL/MM3 (4.00-5.30) Hemoglobin 11.2 GM/DL (11.6-15.3) 11.1 GM/DL (11.6-15.3) Hematocrit 33.7 % (35.0-46.0) 33.0 % (35.0-46.0) Red Cell Distribution Width 18.3 % (11.6-17.2) 18.4 % (11.6-17.2) Monocytes (%) (Auto) 12.4 % (0.0-8.0) 12.6 % (0.0-8.0) Erythrocyte Sedimentation Rate 60 mm/hr (0-20) Random Glucose 61 MG/DL (74-106) 69 MG/DL (74-106) Albumin 3.0 GM/DL (3.4-5.0) Estimat Glomerular Filtration Rate 70 ML/MIN (>89) 78 ML/MIN (>89) Lactic Acid Level 2.6 mmol/L (0.4-2.0) C-Reactive Protein 0.80 MG/DL (0.00-0.30) Urine Opiates Screen POS (NEG) Urine Amphetamines Screen POS (NEG) Urine Benzodiazepines Screen POS (NEG) Urine Cocaine Screen POS (NEG) Calcium Level 8.3 MG/DL (8.5-10.1) Imaging Last Impressions Lower Extremity Ultrasound 02/22/18 0000 Signed Impressions: Service Date/Time: Thursday, February 22, 2018 19:10 - CONCLUSION: Occlusive and nonocclusive thrombus in the superficial femoral vein, popliteal vein and peroneal veins. Pedro Luis Devine MD Lower Extremity MRI 02/22/18 0000 Signed Impressions: Service Date/Time: Thursday, February 22, 2018 20:45 - CONCLUSION: The previously noted medial calf abscess has significantly decreased in size with only a tiny 3 mm area of fluid noted with tract to the skin. Pedro Luis Devine MD PE at Discharge AAOx3 LLE without erythema, tenderness and swelling much improved. Lungs clear to auscultation bilaterally S1-S2 present with regular rate and rhythm, soft systolic 1/6 murmur auscultated. Abdomen soft, nontender nondistended. Pt update on day of discharge Patient's leg is less swollen, patient denies chest pain or shortness of breath , afebrile. Hospital Course The patient was placed in the observation unit for a presumptive diagnosis of left lower extremity cellulitis and DVT. Patient's Eliquis was continued and the patient was placed on IV antibiotics. Patient was on IV vancomycin and IV cefepime. As per initial assessment it seems that the patient's left leg was very erythematous and tender to palpation. The patient had been recently discharged which was treated with a left lower extremity DVT and abscess. Podiatry was consulted who cleared the patient to be discharged. ID was consulted, recommended oral doxycycline 300 mg p.o. 7 days and clear the patient for discharge. SEVEN stockings were also recommended for the left lower extremity once patient ambulatory. The patient states that she had only 2 weeks worth of Eliquis at home. However she states that she could not afford Eliquis after that and that the coupons that were provided by case management on her prior hospitalization where . Discussed the case with dependency case manager who stated that they had several coupons for Xarelto and afterwards the patient would need to subscribe at the pharmacy for Xarelto to be provided after 6 months. This was explained in detail to the patient. Patient was told that she would need to be on Xarelto from 3-6 months and that [facility]. Pt Condition on Discharge: Stable Discharge Disposition: Discharge Home Discharge Time: > 30 minutes Discharge Instructions DIET: Follow Instructions for: As Tolerated, No Restrictions Activities you can perform: Weight Bearing as Drew Follow up Referrals: PCP Follow-up - 2 Weeks with [facility] New Medications: Rivaroxaban (Xarelto) 15 Mg Tab 15 MG PO Q12HR for Blood Clot Prevention for 21 Days, TAB 0 Refills Start taking on 02/25/2018 Rivaroxaban (Xarelto) 20 Mg Tab 20 MG PO DAILY for Blood Clot Prevention, #31 TAB 0 Refills Start taking on 03/18/18 Clindamycin (Cleocin) 150 Mg Cap 300 MG PO TID for Infection, #21 CAP Continued Medications: Amphetamine-Dextroamphetamine (Adderall) 30 Mg Tab 30 MG PO BID for Hyperactivity Control, #60 TAB 0 Refills Avoid late evening doses. Space doses at least 4 to 6 hours if more than once/day dosing. Bupropion HCl ER 24 HR (Wellbutrin Xl 24 HR) 300 Mg Tab 150 MG PO BID for Control Depression, TAB 0 Refills Mirtazapine (Remeron) 30 Mg Tab 30 MG PO HS for Depression Control, #30 TAB 0 Refills Discontinued Medications: Alprazolam (Xanax) 2 Mg Tab 2 MG PO QID, TAB 0 Refills Apixaban (Eliquis) 5 Mg Tab 5 MG PO BID for Blood Clot Prevention, #60 TAB 11 Refills Cephalexin (Keflex) 500 Mg Capsule 500 MG PO QID for Infection, #40 CAP 0 Refills Sulfamethoxazole-Trimethoprim (Bactrim DS) 800-160 Mg Tab 1 TAB PO BID for Infection, #20 TAB 0 Refills Dalton Anthony MD Feb 24, 2018 14:15
[2018-02-24] MEDS ORDERED: MEDICAL COMPRES1 MIS (14:17)
[2018-02-25] MEDS ORDERED: PHARMACY ORDERED LAB ONE (09:45)
== END 2018-02-24 17:37 | disposition home or self-care (01) ==
LOC: NEPD 14:45 → NEDA 22:48 → NEPGCP 02-23 02:39
PROVIDERS: ADMIT Hospitalist; ATTEND Hospitalist
DX: L03.116 Cellulitis of left lower limb (principal); I74.3 Embolism and thrombosis of arteries of the lower extremities; I82.432 Acute embolism and thrombosis of left popliteal vein; I82.890 Acute embolism and thrombosis of other specified veins; B19.20 Unspecified viral hepatitis C without hepatic coma; F41.8 Other specified anxiety disorders; F41.0 Panic disorder [episodic paroxysmal anxiety]; M79.7 Fibromyalgia; F11.90 Opioid use, unspecified, uncomplicated; F14.90 Cocaine use, unspecified, uncomplicated; M19.90 Unspecified osteoarthritis, unspecified site; F17.200 Nicotine dependence, unspecified, uncomplicated; Z79.01 Long term (current) use of anticoagulants; Z79.899 Other long term (current) drug therapy
CPT/HCPCS: 73720; 80048; 80053; 80307; 83605; 84703; 85025; 85610; 85652; 85730; 86140; 87040; 93971; 96361; 96365; 96366; 96375; 96376; 99285; A9579; G0378; J2270; J2543; J3370; J7030; J7050

== ENCOUNTER 2018-03-22 15:58 | Emergency (ER) | payer SELFPAY ==
[2018-03-22] MEDS ORDERED: SODIUM CHLORIDE 0.9% FLUSH 10 ML FLUSH IV FLUSH (19:15)
[2018-03-22] MEDS: oxyCODONE/ACETAMINOPHEN 5 MG/325 MG TAB PO (20:07)
[2018-03-22 20:18] LABS: BASOPHIL % 0.4 % (0.0-2.0); EOSINOPHIL # 0.1 TH/MM3 (0-0.4); EOSINOPHIL % 3.1 % (0.0-4.0); HEMATOCRIT 37.6 % (35.0-46.0); HEMO FLAGS DIFF FINAL; HEMOGLOBIN 12.7 GM/DL (11.6-15.3); LYMPH % 40.1 % (9.0-44.0); LYMPHOCYTE # 1.7 TH/MM3 (1.0-4.8); MEAN CELL VOLUME 86.8 FL (80.0-100.0); MEAN CORPUSCULAR HEMOGLOBIN 29.3 PG (27.0-34.0); MEAN CORPUSCULAR HGB CONC 33.8 % (32.0-36.0); MEAN PLATELET VOLUME 8.3 FL (7.0-11.0); MONOCYTE # 0.4 TH/MM3 (0-0.9); NEUT % 47.4 % (16.0-70.0); PLATELET COUNT 286 TH/MM3 (150-450); RED BLOOD COUNT 4.34 MIL/MM3 (4.00-5.30); RED CELL DISTRIBUTION WIDTH 16.8 % (11.6-17.2); WHITE BLOOD COUNT 4.3 TH/MM3 (4.0-11.0)
[2018-03-22 20:37] LABS: ALBUMIN 3.6 GM/DL (3.4-5.0); ANION GAP 7 MEQ/L (5-15); AST (GOT) 36 U/L (15-37); BICARBONATE 25.9 MEQ/L (21.0-32.0); BLOOD UREA NITROGEN 12 MG/DL (7-18); CALCIUM 9.1 MG/DL (8.5-10.1); CHLORIDE 103 MEQ/L (98-107); GLOMERULAR FILTRATION RATE 69 ML/MIN (>89); GLUCOSE,RANDOM 71 MG/DL (74-106); POTASSIUM 3.7 MEQ/L (3.5-5.1); SODIUM (NA) 136 MEQ/L (136-145)
[2018-03-22 20:38] LABS: ALT (GPT) 30 U/L (10-53); APTT (PATIENT) 28.9 SEC (24.3-30.1); PROTHROMBIN TIME - PATIENT 9.9 SEC (9.8-11.6)
[2018-03-22 20:40] LABS: ALKALINE PHOSPHATASE 104 U/L (45-117); TOTAL BILIRUBIN ADULT 0.4 MG/DL (0.2-1.0); TOTAL PROTEIN 8.8 GM/DL (6.4-8.2)
== END 2018-03-22 23:04 | disposition home or self-care (01) ==
LOC: NEPC 15:58
DX: L02.416 Cutaneous abscess of left lower limb (principal); F17.200 Nicotine dependence, unspecified, uncomplicated
CPT/HCPCS: 71046; 73502; 80053; 85025; 85610; 85730; 93970; 99284

== ENCOUNTER 2018-04-09 23:37 | Emergency (ER) | payer OTHER ==
[~2018-04-09] VITALS: Ht 167.6 cm; Wt 56.0 kg
[~2018-04-09 23:37] MED LIST changes: -APIX5TAB PO; -CEPH-460 PO; +MEDICAL COMPRES1 MIS; -XANA2TAB2 PO; +XARE20TA PO
[2018-04-09 23:47] VITALS: BP 101/62; PULSE 70; RESP 14; TEMP 97.9; O2SAT 97
[2018-04-09] MEDS ORDERED: ALPR.25 PO (23:55)
--- NOTE | 2018-04-10 00:28 | PD ---
HPI Chief Complaint: Fall Time Seen by Provider: 23:41 Travel History International Travel<30 days: No Contact w/Intl Traveler<30days: No Traveled to known affect area: No History of Present Illness HPI Patient is a 42-year-old female presented to the emergency department for medical clearance for law enforcement. Patient was sitting on a bench when she put her legs into her teacher because she was cold, she then laid on the bench. Subsequently she fell off of the bench hitting her head. Fall was unwitnessed , unknown loss of consciousness. Patient took Xanax at 1900, she then allegedly injected heroin around 2100. She has been in police custody for several hours. Fall occurred just prior to arrival. Patient appears altered and H&P is limited. PFSH Past Medical History Hx Anticoagulant Therapy: Yes ADD: Yes Arthritis: Yes Anxiety: Yes (PANIC ANXIETY DISORDER) Depression: Yes Cardiovascular Problems: Yes (hx of endocarditis per pt) Deep Vein Thrombosis: Yes Fibromyalgia: Yes Headaches: Yes Hepatitis: Yes (HEP C) Psychiatric: Yes (STATES SEES PSYCHIATRIST NO NAME GIVEN) Immunizations Current: Yes Seizures: Yes ?: Unknown : 3 Para: 2 Miscarriage: 1 : 0 Dilation and Curettage (D&C): Yes Past Surgical History Surgical History: No Previous Surgery Abdominal Surgery: No Body Medical Devices: CHIN IMPLANT Cardiac Surgery: No Section: Yes Endocrine Surgery: No Eye Surgery: No Genitourinary Surgery: No Gynecologic Surgery: Yes (LEFT FALLOPIAN TUBE REMOVED ECTOPIC ) Neurologic Surgery: No Oral Surgery: No Thoracic Surgery: No Other Surgery: Yes (NOSE) Social History Alcohol Use: No Tobacco Use: Yes (1/2 pack a day ) Substance Use: Yes (opiate use.) Allergies-Medications (Allergen,Severity, Reaction): Coded Allergies: penicillin G (Verified Allergy, Mild, rash, 03/22/18) patient has taken Keflex in the past without any problem Reported Meds & Prescriptions Reported Meds & Active Scripts Active Bactrim DS (Sulfamethoxazole-Trimethoprim) 800-160 Mg Tab 1 Tab PO BID Xarelto (Rivaroxaban) 20 Mg Tab 20 Mg PO DAILY Start taking on 03/18/18 Medical Compression Elastic Stockings 1 Mis Mis Ea .XX DIRECTED Where on left lower extremity when walking. Reported Xanax (Alprazolam) 0.25 Mg Tab 0.25 Mg PO Q4H PRN Remeron (Mirtazapine) 30 Mg Tab 30 Mg PO HS Wellbutrin Xl 24 HR (Bupropion HCl) 300 Mg Tab 150 Mg PO BID Adderall (Amphetamine-Dextroamphetamine) 30 Mg Tab 30 Mg PO BID Avoid late evening doses. Space doses at least 4 to 6 hours if more than once/day dosing. Review of Systems Except as stated in HPI: all other systems reviewed are Neg Eyes: No: Blurred Vision HENT: No: Headaches Cardiovascular: No: Chest Pain or Discomfort Respiratory: No: Shortness of Breath Gastrointestinal: No: Nausea, Abdominal Pain Neurologic: No: Weakness, Dizziness Physical Exam Narrative GENERAL: Well-developed, well-nourished, intoxicated appearing female. Presenting in no acute distress. SKIN: Warm and dry. HEAD: Atraumatic. Normocephalic. EYES: Pupils equal and round. No scleral icterus. No injection or drainage. ENT: No nasal bleeding or discharge. Mucous membranes pink and moist. NECK: Trachea midline. No JVD. CARDIOVASCULAR: Regular rate and rhythm. RESPIRATORY: No accessory muscle use. Clear to auscultation. Breath sounds equal bilaterally. GASTROINTESTINAL: Abdomen soft, non-tender, nondistended. Hepatic and splenic margins not palpable. MUSCULOSKELETAL: Extremities without clubbing, cyanosis, or edema. No obvious deformities. NEUROLOGICAL: Awake and alert. No obvious cranial nerve deficits. Motor grossly within normal limits. Five out of 5 muscle strength in the arms and legs. Normal speech. P Data Data Last Documented VS Vital Signs Date Time Temp Pulse Resp B/P (MAP) Pulse Ox O2 Delivery O2 Flow Rate FiO2 04/09/18 23:47 97.9 70 14 101/62 (75) 97 Orders Orders Ed Urine Pregnancytest Poc (04/09/18 23:46) Ct Brain W/O Iv Contrast(Rout) (04/10/18 ) Ct Cerv Spine W/O Contrast (04/10/18 ) Naloxone Inj (Narcan Inj) (04/10/18 00:30) Ed Discharge Order (04/10/18 01:14) Naloxone Inj (Narcan Inj) (04/10/18 02:45) Sodium Chlor 0.9% 1000 Ml Inj (Ns 1000 M (04/10/18 02:45) MDM Medical Decision Making Medical Screen Exam Complete: Yes Emergency Medical Condition: Yes Interpretation(s) Last Impressions Head CT 04/10/18 0000 Signed Impressions: CONCLUSION: Negative study.No bleed or other acute intracranial abnormality. Cervical Spine CT 04/10/18 0000 Signed Impressions: CONCLUSION: 1. No fracture or subluxation of the cervical spine. 2. Degenerative changes at C5/C6 and C6/C7 as above. Vital Signs Date Time Temp Pulse Resp B/P (MAP) Pulse Ox O2 Delivery O2 Flow Rate FiO2 04/09/18 23:47 97.9 70 14 101/62 (75) 97 Differential Diagnosis Contusion versus concussion versus hemorrhage versus fracture versus overdose versus other Narrative Course Patient is 42-year-old female presenting in police custody for medical clearance after falling off a bench in nursing home. Patient appears intoxicated, she injected heroin several hours prior to arrival. Her vital signs are stable, CT scans ordered and pending. Urine is negative, Narcan 2 mg IM [address] scan of the brain and cervical spines are negative for acute abnormality. Patient will be discharged to law enforcement. Patient to return to emergency department for any new or worsening symptoms. Patient stable for discharge. Law enforcement officers cannot take patient back to nursing home as she cannot demonstrate safe ambulation. Patient will be kept in the emergency department until she can ambulate safely. She was given a liter of IV fluids as well as a second dose of Narcan. Her vital signs remained stable. Diagnosis Primary Impression: Fall Qualified Codes: W19.XXXA - Unspecified fall, initial encounter Additional Impression: Head injury, unspecified Referrals: Primary Care Physician Patient Instructions: General Instructions, Head Injury (ED) Additional Instructions: Follow-up with a primary doctor Return to emergency department for any new or worsening symptoms Do not do drugs Med/Other Pt SpecificInfo: No Change to Meds Disposition: [address] [employer] ENFORCEMNT Condition: Stable Kathleen Chou April 10, 2018 00:28
[2018-04-10] MEDS ORDERED: NALOXONE HCL 2 MG/2 ML VIAL IM ONE (00:30)
--- NOTE | 2018-04-10 01:00 | RADRPT ---
EXAM DATE: 04/10/2018 12:51 AM EDT AGE/SEX: 42 years / Female INDICATIONS: Trauma. Fall. CLINICAL DATA: This is the patient's initial encounter. Patient reports that signs and symptoms have been present for 1 day and indicates a pain score of Nonresponsive. MEDICAL/SURGICAL HISTORY: Cardiovascular disease. Hepatitis C. Deep venous thrombosis. Subst ance abuse None. RADIATION DOSE: 13.64 CTDI (mGy) COMPARISON: No prior [facility] exams available for comparison. TECHNIQUE: Contiguous axial images were obtained using helical multirow detector technique. The vol umetric data was post-processed with multiplanar reconstruction in oblique axial, sagittal, and coron al planes. Using automated exposure control and adjustment of the mA and/or kV according to patient s ize, radiation dose was kept as low as reasonably achievable to obtain optimal diagnostic quality melina ges. FINDINGS: Vertebrae: Normal vertebral body height. Alignment: Normal. No subluxation. C2-3: The bony spinal canal is normal in size. No evidence of disc bulge or herniation. The neural foramina are bilaterally patent. C3-4: The bony spinal canal is normal in size. No evidence of disc bulge or herniation. The neural foramina are bilaterally patent. C4-5: The bony spinal canal is normal in size. No evidence of disc bulge or herniation. The neural foramina are bilaterally patent. C5-6: Moderate disc space narrowing with small, broad posterior disc osteophyte complex and left gre ater than right uncovertebral and facet osteoarthritis. There is mild left foraminal stenosis. C6-7: Severe disc space narrowing with small to moderate broad disc osteophyte complex and left grea ter than right uncovertebral and facet osteoarthritis. There is mild right and moderate left foramina l stenosis. C7-T1: The bony spinal canal is normal in size. No evidence of disc bulge or herniation. The neura l foramina are bilaterally patent. CONCLUSION: 1. No fracture or subluxation of the cervical spine. 2. Degenerative changes at C5/C6 and C6/C7 as above. Electronically signed by: Gus Lawton MD 04/10/2018 12:59 AM EDT
--- NOTE | 2018-04-10 01:01 | RADRPT ---
EXAM DATE: 04/10/2018 12:49 AM EDT AGE/SEX: 42 years / Female INDICATIONS: Trauma. Fall. CLINICAL DATA: This is the patient's initial encounter. Patient reports that signs and symptoms have been present for 1 day and indicates a pain score of Nonresponsive. MEDICAL/SURGICAL HISTORY: Cardiovascular disease. Hepatitis C. Deep venous thrombosis. Substance abuse None. RADIATION DOSE: 56.34 CTDI (mGy) COMPARISON: [facility] [place], [place] CERVICAL SPINE W/O CONTRAST, 04/10/2018. . TECHNIQUE: CT of the head without contrast. Using automated exposure control and adjustment of the mA and/or kV according to patient size, radiation dose was kept as low as reasonably achievable to ob tain optimal diagnostic quality images. FINDINGS: Cerebrum: The ventricles are normal for age. No evidence of midline shift, mass lesion, hemorrhage or acute infarction. No extraaxial fluid collections are seen. Posterior Fossa: The cerebellum and brainstem are intact. The 4th ventricle is midline. The cerebe llopontine angle is unremarkable. Extracranial: The visualized portion of the orbits is intact. Skull: The calvaria is intact. No evidence of skull fracture. CONCLUSION: Negative study.No bleed or other acute intracranial abnormality. Electronically signed by: Gus Lawton MD 04/10/2018 1:00 AM EDT
[2018-04-10] MEDS ORDERED: NALOXONE HCL 0.4 MG/ML AMP IV PUSH PRN (02:45)
[2018-04-10] MEDS ORDERED: SODIUM CHLOR 0.9% 1000 ML INJ 1,000 ML IV ONE (02:45)
[2018-04-10 07:38] VITALS: BP 102/55
== END 2018-04-10 07:40 ==
LOC: NEPD 23:37
DX: S09.90XA Unspecified injury of head, initial encounter (principal); W07.XXXA Fall from chair, initial encounter
CPT/HCPCS: 70450; 72125; 84703; 96372; 96374; 99284; J2310; J7030

== ENCOUNTER 2018-07-10 20:31 | Inpatient (IN) ==
[2018-07-10] MEDS ORDERED: Ketorolac Inj 30 MG/ML (IVP) Vial IV.PUSH ONE (20:57)
[2018-07-10] MEDS ORDERED: Sod Chloride 0.9% Inj 1,000 ML IV.SIG SCH (21:00)
--- NOTE | 2018-07-10 21:20 | ED ---
HPI General Chief complaint: Extremity Problem,Nontraumatic Stated complaint: leg pain Time Seen by Provider: 07/10/18 20:41 Source: patient Mode of arrival: EMS Limitations: no limitations History of Present Illness HPI Narrative: The patient is a 42-year-old female who presents to the emergency department for left lower extremity edema, swelling, warmth, and pain. The patient has a history of prior DVT and infected blood clot in the left lower extremity. The patient states she was recently in custodial for 74 days and was on Coumadin. The patient was discharged 2 weeks ago and prescribed 3 days of Coumadin and advised to follow-up with a primary physician. The patient states she does not have the monetary funds or insurance to follow-up with a primary physician and has been off of her Coumadin for the last 10-11 days. The patient now complains of increasing swelling to left lower extremity and now notes redness, warmth, and increasing pain to the left leg. She also complains of subjective fevers. Symptoms are moderate. There are no current alleviating factors. The patient was brought in by EMS under police custody as she had a warrant out for her arrest. MD Complaint: extremity pain and extremity swelling Onset (ago): week(s) Pain Consistency: constant Location: left Severity scale (1-10): 7 Quality: aching Radiation: proximal Relieving factors: nothing Exacerbating factors: weight bearing, walking and palpation Associated symptoms: fever Context: history of DVT Related Data Home Medications Medication Instructions Recorded Confirmed alprazolam [Xanax] 2 mg PO BID 07/10/18 07/10/18 bupropion HCl [Wellbutrin XL] 150 mg PO QAM 07/10/18 07/10/18 dextroamphetamine-amphetamine 30 mg PO DAILY 07/10/18 07/10/18 [Adderall] Allergies Allergy/AdvReac Type Severity Reaction Status Date / Time penicillin G Allergy Mild rash Verified 07/10/18 20:39 Review of Systems ROS: all other systems reviewed are negative [facility] Medical History Medical History Panic (Acute) ADHD (Acute) Depression (Acute) Social History Social History Substance History: Past History Smoking Status: Heavy tobacco smoker Tobacco Type: Cigarettes How Often Do You Have a Drink Containing Alcohol: Never Recent Travel in [place] within the Last 8 Weeks: No Recent Out of Country Travel within the Last 8 Weeks: No Substance Abuse Detail Heroin: Route Used Substance Abuse: Intravenously Reason for Use: Calm Down and Get High Immunization History Tetanus Immunization: <5 Years Hx Influenza Vaccine This Season: Yes Exam Narrative Exam Narrative: GENERAL: Awake, alert, 42-year-old female who appears older than her stated age and has an unkempt appearance. SKIN: Focused skin assessment warm/dry. HEAD: Atraumatic. Normocephalic. EYES: Pupils equal and round. No scleral icterus. No injection or drainage. ENT: No nasal bleeding or discharge. Mucous membranes pink and moist. NECK: Trachea midline. No JVD. CARDIOVASCULAR: Regular rate and rhythm. No murmur appreciated. Heart rate in the 90s per RESPIRATORY: No accessory muscle use. Clear to auscultation. Breath sounds equal bilaterally. GASTROINTESTINAL: Abdomen soft, non-tender, nondistended. MUSCULOSKELETAL: The left lower extremity is swollen when compared to the right. Patient has pitting edema and erythema from just inferior to the knee extending all the way down to the toes. Positive left dorsalis pedal pulse. Positive calor. Tenderness over the posterior aspect of the left calf. NEUROLOGICAL: Awake and alert. No obvious cranial nerve deficits. Motor grossly within normal limits. Normal speech. Nonfocal. Oriented 4. PSYCHIATRIC: Appropriate mood and affect; insight and judgment normal. Course Consultations Consultation #1: I discussed the patient with Dr. Torres who agrees with 23 hour observation. Time: 22:38 Initial Documented Vital Signs Temperature 98.1 F 07/10/18 20:40 Pulse Rate 94 H 07/10/18 20:40 Respiratory Rate 18 07/10/18 20:40 Blood Pressure 124/82 07/10/18 20:40 Pulse Oximetry 100 07/10/18 20:40 Last Documented Vital Signs Temperature 98.1 F 07/10/18 20:40 Pulse Rate 94 H 07/10/18 20:40 Respiratory Rate 18 07/10/18 20:40 Blood Pressure 124/82 07/10/18 20:40 Pulse Oximetry 100 07/10/18 20:40 Medical Decision Making [facility] Narrative Medical decision making narrative: IV was established, labs are drawn and sent, and the patient was placed on cardiac telemetry monitoring and continuous pulse oximetry monitoring. Blood culture and lactic acid were sent to lab. Ultrasound of the left lower extremity was ordered. The patient was administered Toradol 30 mg intravenously for pain. Ultrasound is positive for left lower extremity DVT with both occlusive and nonocclusive segments involving the femoral, popliteal, and peroneal deep veins. Patient also has significant left inguinal lymphadenopathy. The patient will be treated for cellulitis with clindamycin, will be 23 hour observation until blood cultures are obtained. The patient was placed on Xarelto 15 mg. The on-call medical service was paged for admission. Medical Screen Exam Complete: Yes Emergency Medical Condition: Yes Differential Diagnosis Differential Diagnosis: Differential diagnosis includes DVT, thrombophlebitis, infected blood clot, cellulitis, pitting edema, lymphedema, hypoalbuminemia, noncompliance. Lab Data Result diagrams: 07/10/18 21:05 07/10/18 21:05 Lab Results 07/10/18 07/10/18 07/10/18 Range/Units 21:05 21:05 21:11 WBC 7.3 (4.0-11.0) th/mm3 RBC 3.77 L (4.00-5.30) mil/mm3 Hgb 11.6 (11.6-15.3) gm/dL Hct 33.4 L (35.0-46.0) % MCV 88.6 (80.0-100.0) fL MCH 30.8 (27.0-34.0) pg MCHC 34.8 (32.0-36.0) % RDW 16.8 (11.6-17.2) % Plt Count 249 (150-450) th/mm3 MPV 8.1 (7.0-11.0) fL Neut % (Auto) 69.9 (16.0-70.0) % Lymph % (Auto) 21.3 (9.0-44.0) % [place] % (Auto) 7.6 (0.0-8.0) % Eos % (Auto) 0.9 (0.0-4.0) % Baso % (Auto) 0.3 (0.0-2.0) % Neut # (Auto) 5.1 (1.8-7.7) th/mm3 Lymph # (Auto) 1.6 (1.0-4.8) th/mm3 [place] # (Auto) 0.6 (0.0-0.9) th/mm3 Eos # (Auto) 0.1 (0.0-0.4) th/mm3 Baso # (Auto) 0.0 (0.0-0.2) th/mm3 WBC Differential . Differential Comment Auto diff final PT 10.5 (9.8-11.6) sec INR 1.0 Ratio APTT 31.5 H (24.3-30.1) sec Lactic Acid 1.0 (0.4-2.0) mmol/L Imaging Data Radiologist's impression: Venous Doppler Study 07/10/18 20:56 CONCLUSION: 1. Left lower extremity DVT with both occlusive and nonocclusive segments involving the femoral, popliteal and peroneal deep veins 2. Inguinal lymphadenopathy Discharge Plan Discharge Disposition Patient Disposition: 30 Still Patient Discharge Condition Condition: Stable Discharge Details Diagnosis: Deep vein thrombosis of lower extremity, Cellulitis, Inguinal lymphadenopathy Physicians Team ED Provider: Lamonet Reddy Primary Care Provider: UNKNOWN, Rxs /Orders / Referrals /Forms Prescriptions: No Action dextroamphetamine-amphetamine [Adderall] 30 mg Tablet 30 mg PO DAILY RF: 0 alprazolam [Xanax] 2 mg Tablet 2 mg PO BID RF: 0 bupropion HCl [Wellbutrin XL] 150 mg Tablet Extended Release 24 Hr 150 mg PO QAM RF: 0 Status ED Status: Pending Admission
--- NOTE | 2018-07-10 21:43 | US ---
EXAM DATE: 07/10/2018 9:25 PM EDT AGE/SEX: 42 years / Female INDICATIONS: Left leg swelling. CLINICAL DATA: This is the patient's initial encounter. Patient reports that signs and symptoms have been present for 1 week and indicates a pain score of 3/10. MEDICAL/SURGICAL HISTORY: . ADHD. Depression. Panic. None. COMPARISON: [facility] [place] LEG BILATERAL VENOUS DOPPLER, 03/22/2018. . TECHNIQUE: Venous ultrasound of both lower extremities was performed from the inguinal ligament to t he proximal calf. Real-time, color Doppler and spectral tracing, compression and augmentation techni ques were used. FINDINGS: Intraluminal thrombus is identified in the superficial femoral vein, popliteal vein and pe roneal vein with both nonocclusive and occlusive segments. Enlarged lymph node is identified in the inguinal region measuring 3.9 x 2.4 x 1.2 cm CONCLUSION: 1. Left lower extremity DVT with both occlusive and nonocclusive segments involving the femoral, pop liteal and peroneal deep veins 2. Inguinal lymphadenopathy Electronically signed by: Jorge A Wall MD 07/10/2018 9:42 PM EDT
[2018-07-10] MEDS ORDERED: Rivaroxaban 20 MG Tablet PO ONE (21:48)
[2018-07-10] MEDS ORDERED: Rivaroxaban 15 MG Tablet PO ONE (21:49)
[2018-07-10 22:11] LABS: Baso % (Auto) 0.3 % (0.0-2.0); Eos # (Auto) 0.1 th/mm3 (0.0-0.4); Eos % (Auto) 0.9 % (0.0-4.0); Hematocrit 33.4 % (35.0-46.0); Hemoglobin 11.6 gm/dL (11.6-15.3); Lymph # (Auto) 1.6 th/mm3 (1.0-4.8); Lymph % (Auto) 21.3 % (9.0-44.0); Mean Corpuscular HGB Conc 34.8 % (32.0-36.0); Mean Corpuscular Hemoglobin 30.8 pg (27.0-34.0); Mean Corpuscular Volume 88.6 fL (80.0-100.0); Mean Platelet Volume 8.1 fL (7.0-11.0); Mono # (Auto) 0.6 th/mm3 (0.0-0.9); Mono % (Auto) 7.6 % (0.0-8.0); Neut # (Auto) 5.1 th/mm3 (1.8-7.7); Neut % (Auto) 69.9 % (16.0-70.0); Platelet Count 249 th/mm3 (150-450); Red Blood Count 3.77 mil/mm3 (4.00-5.30); Red Cell Distribution Width 16.8 % (11.6-17.2); White Blood Count 7.3 th/mm3 (4.0-11.0)
[2018-07-10] MEDS ORDERED: Clindamycin 600 mg/NS Premix 600 MG/50 ML PIGGYBACK IV.SIG ONE (22:17)
[2018-07-10 22:25] LABS: Activated Partial Thrombo Time 31.5 sec (24.3-30.1); Prothrombin Time 10.5 sec (9.8-11.6)
[2018-07-10 22:45] LABS: Alanine Aminotransferase 27 U/L (10-53); Albumin 3.4 g/dL (3.4-5.0); Alkaline Phosphatase 71 U/L (45-117); Anion Gap 11 meq/L (5-15); Aspartate Aminotransferase 33 U/L (15-37); Blood Urea Nitrogen 11 mg/dL (7-18); Calcium 8.4 mg/dL (8.5-10.1); Carbon Dioxide 25.6 meq/L (21.0-32.0); Chloride 98 meq/L (98-107); Glomerular Filtration Rate 70 mL/min (>89); Glucose,Random 82 mg/dL (74-106); Sodium 135 meq/L (136-145); Total Protein 8.3 g/dL (6.4-8.2)
[2018-07-10] MEDS ORDERED: Bisacodyl 10 MG Supp RECTAL PRN (22:51)
[2018-07-10] MEDS ORDERED: Acetaminophen 325 MG Tablet PO PRN (22:51)
--- NOTE | 2018-07-10 22:53 | P.HPIM ---
History of Present Illness Primary Care Physician: UNKNOWN History of Present Illness: This is a 42-year-old female with a PMH of Anxiety, Depression, ADHD, IVDU, h/o Endocarditis and h/o DVT who was brought to the ER under Police custody for eval of left leg swelling and redness. Notes h/o LLE DVT in August 2017, states she was recently incarcerated and had been restarted on Coumadin while in care home, released 2wks ago but has not had outpatient follow up for continuation of anticoagulation. Brought in by Police today as pt had warrant out for her arrest. Reports severe left leg pain, 10/10, constant, worse w/ movement. Subjective fever/chills. Notes h/o "infected clots" in the past. On arrival, BP 124/82, HR 94, O2 sat 100% on RA, Afebrile. WBC normal. INR 1.0. K+ 2.6. LLE Doppler w/ DVT, both occlusive and nonocclusive segments involving femoral, popliteal and peroneal deep veins, inguinal lymphadenopathy 3.9 x 2.4 x 1.2 cm. S/p Clinda IV and Xarelto in ER. - Diagnosis (1) DVT (deep venous thrombosis) (2) Cellulitis (3) Hypokalemia Review of Systems PAST FAMILY HISTORY: Reviewed. No h/o DM or CAD All other systems reviewed negative except as stated in HPI PMFSH - History History Provided By: Patient - Medical History Medical History: Medical History (Last Updated 07/10/18 @ 20:50 by Beatriz Mohamud) Panic (Acute) ADHD (Acute) Depression (Acute) - Tobacco History Tobacco Use In Past 30 Days: Yes Smoking Status: Heavy tobacco smoker Tobacco Type: Cigarettes - Alcohol History How Often Do You Have a Drink Containing Alcohol: Never - Substance Use History Substance History: Past History - Substance Use Type Heroin Route Used: Intravenously Reason for Use: Calm Down, Get High - Travel History Recent Travel in the [place] Within the Last 8 Weeks: No Recent Travel Out of the Country Within the Last 8 Weeks: No - Immunization History Tetanus Immunization: <5 Years Hx Influenza Vaccine This Season: Yes Medications and Allergies Active Medications: Active Medications Acetaminophen (Tylenol) 650 mg PO Q4H PRN PRN Reason: Temp > 100.4 Sodium Chloride (Ns Inj) 1,000 mls @ 0 mls/hr IV.SIG BOLUS FIORDALIZA Last Admin: 07/10/18 22:17 Dose: 1,000 mls/hr Non-Formulary Medication (Alprazolam [Xanax]) 2 mg PO BID FIORDALZIA Allergies Allergy/AdvReac Type Severity Reaction Status Date / Time penicillin G Allergy Mild rash Verified 07/10/18 20:39 Home Medications Medication Instructions Recorded Confirmed Type alprazolam [Xanax] 2 mg PO BID 07/10/18 07/10/18 History bupropion HCl [Wellbutrin XL] 150 mg PO QAM 07/10/18 07/10/18 History dextroamphetamine-amphetamine 30 mg PO DAILY 07/10/18 07/10/18 History [Adderall] Exam Vital signs: Vital Signs 07/10/18 20:40 Temperature 98.1 F Pulse Rate 94 H Respiratory Rate 18 Blood Pressure 124/82 Pulse Oximetry 100 Intake & Output 07/10/18 07/10/18 07/11/18 06:59 18:59 06:59 Weight 142 kg Narrative: PE: GENERAL: Young white female in mild distress due to pain complaints, tearful. Officer at bedside. HEENT: PERRLA, EOMI. No scleral icterus or conjunctival pallor. No lid lag or facial droop. CARDIOVASCULAR: Regular rate and rhythm. No obvious murmurs to auscultation. No chest tenderness to palpation. RESPIRATORY: No obvious rhonchi or wheezing. Clear to auscultation. Breath sounds equal bilaterally. GASTROINTESTINAL: Abdomen soft, non-tender, nondistended. BS normal. MUSCULOSKELETAL: Extremities without clubbing, cyanosis. LLE w/ edema/erythema, +warmth. NEUROLOGICAL: Awake, alert and oriented x4. No focal neurologic deficits. Moving both upper and lower extremities spontaneously. Results - Labs CBC & Chem 7: 07/10/18 21:05 07/10/18 21:05 Labs: Short CBC 07/10/18 Range/Units 21:05 WBC 7.3 (4.0-11.0) th/mm3 Hgb 11.6 (11.6-15.3) gm/dL Hct 33.4 L (35.0-46.0) % Plt Count 249 (150-450) th/mm3 - Imaging Impressions Venous Doppler Study 07/10/18 20:56 CONCLUSION: 1. Left lower extremity DVT with both occlusive and nonocclusive segments involving the femoral, popliteal and peroneal deep veins 2. Inguinal lymphadenopathy Caprini VTE Risk Assessment Caprini VTE Risk Assessment: Moderate/High Risk (score >= 2) Caprini Risk Assessment Model: Point Value = 1 Point Value = 2 Point Value = 3 Point Value = 5 Age 41-60 Minor surgery BMI > 25 kg/m2 Swollen legs Varicose veins or History of unexplained or recurrent spontaneous Oral contraceptives or hormone replacement Sepsis (< 1 month) Serious lung disease, including pneumonia (< 1 month) Abnormal pulmonary function Acute myocardial infarction Congestive heart failure (< 1 month) History of inflammatory bowel disease Medical patient at bed rest Age 61-74 Arthroscopic surgery Major open surgery (> 45 min) Laparoscopic surgery (> 45 min) Malignancy Confined to bed (> 72 hours) Immobilizing plaster cast Central venous access Age >= 75 History of VTE Family history of VTE Factor V Leiden Prothrombin [id number] Lupus anticoagulant Anticardiolipin antibodies Elevated serum homocysteine Heparin-induced thrombocytopenia Other congenital or acquired thrombophilia Stroke (< 1 month) Elective arthroplasty Hip, pelvis, or leg fracture Acute spinal cord injury (< 1 month) Prophylaxis Regimen: Total Risk Factor Score Risk Level Prophylaxis Regimen 0-1 Low Early ambulation 2 Moderate Order ONE of the following: *Sequential Compression Device (SCD) *Heparin 5000 units SQ BID 3-4 Higher Order ONE of the following medications: *Heparin 5000 units SQ TID *Enoxaparin/Lovenox 40 mg SQ daily (WT < 150 kg, CrCl > 30 mL/min) *Enoxaparin/Lovenox 30 mg SQ daily (WT < 150 kg, CrCl > 10-29 mL/min) *Enoxaparin/Lovenox 30 mg SQ BID (WT < 150 kg, CrCl > 30 mL/min) AND/OR *Sequential Compression Device (SCD) 5 or more Highest Order ONE of the following medications: *Heparin 5000 units SQ TID (Preferred with Epidurals) *Enoxaparin/Lovenox 40 mg SQ daily (WT < 150 kg, CrCl > 30 mL/min) *Enoxaparin/Lovenox 30 mg SQ daily (WT < 150 kg, CrCl > 10-29 mL/min) *Enoxaparin/Lovenox 30 mg SQ BID (WT < 150 kg, CrCl > 30 mL/min) AND *Sequential Compression Device (SCD) Assessment and Plan - Assessment (1) DVT (deep venous thrombosis) Code(s): I82.409 - Acute embolism and thrombosis of unspecified deep veins of unspecified lower extremity Status: Acute (2) Cellulitis Code(s): L03.90 - Cellulitis, unspecified Status: Acute (3) Hypokalemia Code(s): E87.6 - Hypokalemia Status: Acute - Plan A/P: 1. DVT: Recurrent. H/o DVT, previously on Coumadin, off anticoagulation as no follow up, LLE Doppler w/ DVT, occlusive and non-occlusive, unclear if acute or acute on chronic. S/p Xarelto, will continue w/ anticoagulation. 2. Cellulitis: h/o infected DVT in the past, +erythema/edema +lymphadenopathy , h/o MRSA, s/p Clinda in ER, will continue w/ IV Abx, repeat labs in am 3. Hypokalemia: K+ 2.6, will replace and recheck labs 4. DVT Prophylaxis: Mechanical contraindication due to cellulitis/DVT 5. Social work for d/c planning as needed 6. Case discussed w/ ER physician at length, labs/records/imaging reviewed by me.
[2018-07-10 22:56] LABS: Potassium 2.6 meq/L (3.5-5.1)
[2018-07-11 07:02] LABS: Baso % (Auto) 0.3 % (0.0-2.0); Eos # (Auto) 0.1 th/mm3 (0.0-0.4); Eos % (Auto) 2.3 % (0.0-4.0); Hematocrit 34.5 % (35.0-46.0); Hemoglobin 11.6 gm/dL (11.6-15.3); Lymph # (Auto) 1.8 th/mm3 (1.0-4.8); Lymph % (Auto) 32.3 % (9.0-44.0); Mean Corpuscular HGB Conc 33.6 % (32.0-36.0); Mean Corpuscular Hemoglobin 30.8 pg (27.0-34.0); Mean Corpuscular Volume 91.7 fL (80.0-100.0); Mean Platelet Volume 7.7 fL (7.0-11.0); Mono # (Auto) 0.6 th/mm3 (0.0-0.9); Mono % (Auto) 10.2 % (0.0-8.0); Neut # (Auto) 3.1 th/mm3 (1.8-7.7); Neut % (Auto) 54.9 % (16.0-70.0); Platelet Count 249 th/mm3 (150-450); Red Blood Count 3.76 mil/mm3 (4.00-5.30); Red Cell Distribution Width 16.9 % (11.6-17.2); White Blood Count 5.7 th/mm3 (4.0-11.0)
[2018-07-11 07:33] LABS: Alanine Aminotransferase 27 U/L (10-53); Albumin 2.9 g/dL (3.4-5.0); Alkaline Phosphatase 66 U/L (45-117); Anion Gap 11 meq/L (5-15); Aspartate Aminotransferase 34 U/L (15-37); Blood Urea Nitrogen 8 mg/dL (7-18); Calcium 8.6 mg/dL (8.5-10.1); Carbon Dioxide 24.9 meq/L (21.0-32.0); Chloride 104 meq/L (98-107); Glomerular Filtration Rate Greater Than 89 mL/min (>89); Glucose,Random 76 mg/dL (74-106); Potassium 3.7 meq/L (3.5-5.1); Sodium 140 meq/L (136-145); Total Protein 7.9 g/dL (6.4-8.2)
[2018-07-11] MEDS: Clindamycin 900 mg/NS Premix 900 MG/50 ML PIGGYBACK IV.SIG SCH ×3 (07:50→22:54)
[2018-07-11] MEDS: Senna/Docusate Sodium 8.6/50 MG Tablet PO SCH ×2 (09:00→22:58)
[2018-07-11] MEDS: Rivaroxaban 15 MG Tablet PO SCH ×2 (09:00→22:58)
[2018-07-11] MEDS: buPROPion 150 MG 12 HR Tablet PO SCH (09:00)
[2018-07-11] MEDS: Sod Chloride 0.9% Inj 1,000 ML IV.CONT SCH ×3 (09:53→22:57)
[2018-07-11] MEDS: Amphetamine/Dextroamphetamine 30 MG Tablet PO SCH (11:16)
--- NOTE | 2018-07-11 11:32 | P.PN ---
Subjective Interval history: Follow-up for left lower extremity DVT and cellulitis. Patient reports is not feeling well today. She reports feeling hot and fatigued. No documented fevers overnight. She denies any chest pain but is reporting some shortness of breath. She states she just does not feel like herself. She has continued extensive left lower extremity swelling with overlying erythema and warmth, minimally improved compared to yesterday. She complains of pain throughout the left lower extremity. She states she was recently incarcerated for over 70 days and has remained clean of IV drugs. The patient also reports that she was unresponsive a few nights ago and her roommate had to perform sternal rub to awaken her. She is unaware she had any CPR performed, however she states her friend said that her heart stopped. She denies any cardiac history. She adamantly denies any drug use other than taking her prescribed Xanax prior to the episode. She has no other medical complaints at this time. Physical Exam Vital signs: Vital Signs 07/10/18 20:40 07/11/18 00:22 07/11/18 00:42 Temperature 98.1 F 97.6 F Pulse Rate 94 H 68 66 Respiratory Rate 18 18 18 Blood Pressure 124/82 93/55 L 97/50 L Pulse Oximetry 100 100 100 07/11/18 04:00 07/11/18 07:38 Temperature 97.5 F L 97.8 F Pulse Rate 68 65 Respiratory Rate 18 16 Blood Pressure 90/55 L 101/61 Pulse Oximetry 100 99 Intake & Output 07/10/18 07/11/18 07/11/18 18:59 06:59 18:59 Intake Total 1240 / 1240 100 / 100 Balance 1240 / 1240 100 / 100 Weight 142 kg Intake: IV 1000 / 1000 100 / 100 Cleocin 600 mg/NS Premix 600 mg 50 / 50 In 50 ml @ 100 mls/hr IV.SIG ONCE ONE Rx#:[id number] Cleocin 900 mg/NS Premix 900 mg 50 / 50 In 50 ml @ 100 mls/hr IV.SIG Q8H FIORDALIZA Rx#:[id number] NS Inj 1,000 ML @ Wide Open IV. 1000 / 1000 SIG BOLUS FIORDALIZA Rx#:[id number] Oral 240 / 240 Other: # Voids 1 Narrative: GENERAL: Well-nourished, well-developed middle-aged female patient in NAD. SKIN: Warm and dry. No rash. HEENT: Normocephalic. Atraumatic. Pupils equal and round. Mucous membranes pink and moist. NECK: Supple. Trachea midline. CARDIOVASCULAR: Regular rate and rhythm. No murmur appreciated. RESPIRATORY: No accessory muscle use. Clear to auscultation. Breath sounds equal bilaterally. GASTROINTESTINAL: Abdomen soft, non-tender, nondistended. Normoactive bowel sounds x4. MUSCULOSKELETAL: No obvious deformities. RLE with no edema/erythema. LLE with extensive 3+ edema from toes to distal knee, with overlying erythema/warmth, diffusely TTP. Dorsal left foot with small healing wounds. NEUROLOGICAL: Awake and alert. No obvious cranial nerve deficits. Motor grossly within normal limits. Moving all extremities spontaneously. Normal speech. PSYCHIATRIC: Anxious mood, tearful; insight and judgment normal. Results - Labs CBC & Chem 7: 07/11/18 06:20 07/11/18 06:20 Laboratory Results - last 24 hr 07/10/18 07/10/18 07/10/18 21:05 21:05 21:05 WBC 7.3 RBC 3.77 L Hgb 11.6 Hct 33.4 L MCV 88.6 MCH 30.8 MCHC 34.8 RDW 16.8 Plt Count 249 MPV 8.1 Neut % (Auto) 69.9 Lymph % (Auto) 21.3 [place] % (Auto) 7.6 Eos % (Auto) 0.9 Baso % (Auto) 0.3 Neut # (Auto) 5.1 Lymph # (Auto) 1.6 [place] # (Auto) 0.6 Eos # (Auto) 0.1 Baso # (Auto) 0.0 WBC Differential . Differential Comment Auto diff final PT 10.5 INR 1.0 APTT 31.5 H Sodium 135 L Potassium 2.6 L* Chloride 98 Carbon Dioxide 25.6 Anion Gap 11 BUN 11 Creatinine 0.88 Estimated GFR 70 L Random Glucose 82 Lactic Acid Calcium 8.4 L Total Bilirubin 1.7 H AST 33 ALT 27 Alkaline Phosphatase 71 Total Protein 8.3 H Albumin 3.4 07/10/18 07/11/18 07/11/18 21:11 06:20 06:20 WBC 5.7 RBC 3.76 L Hgb 11.6 Hct 34.5 L MCV 91.7 MCH 30.8 MCHC 33.6 RDW 16.9 Plt Count 249 MPV 7.7 Neut % (Auto) 54.9 Lymph % (Auto) 32.3 [place] % (Auto) 10.2 H Eos % (Auto) 2.3 Baso % (Auto) 0.3 Neut # (Auto) 3.1 Lymph # (Auto) 1.8 [place] # (Auto) 0.6 Eos # (Auto) 0.1 Baso # (Auto) 0.0 WBC Differential . Differential Comment Auto diff final PT INR APTT Sodium 140 Potassium 3.7 D Chloride 104 Carbon Dioxide 24.9 Anion Gap 11 BUN 8 Creatinine 0.71 Estimated GFR Greater than 89 Random Glucose 76 Lactic Acid 1.0 Calcium 8.6 Total Bilirubin 1.5 H AST 34 ALT 27 Alkaline Phosphatase 66 Total Protein 7.9 Albumin 2.9 L Microbiology 07/10/18 21:05 Blood - Peripheral Aerobic Blood Culture - Preliminary No growth in 1 day 07/10/18 21:05 Blood - Peripheral Anaerobic Blood Culture - Preliminary No growth in 1 day 07/10/18 21:11 Blood - Peripheral Aerobic Blood Culture - Preliminary No growth in 1 day 07/10/18 21:11 Blood - Peripheral Anaerobic Blood Culture - Preliminary No growth in 1 day - Imaging Impressions Venous Doppler Study 07/10/18 20:56 CONCLUSION: 1. Left lower extremity DVT with both occlusive and nonocclusive segments involving the femoral, popliteal and peroneal deep veins 2. Inguinal lymphadenopathy Assessment and Plan - Assessment (1) DVT (deep venous thrombosis) Code(s): I82.409 - Acute embolism and thrombosis of unspecified deep veins of unspecified lower extremity Status: Acute (2) Cellulitis Code(s): L03.90 - Cellulitis, unspecified Status: Acute (3) Hypokalemia Code(s): E87.6 - Hypokalemia Status: Acute - Plan 42-year-old female with a PMH of Anxiety, Depression, ADHD, IVDU, h/o bacteremia and h/o DVT who was brought to the ER under Police custody for eval of left leg swelling and redness Acute Recurrent DVT LLE: H/o DVT, previously on Coumadin, off anticoagulation as no follow up -Doppler U/S reviewed, shows LLE DVT with both occlusive and nonocclusive segments involving the femoral, popliteal and peroneal deep veins; Inguinal lymphadenopathy -Started on Xarelto 15mg bid [id number], then 20mg daily -Elevate LLE -Monitor for improvement Acute LLE Cellulitis: h/o infected DVT in the past, +erythema/edema + lymphadenopathy, h/o MRSA. -EMR reviewed, previous culture with MRSA, sensitive to clinda -Will give IV clindamycin 900mg q8h -Monitor blood cultures -Pain control with IV Toradol prn -Consult Infectious Disease, patient known to Dr. Badillo Hypokalemia: K+ 2.6 -Give po KCl replacement -Repeat K 3.7, resolved Anxiety/Depression/ADHD: acute on chronic -continue home medications Hx of IVDU: chronic, patient reports being clean for at least 2 months while incarcerated -Check UDS -Counseled on continuing cessation DVT Prophylaxis: On Xarelto. Mechanical contraindication due to cellulitis/DVT Discharge Planning: Discharge pending further clinical improvement, blood cultures, and evaluation/ clearance from infectious disease.
--- NOTE | 2018-07-11 14:38 | MB ---
cc: Angel Renee MD DATE: 07/11/2018 REQUESTING PHYSICIAN: DANNY Singleton REASON FOR CONSULTATION: Recurrent extensive left lower extremity cellulitis with deep venous thrombosis. HISTORY OF PRESENT ILLNESS: This is a 42-year-old white female who developed marked swelling of her left leg 3 days ago. The patient states that the night prior, she passed out and her friend evaluated her and she had no pulse and the friend did CPR and she recovered. The next morning she woke up and she noted that her leg was more swollen and red and she had difficulty walking. She also notes through the night, she was having fever and chills. She was evaluated in the emergency department and she had a normal temperature and normal white blood cell count. The patient has a history of deep venous thrombosis and was on Coumadin. She had not taken Coumadin for 2 weeks before presenting. Venous Doppler study showed left lower extremity deep venous thrombosis with both occlusive and nonocclusive segments involving the femoral, popliteal and peroneal deep veins and also inguinal lymphadenopathy. Because of the erythema and cellulitis, this consultation is requested for infectious disease management. The patient has been afebrile since evaluation here yesterday. PAST MEDICAL HISTORY: Deep venous thrombosis of the left lower extremity, ADHD, depression, panic disorder, history of IV drug use. ALLERGIES: PENICILLIN G. MEDICATIONS: Xanax, Adderall, Wellbutrin, clindamycin, Xarelto, Candy-Colace. SOCIAL HISTORY: Positive tobacco use, denies alcohol use, denies current IV drug use. She has a history of IV drugs in the past. FAMILY HISTORY: Noncontributory. REVIEW OF SYSTEMS: Significant for pain in the left leg and fatigue as well as fatigue and fever. PHYSICAL EXAMINATION: GENERAL: She is a slender female who appears chronically ill. She is very somnolent currently. VITAL SIGNS: Temperature 98.0, BP 99/50, respirations 16, heart rate 79. HEENT: The head reveals several superficial bruises including the nasal bridge and the cheeks. Extraocular movements grossly intact. Pupils reactive to light. No icterus. Oropharynx: Moist mucosa. Very poor dentition with several erosions of teeth. NECK: Supple without adenopathy. LUNGS: Clear breath sounds bilaterally. HEART: Regular S1, S2, without murmurs, rubs or gallops. ABDOMEN: Bowel sounds present. Soft, no tenderness appreciated. RECTAL: Not performed. EXTREMITIES: The left leg has marked erythema and swelling from the knee down to the foot involving the entire foot. The erythema is confluent and the leg is very warm and very swollen. Approximately 3+ edema. The patient has a tiny scabbed area at the distal dorsum of the foot. No drainage. No visible lesions between the toes. The other extremities have no clubbing, cyanosis or edema. SKIN: No diffuse rash. NEUROLOGIC: Nonfocal. PSYCHIATRIC: The patient is calm and cooperative. LABORATORY DATA: WBC 5.7, platelets 249, hemoglobin 11.6 with 54% neutrophils, 32% lymphocytes. Creatinine 0.71, BUN 8, sodium 140. Estimated GFR 89. AST 44, ALT 27. IMPRESSION: 1. Cellulitis of the left leg. 2. Deep venous thrombosis of the left leg. RECOMMENDATIONS: 1. Continue with clindamycin for now. 2. Monitor blood cultures. 3. Monitor the leg for response. The patient is afebrile and has normal white blood cell count and therefore, these parameters are currently not helpful and probably indicate that she does not have sepsis. Thank you for this consultation. Angel Renee MD FFAlexander/leilani , 02:12 PM , 02:25 PM
[2018-07-11] MEDS: Ketorolac Inj 30 MG/ML (IVP) Vial IV.PUSH PRN (17:18)
[2018-07-12 01:10] LABS: Amphetamine Screen,Urine Pos (Neg); Barbiturate Screen,Urine Neg (Neg); Cannabinoid Screen,Urine Pos (Neg); Cocaine Screen,Urine Neg (Neg)
[2018-07-12 01:12] LABS: Opiate Screen,Urine Pos (Neg)
[2018-07-12 05:17] LABS: Baso % (Auto) 0.3 % (0.0-2.0); Eos # (Auto) 0.1 th/mm3 (0.0-0.4); Eos % (Auto) 2.9 % (0.0-4.0); Hematocrit 28.7 % (35.0-46.0); Hemoglobin 9.8 gm/dL (11.6-15.3); Lymph # (Auto) 1.3 th/mm3 (1.0-4.8); Lymph % (Auto) 38.2 % (9.0-44.0); Mean Corpuscular Volume 90.9 fL (80.0-100.0); Mean Platelet Volume 7.7 fL (7.0-11.0); Mono # (Auto) 0.3 th/mm3 (0.0-0.9); Mono % (Auto) 8.8 % (0.0-8.0); Neut # (Auto) 1.7 th/mm3 (1.8-7.7); Neut % (Auto) 49.8 % (16.0-70.0); Platelet Count 244 th/mm3 (150-450); Red Blood Count 3.16 mil/mm3 (4.00-5.30); Red Cell Distribution Width 16.7 % (11.6-17.2); White Blood Count 3.5 th/mm3 (4.0-11.0)
[2018-07-12 05:34] LABS: Anion Gap 10 meq/L (5-15); Blood Urea Nitrogen 9 mg/dL (7-18); Calcium 7.7 mg/dL (8.5-10.1); Carbon Dioxide 24.1 meq/L (21.0-32.0); Chloride 110 meq/L (98-107); Glomerular Filtration Rate Greater Than 89 mL/min (>89); Glucose,Random 86 mg/dL (74-106); Potassium 3.4 meq/L (3.5-5.1); Sodium 144 meq/L (136-145)
[2018-07-12] MEDS: Sod Chloride 0.9% Inj 1,000 ML IV.CONT SCH ×2 (06:32→18:35)
[2018-07-12] MEDS: Clindamycin 900 mg/NS Premix 900 MG/50 ML PIGGYBACK IV.SIG SCH ×3 (06:33→22:13)
[2018-07-12] MEDS: Amphetamine/Dextroamphetamine 30 MG Tablet PO SCH (09:44)
[2018-07-12] MEDS: Rivaroxaban 15 MG Tablet PO SCH ×2 (09:44→22:13)
[2018-07-12] MEDS: buPROPion 150 MG 12 HR Tablet PO SCH (09:45)
[2018-07-12] MEDS: Senna/Docusate Sodium 8.6/50 MG Tablet PO SCH ×2 (09:45→22:13)
--- NOTE | 2018-07-12 10:38 | P.PN ---
Subjective Interval history: Follow-up for left lower extremity DVT and cellulitis. Patient reports is not feeling well today. States she still has pain left lower extremity. States it feels heavy. Otherwise, denies SOB/ dyspnea. Denies chest pain, palpitations , headaches, dizziness. Denies fevers, chills, n/v/d. Denies dysuria. Physical Exam Vital signs: Vital Signs 07/11/18 11:58 07/11/18 13:00 07/11/18 16:00 Temperature 98.0 F 97.6 F Pulse Rate 81 79 78 Respiratory Rate 16 16 Blood Pressure 99/58 L 113/71 Pulse Oximetry 99 98 07/11/18 20:00 07/12/18 00:00 07/12/18 07:57 Temperature 98.2 F 97.9 F Pulse Rate 85 76 82 Respiratory Rate 17 16 Blood Pressure 102/69 102/68 Pulse Oximetry 100 99 07/12/18 08:00 Temperature 97.7 F Pulse Rate 74 Respiratory Rate 18 Blood Pressure 102/62 Pulse Oximetry 98 Intake & Output 07/11/18 07/12/18 07/12/18 18:59 06:59 18:59 Intake Total 200 / 200 2049 50 / 50 Balance 200 / 200 2049 50 / 50 Weight 142 kg Intake: IV 150 / 150 2049 50 / 50 NS Inj 1,000 ML @ 100 mls/hr IV 1999 / 1999 .CONT .Q10H [facility] Rx#:[id number] Cleocin 600 mg/NS Premix 600 mg 50 / 50 In 50 ml @ 100 mls/hr IV.SIG ONCE ONE Rx#:[id number] Cleocin 900 mg/NS Premix 900 mg 100 / 100 50 / 50 50 / 50 In 50 ml @ 100 mls/hr IV.SIG Q8H [facility] Rx#:[id number] Oral 50 / 50 Other: # Voids 2 Date of Last Bowel Movement 07/11/18 Narrative: GENERAL: This is a well-nourished, well-developed patient, in no apparent distress. SKIN: Warm and dry HEENT: Normocephalic. Pupils equal round and reactive. Nose without bleeding. Airway patent. NECK: Trachea midline. CARDIOVASCULAR: Regular rate and rhythm without murmurs, gallops, or rubs. RESPIRATORY: Diminished bases. No wheezes, rales, or rhonchi. GASTROINTESTINAL: Abdomen soft, non-tender, nondistended. Bowel Sounds normoactive x4. MUSCULOSKELETAL: Extremities without clubbing, cyanosis. RLE with no edema/ erythema. LLE with extensive 3+ edema from toes to distal knee, with overlying erythema/warmth, diffusely TTP. Dorsal left foot with small healing wounds. NEUROLOGICAL: Awake and alert. Oriented to time, place, person. No focal neuro deficit. Moves all extremities. Normal speech. Results - Labs CBC & Chem 7: 07/12/18 04:45 07/12/18 04:40 Laboratory Results - last 24 hr 07/11/18 07/12/18 07/12/18 23:10 04:40 04:45 WBC 3.5 L RBC 3.16 L Hgb 9.8 L Hct 28.7 L MCV 90.9 MCH 31.0 MCHC 34.0 RDW 16.7 Plt Count 244 MPV 7.7 Neut % (Auto) 49.8 Lymph % (Auto) 38.2 [place] % (Auto) 8.8 H Eos % (Auto) 2.9 Baso % (Auto) 0.3 Neut # (Auto) 1.7 L Lymph # (Auto) 1.3 [place] # (Auto) 0.3 Eos # (Auto) 0.1 Baso # (Auto) 0.0 WBC Differential . Differential Comment Auto diff final Sodium 144 Potassium 3.4 L Chloride 110 H Carbon Dioxide 24.1 Anion Gap 10 BUN 9 Creatinine 0.64 Estimated GFR Greater than 89 Random Glucose 86 Calcium 7.7 L D Urine Opiates Screen Pos H Ur Barbiturates Screen Neg Ur Amphetamines Screen Pos H U Benzodiazepines Scrn Pos H Urine Cocaine Screen Neg U Cannabinoids Screen Pos H Microbiology 07/10/18 21:05 Blood - Peripheral Aerobic Blood Culture - Preliminary No growth in 1 day 07/10/18 21:05 Blood - Peripheral Anaerobic Blood Culture - Preliminary No growth in 1 day 07/10/18 21:11 Blood - Peripheral Aerobic Blood Culture - Preliminary No growth in 1 day 07/10/18 21:11 Blood - Peripheral Anaerobic Blood Culture - Preliminary No growth in 1 day Assessment and Plan - Assessment (1) DVT (deep venous thrombosis) Code(s): I82.409 - Acute embolism and thrombosis of unspecified deep veins of unspecified lower extremity Status: Acute (2) Cellulitis Code(s): L03.90 - Cellulitis, unspecified Status: Acute (3) Hypokalemia Code(s): E87.6 - Hypokalemia Status: Acute - Plan 42-year-old female with a PMH of Anxiety, Depression, ADHD, IVDU, h/o bacteremia and h/o DVT who was brought to the ER under Police custody for eval of left leg swelling and redness Acute Recurrent DVT LLE: H/o DVT, previously on Coumadin, off anticoagulation as no follow up -Doppler U/S reviewed, shows LLE DVT with both occlusive and nonocclusive segments involving the femoral, popliteal and peroneal deep veins; Inguinal lymphadenopathy -on Xarelto 15mg bid [id number], then 20mg daily -Elevate LLE -Monitor for improvement Acute LLE Cellulitis: h/o infected DVT in the past, +erythema/edema + lymphadenopathy, h/o MRSA. -EMR reviewed, previous culture with MRSA, sensitive to clindamycin -IV clindamycin 900mg q8h -Pain control with IV Toradol prn -Consult Infectious Disease, patient known to Dr. Badillo. Seen by Dr. Renee. Recommends to continue IV clindamycin for now. -Blood cultures no growth to date. No leukocytosis, leukopenia present. -Follow labs. Hypokalemia: K+ 3.4 -KCL replaced -Check magnesium Anxiety/Depression/ADHD: acute on chronic -continue home medications Hx of IVDU: chronic, patient reports being clean for at least 2 months while incarcerated -Utox positive for opiates, amphetamines, benzo, cannabinoids -Counseled on continuing cessation DVT Prophylaxis: On Xarelto. Mechanical contraindication due to cellulitis/DVT Code Status: Patient, nursing Discussed Condition With: Patient, nurse Discharge Planning: DC when clinically improved, cleared by ID.
[2018-07-12] MEDS ORDERED: Mag Sulf 1 gm/100 ml Premix 100 ML IV.SIG ONE (14:08)
--- NOTE | 2018-07-12 15:03 | P.PNID ---
Subjective Remarks: Patient notes burning pain in the left leg. Afebrile. No other complaints except for mild shortness of breath. This is a 42-year-old white female who developed marked swelling of her left leg 3 days ago. The patient states that the night prior, she passed out and her friend evaluated her and she had no pulse and the friend did CPR and she recovered. The next morning she woke up and she noted that her leg was more swollen and red and she had difficulty walking. She also notes through the night, she was having fever and chills. She was evaluated in the emergency department and she had a normal temperature and normal white blood cell count. The patient has a history of deep venous thrombosis and was on Coumadin. She had not taken Coumadin for 2 weeks before presenting. Venous Doppler study showed left lower extremity deep venous thrombosis with both occlusive and nonocclusive segments involving the femoral, popliteal and peroneal deep veins and also inguinal lymphadenopathy. Consultation requested for cellulitis. Antibiotics: Clindamycin. Past Medical History: PAST MEDICAL HISTORY: Deep venous thrombosis of the left lower extremity, ADHD, depression, panic disorder, history of IV drug use. Allergies/Adverse Reactions: Allergies penicillin G Allergy (Mild, Verified 07/10/18 20:39) rash patient has taken Keflex in the past without any problem Objective Vital Signs 07/11/18 16:00 07/11/18 20:00 07/12/18 00:00 Temperature 97.6 F 98.2 F 97.9 F Pulse Rate 78 85 76 Respiratory Rate 16 17 16 Blood Pressure 113/71 102/69 102/68 Pulse Oximetry 98 100 99 07/12/18 07:57 07/12/18 08:00 07/12/18 12:00 Temperature 97.7 F 98.7 F Pulse Rate 82 74 84 Respiratory Rate 18 18 Blood Pressure 102/62 112/75 Pulse Oximetry 98 98 Intake & Output 07/11/18 07/12/18 07/12/18 18:59 06:59 18:59 Intake Total 200 / 200 2049 50 / 50 Balance 200 / 200 2049 50 / 50 Weight 142 kg Intake: IV 150 / 150 2049 50 / 50 NS Inj 1,000 ML @ 100 mls/hr IV 1999 / 1999 .CONT .Q10H [facility] Rx#:[id number] Cleocin 600 mg/NS Premix 600 mg 50 / 50 In 50 ml @ 100 mls/hr IV.SIG ONCE ONE Rx#:[id number] Cleocin 900 mg/NS Premix 900 mg 100 / 100 50 / 50 50 / 50 In 50 ml @ 100 mls/hr IV.SIG Q8H [facility] Rx#:[id number] Oral 50 / 50 Other: # Voids 2 Date of Last Bowel Movement 07/11/18 07/10/18 21:05 Blood - Peripheral Aerobic Blood Culture - Preliminary No growth in 2 days 07/10/18 21:05 Blood - Peripheral Anaerobic Blood Culture - Preliminary No growth in 2 days 07/10/18 21:11 Blood - Peripheral Aerobic Blood Culture - Preliminary No growth in 2 days 07/10/18 21:11 Blood - Peripheral Anaerobic Blood Culture - Preliminary No growth in 2 days Lab - Hematology Results 07/10/18 07/11/18 07/12/18 21:05 06:20 04:45 WBC 7.3 5.7 3.5 L RBC 3.77 L 3.76 L 3.16 L Hgb 11.6 11.6 9.8 L Hct 33.4 L 34.5 L 28.7 L MCV 88.6 91.7 90.9 MCH 30.8 30.8 31.0 MCHC 34.8 33.6 34.0 RDW 16.8 16.9 16.7 Plt Count 249 249 244 MPV 8.1 7.7 7.7 Neut % (Auto) 69.9 54.9 49.8 Lymph % (Auto) 21.3 32.3 38.2 [place] % (Auto) 7.6 10.2 H 8.8 H Eos % (Auto) 0.9 2.3 2.9 Baso % (Auto) 0.3 0.3 0.3 Neut # (Auto) 5.1 3.1 1.7 L Lymph # (Auto) 1.6 1.8 1.3 [place] # (Auto) 0.6 0.6 0.3 Eos # (Auto) 0.1 0.1 0.1 Baso # (Auto) 0.0 0.0 0.0 WBC Differential . . . Differential Comment Auto diff final Auto diff final Auto diff final Lab - Chemistry Results 07/10/18 07/10/18 07/11/18 21:05 21:11 06:20 Sodium 135 L 140 Potassium 2.6 L* 3.7 D Chloride 98 104 Carbon Dioxide 25.6 24.9 Anion Gap 11 11 BUN 11 8 Creatinine 0.88 0.71 Estimated GFR 70 L Greater than 89 Random Glucose 82 76 Lactic Acid 1.0 Calcium 8.4 L 8.6 Magnesium Total Bilirubin 1.7 H 1.5 H AST 33 34 ALT 27 27 Alkaline Phosphatase 71 66 Total Protein 8.3 H 7.9 Albumin 3.4 2.9 L 07/12/18 07/12/18 04:40 04:40 Sodium 144 Potassium 3.4 L Chloride 110 H Carbon Dioxide 24.1 Anion Gap 10 BUN 9 Creatinine 0.64 Estimated GFR Greater than 89 Random Glucose 86 Lactic Acid Calcium 7.7 L D Magnesium 1.9 Total Bilirubin AST ALT Alkaline Phosphatase Total Protein Albumin Imaging: ITS Impressions Venous Doppler Study 07/10/18 20:56 CONCLUSION: 1. Left lower extremity DVT with both occlusive and nonocclusive segments involving the femoral, popliteal and peroneal deep veins 2. Inguinal lymphadenopathy Physical Exam: PHYSICAL EXAMINATION: GENERAL: No acute distress. HEENT: The head reveals several superficial bruises including the nasal bridge and the cheeks. Extraocular movements grossly intact. Pupils reactive to light. No icterus. Oropharynx: Moist mucosa. Very poor dentition with several erosions of teeth. NECK: Supple without adenopathy. LUNGS: Clear breath sounds. HEART: Regular S1, S2, without murmurs, rubs or gallops. ABDOMEN: Bowel sounds present. Soft, no tenderness appreciated. EXTREMITIES: The left leg erythema and warmth has improved. Edema is decreased. Still warm and tender. SKIN: No diffuse rash. NEUROLOGIC: Nonfocal. PSYCHIATRIC: The patient is calm and cooperative. Assessment and Plan - Plan IMPRESSION: 1. Cellulitis of the left leg. Improving. 2. Deep venous thrombosis of the left leg. RECOMMENDATIONS: 1. Continue with clindamycin. 2. Monitor blood cultures. 3. Monitor the leg for response.
[2018-07-13] MEDS: Sod Chloride 0.9% Inj 1,000 ML IV.CONT SCH ×2 (03:32→15:32)
[2018-07-13] MEDS: Clindamycin 900 mg/NS Premix 900 MG/50 ML PIGGYBACK IV.SIG SCH ×2 (05:08→15:33)
[2018-07-13] MEDS: Senna/Docusate Sodium 8.6/50 MG Tablet PO SCH (09:33)
[2018-07-13] MEDS: Rivaroxaban 15 MG Tablet PO SCH (09:33)
[2018-07-13] MEDS: buPROPion 150 MG 12 HR Tablet PO SCH (09:33)
[2018-07-13] MEDS: Amphetamine/Dextroamphetamine 30 MG Tablet PO SCH (10:53)
--- NOTE | 2018-07-13 13:53 | P.PN ---
Subjective Interval history: Follow-up for left lower extremity DVT and cellulitis. Patient reports is not feeling well today. States pain in LLE improving, swelling is improved. Otherwise, denies SOB/ dyspnea. Denies chest pain, palpitations, headaches, dizziness. Denies fevers, chills, n/v/d. Denies dysuria. Physical Exam Vital signs: Vital Signs 07/12/18 14:50 07/12/18 16:00 07/12/18 20:00 Temperature 98.5 F 98.4 F Pulse Rate 80 77 84 Respiratory Rate 17 16 Blood Pressure 103/66 123/74 Pulse Oximetry 98 07/13/18 00:00 07/13/18 04:00 07/13/18 08:00 Temperature 98.3 F 98.3 F 97.8 F Pulse Rate 74 70 69 Respiratory Rate 17 16 16 Blood Pressure 125/79 126/71 115/69 Pulse Oximetry 97 98 96 07/13/18 12:00 Temperature 97.8 F Pulse Rate 66 Respiratory Rate 16 Blood Pressure 144/77 H Pulse Oximetry 100 Intake & Output 07/12/18 07/13/18 07/13/18 18:59 06:59 18:59 Intake Total 1100 / 1100 1850 / 1850 Balance 1100 / 1100 1850 / 1850 Weight 58.967 kg Intake: IV 1050 / 1050 1300 / 1300 NS Inj 1,000 ML @ 100 mls/hr IV 1000 / 1000 1000 / 1000 .CONT .Q10H [facility] Rx#:[id number] Cleocin 900 mg/NS Premix 900 mg 50 / 50 200 / 200 In 50 ml @ 100 mls/hr IV.SIG Q8H [facility] Rx#:[id number] Magnesium Sulfate 1 gm/D5W 100 100 / 100 ml Premix 100 ML @ 100 mls/hr IV.SIG ONCE ONE Rx#:[id number] Oral 50 / 50 550 / 550 Other: # Voids 2 2 Date of Last Bowel Movement 07/11/18 Narrative: GENERAL: This is a well-nourished, well-developed patient, in no apparent distress. SKIN: Warm and dry HEENT: Normocephalic. Pupils equal round and reactive. Nose without bleeding. Airway patent. NECK: Trachea midline. CARDIOVASCULAR: Regular rate and rhythm without murmurs, gallops, or rubs. RESPIRATORY: Diminished bases. No wheezes, rales, or rhonchi. GASTROINTESTINAL: Abdomen soft, non-tender, nondistended. Bowel Sounds normoactive x4. MUSCULOSKELETAL: Extremities without clubbing, cyanosis. RLE with no edema/ erythema. LLE with extensive 1+ edema from toes to distal knee, with overlying erythema/warmth, diffusely TTP. Dorsal left foot with small healing wounds. NEUROLOGICAL: Awake and alert. Oriented to time, place, person. No focal neuro deficit. Moves all extremities. Normal speech. Results - Labs CBC & Chem 7: 07/12/18 04:45 07/12/18 04:40 Laboratory Results - last 24 hr 07/12/18 04:40 Magnesium 1.9 Microbiology 07/10/18 21:05 Blood - Peripheral Aerobic Blood Culture - Preliminary No growth in 3 days 07/10/18 21:05 Blood - Peripheral Anaerobic Blood Culture - Preliminary No growth in 3 days 07/10/18 21:11 Blood - Peripheral Aerobic Blood Culture - Preliminary No growth in 3 days 07/10/18 21:11 Blood - Peripheral Anaerobic Blood Culture - Preliminary No growth in 3 days Assessment and Plan - Assessment (1) DVT (deep venous thrombosis) Code(s): I82.409 - Acute embolism and thrombosis of unspecified deep veins of unspecified lower extremity Status: Acute (2) Cellulitis Code(s): L03.90 - Cellulitis, unspecified Status: Acute (3) Hypokalemia Code(s): E87.6 - Hypokalemia Status: Acute - Plan 42-year-old female with a PMH of Anxiety, Depression, ADHD, IVDU, h/o bacteremia and h/o DVT who was brought to the ER under Police custody for eval of left leg swelling and redness Acute Recurrent DVT LLE: H/o DVT, previously on Coumadin, off anticoagulation as no follow up -Doppler U/S reviewed, shows LLE DVT with both occlusive and nonocclusive segments involving the femoral, popliteal and peroneal deep veins; Inguinal lymphadenopathy -on Xarelto 15mg bid [id number], then 20mg daily -Elevate LLE -Monitor for improvement Acute LLE Cellulitis: h/o infected DVT in the past, +erythema/edema + lymphadenopathy, h/o MRSA. -EMR reviewed, previous culture with MRSA, sensitive to clindamycin -IV clindamycin 900mg q8h, will switch to PO -Pain control with IV Toradol prn -Consult Infectious Disease, seen by Dr. Renee. IV clindamycin switch to PO as per ID -Blood cultures no growth to date. No leukocytosis, leukopenia present Hypokalemia: K+ 3.4 -KCL replaced -Check magnesium Anxiety/Depression/ADHD: acute on chronic -continue home medications -[facility] Prescription Drug Monitoring Database has been queried and verified prior to prescribing the controlled substance. Hx of IVDU: chronic, patient reports being clean for at least 2 months while incarcerated -Utox positive for opiates, amphetamines, benzo, cannabinoids -Counseled on continuing cessation DVT Prophylaxis: On Xarelto. Mechanical contraindication due to cellulitis/DVT Code Status: Full code Discussed Condition With: Patient, nursing, Dr. Soni, Dr. Renee Discharge Planning: Plan to DC home tomorrow.
--- NOTE | 2018-07-13 14:54 | P.PNID ---
Subjective Remarks: Patient reports pain in the left leg is more achy. He is able to move her legs better including traction extension at the left ankle. Afebrile. Appears comfortable and does not look short of breath. 42-year-old white female who developed marked swelling of her left leg 3 days ago. The patient states that the night prior, she passed out and her friend evaluated her and she had no pulse and the friend did CPR and she recovered. The next morning she woke up and she noted that her leg was more swollen and red and she had difficulty walking. She also notes through the night, she was having fever and chills. She was evaluated in the emergency department and she had a normal temperature and normal white blood cell count. The patient has a history of deep venous thrombosis and was on Coumadin. She had not taken Coumadin for 2 weeks before presenting. Venous Doppler study showed left lower extremity deep venous thrombosis with both occlusive and nonocclusive segments involving the femoral, popliteal and peroneal deep veins and also inguinal lymphadenopathy. Consultation requested for cellulitis. Antibiotics: Clindamycin. Past Medical History: PAST MEDICAL HISTORY: Deep venous thrombosis of the left lower extremity, ADHD, depression, panic disorder, history of IV drug use. Allergies/Adverse Reactions: Allergies penicillin G Allergy (Mild, Verified 07/10/18 20:39) rash patient has taken Keflex in the past without any problem Objective Vital Signs 07/12/18 16:00 07/12/18 20:00 07/13/18 00:00 Temperature 98.5 F 98.4 F 98.3 F Pulse Rate 77 84 74 Respiratory Rate 17 16 17 Blood Pressure 103/66 123/74 125/79 Pulse Oximetry 98 97 07/13/18 04:00 07/13/18 08:00 07/13/18 12:00 Temperature 98.3 F 97.8 F 97.8 F Pulse Rate 70 69 66 Respiratory Rate 16 16 16 Blood Pressure 126/71 115/69 144/77 H Pulse Oximetry 98 96 100 Intake & Output 07/12/18 07/13/18 07/13/18 18:59 06:59 18:59 Intake Total 1100 / 1100 1850 / 1850 Balance 1100 / 1100 1850 / 1850 Weight 58.967 kg Intake: IV 1050 / 1050 1300 / 1300 NS Inj 1,000 ML @ 100 mls/hr IV 1000 / 1000 1000 / 1000 .CONT .Q10H [facility] Rx#:[id number] Cleocin 900 mg/NS Premix 900 mg 50 / 50 200 / 200 In 50 ml @ 100 mls/hr IV.SIG Q8H [facility] Rx#:[id number] Magnesium Sulfate 1 gm/D5W 100 100 / 100 ml Premix 100 ML @ 100 mls/hr IV.SIG ONCE ONE Rx#:[id number] Oral 50 / 50 550 / 550 Other: # Voids 2 2 Date of Last Bowel Movement 07/11/18 07/10/18 21:05 Blood - Peripheral Aerobic Blood Culture - Preliminary No growth in 3 days 07/10/18 21:05 Blood - Peripheral Anaerobic Blood Culture - Preliminary No growth in 3 days 07/10/18 21:11 Blood - Peripheral Aerobic Blood Culture - Preliminary No growth in 3 days 07/10/18 21:11 Blood - Peripheral Anaerobic Blood Culture - Preliminary No growth in 3 days Lab - Hematology Results 07/12/18 04:45 WBC 3.5 L RBC 3.16 L Hgb 9.8 L Hct 28.7 L MCV 90.9 MCH 31.0 MCHC 34.0 RDW 16.7 Plt Count 244 MPV 7.7 Neut % (Auto) 49.8 Lymph % (Auto) 38.2 [place] % (Auto) 8.8 H Eos % (Auto) 2.9 Baso % (Auto) 0.3 Neut # (Auto) 1.7 L Lymph # (Auto) 1.3 [place] # (Auto) 0.3 Eos # (Auto) 0.1 Baso # (Auto) 0.0 WBC Differential . Differential Comment Auto diff final Lab - Chemistry Results 07/12/18 07/12/18 04:40 04:40 Sodium 144 Potassium 3.4 L Chloride 110 H Carbon Dioxide 24.1 Anion Gap 10 BUN 9 Creatinine 0.64 Estimated GFR Greater than 89 Random Glucose 86 Calcium 7.7 L D Magnesium 1.9 Imaging: ITS Impressions Venous Doppler Study 07/10/18 20:56 CONCLUSION: 1. Left lower extremity DVT with both occlusive and nonocclusive segments involving the femoral, popliteal and peroneal deep veins 2. Inguinal lymphadenopathy Physical Exam: PHYSICAL EXAMINATION: GENERAL: No acute distress. HEENT: The head reveals several superficial bruises including the nasal bridge and the cheeks. Extraocular movements grossly intact. Pupils reactive to light. No icterus. Oropharynx: Moist mucosa. Very poor dentition with several erosions of teeth. NECK: Supple without adenopathy. LUNGS: Clear breath sounds. HEART: Regular S1, S2, without murmurs, rubs or gallops. ABDOMEN: Bowel sounds present. Soft, no tenderness appreciated. EXTREMITIES: The left leg erythema is almost completely resolved. Edema is decreased. Very little warmth. pelletizer tender on palpation. SKIN: No diffuse rash. NEUROLOGIC: Nonfocal. PSYCHIATRIC: The patient is calm and cooperative. Assessment and Plan - Plan IMPRESSION: 1. Cellulitis of the left leg. Now significantly improved. 2. Deep venous thrombosis of the left leg. RECOMMENDATIONS: Continue with clindamycin. Can be switched to p.o. clindamycin 300 mg 3 times daily and complete 10 days duration from the start of treatment. I will sign off now.
[2018-07-13] MEDS: Ketorolac Inj 30 MG/ML (IVP) Vial IV.PUSH PRN (15:30)
[2018-07-14 07:42] LABS: Baso % (Auto) 0.5 % (0.0-2.0); Eos # (Auto) 0.1 th/mm3 (0.0-0.4); Eos % (Auto) 1.1 % (0.0-4.0); Hematocrit 32.5 % (35.0-46.0); Lymph # (Auto) 1.9 th/mm3 (1.0-4.8); Lymph % (Auto) 36.6 % (9.0-44.0); Mean Corpuscular Hemoglobin 30.4 pg (27.0-34.0); Mean Corpuscular Volume 89.5 fL (80.0-100.0); Mean Platelet Volume 7.6 fL (7.0-11.0); Mono # (Auto) 0.3 th/mm3 (0.0-0.9); Mono % (Auto) 6.8 % (0.0-8.0); Neut # (Auto) 2.8 th/mm3 (1.8-7.7); Platelet Count 314 th/mm3 (150-450); Red Blood Count 3.63 mil/mm3 (4.00-5.30); White Blood Count 5.1 th/mm3 (4.0-11.0)
[2018-07-14 07:44] LABS: Anion Gap 10 meq/L (5-15); Blood Urea Nitrogen 5 mg/dL (7-18); Calcium 8.5 mg/dL (8.5-10.1); Carbon Dioxide 25.3 meq/L (21.0-32.0); Chloride 107 meq/L (98-107); Glomerular Filtration Rate Greater Than 89 mL/min (>89); Glucose,Random 97 mg/dL (74-106); Potassium 3.7 meq/L (3.5-5.1); Sodium 142 meq/L (136-145)
[2018-07-14 09:21] VITALS: BP 133/65; RESP 16; TEMP 98.5; O2SAT 99
[2018-07-14] MEDS ORDERED: Rivaroxaban 15 MG Tablet PO ONE (09:30)
[2018-07-14 10:43] VITALS: PULSE 62
--- NOTE | 2018-07-14 17:06 | P.DS ---
Date of admission: 07/11/18 11:42 Primary care physician: UNKNOWN Brief History from admission: This is a 42-year-old female with a PMH of Anxiety, Depression, ADHD, IVDU, h/o Endocarditis and h/o DVT who was brought to the ER under Police custody for eval of left leg swelling and redness. Notes h/o LLE DVT in August 2017, states she was recently incarcerated and had been restarted on Coumadin while in senior living, released 2wks ago but has not had outpatient follow up for continuation of anticoagulation. Brought in by Police today as pt had warrant out for her arrest. Reports severe left leg pain, 10/10, constant, worse w/ movement. Subjective fever/chills. Notes h/o "infected clots" in the past. On arrival, BP 124/82, HR 94, O2 sat 100% on RA, Afebrile. WBC normal. INR 1.0. K+ 2.6. LLE Doppler w/ DVT, both occlusive and nonocclusive segments involving femoral, popliteal and peroneal deep veins, inguinal lymphadenopathy 3.9 x 2.4 x 1.2 cm. S/p Clinda IV and Xarelto in ER. DS: Medications - Discharge Medications Prescriptions: clindamycin HCl [Cleocin HCl] 300 mg PO Q8HR 10 Days #30 cap Lactobacillus acidophilus 500 mmu cells PO TID #30 cap rivaroxaban [Xarelto] 15 mg PO BID #60 tab DS: Summary Hospital Course: Mrs. De La Cruz is a 42 year old female. She was admitted secondary to a left leg cellulitis with complication of left lower extremity DVT. She has been started on Xarelto here. Clindamycin is provided as a treatment. She has had improvements both in the swelling related to the DVT and and the erythema and induration related to the cellulitis. At this point she has been transitioned to p.o. treatments of clindamycin and she is tolerating this well. She is medically clear and stable for discharge from this hospital with continuation of outpatient clindamycin with probiotics and Xarelto. - Time Spent with Patient Total time spent providing and/or coordinating discharge services: Less than 30 minutes - Quality: VTE Deep Vein Thrombosis/Pulmonary Embolism Present on Admission: Yes Exam Vital signs: Vital Signs 07/13/18 20:00 07/14/18 00:00 07/14/18 04:00 Temperature 97.8 F 98.3 F 98.3 F Pulse Rate 53 L 76 71 Respiratory Rate 17 18 18 Blood Pressure 143/63 H 129/81 123/67 Pulse Oximetry 99 99 100 07/14/18 08:00 Temperature 98.5 F Pulse Rate 62 Respiratory Rate 16 Blood Pressure 133/65 Pulse Oximetry 99 Intake & Output 07/13/18 07/14/18 07/14/18 18:59 06:59 18:59 Intake Total 3200 / 3200 Balance 3200 / 3200 Weight 63.2 kg Intake: IV 1000 / 1000 NS Inj 1,000 ML @ 100 mls/hr IV 1000 / 1000 .CONT .Q10H FIORDALIZA Rx#:[id number] Oral 1200 / 1200 Other 1000 / 1000 Other: # Voids 5 2 Date of Last Bowel Movement 07/11/18 Results Procedures completed during hospitalization: None Labs on day of discharge: Labs from last 24 hours 07/14/18 07/14/18 07:16 07:16 WBC 5.1 RBC 3.63 L Hgb 11.0 L Hct 32.5 L MCV 89.5 MCH 30.4 MCHC 34.0 RDW 17.0 Plt Count 314 MPV 7.6 Neut % (Auto) 55.0 Lymph % (Auto) 36.6 [place] % (Auto) 6.8 Eos % (Auto) 1.1 Baso % (Auto) 0.5 Neut # (Auto) 2.8 Lymph # (Auto) 1.9 [place] # (Auto) 0.3 Eos # (Auto) 0.1 Baso # (Auto) 0.0 WBC Differential . Differential Comment Auto diff final Sodium 142 Potassium 3.7 Chloride 107 Carbon Dioxide 25.3 Anion Gap 10 BUN 5 L Creatinine 0.65 Estimated GFR Greater than 89 Random Glucose 97 Calcium 8.5 Preliminary micro results at discharge 07/10/18 21:05 Aerobic Blood Culture - Preliminary Blood - Peripheral No growth in 4 days Anaerobic Blood Culture - Preliminary No growth in 4 days 07/10/18 21:11 Aerobic Blood Culture - Preliminary Blood - Peripheral No growth in 4 days Anaerobic Blood Culture - Preliminary No growth in 4 days - Impressions ITS Impressions Venous Doppler Study 07/10/18 20:56 CONCLUSION: 1. Left lower extremity DVT with both occlusive and nonocclusive segments involving the femoral, popliteal and peroneal deep veins 2. Inguinal lymphadenopathy Discharge Plan - Discharge Disposition Patient Disposition: 01 Discharge Home - Discharge Condition Condition: Stable - Discharge Order Discharge Orders: Discharge Order (Routine); Ordered 07/14/18 Ordered By: Geovany Jeffers - Discharge Details Anticipated Discharge Date: 07/14/18 - Physicians Team Primary Care Provider: UNKNOWN, Attending Provider: Geovany Jeffers Other Providers: Parisa Badillo MD
== END 2018-07-14 14:30 ==
LOC: NEDA 20:31 → NEPD 20:31 → NEDA 07-11 00:31 → NEPFCDU 07-11 00:35 → H7ONC 07-12 18:28 → UNDODISIN 07-13 05:15
PROVIDERS: ADMIT Hospitalist; ATTEND Hospitalist